=== PATIENT | female | born 1990 | race Caucasian/White ===

== ENCOUNTER 2022-06-26 15:05 | Inpatient (IN) | payer OTHER, SELFPAY ==
--- NOTE | ~2022-06-26 | CT_ITS ---
EXAMINATION: CT ABDOMEN AND PELVIS WITHOUT CONTRAST CLINICAL INFORMATION: Abdominal pain. Hematochezia. COMPARISON: None available. TECHNIQUE: Multidetector volumetric imaging was performed from the superior aspect of the liver through the pubic symphysis. Sagittal and coronal reformatted images were obtained on the technologist's workstation. This CT examination was performed using dose optimization techniques as appropriate, variously including the following: *Automated exposure control *Adjustment of mA and/or kV according to patient size (this includes techniques or standardized protocols for targeted exams where dose is matched to indication/reason for exam; i.e. extremities or head) *Use of iterative reconstruction technique DLP: 868 mGy-cm FINDINGS: LUNG BASES: Normal. No pulmonary consolidation or pleural effusion. LIVER: Hepatomegaly and diffuse hepatic steatosis. The right hepatic lobe measures approximately 24 cm in craniocaudal dimension. No focal liver lesion is identified on this noncontrast examination. GALLBLADDER AND BILIARY TREE: Gallbladder is underdistended and not well seen. No evidence of cholelithiasis. No dilated bile ducts. PANCREAS: Normal. No edema, pancreatic ductal dilatation or mass. SPLEEN: Splenomegaly. Spleen measures up to 14.5 cm maximum dimension. ADRENAL GLANDS: Normal. KIDNEYS AND URETERS: The kidneys have normal size and cortical thickness. No perinephric edema or fluid collection. No urolithiasis or hydroureteronephrosis. BLADDER: Normal. No calculi or wall thickening. BOWEL AND PERITONEUM: The evaluation of the gastrointestinal tract is somewhat limited on this noncontrast examination. Stomach contains ingested food debris. No gastric wall thickening or perigastric inflammatory changes. No dilated bowel loops. No pericolonic fat stranding. The appendix is normal. No abdominal free fluid or pneumoperitoneum. ABDOMINAL WALL: Large body habitus. At the level of the umbilicus, the diastases of rectus abdominis muscles is approximately 6.8 cm. There is mild protrusion of fat into the umbilicus. VASCULATURE: Unremarkable. LYMPH NODES: No pathologic sized lymph nodes in the abdomen or pelvis. No inguinal lymphadenopathy. PELVIC VISCERA: No evidence of uterine or adnexal mass. No pelvic free fluid. MUSCULOSKELETAL: No acute or suspicious osseous abnormality. There is a hemangioma of the L3 vertebral body. CT/CT abdomen pelvis wo IV con IMPRESSION: * Hepatosplenomegaly and diffuse hepatic steatosis. * No acute imaging abnormalities in the abdomen or pelvis. * No noncontrast imaging evidence of inflammatory change or obstruction along the gastrointestinal tract.
[2022-06-26 15:23] VITALS: BP 122/77; PULSE 73; RESP 16; TEMP 36.8; O2SAT 97
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
[2022-06-26 20:44] VITALS: BP 133/80; PULSE 60; RESP 16; TEMP 36.6; O2SAT 99
[2022-06-27 07:47] VITALS: RESP 18
--- NOTE | 2022-06-27 10:16 | PC.NURSE ---
Methadone was verified with Tan Grider LPN at [facility], ?[address], [place] [address] [phone]. Patient last dosed on 06/25/2022 @ 07:53 for 160 mg. Dose verified by Tan Paul LPN.
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
--- NOTE | 2022-06-27 10:40 | HE.PHANOTE ---
Re: methadone verification last dose 160 mg given at [facility] on 06/25/22 verified with Tan Grider by Chari GODINEZ
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
--- NOTE | 2022-06-27 13:30 | PC.NURSE ---
Methadone administered late due to patient requesting to take after eating lunch d/t stomach upset with methadone.
[2022-06-27] MEDS: methADONE HCl 20 MG/2 ML ORAL.CONC 160 MG PO (13:46)
[2022-06-27] MEDS: OLANZapine 10 MG TABLET PO (14:35)
[2022-06-27] MEDS: hydrOXYzine HCL 25 MG TABLET PO (14:35)
[2022-06-27 20:14] VITALS: BP 140/68; PULSE 74; RESP 16; TEMP 36.7; O2SAT 99
[2022-06-27] MEDS: Gabapentin 300 MG CAPSULE PO (20:51)
[2022-06-27] MEDS: Mirtazapine 7.5 MG TABLET PO (20:51)
[2022-06-27] MEDS: OLANZapine 5 MG TABLET PO (20:52)
[2022-06-28 07:35] VITALS: BP 131/74; PULSE 71; RESP 18; TEMP 36.2; O2SAT 96
[2022-06-28] MEDS: Nicotine 21 MG PATCH.TD24 TRANSDERMA (08:49)
[2022-06-28] MEDS: Gabapentin 300 MG CAPSULE PO ×3 (08:50→21:51)
[2022-06-28] MEDS: methADONE HCl 20 MG/2 ML ORAL.CONC 160 MG PO (08:52)
[2022-06-28] MEDS: OLANZapine 10 MG TABLET PO ×3 (11:35→21:51)
--- NOTE | 2022-06-28 15:54 | P.PNPSI_ITS ---
Subjective Subjective Date of Service: 06/28/22 Reason For Visit: 43.10, F41.9, F32.A Interim History: amenable to discussion with MD today. identifies anxiety, AH, and insomnia as target Sx. discuss various medications to address them, decides upon increasing remeron to 30 mg at HS, increasing prazosin to 2 mg at HS, and increasing gabapentin and DCing trileptal (for SAMPSON, Sz D/O, and anxiety). endorses SI and vague in answering many questions. per staff, refused 1:1 mtg last night. guarded, not attending groups. isolative, sleeping or reading. refusing meds. Mental Status Exam Mental Status Exam Narrative: disheveled. no PMA/PMR noted. cooperative. speech terse, nml loudness. thoughts linear and logical. affect blunted. mood i don't know. +SI. no HI/AVH expressed. Diagnostics Vital Signs (24Hr): Vital Signs - 24 hr 06/27/22 20:14 06/28/22 07:35 Temperature 98.0 F 97.2 F Pulse Rate 74 71 Respiratory Rate 16 18 Blood Pressure 140/68 H 131/74 Pulse Oximetry 99 96 Oxygen Delivery Method Room Air Room Air Medications Medications Current Medications Acetaminophen (Acetaminophen 325 Mg Tablet) 650 mg PO Q6H PRN PRN Reason: Headache/Pain Mild Scale (1-3) Al Hydroxide/Mg Hydroxide (Magnesium Hydrox/Alum Hydrox 30 Ml Oral.Susp) 30 ml PO Q6H PRN PRN Reason: Heartburn/Nausea Clonidine HCl (Clonidine Hcl 0.1 Mg Tablet) 0.1 mg PO BID PRN; Protocol PRN Reason: anxiety Gabapentin (Gabapentin 300 Mg Capsule) 300 mg PO TID [facility] Last Admin: 06/28/22 14:12 Dose: 300 mg Hydroxyzine HCl (Hydroxyzine Hcl 25 Mg Tablet) 25 mg PO Q6H PRN PRN Reason: Anxiety Last Admin: 06/27/22 14:35 Dose: 25 mg Magnesium Hydroxide (Milk Of Magnesia 30 Ml Oral.Susp) 30 ml PO DAILY PRN PRN Reason: Constipation Methadone HCl (Methadone Hcl 20 Mg/2 Ml Oral.Conc) 160 mg PO DAILY [facility] Last Admin: 06/28/22 08:52 Dose: 160 mg Mirtazapine (Mirtazapine 30 Mg Tablet) 30 mg PO BEDTIME [facility] Nicotine (Nicotine 21 Mg Patch.Td24) 21 mg TRANSDERMA DAILY [facility] Last Admin: 06/28/22 08:49 Dose: 21 mg Nicotine Polacrilex (Nicotine Polacrilex 2 Mg Gum) 4 mg BUCCAL Q2H PRN PRN Reason: Nicotine Cravings Olanzapine (Olanzapine 10 Mg Tablet) 10 mg PO BID PRN PRN Reason: psychosis, agitation Last Admin: 06/28/22 11:35 Dose: 10 mg Olanzapine (Olanzapine 10 Mg Tablet) 10 mg PO BEDTIME [facility] Omeprazole (Omeprazole 40 Mg Capsule.Dr) 40 mg PO DAILY@0630 [facility] Last Admin: 06/28/22 09:11 Dose: Not Given Ondansetron HCl (Ondansetron Odt 4 Mg Tab.Rapdis) 4 mg TRANSLINGU Q8H PRN PRN Reason: Nausea Prazosin HCl (Prazosin Hcl 1 Mg Capsule) 1 mg PO BEDTIME [facility]; Protocol Stop: 06/29/22 20:59 Prazosin HCl (Prazosin Hcl 1 Mg Capsule) 2 mg PO BEDTIME [facility]; Protocol Sumatriptan Succinate (Sumatriptan Succinate 50 Mg Tablet) 50 mg PO DAILY PRN PRN Reason: Migraine Headache Trazodone HCl (Trazodone Hcl 50 Mg Tablet) 50 mg PO BEDTIME MRX1 PRN PRN Reason: Insomnia Allergies Allergies Allergy/AdvReac Type Severity Reaction Status Date / Time egg AdvReac Hives Verified 06/26/22 15:47 Pork/Porcine Containing AdvReac Anaphylaxis Verified 06/26/22 15:47 Products Assessment & Plan Assessment & Plan (1) Polysubstance use disorder: Status: Acute Code(s): F19.90 - Other psychoactive substance use, unspecified, uncomplicated (2) Persistent mood [affective] disorder, unspecified: Status: Acute Code(s): F34.9 - Persistent mood [affective] disorder, unspecified Plan 06/27: continue/restart home meds regimen. 06/28: refusing wellbutrin and trileptal, so discontinued. c/o PTSD Sx, agrees to increase remeron from 7.5 to 30 and prazosin from 1 to 2 mg tonight. also to increase gabapentin to 300 TID to address migraine SAMPSON, anxiety, and reported Sz D/O. Patient educated on: diagnosis and medication risk/benefits Reason for continued inpatient stay Substantial Risk for: harm to self, inability to function and rapid decompensation Time Spent With Patient Time: Total time managing care of this patient today _35___ minutes.
[2022-06-28 21:50] VITALS: BP 122/66; PULSE 76; RESP 16; TEMP 36.3; O2SAT 96
[2022-06-28] MEDS: Mirtazapine 30 MG TABLET PO (21:51)
[2022-06-28] MEDS: Prazosin HCL 1 MG CAPSULE PO (21:51)
[2022-06-29 07:45] VITALS: BP 123/76; PULSE 81; RESP 16; TEMP 36.7; O2SAT 98
[2022-06-29] MEDS: Nicotine 21 MG PATCH.TD24 TRANSDERMA (08:27)
[2022-06-29] MEDS: Gabapentin 300 MG CAPSULE PO ×3 (08:27→21:21)
[2022-06-29] MEDS: methADONE HCl 20 MG/2 ML ORAL.CONC 160 MG PO (08:29)
[2022-06-29] MEDS: OLANZapine 10 MG TABLET PO ×3 (09:01→21:20)
--- NOTE | 2022-06-29 14:50 | P.PNPSI_ITS ---
Subjective Subjective Date of Service: 06/29/22 Reason For Visit: 43.10, F41.9, F32.A Subjective Notes: Conditional Voluntary Interim History: Pt reports hearing voices at times, male voice that she reports sometimes tells her to harm herself. She reports feeling anxious. She denies any intent to harm herself. She does report that sometimes she does not feel safe here on the unit. Per nursing, pt slept through the night. Minimal interaction with peers. She agrees to increase olanzapine at bedtime. Review of Systems Review of Systems Unable to assess full ROS as pt not agreeable to discussion. She does deny any complaints however. Mental Status Exam Mental Status Exam Narrative: disheveled. no PMA/PMR noted. cooperative. speech terse, nml loudness. thoughts linear and logical. affect blunted. mood depressed, hopeless +SI. +AH of male voice which she reports sometimes tells her to hurt herself. Diagnostics Vital Signs (24Hr): Vital Signs - 24 hr 06/28/22 21:50 06/29/22 07:45 Temperature 97.4 F 98.1 F Pulse Rate 76 81 Respiratory Rate 16 16 Blood Pressure 122/66 123/76 Pulse Oximetry 96 98 Oxygen Delivery Method Room Air Room Air Medications Medications Current Medications Acetaminophen (Acetaminophen 325 Mg Tablet) 650 mg PO Q6H PRN PRN Reason: Headache/Pain Mild Scale (1-3) Al Hydroxide/Mg Hydroxide (Magnesium Hydrox/Alum Hydrox 30 Ml Oral.Susp) 30 ml PO Q6H PRN PRN Reason: Heartburn/Nausea Clonidine HCl (Clonidine Hcl 0.1 Mg Tablet) 0.1 mg PO BID PRN; Protocol PRN Reason: anxiety Gabapentin (Gabapentin 300 Mg Capsule) 300 mg PO TID [facility] Last Admin: 06/29/22 08:27 Dose: 300 mg Hydroxyzine HCl (Hydroxyzine Hcl 25 Mg Tablet) 25 mg PO Q6H PRN PRN Reason: Anxiety Last Admin: 06/27/22 14:35 Dose: 25 mg Magnesium Hydroxide (Milk Of Magnesia 30 Ml Oral.Susp) 30 ml PO DAILY PRN PRN Reason: Constipation Methadone HCl (Methadone Hcl 20 Mg/2 Ml Oral.Conc) 160 mg PO DAILY [facility] Last Admin: 06/29/22 08:29 Dose: 160 mg Mirtazapine (Mirtazapine 30 Mg Tablet) 30 mg PO BEDTIME [facility] Last Admin: 06/28/22 21:51 Dose: 30 mg Nicotine (Nicotine 21 Mg Patch.Td24) 21 mg TRANSDERMA DAILY [facility] Last Admin: 06/29/22 08:27 Dose: 21 mg Nicotine Polacrilex (Nicotine Polacrilex 2 Mg Gum) 4 mg BUCCAL Q2H PRN PRN Reason: Nicotine Cravings Olanzapine (Olanzapine 10 Mg Tablet) 10 mg PO BID PRN PRN Reason: psychosis, agitation Last Admin: 06/29/22 09:01 Dose: 10 mg Olanzapine (Olanzapine 10 Mg Tablet) 10 mg PO BEDTIME [facility] Last Admin: 06/28/22 21:51 Dose: 10 mg Omeprazole (Omeprazole 40 Mg Capsule.Dr) 40 mg PO DAILY@0630 [facility] Last Admin: 06/29/22 08:32 Dose: Not Given Ondansetron HCl (Ondansetron Odt 4 Mg Tab.Rapdis) 4 mg TRANSLINGU Q8H PRN PRN Reason: Nausea Prazosin HCl (Prazosin Hcl 1 Mg Capsule) 1 mg PO BEDTIME [facility]; Protocol Stop: 06/29/22 20:59 Last Admin: 06/28/22 21:51 Dose: 1 mg Prazosin HCl (Prazosin Hcl 1 Mg Capsule) 2 mg PO BEDTIME [facility]; Protocol Sumatriptan Succinate (Sumatriptan Succinate 50 Mg Tablet) 50 mg PO DAILY PRN PRN Reason: Migraine Headache Trazodone HCl (Trazodone Hcl 50 Mg Tablet) 50 mg PO BEDTIME MRX1 PRN PRN Reason: Insomnia Allergies Allergies Allergy/AdvReac Type Severity Reaction Status Date / Time egg AdvReac Hives Verified 06/26/22 15:47 Pork/Porcine Containing AdvReac Anaphylaxis Verified 06/26/22 15:47 Products Assessment & Plan Assessment & Plan (1) Polysubstance use disorder: Status: Acute Code(s): F19.90 - Other psychoactive substance use, unspecified, uncomplicated (2) Persistent mood [affective] disorder, unspecified: Status: Acute Code(s): F34.9 - Persistent mood [affective] disorder, unspecified Plan 06/27: continue/restart home meds regimen. 06/28: refusing wellbutrin and trileptal, so discontinued. c/o PTSD Sx, agrees to increase remeron from 7.5 to 30 and prazosin from 1 to 2 mg tonight. also to increase gabapentin to 300 TID to address migraine SAMPSON, anxiety, and reported Sz D/O. 06/29 increase olanzapine to 15 mg po qhs. Reason for continued inpatient stay Substantial Risk for: inability to function Time Spent With Patient Time: Total time managing care of this patient today ____ minutes.
[2022-06-29] MEDS: LORazepam 1 MG TABLET 2 MG PO (14:59)
[2022-06-29 21:16] VITALS: BP 121/74; PULSE 86; RESP 18; TEMP 37; O2SAT 94
[2022-06-29] MEDS: OLANZapine 7.5 MG TABLET 15 MG PO (21:21)
[2022-06-29] MEDS: Prazosin HCL 1 MG CAPSULE 2 MG PO (21:21)
[2022-06-29] MEDS: Mirtazapine 30 MG TABLET PO (21:21)
[2022-06-30 06:00] VITALS: BP 128/82; PULSE 80; RESP 18; TEMP 36.7; O2SAT 95
[2022-06-30] MEDS: Nicotine 21 MG PATCH.TD24 TRANSDERMA (09:55)
[2022-06-30] MEDS: Omeprazole 40 MG CAPSULE.DR PO (09:55)
[2022-06-30] MEDS: Gabapentin 300 MG CAPSULE PO (09:56)
[2022-06-30] MEDS: methADONE HCl 20 MG/2 ML ORAL.CONC 160 MG PO (09:56)
[2022-06-30] MEDS: OLANZapine 10 MG TABLET PO ×2 (10:05→15:37)
[2022-06-30] MEDS: Gabapentin 300 MG CAPSULE 600 MG PO ×2 (14:48→20:53)
--- NOTE | 2022-06-30 15:27 | HO.PSYCHPN ---
Subjective Subjective Date of Service: 06/30/22 Reason For Visit: 43.10, F41.9, F32.A Interim History: calm, cooperative. rousable from lying in bed. continues to report passive SI. noted that zyprexa was increased to 15 mg QHS last night. interested in increasing gabapentin for anxiety, nerve pain, Sz. also to increase prazosin to 3 mg for insomnia/nightmares. per staff, isolative, withdrawn. some pacing. dep/anx. some SIBI. took morning meds, PRN zyprexa later. reading, sleeping. not attending groups. Mental Status Exam Mental Status Exam Narrative: disheveled. no PMA/PMR noted. cooperative. speech terse, nml loudness. thoughts linear and logical. affect blunted. +SI. no HI/AVH expressed. Diagnostics Vital Signs (24Hr): Vital Signs - 24 hr 06/29/22 21:16 06/30/22 06:00 Temperature 98.6 F 98.1 F Pulse Rate 86 80 Respiratory Rate 18 18 Blood Pressure 121/74 128/82 Pulse Oximetry 94 95 Oxygen Delivery Method Room Air Room Air Medications Medications Current Medications Acetaminophen (Acetaminophen 325 Mg Tablet) 650 mg PO Q6H PRN PRN Reason: Headache/Pain Mild Scale (1-3) Al Hydroxide/Mg Hydroxide (Magnesium Hydrox/Alum Hydrox 30 Ml Oral.Susp) 30 ml PO Q6H PRN PRN Reason: Heartburn/Nausea Clonidine HCl (Clonidine Hcl 0.1 Mg Tablet) 0.1 mg PO BID PRN; Protocol PRN Reason: anxiety Gabapentin (Gabapentin 300 Mg Capsule) 600 mg PO TID [facility] Last Admin: 06/30/22 14:48 Dose: 600 mg Hydroxyzine HCl (Hydroxyzine Hcl 25 Mg Tablet) 25 mg PO Q6H PRN PRN Reason: Anxiety Last Admin: 06/27/22 14:35 Dose: 25 mg Magnesium Hydroxide (Milk Of Magnesia 30 Ml Oral.Susp) 30 ml PO DAILY PRN PRN Reason: Constipation Methadone HCl (Methadone Hcl 20 Mg/2 Ml Oral.Conc) 160 mg PO DAILY [facility] Last Admin: 06/30/22 09:56 Dose: 160 mg Mirtazapine (Mirtazapine 30 Mg Tablet) 30 mg PO BEDTIME [facility] Last Admin: 06/29/22 21:21 Dose: 30 mg Nicotine (Nicotine 21 Mg Patch.Td24) 21 mg TRANSDERMA DAILY [facility] Last Admin: 06/30/22 09:55 Dose: 21 mg Nicotine Polacrilex (Nicotine Polacrilex 2 Mg Gum) 4 mg BUCCAL Q2H PRN PRN Reason: Nicotine Cravings Olanzapine (Olanzapine 10 Mg Tablet) 10 mg PO BID PRN PRN Reason: psychosis, agitation Last Admin: 06/30/22 10:05 Dose: 10 mg Olanzapine (Olanzapine 7.5 Mg Tablet) 15 mg PO BEDTIME [facility] Last Admin: 06/29/22 21:21 Dose: 15 mg Omeprazole (Omeprazole 40 Mg Capsule.Dr) 40 mg PO DAILY@0630 [facility] Last Admin: 06/30/22 09:55 Dose: 40 mg Ondansetron HCl (Ondansetron Odt 4 Mg Tab.Rapdis) 4 mg TRANSLINGU Q8H PRN PRN Reason: Nausea Prazosin HCl (Prazosin Hcl 1 Mg Capsule) 3 mg PO BEDTIME [facility]; Protocol Sumatriptan Succinate (Sumatriptan Succinate 50 Mg Tablet) 50 mg PO DAILY PRN PRN Reason: Migraine Headache Trazodone HCl (Trazodone Hcl 50 Mg Tablet) 50 mg PO BEDTIME MRX1 PRN PRN Reason: Insomnia Allergies Allergies Allergy/AdvReac Type Severity Reaction Status Date / Time egg AdvReac Hives Verified 06/26/22 15:47 Pork/Porcine Containing AdvReac Anaphylaxis Verified 06/26/22 15:47 Products Assessment & Plan Assessment & Plan (1) Polysubstance use disorder: Status: Acute Code(s): F19.90 - Other psychoactive substance use, unspecified, uncomplicated (2) Persistent mood [affective] disorder, unspecified: Status: Acute Code(s): F34.9 - Persistent mood [affective] disorder, unspecified Plan 06/27: continue/restart home meds regimen. 06/28: refusing wellbutrin and trileptal, so discontinued. c/o PTSD Sx, agrees to increase remeron from 7.5 to 30 and prazosin from 1 to 2 mg tonight. also to increase gabapentin to 300 TID to address migraine SAMPSON, anxiety, and reported Sz D/O. 06/29: increase olanzapine to 15 mg po qhs. 06/30: increase gabapentin to 600 TID. increase prazosin to 3 mg QHS. SI and insomnia/nightmares continue. Reason for continued inpatient stay Substantial Risk for: harm to self, inability to function and rapid decompensation Time Spent With Patient Time: Total time managing care of this patient today __25__ minutes.
[2022-06-30] MEDS: Prazosin HCL 1 MG CAPSULE 3 MG PO (20:53)
[2022-06-30] MEDS: Mirtazapine 30 MG TABLET PO (20:54)
[2022-06-30] MEDS: OLANZapine 7.5 MG TABLET 15 MG PO (20:54)
[2022-06-30 20:57] VITALS: BP 109/81; PULSE 96; TEMP 36.9; O2SAT 96
[2022-07-01 08:00] VITALS: BP 124/62; PULSE 86; RESP 18; TEMP 36.7; O2SAT 98
[2022-07-01] MEDS: Omeprazole 40 MG CAPSULE.DR PO (08:56)
[2022-07-01] MEDS: Gabapentin 300 MG CAPSULE 600 MG PO ×3 (08:56→21:02)
[2022-07-01] MEDS: methADONE HCl 20 MG/2 ML ORAL.CONC 160 MG PO (08:57)
[2022-07-01] MEDS: Nicotine 21 MG PATCH.TD24 TRANSDERMA (08:59)
--- NOTE | 2022-07-01 10:01 | HO.PSYCHPN ---
Subjective Subjective Date of Service: 07/01/22 Reason For Visit: 43.10, F41.9, F32.A Subjective Notes: Conditional Voluntary Healthcare Proxy: No Guardianship: No Medical Problems Affecting Mental Status: No Interim History: Patient was seen and discussed in rounds today. Records and plans were reviewed. No labs to review. She continues to be little hard to engage. Continues to have depression and anxiety. Sleep is broken. No groups. She is safe on the unit. She is guarded and flat. Eating and sleeping adequately. No complaints or side effects. No changes were made today. No complaints or side effects with regards to recent medication changes. Medication Compliance: Yes Side effects from medications: No Attending Groups: No Review of Systems Acute medical concerns: No Review of Systems Review of Systems Yes all other systems are reviewed and are negative Mental Status Exam Mental Status Exam Narrative: In today's visit she is alert, oriented and marginally interactive. Speech is soft-spoken. Minimal eye contact. Affect is constricted. No active SI. No overt signs of psychosis. Guarded and flat in her affect. Cognitively heart to assess today. Judgment is generally intact Diagnostics Vital Signs (24Hr): Vital Signs - 24 hr 06/30/22 20:57 Temperature 98.4 F Pulse Rate 96 Blood Pressure 109/81 Pulse Oximetry 96 Oxygen Delivery Method Room Air Medications Medications Current Medications Acetaminophen (Acetaminophen 325 Mg Tablet) 650 mg PO Q6H PRN PRN Reason: Headache/Pain Mild Scale (1-3) Al Hydroxide/Mg Hydroxide (Magnesium Hydrox/Alum Hydrox 30 Ml Oral.Susp) 30 ml PO Q6H PRN PRN Reason: Heartburn/Nausea Clonidine HCl (Clonidine Hcl 0.1 Mg Tablet) 0.1 mg PO BID PRN; Protocol PRN Reason: anxiety Gabapentin (Gabapentin 300 Mg Capsule) 600 mg PO TID [facility] Last Admin: 07/01/22 08:56 Dose: 600 mg Hydroxyzine HCl (Hydroxyzine Hcl 25 Mg Tablet) 25 mg PO Q6H PRN PRN Reason: Anxiety Last Admin: 06/27/22 14:35 Dose: 25 mg Magnesium Hydroxide (Milk Of Magnesia 30 Ml Oral.Susp) 30 ml PO DAILY PRN PRN Reason: Constipation Methadone HCl (Methadone Hcl 20 Mg/2 Ml Oral.Conc) 160 mg PO DAILY [facility] Last Admin: 07/01/22 08:57 Dose: 160 mg Mirtazapine (Mirtazapine 30 Mg Tablet) 30 mg PO BEDTIME [facility] Last Admin: 06/30/22 20:54 Dose: 30 mg Nicotine (Nicotine 21 Mg Patch.Td24) 21 mg TRANSDERMA DAILY [facility] Last Admin: 07/01/22 08:59 Dose: 21 mg Nicotine Polacrilex (Nicotine Polacrilex 2 Mg Gum) 4 mg BUCCAL Q2H PRN PRN Reason: Nicotine Cravings Olanzapine (Olanzapine 10 Mg Tablet) 10 mg PO BID PRN PRN Reason: psychosis, agitation Last Admin: 06/30/22 15:37 Dose: 10 mg Olanzapine (Olanzapine 7.5 Mg Tablet) 15 mg PO BEDTIME [facility] Last Admin: 06/30/22 20:54 Dose: 15 mg Omeprazole (Omeprazole 40 Mg Capsule.Dr) 40 mg PO DAILY@0630 [facility] Last Admin: 07/01/22 08:56 Dose: 40 mg Ondansetron HCl (Ondansetron Odt 4 Mg Tab.Rapdis) 4 mg TRANSLINGU Q8H PRN PRN Reason: Nausea Prazosin HCl (Prazosin Hcl 1 Mg Capsule) 3 mg PO BEDTIME [facility]; Protocol Last Admin: 06/30/22 20:53 Dose: 3 mg Sumatriptan Succinate (Sumatriptan Succinate 50 Mg Tablet) 50 mg PO DAILY PRN PRN Reason: Migraine Headache Trazodone HCl (Trazodone Hcl 50 Mg Tablet) 50 mg PO BEDTIME MRX1 PRN PRN Reason: Insomnia Allergies Allergies Allergy/AdvReac Type Severity Reaction Status Date / Time egg AdvReac Hives Verified 06/26/22 15:47 Pork/Porcine Containing AdvReac Anaphylaxis Verified 06/26/22 15:47 Products Assessment & Plan Assessment & Plan (1) Polysubstance use disorder: Status: Acute Code(s): F19.90 - Other psychoactive substance use, unspecified, uncomplicated (2) Persistent mood [affective] disorder, unspecified: Status: Acute Code(s): F34.9 - Persistent mood [affective] disorder, unspecified Plan 06/27: continue/restart home meds regimen. 06/28: refusing wellbutrin and trileptal, so discontinued. c/o PTSD Sx, agrees to increase remeron from 7.5 to 30 and prazosin from 1 to 2 mg tonight. also to increase gabapentin to 300 TID to address migraine SAMPSON, anxiety, and reported Sz D/O. 06/29: increase olanzapine to 15 mg po qhs. 06/30: increase gabapentin to 600 TID. increase prazosin to 3 mg QHS. SI and insomnia/nightmares continue. 07/01: Continue current regimen and plans Reason for continued inpatient stay Substantial Risk for: med/psych decompensation Time Spent With Patient Time: Total time managing care of this patient today ____ minutes.
[2022-07-01] MEDS: OLANZapine 10 MG TABLET PO ×2 (10:43→17:37)
[2022-07-01] MEDS: cloNIDine HCL 0.1 MG TABLET PO (10:43)
[2022-07-01 10:44] VITALS: BP 139/75
--- NOTE | 2022-07-01 10:54 | PC.NURSE ---
approx 103o Pt reported to staff that she felt suicidal. [employer] Vehicle [employer] went in to talk to Pt she said she felt suicidal without a plan. I asked if she could alert staff if feelings continue and agree to not self harm. Pt replied ill try she also requested Zyprexa and Clonidine. Dr. Reed aware.
--- NOTE | 2022-07-01 13:20 | PC.NURSE ---
Pt visible in milieu watching TV eating ice cream, not engaging in any self harming behaviors.
[2022-07-01] MEDS: hydrOXYzine HCL 25 MG TABLET PO (13:34)
--- NOTE | 2022-07-01 15:52 | PC.NURSE ---
Pt is visible the Milieu, talking on wall phone. No observations of self harm.
[2022-07-01 20:00] VITALS: BP 119/70; PULSE 92; RESP 16; TEMP 36.9; O2SAT 97
[2022-07-01] MEDS: OLANZapine 7.5 MG TABLET 15 MG PO (21:02)
[2022-07-01] MEDS: Mirtazapine 30 MG TABLET PO (21:02)
[2022-07-01] MEDS: Prazosin HCL 1 MG CAPSULE 3 MG PO (21:03)
--- NOTE | 2022-07-01 21:26 | PC.NURSE ---
Brenna is admitted to [facility] for safety, observation, medication reconciliation and stability, diagnosis Bipolar disorder, history SIB. Tonight she appears disheveled in hospital pants and sweat shirt, observed to be in her room lying in bed for the majority of the shift, out to dayroom for snacks, isolating, difficult to engage in 1:1, poor eye contact, reports passive SI as she stated not really when asked if she feels safe on the unit, no SIB noted or reported, med adherent, no observed or reported side effects, positive AH, no seizure activity reported or observed. No acute behavior issues, POC as outlined, continues on 15 min unit safety observation.
--- NOTE | 2022-07-02 08:20 | HO.PSYCHPN ---
Subjective Subjective Date of Service: 07/02/22 Reason For Visit: 43.10, F41.9, F32.A Subjective Notes: Conditional Voluntary Healthcare Proxy: No Guardianship: No Medical Problems Affecting Mental Status: No Interim History: Patient was seen and discussed in rounds today. Records and plans were reviewed. She continues to have some anxiety and depression and some unsafe thoughts however she is safe on the unit. Eating and sleeping adequately. Some command auditory hallucinations reported. He using food as a way of coping. She is having some nightmares. Not attending any groups. No complaints or side effects. No changes were made today Medication Compliance: Yes Side effects from medications: No Attending Groups: No Review of Systems Acute medical concerns: No Review of Systems Review of Systems Yes all other systems are reviewed and are negative Mental Status Exam Mental Status Exam Narrative: In today's visit she is alert, oriented and marginally interactive. Speech is soft-spoken. Minimal eye contact. Affect is constricted. No active SI. No overt signs of psychosis but there are reports of some command auditory hallucinations with no plans and intent.. Guarded and flat in her affect. Cognitively heart to assess today. Judgment is generally intact Diagnostics Vital Signs (24Hr): Vital Signs - 24 hr 07/01/22 10:44 07/01/22 20:00 Temperature 98.4 F Pulse Rate 92 Respiratory Rate 16 Blood Pressure 139/75 119/70 Pulse Oximetry 97 Oxygen Delivery Method Room Air Medications Medications Current Medications Acetaminophen (Acetaminophen 325 Mg Tablet) 650 mg PO Q6H PRN PRN Reason: Headache/Pain Mild Scale (1-3) Al Hydroxide/Mg Hydroxide (Magnesium Hydrox/Alum Hydrox 30 Ml Oral.Susp) 30 ml PO Q6H PRN PRN Reason: Heartburn/Nausea Clonidine HCl (Clonidine Hcl 0.1 Mg Tablet) 0.1 mg PO BID PRN; Protocol PRN Reason: anxiety Last Admin: 07/01/22 10:43 Dose: 0.1 mg Gabapentin (Gabapentin 300 Mg Capsule) 600 mg PO TID [facility] Last Admin: 07/01/22 21:02 Dose: 600 mg Hydroxyzine HCl (Hydroxyzine Hcl 25 Mg Tablet) 25 mg PO Q6H PRN PRN Reason: Anxiety Last Admin: 07/01/22 13:34 Dose: 25 mg Magnesium Hydroxide (Milk Of Magnesia 30 Ml Oral.Susp) 30 ml PO DAILY PRN PRN Reason: Constipation Methadone HCl (Methadone Hcl 20 Mg/2 Ml Oral.Conc) 160 mg PO DAILY [facility] Last Admin: 07/01/22 08:57 Dose: 160 mg Mirtazapine (Mirtazapine 30 Mg Tablet) 30 mg PO BEDTIME [facility] Last Admin: 07/01/22 21:02 Dose: 30 mg Nicotine (Nicotine 21 Mg Patch.Td24) 21 mg TRANSDERMA DAILY [facility] Last Admin: 07/01/22 08:59 Dose: 21 mg Nicotine Polacrilex (Nicotine Polacrilex 2 Mg Gum) 4 mg BUCCAL Q2H PRN PRN Reason: Nicotine Cravings Olanzapine (Olanzapine 10 Mg Tablet) 10 mg PO BID PRN PRN Reason: psychosis, agitation Last Admin: 07/01/22 17:37 Dose: 10 mg Olanzapine (Olanzapine 7.5 Mg Tablet) 15 mg PO BEDTIME [facility] Last Admin: 07/01/22 21:02 Dose: 15 mg Omeprazole (Omeprazole 40 Mg Capsule.Dr) 40 mg PO DAILY@0630 [facility] Last Admin: 07/01/22 08:56 Dose: 40 mg Ondansetron HCl (Ondansetron Odt 4 Mg Tab.Rapdis) 4 mg TRANSLINGU Q8H PRN PRN Reason: Nausea Prazosin HCl (Prazosin Hcl 1 Mg Capsule) 3 mg PO BEDTIME [facility]; Protocol Last Admin: 07/01/22 21:03 Dose: 3 mg Sumatriptan Succinate (Sumatriptan Succinate 50 Mg Tablet) 50 mg PO DAILY PRN PRN Reason: Migraine Headache Trazodone HCl (Trazodone Hcl 50 Mg Tablet) 50 mg PO BEDTIME MRX1 PRN PRN Reason: Insomnia Allergies Allergies Allergy/AdvReac Type Severity Reaction Status Date / Time egg AdvReac Hives Verified 06/26/22 15:47 Pork/Porcine Containing AdvReac Anaphylaxis Verified 06/26/22 15:47 Products Assessment & Plan Assessment & Plan (1) Polysubstance use disorder: Status: Acute Code(s): F19.90 - Other psychoactive substance use, unspecified, uncomplicated (2) Persistent mood [affective] disorder, unspecified: Status: Acute Code(s): F34.9 - Persistent mood [affective] disorder, unspecified Plan 06/27: continue/restart home meds regimen. 06/28: refusing wellbutrin and trileptal, so discontinued. c/o PTSD Sx, agrees to increase remeron from 7.5 to 30 and prazosin from 1 to 2 mg tonight. also to increase gabapentin to 300 TID to address migraine SAMPSON, anxiety, and reported Sz D/O. 06/29: increase olanzapine to 15 mg po qhs. 06/30: increase gabapentin to 600 TID. increase prazosin to 3 mg QHS. SI and insomnia/nightmares continue. 07/01: Continue current regimen and plans 07/02: Continue current plans and regimen Reason for continued inpatient stay Substantial Risk for: harm to self and med/psych decompensation Time Spent With Patient Time: Total time managing care of this patient today ____ minutes.
[2022-07-02 08:25] VITALS: BP 115/62; PULSE 80; RESP 18; TEMP 36.6; O2SAT 97
[2022-07-02] MEDS: Omeprazole 40 MG CAPSULE.DR PO (08:59)
[2022-07-02] MEDS: Nicotine 21 MG PATCH.TD24 TRANSDERMA (08:59)
[2022-07-02] MEDS: Gabapentin 300 MG CAPSULE 600 MG PO ×3 (08:59→21:13)
[2022-07-02] MEDS: methADONE HCl 20 MG/2 ML ORAL.CONC 160 MG PO (09:01)
[2022-07-02] MEDS: OLANZapine 10 MG TABLET PO ×2 (11:15→17:42)
[2022-07-02 12:41] VITALS: BP 122/67; PULSE 81; RESP 18; O2SAT 96
[2022-07-02] MEDS: cloNIDine HCL 0.1 MG TABLET PO (12:51)
[2022-07-02 20:40] VITALS: BP 104/62; PULSE 85; RESP 18; TEMP 36.8; O2SAT 97
[2022-07-02] MEDS: Mirtazapine 30 MG TABLET PO (21:12)
[2022-07-02] MEDS: Prazosin HCL 1 MG CAPSULE 3 MG PO (21:13)
[2022-07-02] MEDS: OLANZapine 7.5 MG TABLET 15 MG PO (21:13)
--- NOTE | 2022-07-03 05:13 | PC.NURSE ---
Brenna was noted to be resting in bed throughout the evening. her affect is flat and depressed. she endorses depression and anxiety 8/. she endorses suicidal ideation but states she is safe on the unit because there's nothing here I could hurt myself with well, I guess if I tried hard enough I could find something but I wont. she endorses [facility] telling her to hurt herself and saying other negative things. she took her HS medications without difficulty. no behavioral concerns noted, monitor for safety, continue Plan of Care
[2022-07-03 06:15] VITALS: BP 123/78; PULSE 90; RESP 18; TEMP 36.7; O2SAT 98
[2022-07-03] MEDS: Omeprazole 40 MG CAPSULE.DR PO (09:16)
[2022-07-03] MEDS: Gabapentin 300 MG CAPSULE 600 MG PO (09:17)
[2022-07-03] MEDS: methADONE HCl 20 MG/2 ML ORAL.CONC 160 MG PO (09:19)
[2022-07-03] MEDS: Nicotine 21 MG PATCH.TD24 TRANSDERMA (09:19)
[2022-07-03] MEDS: OLANZapine 10 MG TABLET PO ×2 (09:55→16:41)
--- NOTE | 2022-07-03 11:50 | PC.NURSE ---
Pts hands slightly Edematous, encouraged to drink more water. Refrain from from high sodium foods such as chips and other salty snacks.
[2022-07-03] MEDS: Gabapentin 300 MG CAPSULE 900 MG PO ×2 (14:39→21:48)
--- NOTE | 2022-07-03 15:34 | HO.PSYCHPN ---
Subjective Subjective Date of Service: 07/03/22 Reason For Visit: 43.10, F41.9, F32.A Interim History: states she is feeling down, broken, exhausted in life. endorses ongoing SI. also, voices calling my name and making derogatory comments. interested in increasing prazosin to 4 mg at HS for nightmares and gabapentin to 900 TID for anxiety. per staff, anx 8 dep 10. CAH to hurt self. using headphones and art for coping strategies. med and meal compliant. not feeling safe. up x1 overnight for a snack. Mental Status Exam Mental Status Exam Narrative: disheveled. no PMA/PMR noted. cooperative. speech terse, nml loudness. thoughts linear and logical. affect blunted. +SI. +AH. no HI/VH expressed. Diagnostics Vital Signs (24Hr): Vital Signs - 24 hr 07/02/22 20:40 07/03/22 06:15 Temperature 98.2 F 98.1 F Pulse Rate 85 90 Respiratory Rate 18 18 Blood Pressure 104/62 123/78 Pulse Oximetry 97 98 Oxygen Delivery Method Room Air Room Air Medications Medications Current Medications Acetaminophen (Acetaminophen 325 Mg Tablet) 650 mg PO Q6H PRN PRN Reason: Headache/Pain Mild Scale (1-3) Al Hydroxide/Mg Hydroxide (Magnesium Hydrox/Alum Hydrox 30 Ml Oral.Susp) 30 ml PO Q6H PRN PRN Reason: Heartburn/Nausea Clonidine HCl (Clonidine Hcl 0.1 Mg Tablet) 0.1 mg PO BID PRN; Protocol PRN Reason: anxiety Last Admin: 07/02/22 12:51 Dose: 0.1 mg Gabapentin (Gabapentin 300 Mg Capsule) 900 mg PO TID [facility] Last Admin: 07/03/22 14:39 Dose: 900 mg Hydroxyzine HCl (Hydroxyzine Hcl 25 Mg Tablet) 25 mg PO Q6H PRN PRN Reason: Anxiety Last Admin: 07/01/22 13:34 Dose: 25 mg Magnesium Hydroxide (Milk Of Magnesia 30 Ml Oral.Susp) 30 ml PO DAILY PRN PRN Reason: Constipation Methadone HCl (Methadone Hcl 20 Mg/2 Ml Oral.Conc) 160 mg PO DAILY [facility] Last Admin: 07/03/22 09:19 Dose: 160 mg Mirtazapine (Mirtazapine 30 Mg Tablet) 30 mg PO BEDTIME [facility] Last Admin: 07/02/22 21:12 Dose: 30 mg Nicotine (Nicotine 21 Mg Patch.Td24) 21 mg TRANSDERMA DAILY [facility] Last Admin: 07/03/22 09:19 Dose: 21 mg Nicotine Polacrilex (Nicotine Polacrilex 2 Mg Gum) 4 mg BUCCAL Q2H PRN PRN Reason: Nicotine Cravings Olanzapine (Olanzapine 10 Mg Tablet) 10 mg PO BID PRN PRN Reason: psychosis, agitation Last Admin: 07/03/22 09:55 Dose: 10 mg Olanzapine (Olanzapine 7.5 Mg Tablet) 15 mg PO BEDTIME [facility] Last Admin: 07/02/22 21:13 Dose: 15 mg Omeprazole (Omeprazole 40 Mg Capsule.Dr) 40 mg PO DAILY@0630 [facility] Last Admin: 07/03/22 09:16 Dose: 40 mg Ondansetron HCl (Ondansetron Odt 4 Mg Tab.Rapdis) 4 mg TRANSLINGU Q8H PRN PRN Reason: Nausea Prazosin HCl (Prazosin Hcl 1 Mg Capsule) 4 mg PO BEDTIME [facility]; Protocol Sumatriptan Succinate (Sumatriptan Succinate 50 Mg Tablet) 50 mg PO DAILY PRN PRN Reason: Migraine Headache Trazodone HCl (Trazodone Hcl 50 Mg Tablet) 50 mg PO BEDTIME MRX1 PRN PRN Reason: Insomnia Allergies Allergies Allergy/AdvReac Type Severity Reaction Status Date / Time egg AdvReac Hives Verified 06/26/22 15:47 Pork/Porcine Containing AdvReac Anaphylaxis Verified 06/26/22 15:47 Products Assessment & Plan Assessment & Plan (1) Polysubstance use disorder: Status: Acute Code(s): F19.90 - Other psychoactive substance use, unspecified, uncomplicated (2) Persistent mood [affective] disorder, unspecified: Status: Acute Code(s): F34.9 - Persistent mood [affective] disorder, unspecified Plan 06/27: continue/restart home meds regimen. 06/28: refusing wellbutrin and trileptal, so discontinued. c/o PTSD Sx, agrees to increase remeron from 7.5 to 30 and prazosin from 1 to 2 mg tonight. also to increase gabapentin to 300 TID to address migraine SAMPSON, anxiety, and reported Sz D/O. 06/29: increase olanzapine to 15 mg po qhs. 06/30: increase gabapentin to 600 TID. increase prazosin to 3 mg QHS. SI and insomnia/nightmares continue. 07/01: Continue current regimen and plans 07/02: Continue current plans and regimen 07/03: increase gabapentin to 900 TID for anxiety/migraine/Sz D/O. increase prazosin to 4 mg for nightmares. SI/AH continue. Reason for continued inpatient stay Substantial Risk for: harm to self, inability to function and rapid decompensation Time Spent With Patient Time: Total time managing care of this patient today _25___ minutes.
[2022-07-03] MEDS: hydrOXYzine HCL 25 MG TABLET PO (18:12)
[2022-07-03] MEDS: cloNIDine HCL 0.1 MG TABLET PO (18:23)
[2022-07-03 18:24] VITALS: BP 140/77; PULSE 92; RESP 20; TEMP 36.1; O2SAT 98
[2022-07-03] MEDS: Mirtazapine 30 MG TABLET PO (21:48)
[2022-07-03] MEDS: OLANZapine 7.5 MG TABLET 15 MG PO (21:48)
[2022-07-03] MEDS: Prazosin HCL 1 MG CAPSULE 4 MG PO (21:52)
[2022-07-04 06:00] VITALS: BP 115/70; PULSE 96; RESP 16; TEMP 36.7; O2SAT 96
[2022-07-04] MEDS: Omeprazole 40 MG CAPSULE.DR PO (09:16)
[2022-07-04] MEDS: Gabapentin 300 MG CAPSULE 900 MG PO ×3 (09:16→21:29)
[2022-07-04] MEDS: Nicotine 21 MG PATCH.TD24 TRANSDERMA (09:17)
[2022-07-04] MEDS: methADONE HCl 20 MG/2 ML ORAL.CONC 160 MG PO (09:18)
[2022-07-04] MEDS: OLANZapine 10 MG TABLET PO ×2 (10:00→17:59)
[2022-07-04 13:03] VITALS: BP 117/67; PULSE 80
[2022-07-04] MEDS: cloNIDine HCL 0.1 MG TABLET PO (13:04)
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
[2022-07-04] MEDS: hydrOXYzine HCL 25 MG TABLET PO (16:34)
[2022-07-04] MEDS: OLANZapine 7.5 MG TABLET 15 MG PO (21:29)
[2022-07-04] MEDS: Mirtazapine 30 MG TABLET PO (21:29)
[2022-07-04] MEDS: Prazosin HCL 5 MG CAPSULE PO (21:29)
[2022-07-04 21:32] VITALS: BP 118/67; PULSE 88; TEMP 36.7; O2SAT 95
[2022-07-05 08:18] VITALS: BP 99/64; PULSE 79; RESP 18; TEMP 36.8; O2SAT 96
[2022-07-05] MEDS: Gabapentin 300 MG CAPSULE 900 MG PO ×3 (08:53→21:22)
[2022-07-05] MEDS: Nicotine 21 MG PATCH.TD24 TRANSDERMA (08:53)
[2022-07-05] MEDS: Omeprazole 40 MG CAPSULE.DR PO (08:54)
[2022-07-05] MEDS: methADONE HCl 20 MG/2 ML ORAL.CONC 160 MG PO (10:01)
[2022-07-05] MEDS: OLANZapine 10 MG TABLET PO ×2 (10:18→17:35)
--- NOTE | 2022-07-05 12:49 | P.PNPSI_ITS ---
Subjective Subjective Date of Service: 07/05/22 Reason For Visit: 43.10, F41.9, F32.A Interim History: calm, cooperative. mood improved, less SI. no nightmares last NOC, up and down but falling back to sleep better than previously. interested in CSS. per staff, +AH. anx/dep 10/22. i'm discharging soon and i'm homeless. not attending groups. spending her time in her room. isolative, reading. up x 1 O/N, otherwise slept. Mental Status Exam Mental Status Exam Narrative: disheveled. no PMA/PMR noted. cooperative. speech more wordy, nml loudness. thoughts linear and logical. mood depressed a little bit but better than a few days ago. affect more flexible. SI - 75% of me wants to , and 25% of me wants to live. +AH. no HI/VH expressed. Diagnostics Vital Signs (24Hr): Vital Signs - 24 hr 07/04/22 13:03 07/04/22 21:32 07/05/22 08:18 Temperature 98.1 F 98.3 F Pulse Rate 80 88 79 Respiratory Rate 18 Blood Pressure 117/67 118/67 99/64 Pulse Oximetry 95 96 Oxygen Delivery Method Room Air Medications Medications Current Medications Acetaminophen (Acetaminophen 325 Mg Tablet) 650 mg PO Q6H PRN PRN Reason: Headache/Pain Mild Scale (1-3) Al Hydroxide/Mg Hydroxide (Magnesium Hydrox/Alum Hydrox 30 Ml Oral.Susp) 30 ml PO Q6H PRN PRN Reason: Heartburn/Nausea Clonidine HCl (Clonidine Hcl 0.1 Mg Tablet) 0.1 mg PO BID PRN; Protocol PRN Reason: anxiety Last Admin: 07/04/22 13:04 Dose: 0.1 mg Gabapentin (Gabapentin 300 Mg Capsule) 900 mg PO TID [facility] Last Admin: 07/05/22 08:53 Dose: 900 mg Hydroxyzine HCl (Hydroxyzine Hcl 25 Mg Tablet) 25 mg PO Q6H PRN PRN Reason: Anxiety Last Admin: 07/04/22 16:34 Dose: 25 mg Magnesium Hydroxide (Milk Of Magnesia 30 Ml Oral.Susp) 30 ml PO DAILY PRN PRN Reason: Constipation Methadone HCl (Methadone Hcl 20 Mg/2 Ml Oral.Conc) 160 mg PO DAILY [facility] Last Admin: 07/05/22 10:01 Dose: 160 mg Mirtazapine (Mirtazapine 30 Mg Tablet) 30 mg PO BEDTIME [facility] Last Admin: 07/04/22 21:29 Dose: 30 mg Nicotine (Nicotine 21 Mg Patch.Td24) 21 mg TRANSDERMA DAILY [facility] Last Admin: 07/05/22 08:53 Dose: 21 mg Nicotine Polacrilex (Nicotine Polacrilex 2 Mg Gum) 4 mg BUCCAL Q2H PRN PRN Reason: Nicotine Cravings Olanzapine (Olanzapine 10 Mg Tablet) 10 mg PO BID PRN PRN Reason: psychosis, agitation Last Admin: 07/05/22 10:18 Dose: 10 mg Olanzapine (Olanzapine 7.5 Mg Tablet) 15 mg PO BEDTIME [facility] Last Admin: 07/04/22 21:29 Dose: 15 mg Omeprazole (Omeprazole 40 Mg Capsule.Dr) 40 mg PO DAILY@0630 [facility] Last Admin: 07/05/22 08:54 Dose: 40 mg Ondansetron HCl (Ondansetron Odt 4 Mg Tab.Rapdis) 4 mg TRANSLINGU Q8H PRN PRN Reason: Nausea Prazosin HCl (Prazosin Hcl 5 Mg Capsule) 5 mg PO BEDTIME [facility]; Protocol Last Admin: 07/04/22 21:29 Dose: 5 mg Sumatriptan Succinate (Sumatriptan Succinate 50 Mg Tablet) 50 mg PO DAILY PRN PRN Reason: Migraine Headache Trazodone HCl (Trazodone Hcl 50 Mg Tablet) 50 mg PO BEDTIME MRX1 PRN PRN Reason: Insomnia Allergies Allergies Allergy/AdvReac Type Severity Reaction Status Date / Time egg AdvReac Hives Verified 06/26/22 15:47 Pork/Porcine Containing AdvReac Anaphylaxis Verified 06/26/22 15:47 Products Assessment & Plan Assessment & Plan (1) Polysubstance use disorder: Status: Acute Code(s): F19.90 - Other psychoactive substance use, unspecified, uncomplicated (2) Persistent mood [affective] disorder, unspecified: Status: Acute Code(s): F34.9 - Persistent mood [affective] disorder, unspecified Plan 06/27: continue/restart home meds regimen. 06/28: refusing wellbutrin and trileptal, so discontinued. c/o PTSD Sx, agrees to increase remeron from 7.5 to 30 and prazosin from 1 to 2 mg tonight. also to increase gabapentin to 300 TID to address migraine SAMPSON, anxiety, and reported Sz D/O. 06/29: increase olanzapine to 15 mg po qhs. 06/30: increase gabapentin to 600 TID. increase prazosin to 3 mg QHS. SI and insomnia/nightmares continue. 07/01: Continue current regimen and plans 07/02: Continue current plans and regimen 07/03: increase gabapentin to 900 TID for anxiety/migraine/Sz D/O. increase prazosin to 4 mg for nightmares. SI/AH continue. 07/04: same presentation. increase prazosin to 5 mg QHS. +SI, AH. 07/05: reporting improvements in mood and SI. no nightmares last night, sleeping better. awaiting CSS bed. continue current mgmt. Reason for continued inpatient stay Substantial Risk for: harm to self, inability to function and rapid decompensation Time Spent With Patient Time: Total time managing care of this patient today ____ minutes.
[2022-07-05] MEDS: cloNIDine HCL 0.1 MG TABLET PO (13:05)
[2022-07-05 19:40] VITALS: BP 117/74; PULSE 82; RESP 16; TEMP 36.6; O2SAT 97
[2022-07-05] MEDS: Prazosin HCL 5 MG CAPSULE PO (21:22)
[2022-07-05] MEDS: OLANZapine 7.5 MG TABLET 15 MG PO (21:22)
[2022-07-05] MEDS: Mirtazapine 30 MG TABLET PO (21:22)
[2022-07-06] MEDS: Omeprazole 40 MG CAPSULE.DR PO (06:15)
[2022-07-06] MEDS: Nicotine 21 MG PATCH.TD24 TRANSDERMA (08:44)
[2022-07-06] MEDS: methADONE HCl 20 MG/2 ML ORAL.CONC 160 MG PO (08:45)
[2022-07-06] MEDS: Gabapentin 300 MG CAPSULE 900 MG PO ×3 (08:45→21:31)
[2022-07-06] MEDS: OLANZapine 10 MG TABLET PO ×2 (09:13→15:39)
[2022-07-06 10:13] VITALS: BP 103/59; PULSE 96; TEMP 36.8; O2SAT 96
[2022-07-06] MEDS: cloNIDine HCL 0.1 MG TABLET PO (12:23)
--- NOTE | 2022-07-06 14:18 | HO.PSYCHPN ---
Subjective Subjective Date of Service: 07/06/22 Reason For Visit: 43.10, F41.9, F32.A Interim History: pt reports worsened mood today, worst in the past week, per her report. more SI today than at any time in the past week. i just don't want to live anymore. nightmares last night, worse sleep last night. cannot identify any precipitating factors. no change in mgmt today. per staff, visible, pacing, guarded. anx/dep 9. anx re discharge. +SI. broken sleep but feels rested. +AH, comes and goes. attended art group. Mental Status Exam Mental Status Exam Narrative: disheveled. no PMA/PMR noted. cooperative. speech nml rate and amount, nml loudness. thoughts linear and logical. mood very depressed. affect constricted, normo-intense, non-labile. +SI (worst in the past week), +AH ( comes and goes ). no HI/VH. Diagnostics Vital Signs (24Hr): Vital Signs - 24 hr 07/05/22 19:40 07/06/22 10:13 Temperature 98 F 98.3 F Pulse Rate 82 96 Respiratory Rate 16 Blood Pressure 117/74 103/59 L Pulse Oximetry 97 96 Oxygen Delivery Method Room Air Room Air Medications Medications Current Medications Acetaminophen (Acetaminophen 325 Mg Tablet) 650 mg PO Q6H PRN PRN Reason: Headache/Pain Mild Scale (1-3) Al Hydroxide/Mg Hydroxide (Magnesium Hydrox/Alum Hydrox 30 Ml Oral.Susp) 30 ml PO Q6H PRN PRN Reason: Heartburn/Nausea Clonidine HCl (Clonidine Hcl 0.1 Mg Tablet) 0.1 mg PO BID PRN; Protocol PRN Reason: anxiety Last Admin: 07/06/22 12:23 Dose: 0.1 mg Gabapentin (Gabapentin 300 Mg Capsule) 900 mg PO TID [facility] Last Admin: 07/06/22 08:45 Dose: 900 mg Hydroxyzine HCl (Hydroxyzine Hcl 25 Mg Tablet) 25 mg PO Q6H PRN PRN Reason: Anxiety Last Admin: 07/04/22 16:34 Dose: 25 mg Magnesium Hydroxide (Milk Of Magnesia 30 Ml Oral.Susp) 30 ml PO DAILY PRN PRN Reason: Constipation Methadone HCl (Methadone Hcl 20 Mg/2 Ml Oral.Conc) 160 mg PO DAILY [facility] Last Admin: 07/06/22 08:45 Dose: 160 mg Mirtazapine (Mirtazapine 30 Mg Tablet) 30 mg PO BEDTIME [facility] Last Admin: 07/05/22 21:22 Dose: 30 mg Nicotine (Nicotine 21 Mg Patch.Td24) 21 mg TRANSDERMA DAILY [facility] Last Admin: 07/06/22 08:44 Dose: 21 mg Nicotine Polacrilex (Nicotine Polacrilex 2 Mg Gum) 4 mg BUCCAL Q2H PRN PRN Reason: Nicotine Cravings Olanzapine (Olanzapine 10 Mg Tablet) 10 mg PO BID PRN PRN Reason: psychosis, agitation Last Admin: 07/06/22 09:13 Dose: 10 mg Olanzapine (Olanzapine 7.5 Mg Tablet) 15 mg PO BEDTIME [facility] Last Admin: 07/05/22 21:22 Dose: 15 mg Omeprazole (Omeprazole 40 Mg Capsule.Dr) 40 mg PO DAILY@0630 [facility] Last Admin: 07/06/22 06:15 Dose: 40 mg Ondansetron HCl (Ondansetron Odt 4 Mg Tab.Rapdis) 4 mg TRANSLINGU Q8H PRN PRN Reason: Nausea Prazosin HCl (Prazosin Hcl 5 Mg Capsule) 5 mg PO BEDTIME [facility]; Protocol Last Admin: 07/05/22 21:22 Dose: 5 mg Sumatriptan Succinate (Sumatriptan Succinate 50 Mg Tablet) 50 mg PO DAILY PRN PRN Reason: Migraine Headache Trazodone HCl (Trazodone Hcl 50 Mg Tablet) 50 mg PO BEDTIME MRX1 PRN PRN Reason: Insomnia Allergies Allergies Allergy/AdvReac Type Severity Reaction Status Date / Time egg AdvReac Hives Verified 06/26/22 15:47 Pork/Porcine Containing AdvReac Anaphylaxis Verified 06/26/22 15:47 Products Assessment & Plan Assessment & Plan (1) Polysubstance use disorder: Status: Acute Code(s): F19.90 - Other psychoactive substance use, unspecified, uncomplicated (2) Persistent mood [affective] disorder, unspecified: Status: Acute Code(s): F34.9 - Persistent mood [affective] disorder, unspecified Plan 06/27: continue/restart home meds regimen. 06/28: refusing wellbutrin and trileptal, so discontinued. c/o PTSD Sx, agrees to increase remeron from 7.5 to 30 and prazosin from 1 to 2 mg tonight. also to increase gabapentin to 300 TID to address migraine SAMPSON, anxiety, and reported Sz D/O. 06/29: increase olanzapine to 15 mg po qhs. 06/30: increase gabapentin to 600 TID. increase prazosin to 3 mg QHS. SI and insomnia/nightmares continue. 07/01: Continue current regimen and plans 07/02: Continue current plans and regimen 07/03: increase gabapentin to 900 TID for anxiety/migraine/Sz D/O. increase prazosin to 4 mg for nightmares. SI/AH continue. 07/04: same presentation. increase prazosin to 5 mg QHS. +SI, AH. 07/05: reporting improvements in mood and SI. no nightmares last night, sleeping better. awaiting CSS bed. continue current mgmt. 07/06: mood suddenly much worse, SI worse. AH remain improved. worse sleep, some nightmares. BP borderline, will not increase prazosin tonight. continue current mgmt. pt encouraged to go to groups and work toward CSS. Reason for continued inpatient stay Substantial Risk for: harm to self, inability to function and rapid decompensation Time Spent With Patient Time: Total time managing care of this patient today __25__ minutes.
[2022-07-06] MEDS: hydrOXYzine HCL 25 MG TABLET PO (18:10)
[2022-07-06 20:10] VITALS: BP 110/70; PULSE 88; TEMP 36.6; O2SAT 98
[2022-07-06] MEDS: OLANZapine 7.5 MG TABLET 15 MG PO (21:31)
[2022-07-06] MEDS: Prazosin HCL 5 MG CAPSULE PO (21:31)
[2022-07-06] MEDS: Mirtazapine 30 MG TABLET PO (21:31)
[2022-07-07] MEDS: Acetaminophen 325 MG TABLET 650 MG PO ×3 (02:11→16:53)
[2022-07-07] MEDS: Omeprazole 40 MG CAPSULE.DR PO (06:04)
[2022-07-07] MEDS: Nicotine 21 MG PATCH.TD24 TRANSDERMA (08:56)
[2022-07-07] MEDS: Gabapentin 300 MG CAPSULE 900 MG PO ×3 (08:56→22:08)
[2022-07-07] MEDS: methADONE HCl 20 MG/2 ML ORAL.CONC 160 MG PO (08:56)
[2022-07-07 09:06] VITALS: BP 133/76; PULSE 101; RESP 18; TEMP 36.6; O2SAT 97
[2022-07-07] MEDS: OLANZapine 10 MG TABLET PO (10:26)
[2022-07-07 12:00] LABS: Appearance Urine Clear; Color Urine Yellow; Glucose Urine UA Negative (Negative); Leukocyte Esterase Urine Negative (Negative); Nitrite Urine Negative (Negative); PH 5.5 (5.0-9.0); Specific Gravity - Urine <= 1.005 (1.005-1.025); Urine Blood Negative (Negative); Urine Ketones Negative (Negative); Urine Protein Negative (Neg-Trace)
[2022-07-07 12:03] LABS: Bacteria Urine None Seen (None Seen); Hyaline Casts Urine 0-2 /LPF (0-2); RBC Urine 0-2 /HPF (0-2); Squamous Epithelial Cell Urine 0-2 /HPF (0-2); WBC Urine 0-5 /HPF (0-5)
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
[2022-07-07] MEDS: OLANZapine 7.5 MG TABLET 15 MG PO ×2 (14:23→22:08)
[2022-07-07 16:22] VITALS: BP 137/84; PULSE 82
[2022-07-07] MEDS: cloNIDine HCL 0.1 MG TABLET PO (16:23)
[2022-07-07 20:47] VITALS: BP 120/68; PULSE 84; RESP 18; TEMP 36.6; O2SAT 96
[2022-07-07] MEDS: Prazosin HCL 1 MG CAPSULE 6 MG PO (22:08)
[2022-07-07] MEDS: Mirtazapine 30 MG TABLET PO (22:08)
[2022-07-08] MEDS: Omeprazole 40 MG CAPSULE.DR PO (06:09)
[2022-07-08] MEDS: methADONE HCl 20 MG/2 ML ORAL.CONC 160 MG PO (08:45)
[2022-07-08] MEDS: Gabapentin 300 MG CAPSULE 900 MG PO ×3 (08:45→21:50)
[2022-07-08] MEDS: Nicotine 21 MG PATCH.TD24 TRANSDERMA (08:45)
[2022-07-08 08:52] VITALS: BP 101/57; PULSE 104; RESP 18; TEMP 37.1; O2SAT 97
[2022-07-08] MEDS: OLANZapine 7.5 MG TABLET 15 MG PO ×3 (09:15→21:51)
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
[2022-07-08 20:42] VITALS: BP 133/79; PULSE 108; RESP 16; TEMP 36.2; O2SAT 98
[2022-07-08] MEDS: Prazosin HCL 1 MG CAPSULE 6 MG PO (21:51)
[2022-07-08] MEDS: Mirtazapine 30 MG TABLET PO (21:51)
[2022-07-09] MEDS: Omeprazole 40 MG CAPSULE.DR PO (06:33)
[2022-07-09] MEDS: Nicotine 21 MG PATCH.TD24 TRANSDERMA (08:25)
[2022-07-09] MEDS: methADONE HCl 20 MG/2 ML ORAL.CONC 160 MG PO (08:25)
[2022-07-09] MEDS: Gabapentin 300 MG CAPSULE 900 MG PO ×3 (08:26→21:41)
[2022-07-09 08:55] VITALS: BP 112/78; PULSE 96; RESP 18; TEMP 36.6; O2SAT 97
[2022-07-09] MEDS: OLANZapine 7.5 MG TABLET 15 MG PO ×3 (09:20→21:41)
[2022-07-09] MEDS: Acetaminophen 325 MG TABLET 650 MG PO ×2 (10:37→16:49)
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
[2022-07-09] MEDS: cloNIDine HCL 0.1 MG TABLET PO (16:49)
[2022-07-09] MEDS: Prazosin HCL 1 MG CAPSULE 6 MG PO (21:40)
[2022-07-09] MEDS: Mirtazapine 15 MG TABLET 45 MG PO (21:41)
[2022-07-09 21:45] VITALS: BP 120/66; PULSE 86; TEMP 36.8; O2SAT 97
[2022-07-10 08:30] VITALS: BP 119/68; PULSE 90; RESP 18; TEMP 36.6; O2SAT 96
[2022-07-10] MEDS: methADONE HCl 20 MG/2 ML ORAL.CONC 160 MG PO (08:48)
[2022-07-10] MEDS: Gabapentin 300 MG CAPSULE 900 MG PO ×3 (08:50→22:16)
[2022-07-10] MEDS: Omeprazole 40 MG CAPSULE.DR PO (08:50)
[2022-07-10] MEDS: Nicotine 21 MG PATCH.TD24 TRANSDERMA (08:56)
[2022-07-10] MEDS: OLANZapine 7.5 MG TABLET 15 MG PO ×3 (09:09→22:16)
[2022-07-10] MEDS: cloNIDine HCL 0.1 MG TABLET PO (10:18)
[2022-07-10] MEDS: hydrOXYzine HCL 25 MG TABLET PO (13:29)
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
[2022-07-10] MEDS: Acetaminophen 325 MG TABLET 650 MG PO (17:27)
[2022-07-10 22:05] VITALS: BP 122/62; PULSE 79; RESP 16; TEMP 36.3; O2SAT 94
[2022-07-10] MEDS: Prazosin HCL 1 MG CAPSULE 7 MG PO (22:17)
[2022-07-10] MEDS: Mirtazapine 15 MG TABLET 45 MG PO (22:17)
[2022-07-11] MEDS: Omeprazole 40 MG CAPSULE.DR PO (06:51)
[2022-07-11] MEDS: Gabapentin 300 MG CAPSULE 900 MG PO ×3 (09:28→21:36)
[2022-07-11] MEDS: Nicotine 21 MG PATCH.TD24 TRANSDERMA (09:29)
[2022-07-11] MEDS: methADONE HCl 20 MG/2 ML ORAL.CONC 160 MG PO (09:30)
[2022-07-11] MEDS: OLANZapine 7.5 MG TABLET 15 MG PO ×3 (10:46→21:36)
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
[2022-07-11 12:55] VITALS: BP 121/76; PULSE 100
[2022-07-11] MEDS: cloNIDine HCL 0.1 MG TABLET PO (13:03)
[2022-07-11] MEDS: Acetaminophen 325 MG TABLET 650 MG PO (18:51)
[2022-07-11] MEDS: hydrOXYzine HCL 25 MG TABLET PO (19:37)
[2022-07-11 20:09] VITALS: BP 128/76; PULSE 100; TEMP 36.6; O2SAT 96
[2022-07-11] MEDS: Mirtazapine 15 MG TABLET 45 MG PO (21:35)
[2022-07-11] MEDS: Prazosin HCL 1 MG CAPSULE 7 MG PO (21:36)
[2022-07-12 06:00] VITALS: BP 117/76; PULSE 102; RESP 18; TEMP 36.3; O2SAT 96
[2022-07-12] MEDS: Acetaminophen 325 MG TABLET 650 MG PO ×2 (08:03→21:26)
[2022-07-12] MEDS: Nicotine 21 MG PATCH.TD24 TRANSDERMA (08:04)
[2022-07-12] MEDS: Gabapentin 300 MG CAPSULE 900 MG PO ×3 (08:05→21:27)
[2022-07-12] MEDS: Omeprazole 40 MG CAPSULE.DR PO (08:05)
[2022-07-12] MEDS: methADONE HCl 20 MG/2 ML ORAL.CONC 160 MG PO (08:07)
[2022-07-12] MEDS: OLANZapine 7.5 MG TABLET 15 MG PO ×3 (09:30→21:25)
[2022-07-12] MEDS: hydrOXYzine HCL 25 MG TABLET PO ×2 (10:47→17:27)
[2022-07-12] MEDS: cloNIDine HCL 0.1 MG TABLET PO (12:13)
--- NOTE | 2022-07-12 16:04 | HO.PSYCHPN ---
Subjective Subjective Date of Service: 07/12/22 Reason For Visit: 43.10, F41.9, F32.A Interim History: stable, calm, cooperative. anxious and depressed today, feeling hopeless she will get into a CSS. sleeping OK, though. per staff, mod dep/anx. denies SI/HI/AVH. attending some groups. +ADLs. slept all NOC. Mental Status Exam Mental Status Exam Narrative: disheveled. no PMA/PMR. cooperative. speech nml rate and amount, nml loudness. thoughts linear and logical. anxious, depression improved. affect flexible, normo-intense, non-labile. no SI/HI/AVH expressed. Diagnostics Vital Signs (24Hr): Vital Signs - 24 hr 07/11/22 20:09 07/12/22 06:00 Temperature 97.9 F 97.4 F Pulse Rate 100 102 H Respiratory Rate 18 Blood Pressure 128/76 117/76 Pulse Oximetry 96 96 Oxygen Delivery Method Room Air Room Air Medications Medications Current Medications Acetaminophen (Acetaminophen 325 Mg Tablet) 650 mg PO Q6H PRN PRN Reason: Headache/Pain Mild Scale (1-3) Last Admin: 07/12/22 08:03 Dose: 650 mg Al Hydroxide/Mg Hydroxide (Magnesium Hydrox/Alum Hydrox 30 Ml Oral.Susp) 30 ml PO Q6H PRN PRN Reason: Heartburn/Nausea Clonidine HCl (Clonidine Hcl 0.1 Mg Tablet) 0.1 mg PO BID PRN; Protocol PRN Reason: anxiety Last Admin: 07/12/22 12:13 Dose: 0.1 mg Gabapentin (Gabapentin 300 Mg Capsule) 900 mg PO TID [facility] Last Admin: 07/12/22 15:02 Dose: 900 mg Hydroxyzine HCl (Hydroxyzine Hcl 25 Mg Tablet) 25 mg PO Q6H PRN PRN Reason: Anxiety Last Admin: 07/12/22 10:47 Dose: 25 mg Magnesium Hydroxide (Milk Of Magnesia 30 Ml Oral.Susp) 30 ml PO DAILY PRN PRN Reason: Constipation Methadone HCl (Methadone Hcl 20 Mg/2 Ml Oral.Conc) 160 mg PO DAILY [facility] Last Admin: 07/12/22 08:07 Dose: 160 mg Mirtazapine (Mirtazapine 15 Mg Tablet) 45 mg PO BEDTIME [facility] Last Admin: 07/11/22 21:35 Dose: 45 mg Nicotine (Nicotine 21 Mg Patch.Td24) 21 mg TRANSDERMA DAILY [facility] Last Admin: 07/12/22 08:04 Dose: 21 mg Nicotine Polacrilex (Nicotine Polacrilex 2 Mg Gum) 4 mg BUCCAL Q2H PRN PRN Reason: Nicotine Cravings Olanzapine (Olanzapine 7.5 Mg Tablet) 15 mg PO BEDTIME [facility] Last Admin: 07/11/22 21:36 Dose: 15 mg Olanzapine (Olanzapine 7.5 Mg Tablet) 15 mg PO BID PRN PRN Reason: psychosis, agitation Last Admin: 07/12/22 15:58 Dose: 15 mg Omeprazole (Omeprazole 40 Mg Capsule.Dr) 40 mg PO DAILY@0630 [facility] Last Admin: 07/12/22 08:05 Dose: 40 mg Ondansetron HCl (Ondansetron Odt 4 Mg Tab.Rapdis) 4 mg TRANSLINGU Q8H PRN PRN Reason: Nausea Prazosin HCl (Prazosin Hcl 1 Mg Capsule) 7 mg PO BEDTIME [facility]; Protocol Last Admin: 07/11/22 21:36 Dose: 7 mg Sumatriptan Succinate (Sumatriptan Succinate 50 Mg Tablet) 50 mg PO DAILY PRN PRN Reason: Migraine Headache Trazodone HCl (Trazodone Hcl 50 Mg Tablet) 50 mg PO BEDTIME MRX1 PRN PRN Reason: Insomnia Allergies Allergies Allergy/AdvReac Type Severity Reaction Status Date / Time egg AdvReac Hives Verified 06/26/22 15:47 Pork/Porcine Containing AdvReac Anaphylaxis Verified 06/26/22 15:47 Products Assessment & Plan Assessment & Plan (1) Polysubstance use disorder: Status: Acute Code(s): F19.90 - Other psychoactive substance use, unspecified, uncomplicated (2) Persistent mood [affective] disorder, unspecified: Status: Acute Code(s): F34.9 - Persistent mood [affective] disorder, unspecified Plan 06/27: continue/restart home meds regimen. 06/28: refusing wellbutrin and trileptal, so discontinued. c/o PTSD Sx, agrees to increase remeron from 7.5 to 30 and prazosin from 1 to 2 mg tonight. also to increase gabapentin to 300 TID to address migraine SAMPSON, anxiety, and reported Sz D/O. 06/29: increase olanzapine to 15 mg po qhs. 06/30: increase gabapentin to 600 TID. increase prazosin to 3 mg QHS. SI and insomnia/nightmares continue. 07/01: Continue current regimen and plans 07/02: Continue current plans and regimen 07/03: increase gabapentin to 900 TID for anxiety/migraine/Sz D/O. increase prazosin to 4 mg for nightmares. SI/AH continue. 07/04: same presentation. increase prazosin to 5 mg QHS. +SI, AH. 07/05: reporting improvements in mood and SI. no nightmares last night, sleeping better. awaiting CSS bed. continue current mgmt. 07/06: mood suddenly much worse, SI worse. AH remain improved. worse sleep, some nightmares. BP borderline, will not increase prazosin tonight. continue current mgmt. pt encouraged to go to groups and work toward CSS. 07/07: UA NEG for UTI. increase prazosin to 6 mg QHS, increase zyprexa PRN dosing to 15 mg each (from 10 mg each). mood much better than yesterday. otherwise continue current mgmt. 07/08: stable presentation. slept well, no nightmares. continue current mgmt. 07/09: much improved. no AH, no SI. +grps. sleep probs remain, agrees to increase remeron to 45mg at HS. 07/10: consistent presentation. +grp, meds. sleeping remains challenging, increase prazosin to 7 mg at HS. 07/11: sleeping adequately. otherwise no change. anxiety re not getting into CSS. continue current mgmt. 07/12: sleeping adequately. otherwise no change. feeling hopeless re getting into CSS. continue current mgmt. Reason for continued inpatient stay Substantial Risk for: harm to self, inability to function and rapid decompensation Time Spent With Patient Time: Total time managing care of this patient today _25___ minutes.
[2022-07-12 21:24] VITALS: BP 123/72; PULSE 80; TEMP 36.7; O2SAT 97
[2022-07-12] MEDS: Prazosin HCL 1 MG CAPSULE 7 MG PO (21:26)
[2022-07-12] MEDS: Mirtazapine 15 MG TABLET 45 MG PO (21:27)
[2022-07-13] MEDS: Omeprazole 40 MG CAPSULE.DR PO (06:02)
[2022-07-13] MEDS: Acetaminophen 325 MG TABLET 650 MG PO (06:35)
[2022-07-13] MEDS: Gabapentin 300 MG CAPSULE 900 MG PO ×3 (08:30→21:38)
[2022-07-13] MEDS: OLANZapine 7.5 MG TABLET 15 MG PO ×3 (08:30→21:38)
[2022-07-13] MEDS: Nicotine 21 MG PATCH.TD24 TRANSDERMA (08:30)
[2022-07-13] MEDS: methADONE HCl 20 MG/2 ML ORAL.CONC 160 MG PO (08:31)
[2022-07-13 08:33] VITALS: BP 128/97; PULSE 113; RESP 22; TEMP 36.3; O2SAT 97
[2022-07-13] MEDS: Ondansetron ODT 4 MG TAB.RAPDIS TRANSLINGU (11:48)
--- NOTE | 2022-07-13 13:44 | HO.PSYCHPN ---
Subjective Subjective Date of Service: 07/13/22 Reason For Visit: 43.10, F41.9, F32.A Interim History: calm, cooperative. reports feeling anxious today and with GI upset - some pain and nausea. denies SI, AH. per staff, mod'high anxiety yesterday. attending groups, some participation. using PRNs. pacing, restless. a little suicidal yesterday. Mental Status Exam Mental Status Exam Narrative: disheveled. no PMA/PMR. cooperative. speech nml rate and amount, nml loudness. thoughts linear and logical. anxious; depression improved. affect constricted, normo-intense, non-labile. no SI/AH. no HI/VH expressed. Diagnostics Vital Signs (24Hr): Vital Signs - 24 hr 07/12/22 21:24 07/13/22 08:33 Temperature 98.1 F 97.3 F Pulse Rate 80 113 H Respiratory Rate 22 H Blood Pressure 123/72 128/97 H Pulse Oximetry 97 97 Oxygen Delivery Method Room Air Room Air Medications Medications Current Medications Acetaminophen (Acetaminophen 325 Mg Tablet) 650 mg PO Q6H PRN PRN Reason: Headache/Pain Mild Scale (1-3) Last Admin: 07/13/22 06:35 Dose: 650 mg Al Hydroxide/Mg Hydroxide (Magnesium Hydrox/Alum Hydrox 30 Ml Oral.Susp) 30 ml PO Q6H PRN PRN Reason: Heartburn/Nausea Benzocaine (Benzocaine 20 % Oral Gel 9 Gm Tube) 1 appl MUCOUS MEM QID PRN; Protocol PRN Reason: oral pain Clonidine HCl (Clonidine Hcl 0.1 Mg Tablet) 0.1 mg PO BID PRN; Protocol PRN Reason: anxiety Last Admin: 07/12/22 12:13 Dose: 0.1 mg Gabapentin (Gabapentin 300 Mg Capsule) 900 mg PO TID [facility] Last Admin: 07/13/22 08:30 Dose: 900 mg Hydroxyzine HCl (Hydroxyzine Hcl 25 Mg Tablet) 25 mg PO Q6H PRN PRN Reason: Anxiety Last Admin: 07/12/22 17:27 Dose: 25 mg Magnesium Hydroxide (Milk Of Magnesia 30 Ml Oral.Susp) 30 ml PO DAILY PRN PRN Reason: Constipation Methadone HCl (Methadone Hcl 20 Mg/2 Ml Oral.Conc) 160 mg PO DAILY [facility] Last Admin: 07/13/22 08:31 Dose: 160 mg Mirtazapine (Mirtazapine 15 Mg Tablet) 45 mg PO BEDTIME [facility] Last Admin: 07/12/22 21:27 Dose: 45 mg Nicotine (Nicotine 21 Mg Patch.Td24) 21 mg TRANSDERMA DAILY [facility] Last Admin: 07/13/22 08:30 Dose: 21 mg Nicotine Polacrilex (Nicotine Polacrilex 2 Mg Gum) 4 mg BUCCAL Q2H PRN PRN Reason: Nicotine Cravings Olanzapine (Olanzapine 7.5 Mg Tablet) 15 mg PO BEDTIME [facility] Last Admin: 07/12/22 21:25 Dose: 15 mg Olanzapine (Olanzapine 7.5 Mg Tablet) 15 mg PO BID PRN PRN Reason: psychosis, agitation Last Admin: 07/13/22 08:30 Dose: 15 mg Omeprazole (Omeprazole 40 Mg Capsule.Dr) 40 mg PO DAILY@629 [facility] Last Admin: 07/13/22 06:02 Dose: 40 mg Ondansetron HCl (Ondansetron Odt 4 Mg Tab.Rapdis) 4 mg TRANSLINGU Q8H PRN PRN Reason: Nausea Last Admin: 07/13/22 11:48 Dose: 4 mg Prazosin HCl (Prazosin Hcl 1 Mg Capsule) 7 mg PO BEDTIME [facility]; Protocol Last Admin: 07/12/22 21:26 Dose: 7 mg Sumatriptan Succinate (Sumatriptan Succinate 50 Mg Tablet) 50 mg PO DAILY PRN PRN Reason: Migraine Headache Trazodone HCl (Trazodone Hcl 50 Mg Tablet) 50 mg PO BEDTIME MRX1 PRN PRN Reason: Insomnia Allergies Allergies Allergy/AdvReac Type Severity Reaction Status Date / Time egg AdvReac Hives Verified 06/26/22 15:47 Pork/Porcine Containing AdvReac Anaphylaxis Verified 06/26/22 15:47 Products Assessment & Plan Assessment & Plan (1) Polysubstance use disorder: Status: Acute Code(s): F19.90 - Other psychoactive substance use, unspecified, uncomplicated (2) Persistent mood [affective] disorder, unspecified: Status: Acute Code(s): F34.9 - Persistent mood [affective] disorder, unspecified Plan 06/27: continue/restart home meds regimen. 06/28: refusing wellbutrin and trileptal, so discontinued. c/o PTSD Sx, agrees to increase remeron from 7.5 to 30 and prazosin from 1 to 2 mg tonight. also to increase gabapentin to 300 TID to address migraine SAMPSON, anxiety, and reported Sz D/O. 06/29: increase olanzapine to 15 mg po qhs. 06/30: increase gabapentin to 600 TID. increase prazosin to 3 mg QHS. SI and insomnia/nightmares continue. 07/01: Continue current regimen and plans 07/02: Continue current plans and regimen 07/03: increase gabapentin to 900 TID for anxiety/migraine/Sz D/O. increase prazosin to 4 mg for nightmares. SI/AH continue. 07/04: same presentation. increase prazosin to 5 mg QHS. +SI, AH. 07/05: reporting improvements in mood and SI. no nightmares last night, sleeping better. awaiting CSS bed. continue current mgmt. 07/06: mood suddenly much worse, SI worse. AH remain improved. worse sleep, some nightmares. BP borderline, will not increase prazosin tonight. continue current mgmt. pt encouraged to go to groups and work toward CSS. 07/07: UA NEG for UTI. increase prazosin to 6 mg QHS, increase zyprexa PRN dosing to 15 mg each (from 10 mg each). mood much better than yesterday. otherwise continue current mgmt. 07/08: stable presentation. slept well, no nightmares. continue current mgmt. 07/09: much improved. no AH, no SI. +grps. sleep probs remain, agrees to increase remeron to 45mg at HS. 07/10: consistent presentation. +grp, meds. sleeping remains challenging, increase prazosin to 7 mg at HS. 07/11: sleeping adequately. otherwise no change. anxiety re not getting into CSS. continue current mgmt. 07/12: sleeping adequately. otherwise no change. feeling hopeless re getting into CSS. continue current mgmt. 07/13: stable presentation. GI upset today. continue current mgmt. Reason for continued inpatient stay Substantial Risk for: harm to self, inability to function and rapid decompensation Time Spent With Patient Time: Total time managing care of this patient today __25__ minutes.
[2022-07-13] MEDS: cloNIDine HCL 0.1 MG TABLET PO (14:06)
[2022-07-13 14:08] VITALS: BP 120/74
[2022-07-13] MEDS: hydrOXYzine HCL 25 MG TABLET PO (15:33)
[2022-07-13 18:06] LABS: Appearance Urine Clear; Color Urine Yellow; Glucose Urine UA Negative (Negative); Leukocyte Esterase Urine Negative (Negative); Nitrite Urine Negative (Negative); Urine Blood Negative (Negative); Urine Ketones Negative (Negative); Urine Protein Negative (Neg-Trace)
[2022-07-13 18:11] LABS: Bacteria Urine None Seen (None Seen); Hyaline Casts Urine 0-2 /LPF (0-2); RBC Urine 0-2 /HPF (0-2); Squamous Epithelial Cell Urine 0-2 /HPF (0-2); WBC Urine 0-5 /HPF (0-5)
[2022-07-13 19:33] LABS: Alanine Aminotransferase 95 U/L (0-31); Albumin Level 3.9 g/dL (3.5-5.0); Alkaline Phosphatase 105 U/L (39-117); Anion Gap 15 (12-20); Aspartate Amino Transferase 40 U/L (5-31); Bilirubin Direct 0.1 mg/dL (0.0-0.5); Bilirubin Total 0.4 mg/dL (0.0-1.0); Blood Urea Nitrogen 12 mg/dL (9-16); Calcium 9.6 mg/dL (8.4-10.2); Carbon Dioxide 22 mmol/L (22-29); Chloride 105 mmol/L (96-108); Estimated Glomerular Filt Rate > 60; Glucose Random 133 mg/dL (60-115); Lipase 26 U/L (8-78); Potassium 4.1 mmol/L (3.3-5.1); Sodium 138 mmol/L (135-145); Total Protein 6.8 g/dL (6.5-8.0)
[2022-07-13 21:30] VITALS: BP 106/57; PULSE 76; RESP 18; TEMP 36.7; O2SAT 97
[2022-07-13] MEDS: Prazosin HCL 1 MG CAPSULE 7 MG PO (21:37)
[2022-07-13] MEDS: Mirtazapine 15 MG TABLET 45 MG PO (21:38)
[2022-07-13 22:51] LABS: Ammonia 35 umol/L (13-55)
[2022-07-14 08:00] VITALS: BP 120/80; PULSE 108; RESP 16; TEMP 36.8; O2SAT 94
[2022-07-14] MEDS: Nicotine 21 MG PATCH.TD24 TRANSDERMA (08:18)
[2022-07-14] MEDS: Omeprazole 40 MG CAPSULE.DR PO (08:19)
[2022-07-14] MEDS: Gabapentin 300 MG CAPSULE 900 MG PO ×3 (08:19→21:35)
[2022-07-14] MEDS: methADONE HCl 20 MG/2 ML ORAL.CONC 160 MG PO (08:20)
[2022-07-14] MEDS: Benzocaine 20 % Oral Gel 9 GM TUBE 1 APPL MUCOUS MEM ×3 (08:24→21:34)
[2022-07-14 08:30] LABS: Alanine Aminotransferase 96 U/L (0-31); Alkaline Phosphatase 99 U/L (39-117); Aspartate Amino Transferase 42 U/L (5-31); Bilirubin Direct 0.1 mg/dL (0.0-0.5); Bilirubin Total 0.5 mg/dL (0.0-1.0); Total Protein 6.8 g/dL (6.5-8.0)
[2022-07-14] MEDS: OLANZapine 7.5 MG TABLET 15 MG PO ×3 (09:12→21:34)
[2022-07-14] MEDS: cloNIDine HCL 0.1 MG TABLET PO (12:59)
[2022-07-14 14:08] LABS: CT PCR NOT DETECTED (Not Detect.); NG PCR NOT DETECTED (Not Detect.)
--- NOTE | 2022-07-14 15:26 | HO.PSYCHPN ---
Subjective Subjective Date of Service: 07/14/22 Reason For Visit: 43.10, F41.9, F32.A Interim History: calm, cooperative. states she is feeling agitated and extra anxious today because she had to cancel visit with kids next week and she is concerned she won't get into [facility] and will become homeless and then relapse onto drugs. per staff, dep/anx 10. 10/10 dental pain. c/o RUQ pain. Mental Status Exam Mental Status Exam Narrative: disheveled. no PMA/PMR. cooperative. speech nml rate and amount, nml loudness. thoughts linear and logical. anxious; depressed. affect constricted, normo-intense, non-labile. mood agitated and extra anxious. no SI/AH. no HI/VH expressed. Diagnostics Vital Signs (24Hr): Vital Signs - 24 hr 07/13/22 21:30 07/14/22 08:00 Temperature 98.0 F 98.2 F Pulse Rate 76 108 H Respiratory Rate 18 16 Blood Pressure 106/57 L 120/80 Pulse Oximetry 97 94 Oxygen Delivery Method Room Air Room Air Labs 07/13/22 19:07 Labs: Laboratory Results - last 48 hr 07/13/22 07/13/22 07/13/22 17:50 19:07 19:07 Sodium 138 Potassium 4.1 Chloride 105 Carbon Dioxide 22 Anion Gap 15 BUN 12 Creatinine 0.77 Estim Creat Clear Calc TNP Estimated GFR > 60 Random Glucose 133 H Calcium 9.6 Total Bilirubin 0.4 Direct Bilirubin 0.1 AST 40 H ALT 95 H Alkaline Phosphatase 105 Ammonia 35 Total Protein 6.8 Albumin 3.9 Lipase 26 Urine Color Yellow Urine Appearance Clear Urine pH 6.0 Ur Specific [place] 1.010 Urine Protein Negative Urine Glucose (UA) Negative Urine Ketones Negative Urine Blood Negative Urine Nitrite Negative Ur Leukocyte Esterase Negative Urine RBC 0-2 Urine WBC 0-5 Ur Squamous Epith Cells 0-2 Urine Bacteria None Seen Hyaline Casts 0-2 Chlam trachomat DNA PCR N.gonorrhoeae DNA (PCR) 07/14/22 07/14/22 07:10 12:10 Sodium Potassium Chloride Carbon Dioxide Anion Gap BUN Creatinine Estim Creat Clear Calc Estimated GFR Random Glucose Calcium Total Bilirubin 0.5 Direct Bilirubin 0.1 AST 42 H ALT 96 H Alkaline Phosphatase 99 Ammonia Total Protein 6.8 Albumin 4.0 Lipase Urine Color Urine Appearance Urine pH Ur Specific [place] Urine Protein Urine Glucose (UA) Urine Ketones Urine Blood Urine Nitrite Ur Leukocyte Esterase Urine RBC Urine WBC Ur Squamous Epith Cells Urine Bacteria Hyaline Casts Chlam trachomat DNA PCR NOT DETECTED N.gonorrhoeae DNA (PCR) NOT DETECTED Medications Medications Current Medications Acetaminophen (Acetaminophen 325 Mg Tablet) 650 mg PO Q6H PRN PRN Reason: Headache/Pain Mild Scale (1-3) Last Admin: 07/13/22 06:35 Dose: 650 mg Al Hydroxide/Mg Hydroxide (Magnesium Hydrox/Alum Hydrox 30 Ml Oral.Susp) 30 ml PO Q6H PRN PRN Reason: Heartburn/Nausea Benzocaine (Benzocaine 20 % Oral Gel 9 Gm Tube) 1 appl MUCOUS MEM QID PRN; Protocol PRN Reason: oral pain Last Admin: 07/14/22 11:14 Dose: 1 appl Clonidine HCl (Clonidine Hcl 0.1 Mg Tablet) 0.1 mg PO BID PRN; Protocol PRN Reason: anxiety Last Admin: 07/14/22 12:59 Dose: 0.1 mg Gabapentin (Gabapentin 300 Mg Capsule) 900 mg PO TID [facility] Last Admin: 07/14/22 15:01 Dose: 900 mg Hydroxyzine HCl (Hydroxyzine Hcl 25 Mg Tablet) 25 mg PO Q6H PRN PRN Reason: Anxiety Last Admin: 07/13/22 15:33 Dose: 25 mg Magnesium Hydroxide (Milk Of Magnesia 30 Ml Oral.Susp) 30 ml PO DAILY PRN PRN Reason: Constipation Methadone HCl (Methadone Hcl 20 Mg/2 Ml Oral.Conc) 160 mg PO DAILY [facility] Last Admin: 07/14/22 08:20 Dose: 160 mg Mirtazapine (Mirtazapine 15 Mg Tablet) 45 mg PO BEDTIME [facility] Last Admin: 07/13/22 21:38 Dose: 45 mg Nicotine (Nicotine 21 Mg Patch.Td24) 21 mg TRANSDERMA DAILY [facility] Last Admin: 07/14/22 08:18 Dose: 21 mg Nicotine Polacrilex (Nicotine Polacrilex 2 Mg Gum) 4 mg BUCCAL Q2H PRN PRN Reason: Nicotine Cravings Olanzapine (Olanzapine 7.5 Mg Tablet) 15 mg PO BEDTIME [facility] Last Admin: 07/13/22 21:38 Dose: 15 mg Olanzapine (Olanzapine 7.5 Mg Tablet) 15 mg PO BID PRN PRN Reason: psychosis, agitation Last Admin: 07/14/22 09:12 Dose: 15 mg Omeprazole (Omeprazole 40 Mg Capsule.Dr) 40 mg PO DAILY@0630 [facility] Last Admin: 07/14/22 08:19 Dose: 40 mg Ondansetron HCl (Ondansetron Odt 4 Mg Tab.Rapdis) 4 mg TRANSLINGU Q8H PRN PRN Reason: Nausea Last Admin: 07/13/22 11:48 Dose: 4 mg Prazosin HCl (Prazosin Hcl 1 Mg Capsule) 7 mg PO BEDTIME [facility]; Protocol Last Admin: 07/13/22 21:37 Dose: 7 mg Sumatriptan Succinate (Sumatriptan Succinate 50 Mg Tablet) 50 mg PO DAILY PRN PRN Reason: Migraine Headache Trazodone HCl (Trazodone Hcl 50 Mg Tablet) 50 mg PO BEDTIME MRX1 PRN PRN Reason: Insomnia Allergies Allergies Allergy/AdvReac Type Severity Reaction Status Date / Time egg AdvReac Hives Verified 06/26/22 15:47 Pork/Porcine Containing AdvReac Anaphylaxis Verified 06/26/22 15:47 Products Assessment & Plan Assessment & Plan (1) Polysubstance use disorder: Status: Acute Code(s): F19.90 - Other psychoactive substance use, unspecified, uncomplicated (2) Persistent mood [affective] disorder, unspecified: Status: Acute Code(s): F34.9 - Persistent mood [affective] disorder, unspecified Plan 06/27: continue/restart home meds regimen. 06/28: refusing wellbutrin and trileptal, so discontinued. c/o PTSD Sx, agrees to increase remeron from 7.5 to 30 and prazosin from 1 to 2 mg tonight. also to increase gabapentin to 300 TID to address migraine SAMPSON, anxiety, and reported Sz D/O. 06/29: increase olanzapine to 15 mg po qhs. 06/30: increase gabapentin to 600 TID. increase prazosin to 3 mg QHS. SI and insomnia/nightmares continue. 07/01: Continue current regimen and plans 07/02: Continue current plans and regimen 07/03: increase gabapentin to 900 TID for anxiety/migraine/Sz D/O. increase prazosin to 4 mg for nightmares. SI/AH continue. 07/04: same presentation. increase prazosin to 5 mg QHS. +SI, AH. 07/05: reporting improvements in mood and SI. no nightmares last night, sleeping better. awaiting CSS bed. continue current mgmt. 07/06: mood suddenly much worse, SI worse. AH remain improved. worse sleep, some nightmares. BP borderline, will not increase prazosin tonight. continue current mgmt. pt encouraged to go to groups and work toward CSS. 07/07: UA NEG for UTI. increase prazosin to 6 mg QHS, increase zyprexa PRN dosing to 15 mg each (from 10 mg each). mood much better than yesterday. otherwise continue current mgmt. 07/08: stable presentation. slept well, no nightmares. continue current mgmt. 07/09: much improved. no AH, no SI. +grps. sleep probs remain, agrees to increase remeron to 45mg at HS. 07/10: consistent presentation. +grp, meds. sleeping remains challenging, increase prazosin to 7 mg at HS. 07/11: sleeping adequately. otherwise no change. anxiety re not getting into CSS. continue current mgmt. 07/12: sleeping adequately. otherwise no change. feeling hopeless re getting into CSS. continue current mgmt. 07/13: stable presentation. GI upset today. continue current mgmt. 07/14: stable presentation. RUQ pain, persistent. hospitalist consult placed. otherwise continue current mgmt. Reason for continued inpatient stay Substantial Risk for: inability to function and rapid decompensation Time Spent With Patient Time: Total time managing care of this patient today __25__ minutes.
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
[2022-07-14] MEDS: Prazosin HCL 1 MG CAPSULE 7 MG PO (21:34)
[2022-07-14] MEDS: Mirtazapine 15 MG TABLET 45 MG PO (21:35)
[2022-07-14 21:39] VITALS: BP 102/59; PULSE 85; TEMP 36.8; O2SAT 95
[2022-07-15 08:36] VITALS: BP 106/72; PULSE 99; RESP 18; TEMP 36.4; O2SAT 93
[2022-07-15] MEDS: Nicotine 21 MG PATCH.TD24 TRANSDERMA (08:37)
[2022-07-15] MEDS: Gabapentin 300 MG CAPSULE 900 MG PO ×3 (08:38→21:22)
[2022-07-15] MEDS: Omeprazole 40 MG CAPSULE.DR PO (08:38)
[2022-07-15] MEDS: Acetaminophen 325 MG TABLET 650 MG PO (08:38)
[2022-07-15] MEDS: methADONE HCl 20 MG/2 ML ORAL.CONC 160 MG PO (08:39)
[2022-07-15] MEDS: OLANZapine 7.5 MG TABLET 15 MG PO ×3 (09:38→21:22)
[2022-07-15] MEDS: Benzocaine 20 % Oral Gel 9 GM TUBE 1 APPL MUCOUS MEM ×3 (10:58→21:21)
--- NOTE | 2022-07-15 14:22 | P.PNPSI_ITS ---
Subjective Subjective Date of Service: 07/15/22 Reason For Visit: 43.10, F41.9, F32.A Subjective Notes: Conditional Voluntary Interim History: The nursing staff reported the patient had been on her bed most of the time, she had been complaining of abdominal pain and she had a CT scan waiting for the results. On interview the patient only reports abdominal pain no new symptoms Mental Status Exam Mental Status Exam Patient Appearance: Appropriate Patient Orientation: Person and Situation Level of Consciousness: Awake and Appropriate Patient Behavior: Guarded and Passive Mood Description: Withdrawn Affect Description: Constricted Patient Cognition Impaired: Yes Ability to Follow Directions: Good Speech Pattern: Clear Hallucinations: None Delusions: Paranoid Ideation Thought Process: Illogical and Distracted Thought Content: positive for [place] and positive for Circumstantial Judgement: Fair Diagnostics Vital Signs (24Hr): Vital Signs - 24 hr 07/14/22 21:39 07/15/22 08:36 Temperature 98.3 F 97.5 F Pulse Rate 85 99 Respiratory Rate 18 Blood Pressure 102/59 L 106/72 Pulse Oximetry 95 93 Oxygen Delivery Method Room Air Room Air Labs 07/13/22 19:07 Labs: Laboratory Results - last 48 hr 07/13/22 07/13/22 07/13/22 17:50 19:07 19:07 Sodium 138 Potassium 4.1 Chloride 105 Carbon Dioxide 22 Anion Gap 15 BUN 12 Creatinine 0.77 Estim Creat Clear Calc TNP Estimated GFR > 60 Random Glucose 133 H Calcium 9.6 Total Bilirubin 0.4 Direct Bilirubin 0.1 AST 40 H ALT 95 H Alkaline Phosphatase 105 Ammonia 35 Total Protein 6.8 Albumin 3.9 Lipase 26 Urine Color Yellow Urine Appearance Clear Urine pH 6.0 Ur Specific [place] 1.010 Urine Protein Negative Urine Glucose (UA) Negative Urine Ketones Negative Urine Blood Negative Urine Nitrite Negative Ur Leukocyte Esterase Negative Urine RBC 0-2 Urine WBC 0-5 Ur Squamous Epith Cells 0-2 Urine Bacteria None Seen Hyaline Casts 0-2 Chlam trachomat DNA PCR N.gonorrhoeae DNA (PCR) 07/14/22 07/14/22 07:10 12:10 Sodium Potassium Chloride Carbon Dioxide Anion Gap BUN Creatinine Estim Creat Clear Calc Estimated GFR Random Glucose Calcium Total Bilirubin 0.5 Direct Bilirubin 0.1 AST 42 H ALT 96 H Alkaline Phosphatase 99 Ammonia Total Protein 6.8 Albumin 4.0 Lipase Urine Color Urine Appearance Urine pH Ur Specific [place] Urine Protein Urine Glucose (UA) Urine Ketones Urine Blood Urine Nitrite Ur Leukocyte Esterase Urine RBC Urine WBC Ur Squamous Epith Cells Urine Bacteria Hyaline Casts Chlam trachomat DNA PCR NOT DETECTED N.gonorrhoeae DNA (PCR) NOT DETECTED Imaging Radiology Impressions: ITS Impressions Abdomen/Pelvis CT 07/14/22 18:02 IMPRESSION: * Hepatosplenomegaly and diffuse hepatic steatosis. * No acute imaging abnormalities in the abdomen or pelvis. * No noncontrast imaging evidence of inflammatory change or obstruction along the gastrointestinal tract. Medications Medications Current Medications Acetaminophen (Acetaminophen 325 Mg Tablet) 650 mg PO Q6H PRN PRN Reason: Headache/Pain Mild Scale (1-3) Last Admin: 07/15/22 08:38 Dose: 650 mg Al Hydroxide/Mg Hydroxide (Magnesium Hydrox/Alum Hydrox 30 Ml Oral.Susp) 30 ml PO Q6H PRN PRN Reason: Heartburn/Nausea Benzocaine (Benzocaine 20 % Oral Gel 9 Gm Tube) 1 appl MUCOUS MEM QID PRN; Protocol PRN Reason: oral pain Last Admin: 07/15/22 10:58 Dose: 1 appl Clonidine HCl (Clonidine Hcl 0.1 Mg Tablet) 0.1 mg PO BID PRN; Protocol PRN Reason: anxiety Last Admin: 07/14/22 12:59 Dose: 0.1 mg Gabapentin (Gabapentin 300 Mg Capsule) 900 mg PO TID [facility], [facility] Last Admin: 07/15/22 08:38 Dose: 900 mg Hydroxyzine HCl (Hydroxyzine Hcl 25 Mg Tablet) 25 mg PO Q6H PRN PRN Reason: Anxiety Last Admin: 07/13/22 15:33 Dose: 25 mg Magnesium Hydroxide (Milk Of Magnesia 30 Ml Oral.Susp) 30 ml PO DAILY PRN PRN Reason: Constipation Methadone HCl (Methadone Hcl 20 Mg/2 Ml Oral.Conc) 160 mg PO DAILY [facility], [facility] Last Admin: 07/15/22 08:39 Dose: 160 mg Mirtazapine (Mirtazapine 15 Mg Tablet) 45 mg PO BEDTIME [facility] Last Admin: 07/14/22 21:35 Dose: 45 mg Nicotine (Nicotine 21 Mg Patch.Td24) 21 mg TRANSDERMA DAILY [facility], [facility] Last Admin: 07/15/22 08:37 Dose: 21 mg Nicotine Polacrilex (Nicotine Polacrilex 2 Mg Gum) 4 mg BUCCAL Q2H PRN PRN Reason: Nicotine Cravings Olanzapine (Olanzapine 7.5 Mg Tablet) 15 mg PO BEDTIME YAEL Last Admin: 07/14/22 21:34 Dose: 15 mg Olanzapine (Olanzapine 7.5 Mg Tablet) 15 mg PO BID PRN PRN Reason: psychosis, agitation Last Admin: 07/15/22 09:38 Dose: 15 mg Omeprazole (Omeprazole 40 Mg Capsule.Dr) 40 mg PO DAILY@0630 YAEL Last Admin: 07/15/22 08:38 Dose: 40 mg Ondansetron HCl (Ondansetron Odt 4 Mg Tab.Rapdis) 4 mg TRANSLINGU Q8H PRN PRN Reason: Nausea Last Admin: 07/13/22 11:48 Dose: 4 mg Prazosin HCl (Prazosin Hcl 1 Mg Capsule) 7 mg PO BEDTIME YAEL; Protocol Last Admin: 07/14/22 21:34 Dose: 7 mg Sumatriptan Succinate (Sumatriptan Succinate 50 Mg Tablet) 50 mg PO DAILY PRN PRN Reason: Migraine Headache Trazodone HCl (Trazodone Hcl 50 Mg Tablet) 50 mg PO BEDTIME MRX1 PRN PRN Reason: Insomnia Allergies Allergies Allergy/AdvReac Type Severity Reaction Status Date / Time egg AdvReac Hives Verified 06/26/22 15:47 Pork/Porcine Containing AdvReac Anaphylaxis Verified 06/26/22 15:47 Products Assessment & Plan Assessment & Plan (1) Abdominal pain: Status: Acute Code(s): R10.9 - Unspecified abdominal pain Plan Patient is a 31-year-old female with a PMH significant for anxiety, bipolar disorder, opiate dependence on methadone, hx of nephrolithiasis and seizure disorder admitted to Psychiatry with consult placed to hospitalist service for medical or complaint of persistent abdominal pain. Patient states?her pain began on the right side of her midback 5-6 days ago. At 1st patient had pain with walking then later with breathing in deeply, now pain is constant. Describes pain as sharp, shooting, throbbing. Pain now extends from center of her back all the way through with the middle of her abdomen. Patient states that earlier today to she noticed ?coffee ground? stool that was maroon in color. Abdominal pain Patient with abdominal pain that extends from the middle of her right back across the middle of her abdomen UA negative for UTI or blood in the urine Mild transaminitis Get CT of abdomen and pelvis rule out acute abdomen Thank you for allowing us to participate in the care of this patient. Will continue to follow pending CT results. Please let us know if there are any acute complaints or questions. Reason for continued inpatient stay Substantial Risk for: inability to function, rapid decompensation and med/psych decompensation Time Spent With Patient Time: Total time managing care of this patient today _20___ minutes.
[2022-07-15] MEDS: cloNIDine HCL 0.1 MG TABLET PO (16:19)
[2022-07-15] MEDS: hydrOXYzine HCL 25 MG TABLET PO (17:38)
[2022-07-15 21:19] VITALS: BP 105/62; PULSE 73; TEMP 36.7; O2SAT 95
[2022-07-15] MEDS: Mirtazapine 15 MG TABLET 45 MG PO (21:22)
[2022-07-15] MEDS: Prazosin HCL 1 MG CAPSULE 7 MG PO (21:22)
[2022-07-16] MEDS: Milk of Magnesia 30 ML ORAL.SUSP PO (09:11)
[2022-07-16] MEDS: Nicotine 21 MG PATCH.TD24 TRANSDERMA (09:11)
[2022-07-16] MEDS: Gabapentin 300 MG CAPSULE 900 MG PO ×3 (09:11→22:32)
[2022-07-16] MEDS: OLANZapine 7.5 MG TABLET 15 MG PO ×3 (09:11→22:45)
[2022-07-16] MEDS: Omeprazole 40 MG CAPSULE.DR PO (09:11)
[2022-07-16] MEDS: Acetaminophen 325 MG TABLET 650 MG PO ×2 (09:12→17:23)
[2022-07-16 09:38] VITALS: BP 117/65; PULSE 89; RESP 18; TEMP 36.8; O2SAT 96
[2022-07-16] MEDS: Benzocaine 20 % Oral Gel 9 GM TUBE 1 APPL MUCOUS MEM ×4 (09:53→22:43)
[2022-07-16] MEDS: methADONE HCl 20 MG/2 ML ORAL.CONC 160 MG PO ×2 (10:10→10:12)
--- NOTE | 2022-07-16 11:23 | P.PNPSI_ITS ---
Subjective Subjective Date of Service: 07/16/22 Reason For Visit: 43.10, F41.9, F32.A Subjective Notes: Conditional Voluntary Interim History: The nursing staff reported the patient had been complaining of to ache. She has been using all the PRNs she can, yesterday she took Zyprexa 45 mg in a day. On interview the patient reports that she is feeling more anxious and restless. On assessment it was clear that the patient had mild the ischia. We discussed options and she agreed to add a low dose of clonidine p.o. t.i.d. on top of her p.r.n.. Mental Status Exam Mental Status Exam Patient Appearance: Appropriate and Unkempt Patient Orientation: Person, Place and Situation Level of Consciousness: Awake and Appropriate Mood Description: Calm Affect Description: Constricted Patient Cognition Impaired: Yes Speech Pattern: Clear Memory Description: Intact Hallucinations: None Delusions: Not Present Thought Process: Linear Thought Content: positive for [place] Judgement: Fair Diagnostics Vital Signs (24Hr): Vital Signs - 24 hr 07/15/22 21:19 07/16/22 09:38 Temperature 98.1 F 98.2 F Pulse Rate 73 89 Respiratory Rate 18 Blood Pressure 105/62 117/65 Pulse Oximetry 95 96 Oxygen Delivery Method Room Air Room Air Labs 07/13/22 19:07 Labs: Laboratory Results - last 48 hr 07/14/22 12:10 Chlam trachomat DNA PCR NOT DETECTED N.gonorrhoeae DNA (PCR) NOT DETECTED Imaging Radiology Impressions: ITS Impressions Abdomen/Pelvis CT 07/14/22 18:02 IMPRESSION: * Hepatosplenomegaly and diffuse hepatic steatosis. * No acute imaging abnormalities in the abdomen or pelvis. * No noncontrast imaging evidence of inflammatory change or obstruction along the gastrointestinal tract. Medications Medications Current Medications Acetaminophen (Acetaminophen 325 Mg Tablet) 650 mg PO Q6H PRN PRN Reason: Headache/Pain Mild Scale (1-3) Last Admin: 07/16/22 09:12 Dose: 650 mg Al Hydroxide/Mg Hydroxide (Magnesium Hydrox/Alum Hydrox 30 Ml Oral.Susp) 30 ml PO Q6H PRN PRN Reason: Heartburn/Nausea Benzocaine (Benzocaine 20 % Oral Gel 9 Gm Tube) 1 appl MUCOUS MEM QID PRN; Protocol PRN Reason: oral pain Last Admin: 07/16/22 09:53 Dose: 1 appl Clonidine HCl (Clonidine Hcl 0.1 Mg Tablet) 0.1 mg PO BID PRN; Protocol PRN Reason: anxiety Last Admin: 07/15/22 16:19 Dose: 0.1 mg Clonidine HCl (Clonidine Hcl 0.1 Mg Tablet) 0.1 mg PO TID YAEL; Protocol Gabapentin (Gabapentin 300 Mg Capsule) 900 mg PO TID YAEL Last Admin: 07/16/22 09:11 Dose: 900 mg Hydroxyzine HCl (Hydroxyzine Hcl 25 Mg Tablet) 25 mg PO Q6H PRN PRN Reason: Anxiety Last Admin: 07/15/22 17:38 Dose: 25 mg Magnesium Hydroxide (Milk Of Magnesia 30 Ml Oral.Susp) 30 ml PO DAILY PRN PRN Reason: Constipation Last Admin: 07/16/22 09:11 Dose: 30 ml Methadone HCl (Methadone Hcl 20 Mg/2 Ml Oral.Conc) 160 mg PO DAILY YAEL Last Admin: 07/16/22 10:12 Dose: 160 mg Mirtazapine (Mirtazapine 15 Mg Tablet) 45 mg PO BEDTIME YAEL Last Admin: 07/15/22 21:22 Dose: 45 mg Nicotine (Nicotine 21 Mg Patch.Td24) 21 mg TRANSDERMA DAILY YAEL Last Admin: 07/16/22 09:11 Dose: 21 mg Nicotine Polacrilex (Nicotine Polacrilex 2 Mg Gum) 4 mg BUCCAL Q2H PRN PRN Reason: Nicotine Cravings Olanzapine (Olanzapine 7.5 Mg Tablet) 15 mg PO BEDTIME YAEL Last Admin: 07/15/22 21:22 Dose: 15 mg Olanzapine (Olanzapine 7.5 Mg Tablet) 15 mg PO BID PRN PRN Reason: psychosis, agitation Last Admin: 07/16/22 09:11 Dose: 15 mg Omeprazole (Omeprazole 40 Mg Capsule.Dr) 40 mg PO DAILY@0630 YAEL Last Admin: 07/16/22 09:11 Dose: 40 mg Ondansetron HCl (Ondansetron Odt 4 Mg Tab.Rapdis) 4 mg TRANSLINGU Q8H PRN PRN Reason: Nausea Last Admin: 07/13/22 11:48 Dose: 4 mg Prazosin HCl (Prazosin Hcl 1 Mg Capsule) 7 mg PO BEDTIME YAEL; Protocol Last Admin: 07/15/22 21:22 Dose: 7 mg Sumatriptan Succinate (Sumatriptan Succinate 50 Mg Tablet) 50 mg PO DAILY PRN PRN Reason: Migraine Headache Trazodone HCl (Trazodone Hcl 50 Mg Tablet) 50 mg PO BEDTIME MRX1 PRN PRN Reason: Insomnia Allergies Allergies Allergy/AdvReac Type Severity Reaction Status Date / Time egg AdvReac Hives Verified 06/26/22 15:47 Pork/Porcine Containing AdvReac Anaphylaxis Verified 06/26/22 15:47 Products Assessment & Plan Assessment & Plan (1) Abdominal pain: Status: Acute Code(s): R10.9 - Unspecified abdominal pain Plan Patient is a 31-year-old female with a PMH significant for anxiety, bipolar disorder, opiate dependence on methadone, hx of nephrolithiasis and seizure disorder admitted to Psychiatry with consult placed to hospitalist service for medical or complaint of persistent abdominal pain. Patient states?her pain began on the right side of her midback 5-6 days ago. At 1st patient had pain with walking then later with breathing in deeply, now pain is constant. Describes pain as sharp, shooting, throbbing. Pain now extends from center of her back all the way through with the middle of her abdomen. Patient states that earlier today to she noticed ?coffee ground? stool that was maroon in color. Abdominal pain Patient with abdominal pain that extends from the middle of her right back across the middle of her abdomen UA negative for UTI or blood in the urine Mild transaminitis Get CT of abdomen and pelvis rule out acute abdomen Thank you for allowing us to participate in the care of this patient. Will continue to follow pending CT results. Please let us know if there are any acute complaints or questions. Plan 1. Continue with Zyprexa 50 mg p.o. q.h.s. and PRNs. 2. Deep clonidine p.r.n. another PRNs. 3. Start clonidine 0.1 p.o. t.i.d. to target anxiety and restlessness. Reason for continued inpatient stay Substantial Risk for: inability to function, rapid decompensation and med/psych decompensation Time Spent With Patient Time: Total time managing care of this patient today ___20_ minutes.
[2022-07-16] MEDS: cloNIDine HCL 0.1 MG TABLET PO ×2 (14:10→22:33)
[2022-07-16 22:25] VITALS: BP 112/64; PULSE 88; RESP 16; O2SAT 96
[2022-07-16] MEDS: Mirtazapine 15 MG TABLET 45 MG PO (22:33)
[2022-07-16] MEDS: Prazosin HCL 1 MG CAPSULE 7 MG PO (22:33)
[2022-07-17] MEDS: Omeprazole 40 MG CAPSULE.DR PO (08:44)
[2022-07-17] MEDS: Gabapentin 300 MG CAPSULE 900 MG PO ×3 (08:44→21:19)
[2022-07-17] MEDS: cloNIDine HCL 0.1 MG TABLET PO (08:44)
[2022-07-17] MEDS: Nicotine 21 MG PATCH.TD24 TRANSDERMA (08:45)
[2022-07-17 09:00] VITALS: BP 115/66; PULSE 77; RESP 16; TEMP 36.8; O2SAT 95
[2022-07-17] MEDS: OLANZapine 7.5 MG TABLET 15 MG PO ×3 (10:21→21:19)
[2022-07-17] MEDS: methADONE HCl 20 MG/2 ML ORAL.CONC 160 MG PO (10:26)
[2022-07-17] MEDS: Propranolol HCL 20 MG TABLET PO (12:06)
--- NOTE | 2022-07-17 14:14 | HO.PSYCHPN ---
Subjective Subjective Date of Service: 07/17/22 Reason For Visit: 43.10, F41.9, F32.A Subjective Notes: Conditional Voluntary Interim History: Pt reports mood is better in that she is less depressed and no longer has SI. She continues to report feeling restless, unable to stay still, pacing. She also reports racing thoughts. She reports such restlessness is not new. Has not worsened with current medications especially with olanzapine and remeron. She does seem to have chronic akathisia. We discussed trying propanolol. Benzo less likely given her substance use hx. Medication Compliance: Yes Side effects from medications: No Attending Groups: Yes Review of Systems Review of Systems Right-sided back pain Constant diffuse abdominal pain ?Coffee-ground?, maroon-colored stool Nausea, no vomiting Denies fever, chills, diarrhea No chest pain/pressure, palpitations Denies shortness of breath Yes all other systems are reviewed and are negative Mental Status Exam Mental Status Exam Narrative: disheveled. no PMA/PMR. cooperative. speech nml rate and amount, nml loudness. thoughts linear and logical. anxious; depressed. affect constricted, normo-intense, non-labile. mood agitated and extra anxious. no SI/AH. no HI/VH expressed. Diagnostics Vital Signs (24Hr): Vital Signs - 24 hr 07/16/22 22:25 07/17/22 09:00 Temperature 98.3 F Pulse Rate 88 77 Respiratory Rate 16 16 Blood Pressure 112/64 115/66 Pulse Oximetry 96 95 Oxygen Delivery Method Room Air Room Air Labs 07/13/22 19:07 Imaging Radiology Impressions: ITS Impressions Abdomen/Pelvis CT 07/14/22 18:02 IMPRESSION: * Hepatosplenomegaly and diffuse hepatic steatosis. * No acute imaging abnormalities in the abdomen or pelvis. * No noncontrast imaging evidence of inflammatory change or obstruction along the gastrointestinal tract. Medications Medications Current Medications Acetaminophen (Acetaminophen 325 Mg Tablet) 650 mg PO Q6H PRN PRN Reason: Headache/Pain Mild Scale (1-3) Last Admin: 07/16/22 17:23 Dose: 650 mg Al Hydroxide/Mg Hydroxide (Magnesium Hydrox/Alum Hydrox 30 Ml Oral.Susp) 30 ml PO Q6H PRN PRN Reason: Heartburn/Nausea Benzocaine (Benzocaine 20 % Oral Gel 9 Gm Tube) 1 appl MUCOUS MEM QID PRN; Protocol PRN Reason: oral pain Last Admin: 07/16/22 22:43 Dose: 1 appl Clonidine HCl (Clonidine Hcl 0.1 Mg Tablet) 0.1 mg PO BID PRN; Protocol PRN Reason: anxiety Last Admin: 07/15/22 16:19 Dose: 0.1 mg Gabapentin (Gabapentin 300 Mg Capsule) 900 mg PO TID YAEL Last Admin: 07/17/22 08:44 Dose: 900 mg Hydroxyzine HCl (Hydroxyzine Hcl 25 Mg Tablet) 25 mg PO Q6H PRN PRN Reason: Anxiety Last Admin: 07/15/22 17:38 Dose: 25 mg Magnesium Hydroxide (Milk Of Magnesia 30 Ml Oral.Susp) 30 ml PO DAILY PRN PRN Reason: Constipation Last Admin: 07/16/22 09:11 Dose: 30 ml Methadone HCl (Methadone Hcl 20 Mg/2 Ml Oral.Conc) 160 mg PO DAILY YAEL Last Admin: 07/17/22 10:26 Dose: 160 mg Mirtazapine (Mirtazapine 15 Mg Tablet) 45 mg PO BEDTIME YAEL Last Admin: 07/16/22 22:33 Dose: 45 mg Nicotine (Nicotine 21 Mg Patch.Td24) 21 mg TRANSDERMA DAILY YAEL Last Admin: 07/17/22 08:45 Dose: 21 mg Nicotine Polacrilex (Nicotine Polacrilex 2 Mg Gum) 4 mg BUCCAL Q2H PRN PRN Reason: Nicotine Cravings Olanzapine (Olanzapine 7.5 Mg Tablet) 15 mg PO BEDTIME YAEL Last Admin: 07/16/22 22:45 Dose: 15 mg Olanzapine (Olanzapine 7.5 Mg Tablet) 15 mg PO BID PRN PRN Reason: psychosis, agitation Last Admin: 07/17/22 10:21 Dose: 15 mg Omeprazole (Omeprazole 40 Mg Capsule.Dr) 40 mg PO DAILY@0630 YAEL Last Admin: 07/17/22 08:44 Dose: 40 mg Ondansetron HCl (Ondansetron Odt 4 Mg Tab.Rapdis) 4 mg TRANSLINGU Q8H PRN PRN Reason: Nausea Last Admin: 07/13/22 11:48 Dose: 4 mg Prazosin HCl (Prazosin Hcl 1 Mg Capsule) 7 mg PO BEDTIME YAEL; Protocol Last Admin: 07/16/22 22:33 Dose: 7 mg Propranolol HCl (Propranolol Hcl 10 Mg Tablet) 10 mg PO TID YAEL; Protocol Sumatriptan Succinate (Sumatriptan Succinate 50 Mg Tablet) 50 mg PO DAILY PRN PRN Reason: Migraine Headache Trazodone HCl (Trazodone Hcl 50 Mg Tablet) 50 mg PO BEDTIME PRN PRN Reason: Insomnia Allergies Allergies Allergy/AdvReac Type Severity Reaction Status Date / Time egg AdvReac Hives Verified 06/26/22 15:47 Pork/Porcine Containing AdvReac Anaphylaxis Verified 06/26/22 15:47 Products Assessment & Plan Assessment & Plan (1) Abdominal pain: Status: Acute Code(s): R10.9 - Unspecified abdominal pain Plan Patient is a 31-year-old female with a PMH significant for anxiety, bipolar disorder, opiate dependence on methadone, hx of nephrolithiasis and seizure disorder admitted to Psychiatry with consult placed to hospitalist service for medical or complaint of persistent abdominal pain. Patient states?her pain began on the right side of her midback 5-6 days ago. At 1st patient had pain with walking then later with breathing in deeply, now pain is constant. Describes pain as sharp, shooting, throbbing. Pain now extends from center of her back all the way through with the middle of her abdomen. Patient states that earlier today to she noticed ?coffee ground? stool that was maroon in color. Abdominal pain Patient with abdominal pain that extends from the middle of her right back across the middle of her abdomen UA negative for UTI or blood in the urine Mild transaminitis Get CT of abdomen and pelvis rule out acute abdomen Thank you for allowing us to participate in the care of this patient. Will continue to follow pending CT results. Please let us know if there are any acute complaints or questions. Plan 6/5- try propanolol for restlessness, needing to pace, seems like akathisia (chronic, not worsened by olanzapine or remeron). reports mood better. no SI/HI/ No psychosis. propanolol 10mg po TID, continue all other meds. Patient educated on: diagnosis Informed Consent: understands Reason for continued inpatient stay Substantial Risk for: inability to function Time Spent With Patient Time: Total time managing care of this patient today ____ minutes.
[2022-07-17] MEDS: Benzocaine 20 % Oral Gel 9 GM TUBE 1 APPL MUCOUS MEM (20:02)
[2022-07-17] MEDS: Mirtazapine 15 MG TABLET 45 MG PO (21:19)
[2022-07-17] MEDS: Propranolol HCL 10 MG TABLET PO (21:19)
[2022-07-17 21:21] VITALS: BP 117/73; PULSE 90; RESP 18; TEMP 36.6; O2SAT 99
[2022-07-17] MEDS: Prazosin HCL 1 MG CAPSULE 2 MG PO (22:42)
[2022-07-17] MEDS: Prazosin HCL 5 MG CAPSULE PO (22:42)
[2022-07-18 08:51] VITALS: BP 107/63; PULSE 85; RESP 20; TEMP 36.6; O2SAT 96
[2022-07-18] MEDS: Nicotine 21 MG PATCH.TD24 TRANSDERMA (08:52)
[2022-07-18] MEDS: Propranolol HCL 10 MG TABLET PO ×3 (08:52→21:51)
[2022-07-18] MEDS: Gabapentin 300 MG CAPSULE 900 MG PO ×3 (08:52→21:50)
[2022-07-18] MEDS: Omeprazole 40 MG CAPSULE.DR PO (08:52)
[2022-07-18] MEDS: methADONE HCl 20 MG/2 ML ORAL.CONC 160 MG PO (08:54)
[2022-07-18] MEDS: OLANZapine 7.5 MG TABLET 15 MG PO ×3 (11:49→21:51)
[2022-07-18] MEDS: Benzocaine 20 % Oral Gel 9 GM TUBE 1 APPL MUCOUS MEM ×3 (11:50→22:02)
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
[2022-07-18] MEDS: hydrOXYzine HCL 25 MG TABLET PO (18:54)
[2022-07-18 21:30] VITALS: BP 117/67; PULSE 81; TEMP 36.6; O2SAT 96
[2022-07-18] MEDS: Prazosin HCL 5 MG CAPSULE PO (21:49)
[2022-07-18] MEDS: Prazosin HCL 1 MG CAPSULE 2 MG PO (21:50)
[2022-07-18] MEDS: Mirtazapine 15 MG TABLET 45 MG PO (21:51)
[2022-07-18] MEDS: Milk of Magnesia 30 ML ORAL.SUSP PO (21:51)
[2022-07-19] MEDS: Omeprazole 40 MG CAPSULE.DR PO (06:40)
[2022-07-19] MEDS: OLANZapine 7.5 MG TABLET 15 MG PO (07:00)
[2022-07-19 08:03] VITALS: BP 120/68; PULSE 104; RESP 20; TEMP 36.6; O2SAT 96
[2022-07-19] MEDS: Gabapentin 300 MG CAPSULE 900 MG PO (08:04)
[2022-07-19] MEDS: Propranolol HCL 10 MG TABLET PO (08:04)
[2022-07-19] MEDS: Nicotine 21 MG PATCH.TD24 TRANSDERMA (08:04)
[2022-07-19] MEDS: methADONE HCl 20 MG/2 ML ORAL.CONC 160 MG PO (08:06)
--- NOTE | 2022-07-19 10:32 | PC.NURSE ---
Patient easily engaged. Reports mood is anxious, relates this to going to program. Feels ready, is excited and anxious . Denies depression or sadness, denies SI/HI plan or intent. Denies perceptual disturbances, no overt psychosis or expressed delusions. Denies A/V hallucinations. Discharge paperwork reviewed with patient. Reports understanding. Medications reviewed with patient, reports understanding. Motivated for sobriety. All belongings taken with patient. Crisis numbers provided.
== END 2022-07-19 09:05 | DRG 885 ==
PROVIDERS: Psychiatry & Neurology Psychiatry; Admitting Provider Psychiatry & Neurology Psychiatry; PCP Nurse Practitioner Family; Visit Provider Psychiatry & Neurology Psychiatry
DX: F34.9 Persistent mood [affective] disorder, unspecified (principal); R45.851 Suicidal ideations; F11.20 Opioid dependence, uncomplicated; R10.9 Unspecified abdominal pain; G40.909 Epilepsy, unspecified, not intractable, without status epilepticus; F17.210 Nicotine dependence, cigarettes, uncomplicated; F31.9 Bipolar disorder, unspecified; F19.10 Other psychoactive substance abuse, uncomplicated; Z71.6 Tobacco abuse counseling; Z59.02 Unsheltered homelessness; Z79.899 Other long term (current) drug therapy
CPT/HCPCS: 0353U; 36415; 74176; 80048; 80076; 81001; 82140; 83690

== ENCOUNTER → 2022-06-26 15:05 | Outpatient (BNV) | payer OTHER, SELFPAY | PROVIDERS: Admitting Provider Psychiatry & Neurology Psychiatry; PCP Nurse Practitioner Family; Visit Provider Psychiatry & Neurology Psychiatry | DX: F34.9 Persistent mood [affective] disorder, unspecified (principal); F19.90 Other psychoactive substance use, unspecified, uncomplicated; R10.9 Unspecified abdominal pain | CPT/HCPCS: 90792; 99231; 99232; 99238 ==

== ENCOUNTER → 2024-01-01 12:16 | Outpatient (REF) | payer OTHER, SELFPAY ==
--- NOTE | 2024-01-01 12:24 | ECG_ITS ---
Test Reason : LONG-TERM DRUG THERAPY Blood Pressure : / mmHG Vent. Rate : 059 BPM Atrial Rate : 059 BPM P-R Int : 140 ms QRS Dur : 084 ms QT Int : 424 ms P-R-T Axes : 037 054 026 degrees QTc Int : 419 ms Sinus bradycardia with sinus arrhythmia Otherwise normal ECG No previous ECGs available Referred By: Lizzette Arredondo Electronically Signed By:FERNIE PEREZ MD
== END ==
LOC: HO.CARD 12:16
PROVIDERS: Visit Provider Nurse Practitioner Family
DX: Z79.899 Other long term (current) drug therapy (principal)
CPT/HCPCS: 93005

== ENCOUNTER → 2024-01-01 12:24 | Outpatient (BNV) | payer OTHER, SELFPAY | PROVIDERS: Visit Provider Internal Medicine Cardiovascular Disease | DX: R00.1 Bradycardia, unspecified (principal) | CPT/HCPCS: 93010 ==

== ENCOUNTER 2024-01-06 12:00 | Emergency (ER) | payer OTHER, SELFPAY ==
--- NOTE | ~2024-01-06 | US_ITS ---
EXAMINATION: US PELVIC AND TRANSVAGINAL US PELVIC OVARIAN DOPPLER CLINICAL INFORMATION: Vaginal bleeding/clotting. LMP 6 months ago and one day ago. COMPARISON: CT abdomen/pelvis dated 07/14/2022. TECHNIQUE: Ultrasound of the pelvis is performed using both transabdominal and transvaginal transducers along with Doppler. Transvaginal imaging is performed due to inadequate visualization transabdominally. FINDINGS: UTERUS: The uterus is anteverted and measures 9.5 x 4.4 x 5.4 cm. Unremarkable cervix. The double wall endometrial thickness is 0.3 mm. The uterus is smooth in contour and has normal myometrial echogenicity. No visible fibroid. Adnexa: Both ovaries are visualized. The right ovary demonstrates normal Doppler detectable vascular flow. The left ovary demonstrates normal venous flow. Arterial flow not well seen, possibly technical. There is no ovarian torsion. There is no pelvic ascites or fluid collection. Right ovary measures 3.2 x 2.1 x 2.5 cm. Right ovarian volume of 8.8 mL. Left ovary measures 1.8 x 1.4 x 2.8 cm. Left ovarian volume of 3.7 mL. Left ovarian exophytic versus paraovarian cyst measuring up to 7.0 x 7.4 x 8.0 cm in greatest dimension. No associated Doppler detectable vascular flow or soft tissue component. US/US pelvic and transvaginal IMPRESSION: 1. Left ovarian exophytic versus paraovarian cyst measuring up to 8.0 cm in greatest dimension. No Doppler detectable vascular flow or soft tissue component. 2. Sonographically unremarkable uterus, endometrium, and right ovary. Electronically signed by: Aman Carrasco MD 01/06/2024 03:32 PM [facility] [place]
--- NOTE | ~2024-01-06 | US_ITS ---
EXAMINATION: US PELVIC AND TRANSVAGINAL US PELVIC OVARIAN DOPPLER CLINICAL INFORMATION: Confirm flow to left ovary. COMPARISON: [employer]ICIAN ultrasound done earlier the same day. TECHNIQUE: Ultrasound of the pelvis is performed using both transabdominal and transvaginal transducers along with Doppler. Transvaginal imaging is performed due to inadequate visualization transabdominally. FINDINGS: The left ovary measures approximately 3.3 x 2.3 x 1.5 cm for a volume of 6 mL. There is Doppler detectable vascular flow within the left ovary. Redemonstration of a partially visualized paraovarian cyst measuring up to 8.1 cm in greatest dimension. US/US pelvic ovarian doppler IMPRESSION: 1. Redemonstration of a partially visualized left paraovarian cyst measuring up to 8.1 cm. 2. Doppler detectable vascular flow within the left ovary. Electronically signed by: Aman Carrasco MD 01/06/2024 05:12 PM [facility]
--- NOTE | ~2024-01-06 | US_ITS ---
EXAMINATION: US PELVIC AND TRANSVAGINAL US PELVIC OVARIAN DOPPLER CLINICAL INFORMATION: Vaginal bleeding/clotting. LMP 6 months ago and one day ago. COMPARISON: CT abdomen/pelvis dated 07/14/2022. TECHNIQUE: Ultrasound of the pelvis is performed using both transabdominal and transvaginal transducers along with Doppler. Transvaginal imaging is performed due to inadequate visualization transabdominally. FINDINGS: UTERUS: The uterus is anteverted and measures 9.5 x 4.4 x 5.4 cm. Unremarkable cervix. The double wall endometrial thickness is 0.3 mm. The uterus is smooth in contour and has normal myometrial echogenicity. No visible fibroid. Adnexa: Both ovaries are visualized. The right ovary demonstrates normal Doppler detectable vascular flow. The left ovary demonstrates normal venous flow. Arterial flow not well seen, possibly technical. There is no ovarian torsion. There is no pelvic ascites or fluid collection. Right ovary measures 3.2 x 2.1 x 2.5 cm. Right ovarian volume of 8.8 mL. Left ovary measures 1.8 x 1.4 x 2.8 cm. Left ovarian volume of 3.7 mL. Left ovarian exophytic versus paraovarian cyst measuring up to 7.0 x 7.4 x 8.0 cm in greatest dimension. No associated Doppler detectable vascular flow or soft tissue component. US/US pelvic ovarian doppler IMPRESSION: 1. Left ovarian exophytic versus paraovarian cyst measuring up to 8.0 cm in greatest dimension. No Doppler detectable vascular flow or soft tissue component. 2. Sonographically unremarkable uterus, endometrium, and right ovary. Electronically signed by: Aman Carrasco MD 01/06/2024 03:32 PM [facility]
--- NOTE | ~2024-01-06 | US_ITS ---
EXAMINATION: US PELVIC AND TRANSVAGINAL US PELVIC OVARIAN DOPPLER CLINICAL INFORMATION: Confirm flow to left ovary. COMPARISON: [employer] ultrasound done earlier the same day. TECHNIQUE: Ultrasound of the pelvis is performed using both transabdominal and transvaginal transducers along with Doppler. Transvaginal imaging is performed due to inadequate visualization transabdominally. FINDINGS: The left ovary measures approximately 3.3 x 2.3 x 1.5 cm for a volume of 6 mL. There is Doppler detectable vascular flow within the left ovary. Redemonstration of a partially visualized paraovarian cyst measuring up to 8.1 cm in greatest dimension. US/US pelvic and transvaginal IMPRESSION: 1. Redemonstration of a partially visualized left paraovarian cyst measuring up to 8.1 cm. 2. Doppler detectable vascular flow within the left ovary. Electronically signed by: Aman Carrasco MD 01/06/2024 05:12 PM [facility] [place]
--- NOTE | 2024-01-06 12:03 | ED_ITS ---
HPI - Female Genitourinary General Chief complaint: Vaginal Bleeding Stated complaint: vaginal bleeding Time Seen by Provider: 01/06/24 12:33 Source: patient Mode of arrival: ambulatory Limitations: no limitations History of Present Illness ED Provider: KHRIS FLORES PA-C HPI Narrative: 33 year old female with pmhx significant for ovarian cysts, anxiety, bipolar disorder, opiate dependence on methadone, nephrolithiasis, and seizure disorder presents to the ED today for evaluation of heavy vaginal bleeding that began last night and increased around 0430 this morning. Reports changing her pads every 30 minutes to 1 hour. Admits to associated lower abdominal cramping (no pain) and nausea without vomiting. No radiation to shoulder. Admits to history of irregular menses since having her youngest child 5 years ago. States she typically has a period about 2 times a year. LMP 6-7 months ago. She is not sexually active. Denies concern for or STD. Denies fatigue, fever, chills, flank pain, vaginal discharge, dysuria, hematuria. Related Data Home Medications ?Medication ?Instructions ?Recorded ?Confirmed methadone 10 mg/5 mL oral solution 160 mg PO DAILY 06/27/22 06/27/22 Previous Rx's ?Medication ?Instructions ?Recorded acetaminophen 325 mg tablet 650 mg (2 x 325 mg) PO DAILY PRN 07/18/22 Headache/Pain Mild Scale (1-3) 30 days #60 tabs benzocaine 20 % mucosal gel 1 appl mucous membrane QID PRN 07/18/22 (Anbesol (benzocaine) Maximum oral pain 15 days #9 grams Strength) gabapentin 300 mg capsule 900 mg (3 x 300 mg) PO TID 30 days 07/18/22 #270 caps hydroxyzine HCl 25 mg tablet 25 mg PO BID PRN Anxiety 30 days 07/18/22 #60 tabs mirtazapine 15 mg tablet 45 mg (3 x 15 mg) PO BEDTIME 30 07/18/22 days #90 tabs nicotine 21 mg/24 hr daily 21 mg transdermal DAILY 28 days 07/18/22 transdermal patch #28 ea olanzapine 7.5 mg tablet 15 mg (2 x 7.5 mg) PO BEDTIME 30 07/18/22 days #60 tabs olanzapine 7.5 mg tablet 15 mg (2 x 7.5 mg) PO BID PRN 07/18/22 psychosis, agitation 30 days #120 tabs omeprazole 40 mg capsule,delayed 40 mg PO DAILY@0630 30 days #30 07/18/22 release caps prazosin 1 mg capsule 2 mg PO BEDTIME 30 days #60 caps 07/18/22 prazosin 5 mg capsule 5 mg PO BEDTIME 30 days #30 caps 07/18/22 propranolol 10 mg tablet 10 mg PO TID 30 days #90 tabs 07/18/22 medroxyprogesterone 10 mg tablet 10 mg PO DAILY 30 days #30 tabs 01/06/24 (Provera) Allergies Allergy/AdvReac Type Severity Reaction Status Date / Time bee pollen [bee stings] Allergy Anaphylaxis Verified 01/07/24 13:49 buprenorphine [From Suboxone] Allergy Angioedema Verified 01/07/24 13:49 bupropion [From Wellbutrin] Allergy Seizure Verified 01/07/24 13:49 latex Allergy rash, Verified 01/07/24 13:49 swelling naloxone [From Suboxone] Allergy Angioedema Verified 01/07/24 13:49 prazosin Allergy Unknown Verified 01/07/24 13:49 sertraline [From Zoloft] Allergy Unknown Verified 01/07/24 13:49 Sulfa (Sulfonamide Allergy Rash Verified 01/07/24 13:49 Antibiotics) egg AdvReac Hives Verified 01/07/24 13:49 haloperidol [From Haldol] AdvReac Unknown Verified 01/07/24 13:49 Pork/Porcine Containing AdvReac Anaphylaxis Verified 01/07/24 13:49 Products ziprasidone [From Geodon] AdvReac Unknown Verified 01/07/24 13:49 Review of Systems 2 Review of Systems: Constitutional: No fever, chills, fatigue, night sweats, weight changes ENT/Mouth: No ear pain, hearing loss, nasal congestion, sinus pain, rhinorrhea, sore throat Eyes: No eye pain, swelling, redness, vision changes, discharge Cardio: No chest pain, palpitations, HAHN, orthopnea, peripheral edema Pulm: No SOB, cough, sputum, wheezing, dyspnea, hemoptysis GI: No nausea, vomiting, hematemesis, diarrhea, constipation, hematochezia, melena, +abdominal cramping, +nausea : No dysuria, frequency, urgency, hesitancy, hematuria, flank pain, urinary flow changes, urinary incontinence or retention, +vaginal bleeding MSK: No back pain, neck pain, joint pain, myalgias Skin: No lesions, rashes Neuro: No weakness, numbness, paresthesias, LOC, dizziness, headache Psych: No anxiety/panic, depression, SI/HI, AH/VH All other systems reviewed and are negative. [facility] Past Medical History Attestation statement: The following information was validated with the patient. Source: old records reviewed and nursing notes reviewed Medical History Routine medical exam Seizure disorder Bipolar disorder Long-term current use of methadone for opiate dependence Polysubstance abuse Anxiety Social History Social History Household Members: None Housing: Homeless Do you presently have visiting nurse or other home services: No Comment: ambulating independently with steady gait Patient Tobacco Use Status: Current everyday Tobacco user Tobacco use type: Cigarette Cigarette Packs Per Day: 1 Cigarettes Per Day: 20.0 Years Smoked: several e-Cigarette/Vaping Use: Currently Using Second Hand Smoke Exposure: No Substance Use Type: Crack/Cocaine, Marijuana and Opiates service: No Sexual orientation: Lesbian/Werner/Homosexual Physical Exam 2 Vital Signs: Vital Signs: Last Vital Signs Temp 98.1 F 01/06/24 18:29 Pulse 73 01/06/24 18:29 Resp 14 01/06/24 18:29 BP 123/67 01/06/24 18:29 Pulse Ox 97 01/06/24 18:29 O2 Del Method Room Air 01/06/24 18:29 BMI result Body Mass Index 39.2 vital signs stable General: Well appearing, in no acute distress. Skin: Warm, dry, intact. No rashes or lesions. no pallor. Head: Normocephalic, atraumatic. EENT: Hearing is intact b/l. Conjunctiva clear. PERRLA. EOM intact. Moist mucous membranes.? Cardiac: Chest wall symmetric. RRR Lungs: Normal respiratory effort without accessory muscle use. CTA bilaterally Abdomen: soft, nondistended, tender to palpation of lower abdomen without rebound or guarding. Pain is not out of proportion to exam. No palpable masses. Normoactive bowel sounds x4. No CVAT bilaterally. Patient declining pelvic exam at this time. Back: No midline spinous or paraspinal tenderness. No step off deformity. Ext: Upper and lower extremities atraumatic, without tenderness, deformity, swelling or erythema. Full ROM throughout. Neuro: AOx3. Normal speech. Ambulating with steady gait. Psych: Appropriate mood and affect. Responds appropriately to questions. Course Course Course Narrative: This is a rapid medical exam. Deferred additional HPI, ROS, PE to primary provider. 33 yo female with history of asthma, seizure disorder with complaints of lower abdominal pain, vaginal bleeding with clots since yesterday (heavy since 4am). Going through 1 pad/tampon every 30 minutes. LMP 6 months, has irregular menses, not on OCP. VSS Will order labs, UA, urine preg -A. Pasjuanyi NAPPER GRINDER Reevaluation(s) Reevaluation #1: 1607 -- CBC with slight leukocytosis to 12 without left shift. No anemia. H&H stable. Chemistry without acute electrolyte abnormality requiring intervention. No NOREEN. Random glucose 118. Liver function around baseline. Beta HCG undetectable. Urine red, large amount of blood, moderate leukocyte esterase, over 20 RBCs, 11-20 WBCs, 6-10 squamous epithelial cells, 1+ urine bacteria air unable to determine nitrites due to coloration of the urine. Concern for contamination as patient is asymptomatic. Will await culture. Pelvic/transvaginal ultrasound showing left ovarian exophytic versus paraovarian cysts measuring up to 8 cm in greatest dimension. Left ovary demonstrates normal venous flow however arterial flow is not well seen, possibly technical. No evidence of ovarian torsion. There is no pelvic ascites or fluid collection. > Given size of ovarian cyst, risk of torsion. I did reach out to Dr. Logan. He is requesting to repeat doppler study to confirm arterial flow. Will re- evaluate. Order placed. Will continue to monitor. she is stable at this time. sign out given to my colleague Juan Carlos JOHNSON at shift change pending US results and disposition. Reevaluation #2: Repeat ultrasound shows ovaries with vascular flow. Negative for torsion. case was discussed again with Dr. Logan recommends Provera 10 mg daily for 30 days and states patient will need to follow-up with his office as soon as possible she may need biopsy. Patient explained torsion rupture symptoms and informed return to the ED immediately for those symptoms or any other concerning symptoms. Patient is stable Time: 18:18 Medications Administered Discontinued Medications Generic Name Dose Route Start Last Admin Trade Name Earnestine PRN Reason Stop Dose Admin Ketorolac Tromethamine 30 mg 01/06/24 13:51 01/06/24 14:22 Ketorolac Tromethamine 30 Mg/Ml Vial IM 01/06/24 13:52 30 mg ONCE ONE Administration Ondansetron HCl 4 mg 01/06/24 13:51 01/06/24 14:22 Ondansetron Odt 4 Mg Tab.Rapdis TRANSLINGU 01/06/24 13:52 4 mg ONCE ONE Administration Medical Decision Making Medical Decision Making MDM Narrative: 33 year old female with pmhx significant for ovarian cysts, anxiety, bipolar disorder, opiate dependence on methadone, nephrolithiasis, and seizure disorder presents to the ED today for evaluation of heavy vaginal bleeding that began last night and worsened around 0430 this morning. patient hypertensive to 148/68, vitals otherwise WNL. She is nontoxic-appearing and in no acute distress. Sitting comfortably on the exam bed. Abdomen is soft, nondistended, tender to palpation of lower abdomen without rebound or guarding. Pain is not out of proportion to exam. No palpable masses. Normoactive bowel sounds x4. No CVAT bilaterally. Patient declining pelvic exam at this time. Based on history, physical exam, and ED workup patient?s presentation is not consistent with ectopic , molar , life-threatening coagulopathy, trauma, serious bacterial infection, central process or other emergency. Most likely, patient?s bleeding is secondary to fibroids or other non-emergent cause of abnormal uterine bleeding. ED workup: CBC, CMP, UA, bHCG, pelvic ultrasound, re-evaluation Differential Diagnosis Differential Diagnoses: The differential diagnosis associated with the presentation includes as above Admission/Observation Consideration of admission/observation: Escalation of care including admission/observation considered Admission considered on presentation Consult Healthcare Provider Management of the patient was discussed with: Co[employer] Apprentice (OBGYN Dr. Logan) Lab Data [facility] Lab Attestation statement: I reviewed the patient's lab results. as above 01/06/24 12:22 01/06/24 12:22 Labs: Lab Results 01/06/24 01/06/24 Range/Units 12:22 12:23 WBC 12.0 H (4.8-10.8) X10*3/uL RBC 4.42 (4.20-5.50) X10*6/uL Hgb 13.5 (12.0-16.0) g/dl Hct 39.2 (37.0-47.0) % MCV 88.7 (80.0-98.0) fL MCH 30.5 (27.0-33.0) pg MCHC 34.4 (31.0-35.0) g/dl RDW 13.3 (11.0-16.0) % Plt Count 256 (160-400) X10*3/uL MPV 10.7 (9.4-12.3) fL Immature Gran % (Auto) 0.5 H (0.0-0.4) % Neut % (Auto) 66.2 (45-73) % Lymph % (Auto) 27.3 (20-40) % [place] % (Auto) 4.3 (2-11) % Eos % (Auto) 1.0 (0-4) % Baso % (Auto) 0.7 (0-2) % Lymph # (Auto) 3.3 (1.2-4.9) X10*3/uL [place] # (Auto) 0.5 (0.1-1.2) X10*3/uL Eos # (Auto) 0.1 (0.0-0.4) X10*3/uL Baso # (Auto) 0.1 (0.0-0.2) X10*3/uL Abs Immat Gran (auto) 0.06 H (0.00-0.03) X10*3/uL Absolute Neuts (auto) 8.0 (2.0-8.3) x10*3/uL Absolute Nucleated RBC 0.000 (0.0-0.012) X10*3/uL Nucleated RBC % (auto) 0.0 (0.0-0.2) /100WBC PT 11.2 (10.9-12.4) SEC INR 1.0 (0.9-1.1) Sodium 140 (135-145) mmol/L Potassium 3.7 (3.3-5.1) mmol/L Chloride 106 (96-108) mmol/L Carbon Dioxide 24 (22-29) mmol/L Anion Gap 14 (12-20) BUN 9 (9-16) mg/dL Creatinine 0.79 (0.5-1.4) mg/dL Estim Creat Clear Calc 130.4 Estimated GFR > 60 Random Glucose 118 H (60-115) mg/dL Calcium 9.6 (8.4-10.2) mg/dL Total Bilirubin 0.5 (0.0-1.0) mg/dL Direct Bilirubin 0.3 (0.0-0.5) mg/dL AST 37 H (5-31) U/L ALT 81 H (0-31) U/L Alkaline Phosphatase 107 (39-117) U/L Total Protein 6.9 (6.5-8.0) g/dL Albumin 4.0 (3.5-5.0) g/dL Beta HCG, Quant < 2 mIU/mL Urine Color Red A Urine Appearance Turbid Urine pH 8.5 (5.0-9.0) Ur Specific [place] 1.025 (1.005-1.025) Urine Protein 30 (1+) H (Neg-Trace) mg/dL Urine Glucose (UA) Negative (Negative) mg/dL Urine Ketones Negative (Negative) mg/dL Urine Blood Large (3+) H (Negative) Urine Nitrite See Note (Negative) Ur Leukocyte Esterase Moderate (2+) H (Negative) Urine RBC >20 H (0-2) /HPF Urine WBC 11-20 H (0-5) /HPF Ur Squamous Epith Cells 6-10 (0-2) /HPF Urine Bacteria 1+ (None Seen) Hyaline Casts 0-2 (0-2) /LPF Urine Test NEGATIVE (NEGATIVE) Independent Interpretation I performed an independent interpretation of an: Ultrasound Interpretation: pelvic ultrasound with large ovarian cyst to left ovary Radiology Impression Discussion of test interpretation with radiology: I have reviewed the radiologist's reading. Radiologist Impression: EXAMINATION: US PELVIC AND TRANSVAGINAL US PELVIC OVARIAN DOPPLER CLINICAL INFORMATION: Vaginal bleeding/clotting. LMP 6 months ago and one day ago. COMPARISON: CT abdomen/pelvis dated 07/14/2022. TECHNIQUE: Ultrasound of the pelvis is performed using both transabdominal and transvaginal transducers along with Doppler. Transvaginal imaging is performed due to inadequate visualization transabdominally. FINDINGS: UTERUS: The uterus is anteverted and measures 9.5 x 4.4 x 5.4 cm. Unremarkable cervix. The double wall endometrial thickness is 0.3 mm. The uterus is smooth in contour and has normal myometrial echogenicity. No visible fibroid. Adnexa: Both ovaries are visualized. The right ovary demonstrates normal Doppler detectable vascular flow. The left ovary demonstrates normal venous flow. Arterial flow not well seen, possibly technical. There is no ovarian torsion. There is no pelvic ascites or fluid collection. Right ovary measures 3.2 x 2.1 x 2.5 cm. Right ovarian volume of 8.8 mL. Left ovary measures 1.8 x 1.4 x 2.8 cm. Left ovarian volume of 3.7 mL. Left ovarian exophytic versus paraovarian cyst measuring up to 7.0 x 7.4 x 8.0 cm in greatest dimension. No associated Doppler detectable vascular flow or soft tissue component. US/US pelvic and transvaginal IMPRESSION: 1. Left ovarian exophytic versus paraovarian cyst measuring up to 8.0 cm in greatest dimension. No Doppler detectable vascular flow or soft tissue component. 2. Sonographically unremarkable uterus, endometrium, and right ovary. Electronically signed by: Aman Carrasco MD 01/06/2024 03:[address] [facility] External Record Review External record reviewed: Inpatient record Prescription Management I considered prescription management with: Pain Medication and Other (provera) Social Determinants Patient?s care significantly limited by Social Determinants of Health including: Other Social Determinant of Health Critical Care Time Critical Care Time Critical Care Time: Yes Total Critical Care Time: 32 Attestation: Critical care time in the amount of 32 minutes has been provided to the patient in terms of direct patient care, frequent reevaluation, consultation with OBGYN, review and interpretation of medical data and results, and management of potentially life-threatening conditions. This is all outside of any medical procedures. Discharge Plan Discharge Clinical Impression: Abnormal uterine bleeding, Ovarian cyst Patient Disposition: Home, Self-Care Instructions: Dysfunctional Uterine Bleeding (ED) Additional Instructions: You will need follow-up with our OBGYN Dr. Logan. Altered oral morning for an appointment. Return to the ED immediately for any severe abdominal vomiting, profuse vaginal bleeding, weakness, passing out, fever, chills, or any other concerning symptoms. Prescriptions: New medroxyprogesterone [Provera] 10 mg tablet 10 mg PO DAILY 30 Days Qty: 30 0RF No Action methadone 10 mg/5 mL Solution 160 mg PO DAILY nicotine 21 mg/24 hr Patch 24 Hour 21 mg transdermal DAILY 28 Days Qty: 28 0RF prazosin 1 mg Capsule 2 mg PO BEDTIME 30 Days Qty: 60 0RF Protocol: Hold for SBP< HOLD for SBP < : 90 olanzapine 7.5 mg Tablet 15 mg PO BEDTIME 30 Days Qty: 60 0RF olanzapine 7.5 mg Tablet 15 mg PO BID PRN (Reason: psychosis, agitation) 30 Days Qty: 120 0RF prazosin 5 mg Capsule 5 mg PO BEDTIME 30 Days Qty: 30 0RF Protocol: Hold for SBP< HOLD for SBP < : 90 propranolol 10 mg Tablet 10 mg PO TID 30 Days Qty: 90 0RF Protocol: Hold for SBP/HR < HOLD for SBP < : 90 HOLD for HR < : 60 gabapentin 300 mg Capsule 900 mg PO TID 30 Days Qty: 270 0RF hydroxyzine HCl 25 mg Tablet 25 mg PO BID PRN (Reason: Anxiety) 30 Days Qty: 60 0RF mirtazapine 15 mg Tablet 45 mg PO BEDTIME 30 Days Qty: 90 0RF Anbesol (benzocaine) Max Str 20 % Gel 1 appl mucous membrane QID PRN (Reason: oral pain) 15 Days Qty: 9 0RF Protocol: Apply to: Apply to: affected oral mucosa acetaminophen 325 mg Tablet 650 mg PO DAILY PRN (Reason: Headache/Pain Mild Scale (1-3)) 30 Days Qty: 60 0RF omeprazole 40 mg Capsule,Delayed Release(Dr/Ec) 40 mg PO DAILY@0630 30 Days Qty: 30 0RF Referrals: Jm Logan MD [Physician] - (Abnormal bleeding, large ovarian cyst) Stand Alone Forms: Work/School Release Interventions: ED Discharge Assessment Last Done: 01/06/24 18:29 Discharge Date/Time: 01/06/24 18:29 Print Language: Kazakh
[2024-01-06 12:10] VITALS: BP 148/68; PULSE 78; RESP 16; TEMP 36.6; O2SAT 100; BMI 39.2
[2024-01-06 12:27] LABS: MANUAL DIFF FLAG NO
[2024-01-06 12:29] LABS: Basophils Absolute Auto 0.1 X10*3/uL (0.0-0.2); Basophils Percent Auto 0.7 % (0-2); Eosinophils Absolute Auto 0.1 X10*3/uL (0.0-0.4); Hematocrit 39.2 % (37.0-47.0); Hemoglobin 13.5 g/dl (12.0-16.0); Imm Gran Abs Auto 0.06 X10*3/uL (0.00-0.03); Imm Gran Pct Auto 0.5 % (0.0-0.4); Lymphocytes Absolute Auto 3.3 X10*3/uL (1.2-4.9); Lymphocytes Percent Auto 27.3 % (20-40); Mean Corpuscular HGB Conc 34.4 g/dl (31.0-35.0); Mean Corpuscular Hemoglobin 30.5 pg (27.0-33.0); Mean Corpuscular Volume 88.7 fL (80.0-98.0); Mean Platelet Volume 10.7 fL (9.4-12.3); Monocytes Absolute Auto 0.5 X10*3/uL (0.1-1.2); Monocytes Percent Auto 4.3 % (2-11); Neutrophils Percent Auto 66.2 % (45-73); Platelet Count 256 X10*3/uL (160-400); Red Blood Count 4.42 X10*6/uL (4.20-5.50); Red Cell Distribution Width 13.3 % (11.0-16.0)
[2024-01-06 12:31] LABS: UPreg QC Valid YES; Urine Pregnancy NEGATIVE (NEGATIVE)
[2024-01-06 12:32] LABS: Appearance Urine Turbid; Color Urine Red; Glucose Urine UA Negative (Negative); Leukocyte Esterase Urine Moderate (2+) (Negative); PH 8.5 (5.0-9.0); Specific Gravity - Urine 1.025 (1.005-1.025); UMIC TRIGGER UACC YES; Urine Blood Large (3+) (Negative); Urine Ketones Negative (Negative); Urine Protein 30 (1+) mg/dL (Neg-Trace)
[2024-01-06 12:34] LABS: Prothrombin Time 11.2 SEC (10.9-12.4)
[2024-01-06 12:42] LABS: Bacteria Urine 1+ (None Seen); Hyaline Casts Urine 0-2 /LPF (0-2); RBC Urine >20 /HPF (0-2); UACC Culture Trigger YES
[2024-01-06 12:52] LABS: Alanine Aminotransferase 81 U/L (0-31); Alkaline Phosphatase 107 U/L (39-117); Anion Gap 14 (12-20); Aspartate Amino Transferase 37 U/L (5-31); Bilirubin Direct 0.3 mg/dL (0.0-0.5); Bilirubin Total 0.5 mg/dL (0.0-1.0); Blood Urea Nitrogen 9 mg/dL (9-16); Calcium 9.6 mg/dL (8.4-10.2); Carbon Dioxide 24 mmol/L (22-29); Chloride 106 mmol/L (96-108); Creatinine Clr Calc Pharmacy 130.4; Estimated Glomerular Filt Rate > 60; Glucose Random 118 mg/dL (60-115); Potassium 3.7 mmol/L (3.3-5.1); Sodium 140 mmol/L (135-145); Total Protein 6.9 g/dL (6.5-8.0)
[2024-01-06 12:58] LABS: HCG Quantitative < 2 mIU/mL
[2024-01-06] MEDS: Ondansetron ODT 4 MG TAB.RAPDIS TRANSLINGU (14:22)
[2024-01-06] MEDS: Ketorolac Tromethamine 30 MG/ML VIAL IM (14:22)
[2024-01-06 15:56] VITALS: BP 108/72; PULSE 79; RESP 16; TEMP 36.8; O2SAT 95
--- NOTE | 2024-01-06 17:09 | P.CONOB_ITS ---
[employer] - CN: HPI Data of Consult Consult date: 01/06/24 Primary Care Provider: Melita Cote NP Consult Narrative Narrative: I was consulted on Brenna Jacob who is a 33 year old female with pmhx significant for ovarian cysts, anxiety, bipolar disorder, opiate dependence on methadone, nephrolithiasis, and seizure disorder presents to the ED today for evaluation of heavy vaginal bleeding that began last night associated with mild pelvic cramping but no pain, and nausea without vomiting. The patient gives a long- term history of irregular menses last 20 years, oligomenorrhea with infrequent very heavy periods, her last menstrual period was 6-7 months ago. The patient is not sexually active. No other associated symptoms no vaginal discharge or urinary or GI symptoms, no fever or chills. Workup in the emergency room included H&H within normal, hCG less than 2, pelvic ultrasound 8 cm left ovarian cyst with the right ovary demonstrating normal Doppler detectable vascular flow. The left ovary demonstrating normal venous flow. Arterial flow was not well seen, possibly technical with no ovarian torsion. Repeat Doppler flow showed detectable left arterial and venous flow cc:: CC: OB [facility] Past Medical History Medical History Routine medical exam Seizure disorder Bipolar disorder Long-term current use of methadone for opiate dependence Polysubstance abuse Anxiety Social History Social History Household Members: None Housing: Homeless Do you presently have visiting nurse or other home services: No Comment: ambulating independently with steady gait Patient Tobacco Use Status: Current everyday Tobacco user Tobacco use type: Cigarette Cigarette Packs Per Day: 1 Cigarettes Per Day: 20.0 Years Smoked: several e-Cigarette/Vaping Use: Currently Using Second Hand Smoke Exposure: No Substance Use Type: Crack/Cocaine, Marijuana and Opiates Advance Directives: No Advance Directives Information Provided: No service: No Sexual orientation: Lesbian/Werner/Homosexual Meds Allergies Allergy/AdvReac Type Severity Reaction Status Date / Time bee pollen [bee stings] Allergy Anaphylaxis Verified 01/06/24 12:14 buprenorphine [From Suboxone] Allergy Angioedema Verified 01/06/24 12:14 bupropion [From Wellbutrin] Allergy Seizure Verified 01/06/24 12:14 latex Allergy rash, Verified 01/06/24 12:14 swelling naloxone [From Suboxone] Allergy Angioedema Verified 01/06/24 12:14 prazosin Allergy Unknown Verified 01/06/24 12:14 sertraline [From Zoloft] Allergy Unknown Verified 01/06/24 12:14 Sulfa (Sulfonamide Allergy Rash Verified 01/06/24 12:14 Antibiotics) egg AdvReac Hives Verified 01/06/24 12:14 haloperidol [From Haldol] AdvReac Unknown Verified 01/06/24 12:14 Pork/Porcine Containing AdvReac Anaphylaxis Verified 01/06/24 12:14 Products ziprasidone [From Geodon] AdvReac Unknown Verified 01/06/24 12:14 Home Medications ?Medication ?Instructions ?Recorded ?Confirmed ?Last Taken ?Type methadone 10 mg/5 mL oral solution 160 mg PO DAILY 06/27/22 06/27/22 06/25/22 07:53 History [employer] Physical Exam Vitals Vital signs: Temp Pulse Resp BP Pulse Ox O2 Del Method 98.2 F 79 16 108/72 95 Room Air 01/06/24 15:56 01/06/24 15:56 01/06/24 15:56 01/06/24 15:56 01/06/24 15:56 01/06/24 15:56 BMI result Body Mass Index 39.2 Additional Comments: Abdominal exam reported by ALEX Nunes to be benign with no evidence of guarding or rebound Pelvic exam declined by the patient [employer] - Results Labs 01/06/24 12:22 01/06/24 12:22 Labs: Short CBC 01/06/24 Range/Units 12:22 WBC 12.0 H (4.8-10.8) X10*3/uL Hgb 13.5 (12.0-16.0) g/dl Hct 39.2 (37.0-47.0) % Plt Count 256 (160-400) X10*3/uL BMP 01/06/24 12:22 Sodium 140 Potassium 3.7 Chloride 106 Carbon Dioxide 24 BUN 9 Creatinine 0.79 Calcium 9.6 Liver Function 01/06/24 Range/Units 12:22 Total Bilirubin 0.5 (0.0-1.0) mg/dL Direct Bilirubin 0.3 (0.0-0.5) mg/dL AST 37 H (5-31) U/L ALT 81 H (0-31) U/L Alkaline Phosphatase 107 (39-117) U/L Albumin 4.0 (3.5-5.0) g/dL Urine 01/06/24 01/06/24 Range/Units 12:22 12:23 Urine Color Red A Urine Appearance Turbid Urine pH 8.5 (5.0-9.0) Ur Specific [place] 1.025 (1.005-1.025) Urine Protein 30 (1+) H (Neg-Trace) mg/dL Urine Glucose (UA) Negative (Negative) mg/dL Urine Test NEGATIVE (NEGATIVE) Imaging US - abdomen: Radiologist's impression: ITS Impressions Doppler Study Ultrasound 01/06/24 13:51 IMPRESSION: 1. Left ovarian exophytic versus paraovarian cyst measuring up to 8.0 cm in greatest dimension. No Doppler detectable vascular flow or soft tissue component. 2. Sonographically unremarkable uterus, endometrium, and right ovary. Electronically signed by: Aman Carrasco MD 01/06/2024 03:32 PM EST RP Pelvic/Transvag US 01/06/24 13:51 IMPRESSION: 1. Left ovarian exophytic versus paraovarian cyst measuring up to 8.0 cm in greatest dimension. No Doppler detectable vascular flow or soft tissue component. 2. Sonographically unremarkable uterus, endometrium, and right ovary. Electronically signed by: Aman Carrasco MD 01/06/2024 03:32 PM EST RP Doppler Study Ultrasound 01/06/24 16:31 IMPRESSION: 1. Redemonstration of a partially visualized left paraovarian cyst measuring up to 8.1 cm. 2. Doppler detectable vascular flow within the left ovary. Electronically signed by: Aman Carrasco MD 01/06/2024 05:12 PM EST RP Pelvic/Transvag US 01/06/24 16:31 IMPRESSION: 1. Redemonstration of a partially visualized left paraovarian cyst measuring up to 8.1 cm. 2. Doppler detectable vascular flow within the left ovary. Electronically signed by: Aman Carrasco MD 01/06/2024 05:12 PM EST RP Assessment and Plan (1) Abnormal uterine bleeding: Status: Acute Recommended to ALEX Elizabeth the following: Since H&H is stable and the patient declined pelvic exam, Provera 10 mg p.o. q.d. (#30), short-term outpatient follow-up at the patient is OBGYN office for repeat evaluation including but not limited to pelvic exam, GC/CT, repeat CBC, TSH, and endometrial biopsy to rule out endometrial pathology including endometrial hyperplasia and/or malignancy. In addition to discussed with the patient the different options of treatment including hormonal treatment with progesterone versus combined hormone therapy or possible levo norgestrel IUD insertion. (2) Ovarian cyst: Status: Acute Recommended to ALEX Elizabeth the following: To discussed with the patient signs and symptoms of ovarian rupture and or torsion. Instructions to be given to the patient to refrain from sexual activity and strenuous exercises and come back to emergency room case of pelvic pain, nausea or vomiting, fever or chills or heavy vaginal bleeding. The patient needs an outpatient follow-up at the patient's OBGYN office for management of her ovarian cyst. I spent a total of 20 minutes reviewing the chart, communicating the emergency room provider and documenting in the medical record
[2024-01-06 18:13] VITALS: BP 123/67; PULSE 73; RESP 14; TEMP 36.7; O2SAT 97
[2024-01-06 18:29] VITALS: BP 123/67; PULSE 73; RESP 14; TEMP 36.7; O2SAT 97
== END 2024-01-06 18:29 | disposition home or self-care (01) ==
PROVIDERS: Nurse Practitioner Family; Emergency Provider Emergency Medicine; PCP Nurse Practitioner Family
DX: N83.202 Unspecified ovarian cyst, left side (principal); N93.9 Abnormal uterine and vaginal bleeding, unspecified; R10.2 Pelvic and perineal pain; F11.20 Opioid dependence, uncomplicated; N92.0 Excessive and frequent menstruation with regular cycle; Z79.899 Other long term (current) drug therapy
CPT/HCPCS: 36415; 76830; 76856; 80048; 80076; 81001; 81025; 84702; 85025; 85610; 87086; 93975; 96372; 99284; J1885

== ENCOUNTER → 2024-01-06 12:19 | Outpatient (BNV) | payer OTHER, SELFPAY | PROVIDERS: Emergency Provider Emergency Medicine; PCP Nurse Practitioner Family; Visit Provider Obstetrics & Gynecology | DX: N93.9 Abnormal uterine and vaginal bleeding, unspecified (principal); N83.209 Unspecified ovarian cyst, unspecified side | CPT/HCPCS: 99283 ==

== ENCOUNTER 2024-01-07 13:42 | Outpatient (REF) | payer OTHER, SELFPAY ==
[2024-01-08 10:37] LABS: HPV 16,18/45 See PAP report
== END 2024-01-07 13:43 | disposition home or self-care (01) ==
LOC: HO.LNP 13:42
PROVIDERS: PCP Nurse Practitioner Family; Visit Provider Obstetrics & Gynecology
DX: Z13.89 Encounter for screening for other disorder (principal)
CPT/HCPCS: 87624; 88175; 88305

== ENCOUNTER 2024-01-07 13:42 | Outpatient (AMB) | payer OTHER, SELFPAY ==
[2024-01-07 13:48] VITALS: BP 123/67
--- NOTE | 2024-01-07 13:48 | MHC.OFFVIS ---
Vital Signs 01/07/24 13:48 BP 123/67 Intake Visit Reasons: possible EMB and mirena insertion Allergies bee pollen [bee stings] Allergy (Verified 01/07/24 13:49) Anaphylaxis buprenorphine [From Suboxone] Allergy (Verified 01/07/24 13:49) Angioedema bupropion [From Wellbutrin] Allergy (Verified 01/07/24 13:49) Seizure latex Allergy (Verified 01/07/24 13:49) rash, swelling naloxone [From Suboxone] Allergy (Verified 01/07/24 13:49) Angioedema prazosin Allergy (Verified 01/07/24 13:49) Unknown sertraline [From Zoloft] Allergy (Verified 01/07/24 13:49) Unknown Sulfa (Sulfonamide Antibiotics) Allergy (Verified 01/07/24 13:49) Rash egg Adverse Reaction (Verified 01/07/24 13:49) Hives haloperidol [From Haldol] Adverse Reaction (Verified 01/07/24 13:49) Unknown Pork/Porcine Containing Products Adverse Reaction (Verified 01/07/24 13:49) Anaphylaxis ziprasidone [From Geodon] Adverse Reaction (Verified 01/07/24 13:49) Unknown HPI Comments Details: Presenting for follow-up from emergency room visit yesterday. The patient has a long-term history of irregular heavy menstrual cycles/oligomenorrhea associated with passage of blood clots. The workup the emergency room yesterday showed the following: H&H 13.5/39.2 HCG less than 2 GC/CT negative Pelvic ultrasound showed the following: UTERUS: The uterus is anteverted and measures 9.5 x 4.4 x 5.4 cm. Unremarkable cervix. The double wall endometrial thickness is 0.3 mm. The uterus is smooth in contour and has normal myometrial echogenicity. No visible fibroid. Adnexa: Both ovaries are visualized. The right ovary demonstrates normal Doppler detectable vascular flow. The left ovary demonstrates normal venous flow. Arterial flow not well seen, possibly technical. There is no ovarian torsion. There is no pelvic ascites or fluid collection. Right ovary measures 3.2 x 2.1 x 2.5 cm. Right ovarian volume of 8.8 mL. Left ovary measures 1.8 x 1.4 x 2.8 cm. Left ovarian volume of 3.7 mL. Left ovarian exophytic versus paraovarian cyst measuring up to 7.0 x 7.4 x 8.0 cm in greatest dimension. No associated Doppler detectable vascular flow or soft tissue component. Repeat Doppler studies showed the following: IMPRESSION: 1. Redemonstration of a partially visualized left paraovarian cyst measuring up to 8.1 cm. 2. Doppler detectable vascular flow within the left ovary. The patient was prescribed Provera 10 mg p.o. q.d., but did not fill a prescription yet [facility] Medical History Routine medical exam Seizure disorder Bipolar disorder Long-term current use of methadone for opiate dependence Polysubstance abuse Anxiety Social History Household Members: None Housing: Homeless Do you presently have visiting nurse or other home services: No Comment: ambulating independently with steady gait Patient Tobacco Use Status: Current everyday Tobacco user Tobacco use type: Cigarette Cigarette Packs Per Day: 1 Cigarettes Per Day: 20.0 Years Smoked: several e-Cigarette/Vaping Use: Currently Using Second Hand Smoke Exposure: No Substance Use Type: Crack/Cocaine, Marijuana and Opiates service: No Sexual orientation: Lesbian/Werner/Homosexual Female Reproductive History Menstrual Date of last menstrual period: 01/05/24 Review of Systems Const All systems reviewed & are unremarkable except as noted in HPI and below Card Reports as per HPI Resp Reports as per HPI GI Reports as per HPI and Reports no additional complaints Reports as per HPI Physical Exam Vital Signs: Last Vital Signs BP 123/67 01/07/24 13:48 Const General: cooperative, healthy appearing and comfortable Chest Chest palpation & inspection: normal inspection of the chest and normal palpation of entire chest wall Breast/axilla inspection: normal inspection of the breasts and normal inspection of the axillae Breast/axilla palpation: normal palpation of the breasts, normal palpation of the axillae and no axillary lymphadenopathy Resp Effort & Inspection: normal respiratory effort Auscultation: clear to auscultation bilaterally Percussion: percussion normal Cardio Palpation: normal PMI Rate: regular rate Rhythm: regular rhythm Heart sounds: no murmurs and no rubs Peripheral pulses: Peripheral pulses 2+ throughout GI Inspection: Yes normal to inspection Palpation (GI): Soft to palpation, nontender, no guarding, not rigid and No hepatosplenomegaly present Percussion: Yes normal to percussion Auscultation: normal bowel sounds Rectal Exam - Female: deferred General: Yes bladder normal to palpation External Female Exam: No lesion Speculum Exam - Vagina: normal appearance of the vagina, normal palpation, normal vaginal discharge and not erythematous Speculum Exam - Cervix: normal appearance of the cervix and normal palpation Bimanual exam- vagina & uterus: normal bimanual exam, normal palpation, uterine size normal, bladder normal to palpation, consistency normal and normal palpation Bimanual Exam- Adnexa, other: normal adnexae, no masses and no tenderness Office Procedures Endometrial Biopsy Details: The patient was counseled regarding the indication and benefits of endometrial sampling to rule out endometrial pathology including not limited to endometrial hyperplasia or endometrial cancer and others; The alternatives (Either do nothing vs. hysteroscopy D&C) & the risks were discussed with the patient including but not limited: pain, uterine perforation, bleeding, infection, possible injury to bladder, bowel, ureter, possible need for blood transfusion with all its possible risks. The patient verbalized understanding all questions answered and signed consent. Urine test done in the office was negative The patient was placed into the dorsal lithotomy position; a speculum was inserted in the vagina. Using aseptic technique for the procedure, the cervix was cleansed with Betadine. The anterior lip of the cervix was grasped with a single tooth tenaculum. The uterus was sounded to 7 cm with a 4 mm Pipelle was used. Tissues samples were obtained and placed in formalin, in a patient labeled container and sent to the pathology department. At the end of the procedure, there was minimal bleeding noted The patient tolerated the procedure well and was discharged in good condition with the following instructions: Nothing in the vagina until the bleeding stops. No sex until the bleeding stops, to call if any of the following occurs: fever (>100.4), flu-like symptoms, abdominal pain, heavy bleeding, four smelling vaginal discharge. The patient was instructed to schedule a Follow up appointment in 2 weeks to discuss pathology results of the biopsy and treatment options. This note was generated with a voice recognition program. Some errors may have been overlooked during the review of this note. Sometimes these errors may affect the content or meaning of a given sentence. 52037-Kbaapzkemcp Biopsy IUD Insert/Removal Details Details: The patient is presenting for Mirena IUD insertion Urine test was done in the office and was negative; All the contraindications were excluded. The following possible complications were discussed with the patient: Intrauterine , Ectopic , Sepsis, Pelvic Infection, Irregular Bleeding and Amenorrhea, Perforation, Expulsion, Ovarian Cysts, Breast Cancer, The following adverse effects were discussed with the patient: alteration of menstrual bleeding pattern, including: unscheduled uterine bleeding decreased uterine bleeding increased scheduled uterine bleeding female genital tract bleeding ,amenorrhea , genital discharge , vulvovaginitis , breast pain , benign ovarian cyst and associated complications , dysmenorrhea , Gastrointestinal disorders abdominal/pelvic pain, headache/migraine , back pain , acne , depression Alternative options were discussed with the patient including but not limited: control pills, patch, NuvaRing, Depo-medroxyprogesterone acetate, Nexplanon, copper IUD, sterilization, vasectomy, others The procedure was explained in detail to patient , at the end patient signed the informed consent obtained. A no touch technique was used throughout the procedure. A speculum was placed into vagina and cervix was cleaned with betadine). A tenaculum was placed. A plastic sound was advanced through the external and internal os until it reached the fundus of the uterus, the depth was 8 cm. The sound was then withdrawn. The IUD was loaded in a sterile manner and advanced into position. The string was visualized and cut to 3 cm. Tenaculum site hemostatic. All instruments removed from vagina. Patient tolerated the procedure well. NO complications were noted. Patient was instructed to call for fever over 100.4, significant pain unrelieved by Motrin, IUD expulsion, heavy bleeding, or abnormal discharge. In addition, the following clinical considerations were discussed with the patient to call for removal: A stroke or heart attack ,Very severe or migraine headaches ,Unexplained fever ,Yellowing of the skin or whites of the eyes, as these may be signs of serious liver problems , or suspected , Pelvic pain or pain during sex ,HIV positive seroconversion in herself or her partner , Possible exposure to sexually transmitted infections Unusual vaginal discharge or genital sores , severe vaginal bleeding or bleeding that lasts a long time, or if she misses a menstrual period, Inability to feel Mirena's threads Counseled the patient that the IUD does not protect against STI's, recommended use of condoms for the first 7 days post insertion and explained to the patient that condoms are recommended for patients at risk for sexually transmitted infections. Informed the patient that Mirena IUD is FDA approved for 8 years for contraception for 5 years for the treatment of heavy menses Instructed the patient to schedule a Follow up appointment in 4 to 6 weeks following insertion. This note was generated with a voice recognition program. Some errors may have been overlooked during the review of this note. Sometimes these errors may affect the content or meaning of a given sentence. 36383-DWR Insertion Procedure code (CPT) selection complete Office Meds Mirena 21 mcg/24 hr (up to 8 years) 52 mg intrauterine device Performing Provider: Jm Logan MD Performing Location: [facility] [place] [facility] Documented (not given) by: Jm Logan MD on 01/07/24 14:17 Dose Route Admin Location Dispensed Lot Number Expiration Date [facility] [employer] 1 device intrauterine ea Assessment & Plan Assessment & Plan (1) Abnormal uterine bleeding: Code(s): N93.9 - Abnormal uterine and vaginal bleeding, unspecified Category: Medical Plan: Co testing done, GC and chlamydia taken yesterday CBC, TSH, prolactin, HCG, and 6 weeks follow-up pelvic ultrasound ordered. Discussed with the patient the different causes of abnormal bleeding including thyroid disorders, uterine and ovarian pathology, endometrial hyperplasia, carcinoma and other potential causes. Discussed with the patient the work up including CBC (to r/o anemia), TSH, prolactin, pelvic Ultrasound, endometrial biopsy to r/o endometrial pathology. All questions answered and the patient verbalized understanding. EMB done, see procedure note. Instructions given the patient to schedule a follow-up EMB appointment in 6 weeks Discussed with the patient the options of treatment including Lysteda, control pills, Mirena IUD, endometrial ablation and hysterectomy. All pros, cons, risks and benefits if each option was discussed with the patient and the patient decided to go ahead with Mirena IUD so a more detailed discussion about it was conducted including mechanism of action, risks (uterine perforation, infection, injury to bladder, bowel, displacement, and others) benefits (hypo menorrhea, amenorrhea, ...). GC/CT were taken yesterday and will negative and Mirena IUD insertion was done today, see procedure note . Instructions given the patient not to initiate Provera as prescribed, prescription stopped. All questions answered, the patient verbalized understanding (2) Ovarian cyst: Code(s): N83.209 - Unspecified ovarian cyst, unspecified side Category: Medical Plan: Discussed with the patient the finding of a large ovarian cyst on pelvic ultrasound. Signs and symptoms of torsion and or rupture were discussed with the patient. Instructions given the patient to refrain from sexual activity and strenuous exercises and to call or go to emergency room in case of pelvic pain and or nausea or vomiting, fever above 100.4 or heavy vaginal bleeding. All questions answered, the patient verbalized understanding Orders: Orders HCG Quantitative Today N93.9 - Abnormal uterine and vaginal bleeding, unspecified Complete Blood Count no Diff Today N93.9 - Abnormal uterine and vaginal bleeding, unspecified Prolactin Today N93.9 - Abnormal uterine and vaginal bleeding, unspecified AMB Endometrial Biopsy Today N93.9 - Abnormal uterine and vaginal bleeding, unspecified AMB HCG Urine Test Today Z32.02 - Encounter for test, result negative TSH reflex Free T4 Today N93.9 - Abnormal uterine and vaginal bleeding, unspecified US pelvic and transvaginal 6 Weeks N83.209 - Unspecified ovarian cyst, unspecified side, N93.9 - Abnormal uterine and vaginal bleeding, unspecified AMB IUD Insertion/Removal - Practice Supplied Today N93.9 - Abnormal uterine and vaginal bleeding, unspecified Medications: New Mirena (levonorgestrel) 1 device intrauterine ONCE 1 ea 0RF AUB NS N93.9 - Abnormal uterine and vaginal bleeding, unspecified Discontinued rizatriptan Discontinued Reason: Patient Completed Course 40 mg (4 x 10 mg) PO DAILY 30 days PRN 60 tabs 0RF Migraine Headache medroxyprogesterone (Provera) Discontinued Reason: Doctor's Order 10 mg PO DAILY 30 days 30 tabs 0RF Coding Level of Care Code Est Pt Level 3 (69392) Procedure Only Diagnoses Abnormal uterine bleeding N93.9 Ovarian cyst N83.209 CPT Codes Endometrial Biopsy - CPT: 20646-Rznacgrhipc Biopsy ([id number]) Details - CPT: 42933-UOV Insertion ([id number])
== END 2024-01-07 14:31 | disposition home or self-care (01) ==
PROVIDERS: PCP Nurse Practitioner Family; Visit Provider Obstetrics & Gynecology
DX: N93.9 Abnormal uterine and vaginal bleeding, unspecified (principal); N83.209 Unspecified ovarian cyst, unspecified side; Z32.02 Encounter for pregnancy test, result negative; Z30.430 Encounter for insertion of intrauterine contraceptive device
CPT/HCPCS: 58100; 58300; 99213

== ENCOUNTER 2024-01-07 14:21 | Outpatient (REF) | payer OTHER, SELFPAY ==
[2024-01-07 16:11] LABS: Hemoglobin 13.4 g/dl (12.0-16.0); Mean Corpuscular HGB Conc 33.5 g/dl (31.0-35.0); Mean Corpuscular Hemoglobin 30.2 pg (27.0-33.0); Mean Corpuscular Volume 90.1 fL (80.0-98.0); Mean Platelet Volume 11.3 fL (9.4-12.3); Platelet Count 265 X10*3/uL (160-400); Red Blood Count 4.44 X10*6/uL (4.20-5.50); Red Cell Distribution Width 13.2 % (11.0-16.0); White Blood Count 12.8 X10*3/uL (4.8-10.8)
[2024-01-07 17:03] LABS: HCG Quantitative < 2 mIU/mL; TSH reflex Free T4 2.61 uIU/mL (0.32-4.0)
== END 2024-01-07 14:22 | disposition home or self-care (01) ==
LOC: HO.LAB 14:21
PROVIDERS: PCP Nurse Practitioner Family; Visit Provider Obstetrics & Gynecology
DX: Z30.430 Encounter for insertion of intrauterine contraceptive device (principal); N93.9 Abnormal uterine and vaginal bleeding, unspecified; N83.209 Unspecified ovarian cyst, unspecified side
CPT/HCPCS: 36415; 58100; 58300; 81025; 84146; 84443; 84702; 85027; 87624; 88175; 88305; 99212; J7298

== ENCOUNTER 2024-02-07 06:23 | Emergency (ER) | payer OTHER, SELFPAY ==
--- NOTE | ~2024-02-07 | XR_ITS ---
EXAMINATION: XR ANKLE, LEFT XR FOOT, LEFT CLINICAL INFORMATION: Injury, swelling, pain COMPARISON: None available. TECHNIQUE: AP, lateral, and oblique views of the left ankle and left foot were acquired. FINDINGS: No fracture. Alignment is anatomic. No erosions. Joint spaces are maintained. Soft tissues are normal. There is a small plantar calcaneal spur. The talar dome and ankle mortise are intact. XR/XR ankle LT min 3V IMPRESSION: No acute fracture or subluxation of the left foot or left ankle Electronically signed by: Rocael Shipman MD 02/07/2024 08:27 AM [facility]
--- NOTE | ~2024-02-07 | XR_ITS ---
EXAMINATION: XR ANKLE, LEFT XR FOOT, LEFT CLINICAL INFORMATION: Injury, swelling, pain COMPARISON: None available. TECHNIQUE: AP, lateral, and oblique views of the left ankle and left foot were acquired. FINDINGS: No fracture. Alignment is anatomic. No erosions. Joint spaces are maintained. Soft tissues are normal. There is a small plantar calcaneal spur. The talar dome and ankle mortise are intact. XR/XR foot LT min 3V IMPRESSION: No acute fracture or subluxation of the left foot or left ankle Electronically signed by: Rocael Shipman MD 02/07/2024 08:27 AM [facility] [place]
[2024-02-07 06:29] VITALS: BP 133/67; PULSE 89; RESP 16; TEMP 37; O2SAT 96; BMI 42.9
--- NOTE | 2024-02-07 06:37 | PC.NURSE ---
pt taken to radiology
--- NOTE | 2024-02-07 07:08 | ED_ITS ---
HPI - Extremity Injury (Lower) General Chief Complaint: Extremity Injury, Lower Stated Complaint: rolled over on left foot on 01/27 Time Seen by Provider: 02/07/24 06:53 Source: patient and old records reviewed Mode of arrival: ambulatory Limitations: no limitations History of Present Illness ED Provider: DONALD HPI Narrative: 33 yo female with PMH significant for anxiety, bipolar disorder, opiate dependence on methadone, renal colic and seizure disorder here with c/o L ankle and foot pain after inversion injury 1 week ago. She has been walking on it since then no crutches no natanael wrap. Patient has no numbness or weakness. States it has not gotten better and she notes it hurts to walk on stairs. No prior injury to that foot. MD complaint: ankle injury and foot injury Onset (ago): week(s) (1) Injury: Left: ankle and foot Type of Injury: inversion Place: other Severity: moderate Relieving factors: immobilization Exacerbating factors: weight bearing, movement and palpation Context: walking Associated symptoms: swelling Other symptoms: none Related Data Home Medications ?Medication ?Instructions ?Recorded ?Confirmed methadone 10 mg/5 mL oral solution 160 mg PO DAILY 06/27/22 06/27/22 Previous Rx's ?Medication ?Instructions ?Recorded acetaminophen 325 mg tablet 650 mg (2 x 325 mg) PO DAILY PRN 07/18/22 Headache/Pain Mild Scale (1-3) 30 days #60 tabs benzocaine 20 % mucosal gel 1 appl mucous membrane QID PRN 07/18/22 (Anbesol (benzocaine) Maximum oral pain 15 days #9 grams Strength) gabapentin 300 mg capsule 900 mg (3 x 300 mg) PO TID 30 days 07/18/22 #270 caps hydroxyzine HCl 25 mg tablet 25 mg PO BID PRN Anxiety 30 days 07/18/22 #60 tabs mirtazapine 15 mg tablet 45 mg (3 x 15 mg) PO BEDTIME 30 07/18/22 days #90 tabs nicotine 21 mg/24 hr daily 21 mg transdermal DAILY 28 days 07/18/22 transdermal patch #28 ea olanzapine 7.5 mg tablet 15 mg (2 x 7.5 mg) PO BEDTIME 30 07/18/22 days #60 tabs olanzapine 7.5 mg tablet 15 mg (2 x 7.5 mg) PO BID PRN 07/18/22 psychosis, agitation 30 days #120 tabs omeprazole 40 mg capsule,delayed 40 mg PO DAILY@0630 30 days #30 07/18/22 release caps prazosin 1 mg capsule 2 mg PO BEDTIME 30 days #60 caps 07/18/22 prazosin 5 mg capsule 5 mg PO BEDTIME 30 days #30 caps 07/18/22 propranolol 10 mg tablet 10 mg PO TID 30 days #90 tabs 07/18/22 Allergies Allergy/AdvReac Type Severity Reaction Status Date / Time bee pollen [bee stings] Allergy Anaphylaxis Verified 02/07/24 06:31 buprenorphine [From Suboxone] Allergy Angioedema Verified 02/07/24 06:31 bupropion [From Wellbutrin] Allergy Seizure Verified 02/07/24 06:31 latex Allergy rash, Verified 02/07/24 06:31 swelling naloxone [From Suboxone] Allergy Angioedema Verified 02/07/24 06:31 prazosin Allergy Unknown Verified 02/07/24 06:31 sertraline [From Zoloft] Allergy Unknown Verified 02/07/24 06:31 Sulfa (Sulfonamide Allergy Rash Verified 02/07/24 06:31 Antibiotics) egg AdvReac Hives Verified 02/07/24 06:31 Pork/Porcine Containing AdvReac Anaphylaxis Verified 02/07/24 06:31 Products ziprasidone [From Geodon] AdvReac Unknown Verified 02/07/24 06:31 Review of Systems Review of Systems: Constitutional : No Fever, No Chills ENT/Mouth : No Ear Pain, No Hoarseness, No sore throat Eyes: No Eye Pain, No Swelling, No Redness, No Foreign Body Cardiovascular : No Chest Pain, No SOB Respiratory : No Cough, No Dyspnea Gastrointestinal : No Nausea, No Vomiting, No Diarrhea, No abdominal Pain Genitourinary : No Dysuria, No Hematuria Musculoskeletal : positive joint pain, No Myalgias, pos Joint Swelling Skin : No Skin lacerations, No rash Neuro : No Weakness, No Numbness All other systems reviewed and are negative PMFSH Past Medical History Attestation statement: The following information was validated with the patient. Source: old records reviewed Medical History Routine medical exam Seizure disorder Bipolar disorder Long-term current use of methadone for opiate dependence Polysubstance abuse Anxiety Social History Social History Household Members: None Housing: Homeless Do you presently have visiting nurse or other home services: No Comment: ambulating independently with steady gait Patient Tobacco Use Status: Current everyday Tobacco user Tobacco use type: Cigarette Cigarette Packs Per Day: 1 Cigarettes Per Day: 20.0 Years Smoked: several e-Cigarette/Vaping Use: Currently Using Second Hand Smoke Exposure: No Substance Use Type: Crack/Cocaine, Marijuana and Opiates Advance Directives: No Advance Directives Information Provided: Yes service: No Sexual orientation: Lesbian/Werner/Homosexual Physical Exam Vital Signs: Vital Signs: Last Vital Signs Temp 98.6 F 02/07/24 06:29 Pulse 89 02/07/24 06:29 Resp 16 02/07/24 06:29 BP 133/67 02/07/24 06:29 Pulse Ox 96 02/07/24 06:29 O2 Del Method Room Air 02/07/24 06:29 BMI result Body Mass Index 42.9 Appearance: Alert. Oriented X3. No acute distress. Eyes: Pupils equal, round and reactive to light. ENT: Pharynx normal. Neck: Normal inspection. Neck supple. CVS: Normal heart rate and rhythm. Pulses normal. Respiratory: No respiratory distress. Breath sounds normal. Abdomen: Soft and non-tender. Skin: Skin warm and dry. Normal skin color. Normal skin turgor. Extremities: No lower extremity edema. L foot ttp along dorsum and lateral malleolus - NV intact, BCR in digits, no erythema or warmth mild swelling Neuro: Oriented X 3. No motor deficit. No sensory deficit. Medical Decision Making Medical Decision Making MDM Narrative: 33 yo female PMH significant for anxiety, bipolar disorder, opiate dependence on methadone, hx of nephrolithiasis and seizure disorder here with one week old inversion injury of foot and ankle no signs of infection NV intact, no calf swelling has not rested or used any crutches/natanael wrap. At this time xrays ordered suspect strain - aircast and crutches. Differential Diagnosis Differential Diagnoses: The differential diagnosis associated with the presentation includes strain, sprain, fx Independent Interpretation I performed an independent interpretation of an: Plain X-Ray (no fx) Radiology Impression Discussion of test interpretation with radiology: I have reviewed the rad iologist's reading. External Record Review External record reviewed: Inpatient record Procedures Orthopedic Splinting/Casting Injury #1: Side: left Lower Extremity Injury Location: ankle Lower Extremity Immobilizer: AirCast Other Orthopedic Equipment: crutches Discharge Plan Discharge Clinical Impression: Ankle sprain and strain Patient Disposition: Home, Self-Care Instructions: Ankle Sprain (ED), Crutch Instructions (ED) Additional Instructions: use air cast for 7 days crutches for 3 days follow up with your doctor if not better in 1 week return for cold blue toe, weakness, numbness or any other concerns FINDINGS: No fracture. Alignment is anatomic. No erosions. Joint spaces are maintained. Soft tissues are normal. There is a small plantar calcaneal spur. The talar dome and ankle mortise are intact. XR/XR foot LT min 3V IMPRESSION: No acute fracture or subluxation of the left foot or left ankle Prescriptions: No Action methadone 10 mg/5 mL Solution 160 mg PO DAILY nicotine 21 mg/24 hr Patch 24 Hour 21 mg transdermal DAILY 28 Days Qty: 28 0RF prazosin 1 mg Capsule 2 mg PO BEDTIME 30 Days Qty: 60 0RF Protocol: Hold for SBP< HOLD for SBP < : 90 olanzapine 7.5 mg Tablet 15 mg PO BEDTIME 30 Days Qty: 60 0RF olanzapine 7.5 mg Tablet 15 mg PO BID PRN (Reason: psychosis, agitation) 30 Days Qty: 120 0RF prazosin 5 mg Capsule 5 mg PO BEDTIME 30 Days Qty: 30 0RF Protocol: Hold for SBP< HOLD for SBP < : 90 propranolol 10 mg Tablet 10 mg PO TID 30 Days Qty: 90 0RF Protocol: Hold for SBP/HR < HOLD for SBP < : 90 HOLD for HR < : 60 gabapentin 300 mg Capsule 900 mg PO TID 30 Days Qty: 270 0RF hydroxyzine HCl 25 mg Tablet 25 mg PO BID PRN (Reason: Anxiety) 30 Days Qty: 60 0RF mirtazapine 15 mg Tablet 45 mg PO BEDTIME 30 Days Qty: 90 0RF Anbesol (benzocaine) Max Str 20 % Gel 1 appl mucous membrane QID PRN (Reason: oral pain) 15 Days Qty: 9 0RF Protocol: Apply to: Apply to: affected oral mucosa acetaminophen 325 mg Tablet 650 mg PO DAILY PRN (Reason: Headache/Pain Mild Scale (1-3)) 30 Days Qty: 60 0RF omeprazole 40 mg Capsule,Delayed Release(Dr/Ec) 40 mg PO DAILY@0630 30 Days Qty: 30 0RF Print Language: Moroccan
[2024-02-07 08:59] VITALS: BP 133/67; PULSE 89; RESP 18; TEMP 37; O2SAT 99
== END 2024-02-07 09:00 | disposition home or self-care (01) ==
PROVIDERS: Emergency Provider Emergency Medicine
DX: S93.402A Sprain of unspecified ligament of left ankle, initial encounter (principal); S96.912A Strain of unspecified muscle and tendon at ankle and foot level, left foot, initial encounter; X50.1XXA Overexertion from prolonged static or awkward postures, initial encounter; Y93.9 Activity, unspecified; Y92.9 Unspecified place or not applicable; Y99.9 Unspecified external cause status
CPT/HCPCS: 73610; 73630; 99283

== ENCOUNTER 2024-02-19 10:53 | Outpatient (REF) | payer OTHER, SELFPAY ==
--- NOTE | ~2024-02-19 | US_ITS ---
CLINICAL HISTORY: N93.9 - Abnormal uterine and vaginal bleeding, unspecified US pelvis transvaginal Comparison: None Findings: Transvaginal scanning performed. Anteverted uterus is 7.2 cm length. Normal myometrium. No endometrial lesion, 4 mm thickness. Right ovary 6.6 x 7.8 x 7.6 cm. There is a 75 mm cyst with internal debris. Left ovary is not seen. Normal color Doppler of the right ovary and left adnexa. No free fluid. IMPRESSION: 1. Right ovarian cyst. Follow-up pelvic ultrasound in 6 weeks is recommended to ensure resolution and exclude underlying neoplasm. This document has been electronically signed by: Sj Lynne MD on 02/20/2024 15:48:36
== END 2024-02-19 10:54 | disposition home or self-care (01) ==
LOC: HO.US 10:53
PROVIDERS: PCP Nurse Practitioner Family; Visit Provider Obstetrics & Gynecology
DX: N93.9 Abnormal uterine and vaginal bleeding, unspecified (principal); N83.209 Unspecified ovarian cyst, unspecified side
CPT/HCPCS: 76830; 76856

== ENCOUNTER → 2024-02-19 10:55 | Outpatient (BNV) | payer OTHER, SELFPAY | PROVIDERS: PCP Nurse Practitioner Family; Visit Provider Radiology Diagnostic Radiology | DX: N83.291 Other ovarian cyst, right side (principal); Z90.721 Acquired absence of ovaries, unilateral | CPT/HCPCS: 76830; 76856 ==

== ENCOUNTER 2024-02-22 07:21 | Outpatient (AMB) | payer OTHER, SELFPAY ==
[2024-02-22 07:22] VITALS: BP 118/80; BMI 42.9
--- NOTE | 2024-02-22 07:22 | A.OFFVIS_ITS ---
Vital Signs 02/22/24 07:22 Height 5 ft 7 in Weight 274 lb BMI 42.9 BP 118/80 Intake Visit Reasons: ultrasound results Campaign Coordinator Required: No Information Interpreted: non-clinical & clinical Accompanied by: Self / Same As Patient Allergies bee pollen [bee stings] Allergy (Verified 02/22/24 07:22) Anaphylaxis buprenorphine [From Suboxone] Allergy (Verified 02/22/24 07:22) Angioedema bupropion [From Wellbutrin] Allergy (Verified 02/22/24 07:22) Seizure latex Allergy (Verified 02/22/24 07:22) rash, swelling naloxone [From Suboxone] Allergy (Verified 02/22/24 07:22) Angioedema prazosin Allergy (Verified 02/22/24 07:22) Unknown sertraline [From Zoloft] Allergy (Verified 02/22/24 07:22) Unknown Sulfa (Sulfonamide Antibiotics) Allergy (Verified 02/22/24 07:22) Rash egg Adverse Reaction (Verified 02/22/24 07:22) Hives Pork/Porcine Containing Products Adverse Reaction (Verified 02/22/24 07:22) Anaphylaxis ziprasidone [From Geodon] Adverse Reaction (Verified 02/22/24 07:22) Unknown Is last menstrual period known: No (mirena) HPI Comments Details: Presenting for ultrasound follow-up done on 02/20/2024 which showed the following: Findings: Transvaginal scanning performed. Anteverted uterus is 7.2 cm length. Normal myometrium. No endometrial lesion, 4 mm thickness. Right ovary 6.6 x 7.8 x 7.6 cm. There is a 75 mm cyst with internal debris. Left ovary is not seen. Normal color Doppler of the right ovary and left adnexa. No free fluid. On 01/05 the patient had a pelvic ultrasound emergency room which showed the left 8.1 cm paraovarian cyst [facility] Medical History Routine medical exam Seizure disorder Bipolar disorder Long-term current use of methadone for opiate dependence Polysubstance abuse Anxiety Social History Household Members: None Housing: Homeless Do you presently have visiting nurse or other home services: No Comment: ambulating independently with steady gait Patient Tobacco Use Status: Current everyday Tobacco user Tobacco use type: Cigarette Cigarette Packs Per Day: 1 Cigarettes Per Day: 20.0 Years Smoked: several e-Cigarette/Vaping Use: Currently Using Second Hand Smoke Exposure: No Substance Use Type: Crack/Cocaine, Marijuana and Opiates service: No Sexual orientation: Lesbian/Werner/Homosexual Female Reproductive History Menstrual control method: progestin IUCD Review of Systems Const All systems reviewed & are unremarkable except as noted in HPI and below Reports as per HPI and Reports no additional complaints GI Reports no additional complaints Reports no additional complaints Physical Exam Vital Signs: Last Vital Signs BP 118/80 02/22/24 07:22 BMI result Body Mass Index 42.9 Assessment & Plan Assessment & Plan (1) Complex ovarian cyst: Code(s): N83.299 - Other ovarian cyst, unspecified side Category: Medical Plan: Discussed with the patient the complex ovarian cyst by ultrasound. Discussed with the patient the Ultrasound findings, the main limitation of transvaginal ultrasonography alone as a diagnostic tool to distinguish benign from malignant masses relates to its lack of specificity and low positive predictive value for cancer. The differential diagnosis discussed with the patient includes the following but not limited to: benign and malignant gynecological and non-gynecological causes. Serum tumor marker ordered CA 125, CEA, CA 19-9, inhibin, LDH and AFP with CT scan of abdomen and pelvis with oral contrast. The patient was referred to [facility] for further management. Appointment scheduled on 03/10 at 10:[address] Ortez, the patient is aware. Instructed the patient to call our office back in case a referral appointment is not scheduled, missed or canceled so that we will assist on rescheduling another appointment, the patient verbalized understanding agreed with the plan. Orders: Orders CA-125 Today N83.299 - Other ovarian cyst, unspecified side Carbohydrate Antigen 19-9 Today N83.299 - Other ovarian cyst, unspecified side Alpha Fetoprotein Today N83.299 - Other ovarian cyst, unspecified side Inhibin A Today N83.299 - Other ovarian cyst, unspecified side Creatinine Today N83.299 - Other ovarian cyst, unspecified side Carcinoembryonic Antigen Today N83.299 - Other ovarian cyst, unspecified side Lactate Dehydrogenase Today N83.299 - Other ovarian cyst, unspecified side Inhibin B Today N83.299 - Other ovarian cyst, unspecified side CT abdomen pelvis w IV con Today N83.299 - Other ovarian cyst, unspecified side Blood Urea Nitrogen Today N83.299 - Other ovarian cyst, unspecified side Referrals Gynecologic Oncology Referral N83.299 - Other ovarian cyst, unspecified side Coding Level of Care Code Est Pt Level 3 (23404) Diagnoses Complex ovarian cyst N83.299
== END 2024-02-22 09:16 | disposition home or self-care (01) ==
LOC: HO.HWS 07:21
PROVIDERS: PCP Nurse Practitioner Family; Visit Provider Obstetrics & Gynecology
DX: N83.299 Other ovarian cyst, unspecified side (principal)
CPT/HCPCS: 99213

== ENCOUNTER 2024-02-22 07:21 | Outpatient (REF) | payer OTHER, SELFPAY ==
[2024-02-22 09:06] LABS: Blood Urea Nitrogen 12 mg/dL (9-16); Estimated Glomerular Filt Rate > 60; Lactate Dehydrogenase 233 U/L (122-220)
[2024-02-25 14:03] LABS: Alpha Fetoprotein 2.8 ng/mL
[2024-02-25 15:57] LABS: Carbohydrate Antigen 19-9 13 U/mL (<34)
[2024-02-26 10:34] LABS: CA-125 30 U/mL (<35)
[2024-02-28 19:38] LABS: Inhibin B 15 pg/mL
== END 2024-02-22 07:22 | disposition home or self-care (01) ==
LOC: HO.LAB 07:21
PROVIDERS: PCP Nurse Practitioner Family; Visit Provider Obstetrics & Gynecology
DX: N83.201 Unspecified ovarian cyst, right side (principal)
CPT/HCPCS: 36415; 82105; 82378; 82565; 83520; 83615; 84520; 86301; 86304; 86336; 99212

== ENCOUNTER 2024-03-06 12:34 | Outpatient (REF) | payer OTHER, SELFPAY ==
--- NOTE | ~2024-03-06 | CT_ITS ---
CLINICAL HISTORY: N83.299 - Other ovarian cyst, unspecified side CT abdomen and pelvis with contrast Comparison: US - US PELVIC AND TRANSVAGINAL - 02/19/24 11:06 EST Findings: No consolidation or effusion. Gallbladder is contracted. No biliary ductal dilatation. Low-attenuation of the liver suggestive of steatosis with focal sparing adjacent to the gallbladder. The spleen, pancreas, adrenal glands and kidneys are unremarkable. No ureteral stones and no hydronephrosis or hydroureter. No bowel obstruction, pneumoperitoneum, or pneumatosis. Moderate stool in the ascending and transverse colon. Normal appendix. There is a 7.1 cm x 7.2 cm x 8 cm simple anechoic cyst in the pelvis anteriorly at the midline. Uterus is unremarkable and there is an IUD in the uterus. No free fluid. Mild dehiscence of the linea alba in mid abdomen with no debi hernia. No acute fracture. IMPRESSION: 1. 7.1 cm x 7.2 cm x 8 cm simple cyst in the pelvis anteriorly at the midline. 2. No acute findings. This document has been electronically signed by: Kimberly Limon MD on 03/07/2024 18:43:35
[2024-03-06] MEDS: iohexoL 350 MG/ML 100 ML INFUS..BTL 85 ML IV (16:12)
[2024-03-06] MEDS: Barium Sulfate Oral (Mocha) 450 ML ORAL.SUSP 900 ML PO (16:13)
== END 2024-03-06 12:35 | disposition home or self-care (01) ==
LOC: HO.CT 12:34
PROVIDERS: PCP Nurse Practitioner Family; Visit Provider Obstetrics & Gynecology
DX: N94.89 Other specified conditions associated with female genital organs and menstrual cycle (principal)
CPT/HCPCS: 74177; Q9967

== ENCOUNTER → 2024-03-06 12:36 | Outpatient (BNV) | payer OTHER, SELFPAY | PROVIDERS: PCP Nurse Practitioner Family; Visit Provider Specialist | DX: M85.459 Solitary bone cyst, unspecified pelvis (principal) | CPT/HCPCS: 74177 ==

== ENCOUNTER 2024-04-03 11:27 | Emergency (ER) | payer OTHER, SELFPAY ==
--- OUTSIDE RECORDS SUMMARY | 2024-04-03 13:42 | XMS_ITS | Data Portability ---
Author Organization [email or web address], Or in - [email or web address] Address [address] [place] [id number] Care Team Providers Care [employer] Buffer Name Role Phone HIM CCA Referring Provider [phone] Assessment Encounter Date Assessment Date Assessment LastModified by Organization Details LastModified Time 05/21/2023 05/21/2023 As noted, we wer e called to see this patient regarding concerns of dyspnea. Evaluation in the field was performed by my reimbursement auditor colleague, as noted above, I provided real-time direction and supervision for this visit. The evaluation revealed the patient has several recent [facility] visits as well as an ED visit where she rec'd prednisone. Was out of her breo ellipta but ED refilled it, so she has it again. c/o intermittent dyspnea. Vitals are reassuring at rest. Of note, her sat dropped to 80s intermittently - most evident when she fell asleep even while standing during the evaluation. Sat was in the mid 90s and stable during and after 4 flights of stair climb. 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 In this case, the patient and I felt this to be an acceptable and reasonable amount of risk given the benefit of avoiding an ED visit. We discussed the need to seek care urgently/emergent ly in the setting of any new or worsening serious symptoms, particularly worsening dyspnea [email or web address] Not available 05/21/2023 13:23:20 05/27/2023 05/27/2023 I provided real -time medical direction via phone for this encounter, and was available for additional phone based assistance as needed. I have reviewed and agree with the Assessment and Plan as documented by the Slide Developer. We discussed the diagnostic uncertainty of home visits and the risk associated with this. In this case the patient and I felt this to be an acceptable and reasonable amount of risk given the benefit of avoiding an ED visit. Advised need for close follow-up with PCP/ the patient given the opportunity to ask questions. Advised if develops CP/severe SOB/turning blue/uncontrolled n/v/d or black/bloody emesis or stool/ AMS/ syncope/ hi fever unresponsive to APAP to call 911- verbalized understanding of instruction [email or web address] Not available 05/27/2023 11:28:53 Plan of Treatment Reminders Order Date Submit Date Provider Last Modified By Organization Details Last Modified Time Details Appointments None recorded. Lab rapid SARS CoV 2 Ag, QL IA, respiratory specimen 2023 [facility], [address] [place] [address], [id number], 14:00:16 rapid flu (A+B) 2023 024 [facility], [address] [place] [address], [phone], 14:00:15 Referral None recorded. Procedures None recorded. Surgeries None recorded. Imaging None recorded. Medication Orders prednisone 20 mg tablet 2023 [facility]/Pharmacy #[id number], [address] [place], [address], 4 15:32:38 prednisone 20 mg tablet 2023 024 [facility]/Pharmacy #[id number], [address] [place], [address], 4 14:00:15 ProAir HFA 90 mcg/actuati on aerosol inhaler 2023 024 [facility]/Pharmacy #[id number], [address] [place], [address], 4 15:32:39 diphenhydra mine 25 mg tablet [email or web address] [facility], [address] [facility] [address], [place], [address], 4 11:29:20 diphenhydra mine 25 mg tablet 2023 024 [facility], 1 [facility] [address] [place], [address], 4 11:29:55 prednisone 20 mg tablet 2023 024 [email or web address] [address] [facility], 1 [facility] [address], [place], [address], 4 11:29:20 prednisone 20 mg tablet 2023 024 [facility], 1 [facility] [address] [place], [address], 11:29:56 Elimite 5 % topical cream 2023 024 [facility], 1 [facility] [address] [place], [address], 11:29:57 Patient TargetsNo targets recorded. Patient InstructionsNo instructions recorded. Reason for Referral None Reported. Results Created Date Observation Date Name Description Value Unit Range Abnormal Flag Note LastModifiedBy Organization Detail LastModifiedTime 12/23/19 24 12/23/2023 rapid flu (A+B) Flu negati ve Not Available Main - [facility] ed [address] [place] [address], [phone], 12/23/2023 13:54:10 12/23/19 24 12/23/2023 rapid SARS CoV 2 Ag, QL IA, respi rator y speci men rapid SARS CoV 2 Ag, QL IA, respiratory specimen negati ve Not Available Main - [facility] ed [address] [place] [address], [phone], 12/23/2023 13:54:07 Result Notes None recorded. Medical Equipment None Reported. Allergies Allergen ID Allergen Name Allergen Category Reaction Reaction Severity Criticality Documentation Date Start Date Code Code System Note Provider Name and Address Organization Details Recorded Time 15626 sertralin e medicatio n Not available Not available Not available 12/23/2023 48101 RxNorm Not Available [facility] - production 4 11:36:07 48270 perphenaz ine medicatio n Not available Not available Not available 12/23/2023 8076 RxNorm Not Available [facility] - production 4 11:36:07 58001 Effexor medicatio n Not available Not available Not available 12/23/2023 97902 2 RxNorm Not Available [facility] - production 4 11:36:07 69080 Bactrim medicatio n Not available Not available Not available 12/23/2023 52290 9 RxNorm Not Available [facility] - production 4 11:36:07 4881 Geodon medicatio n Not available Not available Not available 05/27/2023 92989 4 RxNorm Not Available [facility] - production 4 11:36:07 4882 Haldol medicatio n Not available Not available Not available 05/27/2023 42049 9 RxNorm Not Available [facility] - production 4 11:36:07 4883 latex environme nt,medica tion Not available Not available Not available 05/27/2023 76389 91 RxNorm Not Available [facility] - production 11:36:07 4884 Substance with sulfonami de structure and antibacte rial mechanism of action (substanc e) medicatio n Not available Not available Not available 05/27/2023 97434 8003 SNOMED Margaret Loo MD [address] [place] [address],[address], [place], [address], [email or web address] - [employer], [employer] 4 11:24:04 4885 Wellbutri n medicatio n Not available Not available Not available 05/27/2023 92908 RxNorm Margaret Loo MD [address] [place] [address],[address], [place], [address], [email or web address] - [facility], [employer] 4 11:24:13 4886 egg extract food,medi cation Not available Not available Not available 05/27/2023 21642 15 RxNorm Margaret Loo MD [address] [facility],[address], [place], [address], [facility] 4 11:24:18 Medications Name Sig Start Date Stop Date Status Note LastModified by Organization Details LastModified Time quetiapine 25 mg tablet TAKE 1 TABLET BY MOUTH THREE TIMES A DAY, NEEDED FOR ANXIETY OR INSOMNIA active Not Available Not Available No t Available amoxicillin 500 mg capsule TAKE 1 CAPSULE BY MOUTH THREE TIMES DAILY FOR 7 DAYS active Not Available Not Available N ot Available Nicotrol NS 10 mg/mL nasal spray active Not Available Not Available Not Available clonidine HCl 0.1 mg tablet active Not Available Not Available Not Available acetaminophe n 325 mg tablet active Not Available Not Available Not Available prednisone 10 mg tablet active Not Available Not Available Not Available gabapentin 600 mg tablet active Not Available Not Available Not Available trazodone 50 mg tablet active Not Available Not Available No t Available polyethylene glycol 3350 17 gram oral powder packet active Not Available Not Available Not Available ibuprofen 800 mg tablet TAKE 1 TABLET BY MOUTH EVERY 6 - 8 HOURS NEEDED PAIN active Not Available Not Available No t Available chlorpromazi ne 100 mg tablet active Not Available Not Available Not Available prazosin 1 mg capsule active Not Available Not Available N ot Available ondansetron HCl 4 mg tablet active Not Available Not Available Not Available prednisone 20 mg tablet TAKE 1 TABLET EVERY DAY BY ORAL ROUTE AFTER MEAL(S) FOR 4 DAYS. active Not Available Not Available No t Available rizatriptan 10 mg tablet active Not Available Not Available Not Available olanzapine 5 mg tablet active Not Available Not Available No t Available moxifloxacin 400 mg tablet TAKE 1 TABLET BY MOUTH EVERY DAY FOR 7 DAYS active Not Available Not Available No t Available hydroxyzine pamoate 50 mg capsule active Not Available Not Available N ot Available olanzapine 10 mg tablet active Not Available Not Available Not Available metronidazol e 500 mg tablet TAKE 1 TABLET BY MOUTH TWICE A DAY FOR 7 DAYS active Not Available Not Available No t Available oxcarbazepin e 300 mg tablet active Not Available Not Available Not Available melatonin 3 mg tablet active Not Available Not Available No t Available omeprazole 40 mg capsule,halima yed release active Not Available Not Available Not Available olanzapine 7.5 mg tablet TAKE 2 TABLETS BY MOUTH EVERY DAY AT BEDTIME FOR 30 DAYS active Not Available Not Available No t Available prazosin 5 mg capsule TAKE 1 CAPSULE BY MOUTH AT BEDTIME active Not Available Not Available No t Available propranolol 10 mg tablet TAKE 1 TABLET BY MOUTH THREE TIMES A DAY NEEDED active Not Available Not Available No t Available clonidine HCl 0.2 mg tablet active Not Available Not Available Not Available lorazepam 0.5 mg tablet TAKE 1 TABLET BY MOUTH TWICE A DAY FOR 7 DAYS NEEDED ANXIETY active Not Available Not Available No t Available trazodone 100 mg tablet active Not Available Not Available Not Available baclofen 10 mg tablet active Not Available Not Available No t Available hydrocortiso ne 1 % topical cream active Not Available Not Available Not Available pantoprazole 40 mg tablet,delay ed release TAKE 1 TABLET BY MOUTH DAILY active Not Available Not Available Not Available mirtazapine 30 mg tablet TAKE 1 TABLET BY MOUTH EVERYDAY AT BEDTIME active Not Available Not Available No t Available diphenhydram ine 25 mg tablet Take 2 tablets every 4-6 hours by oral route as needed. 2023 active Not Available Not Available Not Avai lable ibuprofen 400 mg tablet active Not Available Not Available Not Available benztropine 1 mg tablet active Not Available Not Available Not Available nicotine 21 mg/24 hr daily transdermal patch active Not Available Not Available Not Available Elimite 5 % topical cream APPLY (THOROUGHLY MASSAGE INTO all SKIN FROM (Neck TO SOLES OF FEET) BY TOPICAL ROUTE ONCE LEAVE ON FOR 12 HR, THEN REMOVE BY THOROUGH WASHING- jennie repeat once in 1 week 2023 active Not Available Not Available Not Avai lable gabapentin 300 mg capsule TAKE 1 CAPSULE BY MOUTH THREE TIMES DAILY active Not Available Not Available Not Available mirtazapine 45 mg tablet TAKE 1 TABLET BY MOUTH EVERYDAY AT BEDTIME active Not Available Not Available No t Available oxcarbazepin e 600 mg tablet active Not Available Not Available Not Available hydroxyzine HCl 25 mg tablet TAKE 1 TABLET BY MOUTH TWICE A DAY NEEDED active Not Available Not Available No t Available olanzapine 15 mg tablet TAKE 1 TABLET BY MOUTH THREE TIMES A DAY NEEDED. ONE MUST BE AT BEDTIME active Not Available Not Available N ot Available zolpidem 5 mg tablet active Not Available Not Available No t Available mirtazapine 15 mg tablet active Not Available Not Available Not Available gabapentin 100 mg capsule active Not Available Not Available Not Available epinephrine 0.3 mg/0.3 mL injection, auto-injecto r active Not Available Not Available Not Available ibuprofen 600 mg tablet active Not Available Not Available Not Available albuterol sulfate HFA 90 mcg/actuatio n aerosol inhaler INHALE 2 PUFFS EVERY 4 HOURS BY INHALATION ROUTE. active Not Available Not Available No t Available topiramate 100 mg tablet active Not Available Not Available Not Available fluoxetine 20 mg capsule active Not Available Not Available Not Available fluticasone propionate 50 mcg/actuatio n nasal spray,suspen dickson active Not Available Not Available Not Available clotrimazole 1 % topical cream active Not Available Not Available Not Available sodium fluoride 1.1 % dental gel active Not Available Not Available Not Available doxycycline hyclate 100 mg tablet active Not Available Not Available No t Available prazosin 2 mg capsule TAKE 2 CAPSULES BY MOUTH EVERY DAY AT BEDTIME active Not Available Not Available No t Available chlorpromazi ne 50 mg tablet TAKE 1 TABLET BY MOUTH TWICE DAILY NEEDED FOR RACING THOUGHTS active Not Available Not Available No t Available amoxicillin 875 mg-potassium clavulanate 125 mg tablet active Not Available Not Available Not Available hydroxyzine pamoate 25 mg capsule active Not Available Not Available N ot Available dextroamphet amine-amphet amine ER 25 mg 24hr capsule,exte nd release active Not Available Not Available N ot Available aripiprazole 10 mg tablet active Not Available Not Available Not Available nicotine (polacrilex) 4 mg buccal lozenge active Not Available Not Available Not Available bupropion HCl XL 150 mg 24 hr tablet, extended release active Not Available Not Available Not Available topiramate 50 mg tablet active Not Available Not Available Not Available mirtazapine 7.5 mg tablet TAKE 1 TABLET BY MOUTH AT BEDTIME active Not Available Not Available No t Available nitrofuranto in monohydrate/ macrocrystal s 100 mg capsule active Not Available Not Available Not Available duloxetine 20 mg capsule,halima yed release active Not Available Not Available Not Available Nyamyc 100,000 unit/gram topical powder active Not Available Not Available Not Available aripiprazole 10 mg disintegrati ng tablet active Not Available Not Available No t Available Vyvanse 30 mg capsule active Not Available Not Available N ot Available melatonin 5 mg tablet TAKE 1 TABLET BY MOUTH EVERY NIGHT AT BEDTIME active Not Available Not Available No t Available Aerochamber Plus Flow-Vu active Not Available Not Available Not Available Breo Ellipta 100 mcg-25 mcg/dose powder for inhalation active Not Available Not Available N ot Available naloxone 4 mg/actuation nasal spray CALL 911. SPR CONTENTS OF ONE SPRAYER (0.1ML) INTO ONE NOSTRIL. REPEAT IN 2-3 MIN IF SYMPTOMS OF OPIOID EMERGENCY PERSIST, ALTERNATE NOSTRILS active Not Available Not Available No t Available Flowflex COVID-19 Antigen Home Test kit active Not Available Not Available Not Available Vitals Date Recorded Oxygen saturation Oxygen saturation in Arterial blood by Pulse oximetry Body temperature Body height Heart rate Body weight Respiratory rate Systolic blood pressure Diastolic blood pressure Provider Name and Address Organization Details Last Updated DateTime 4 96 % 96 % 97.9 [degF] 170.18 cm 71 /min 322860. 08 g 16 /min 134 mm[Hg] 96 mm[Hg] Not Available [employer] 4 16:16:06 Date Recorded Body height Heart rate Respiratory rate Body temperature Oxygen saturation Oxygen saturation in Arterial blood by Pulse oximetry Body weight Systolic blood pressure Diastolic blood pressure Provider Name and Address Organization Details Last Updated DateTime 4 170.18 cm 71 /min 18 /min 98.4 [degF] 99 % 99 % 543949 g 112 mm[Hg] 75 mm[Hg] Not Available [employer] 4 12:47:43 Date Recorded Body height Heart rate Respiratory rate Body temperature Oxygen saturation Oxygen saturation in Arterial blood by Pulse oximetry Body weight Systolic blood pressure Diastolic blood pressure Provider Name and Address Organization Details Last Updated DateTime 4 170.18 cm 80 /min 16 /min 97.8 [degF] 95 % 95 % 743838. 08 g 152 mm[Hg] 93 mm[Hg] Not Available [employer] 4 11:22:59 Date Recorded Body weight Body temperature Heart rate Oxygen saturation Oxygen saturation in Arterial blood by Pulse oximetry Body height Respiratory rate Systolic blood pressure Diastolic blood pressure Provider Name and Address Organization Details Last Updated DateTime 4 014266 g 98 [degF] 89 /min 96 % 96 % 170.18 cm 18 /min 125 mm[Hg] 85 mm[Hg] Not Available [employer] 4 13:45:01 Social History None recorded. Functional Status None recorded. Mental Status None recorded. Family History Nothing Reported. Medical History No medical history recorded. Gynecological HistoryNo gynecological history recorded. Obstetrics History GPAL:G 0 P 0 0 0 0 Past Encounters Encounter ID Performer Location Encounter Start Date Encounter Closed Date Diagnosis/Indication Diagnosis SNOMED-CT Code Diagnosis ICD10 Code Diagnosis Note [id number] Mildred Petersen MD [facility] - [address] [address] 06/07/2022 20:04:42 06/08/2022 12:26:07 Nausea 303177726 R11.0 Pruritic rash 50347096 L 28.2 [id number] Inna Laird MD [facility] - [address] [address] 05/16/2023 16:16:04 05/16/2023 20:05:50 Asthma 213548808 J45.909 32 year old female with asthma, recently seen in the ER for worsening breathing in the setting of not having her inhaler, being evaluated as a follow up of her ER visit. Patient reports being prescribed a short supply of her inhaler in the ER [facility] July. Patient reports feeling better since restarting her inhaler, although worries she will run out again before her new PCP appointmen t. Exam notable for normal vital signs and clear lungs. Presentati on consistent with asthma well controlled on her inhaler regimen, no sign of exacerbati on or respirator y distress. FU if symptoms recurr, or if runs out of inhaler prior to PCP appointmen t, to avoid ER visit for inhaler refills. I have reviewed and agree with the assessment and plan as documented by the reimbursement auditor. I provided real-time medical direction for this encounter and was immediatel y available to provide additional phone-base d assistance as needed. We discussed the diagnostic uncertaint y of home visits and associated risks. We discussed the need to seek care urgently/e mergently in the setting of any new or worsening symptoms. [id number] BIMAL BOCANEGRA MD Main - [address] [address] 05/21/2023 12:47:40 05/22/2023 10:22:46 Hypoxia 470161063 G47.34 Dyspnea 432635866 R06.00 [id number] Margaret Loo MD [facility] - [address] [address] 05/27/2023 11:22:35 05/28/2023 18:56:47 Pruritic rash 23097350 L28.2 Although not noted on intertrigi nous or flexor surfaces, likely scabies given housing situation- patient moving to a different location tomorrow. States she has the ability to shower and wash all clothes and bedding-ad vised how to apply the anti-scabi etic lotion, leave on for 12 hours and then wash all her bedding and close warm this week in hot water.-Sedrick l cover with prednisone and antihistam ine for the itching Sent RX to [place] at patient request. Then she called [facility] and requested Rx be sent to [facility]/ [facility] in [place]. CRC faxed Rx to [facility] and reached out to [place] not to fill [id number] Deb Cade MD Main - [facility] [address] [place] [phone] 12/23/2023 13:44:56 12/24/2023 13:47:54 Dyspnea 655213346 R06.00 As noted, we were called to see this patient regarding concerns of difficulty breathing. Evaluation in the field was performed by my reimbursement auditor colleague, as noted above, I provided real-time direction and supervisio n for this visit. The evaluation revealed 33 yo with asthma who ran out of her breo 3 days ago. 2 days ago she started to have dyspnea and a feeling that her ribs are pushing on her lungs. She has a telehealth appointmen t this sunday for a Breo refill. She has not been prescribed albuterol. She last got Prednisone from us last May.She is CTAB on exam with good oxygenatio n. COVID/Flu (-) 20mg prednisone ; will send prednisone and albuterol Impression :Asthma exacerbati on, mild, in setting of lack of pharmacoth erapy Plan:20mg prednisone , now, additional 20mg x 4 daysAlbute mirza MDI to use prn Requests scripts faxed to her [facility] at [phone] Dispositio n: We discussed the diagnostic uncertaint y of home visits and the risk associated with this. In this case, the patient and I felt this to be an acceptable and reasonable amount of risk given the benefit of avoiding an ED visit. We discussed the need to seek care urgently/e mergently in the setting of any new or worsening serious symptoms, particular ly changes to consciousn ess, chest pain, dypsnea. Health Concerns Section Related Observation LastModified by Organization Detai ls LastModified Time None Recorded Concern Status LastModified by Organization Details LastModified Time None Recorded Advance Directives Directive None Recorded Payers Encounter Date Sequence Insurance Name Policy Number Policy Guido Covered Member ID Guido Member ID Guarantor Name 05/16/2023 1 [facility] [employer] - DOS ON OR AFTER 2022 - DUAL ELIGIBLE - SENIOR LIVING OPTIONS AND ONE CARE (MEDICARE REPLACEMENT/ADV ANTAGE - HMO) Brenna Jacob [id number] Brenna Rm Cecil 05/21/2023 1 [facility] [employer] - DOS ON OR AFTER 2022 - DUAL ELIGIBLE - SENIOR LIVING OPTIONS AND ONE CARE (MEDICARE REPLACEMENT/ADV ANTAGE - HMO) Brenna Jacob [id number] Brenna Rm Cecil 05/27/2023 1 [facility] - DOS ON OR AFTER 2022 - DUAL ELIGIBLE - SENIOR LIVING OPTIONS AND ONE CARE (MEDICARE REPLACEMENT/ADV ANTAGE - HMO) Brenna Jacob [id number] Brenna Rm Cecil 12/23/2023 1 [facility] - DOS ON OR AFTER 2022 - DUAL ELIGIBLE - SENIOR LIVING OPTIONS AND ONE CARE (MEDICARE REPLACEMENT/ADV ANTAGE - HMO) Brenna Jacob [id number] Brenna Rm Cecil Notes Date Note Type Note Provider Name and Address Organization Details Recorded Time 05/16/2023 text/html [facility] Nurse Triage Notes (Vince Elliott): Patient Reports: Discoloration of skin -cyanosis; History of asthma, increased use of inhaler; Shortness of breath with exertion; Pain with inspirationDenies: Increased work of breathing/labored ? with or without fever Unable to speak in full sentences without distress Needs to sleep sitting up, can? t catch breath Shortness of breath in setting of confusion Cough, fever greater than 2 days Lower extremity swelling COPD COVID Exposure Sputum increase Cough Chief Complaints: Syncope/Dizziness/Lig htheadednessPMH: COPD/AsthmaAllergies: UnknownComments: Flour Broker verified the member's name//address and phone number. Education provided on the response time and the member was advised to monitor reported s/s and seek emergency treatment if needed. Member reports a hx of Asthma -Increased SOB - Breathing is non labored and the member is speaking full sentences - Denies cough/congestion -Denies fever - Seen in the ER on Sunday and Sunday - Declined ER treatment at this time - Wellness check requested. Using inhaler as prescribed - HX of anxiety ..................... ..................... ..................... ..................... ..................... ..................... ............... Slide Developer Note From Lucien Jacob: [facility] visit for female patient with shortness of breath. Arrived to [facility] where pt was found sitting on the bed in her room. Pt presents conscious and alert. Pt guided through consent form on her phone and was submitted. Pt appeared anxious on exam and reported issues managing her anxiety. Per her reporting, pt has history of asthma with numerous medications taken to manage symptoms. Pt recently was without her Breo inhaler for a week or two which seems to have worsened symptoms. Pt recently went to emergency department where she was given nebulizer treatment and a short course of Breo was prescribed. Pt has a gap in getting into primary care with appointment given still more than 2 months away. V/S taken and WNL. Pt afebrile. Lung sounds auscultated and found to clear. Pt reports taking albuterol inhaler about [address] [facility] arrival. Pt reports recent course of prednisone as well which she states was completed. Consulted with [facility] Dr. Laird who advised no acute treatments needed. Pt instructed that she can call back if she needs a refill of breo and should call 1-2 days before she runs out. Patient education provided. ..................... ..................... ..................... ..................... ..................... ..................... ............... Disposition: Cynthia Laird MD [address] [facility],[address], [place], [address], [email or web address] 05/16/2023 16:38:09 05/21/2023 text/html HPI: 32 y.o. female with PMH of generalized anxiety disorder, PTSC, bipolar disorder, ADHD c.o. chest tightness, difficulty breathing for the past two weeks with no improvement. Last seen in the [facility] ER 05/13/23 for same symptoms with no improvement. ..................... ..................... ..................... ..................... ..................... ..................... ............... CRC Nurse Triage Notes (Sonia Lazo): Comments: HPI reviewed. No further information needed to process visit- N Violet GODINEZ ..................... ..................... ..................... ..................... ..................... ..................... ............... Slide Developer Note From Jennifer Felix: Sent to a call for a pt complaining of chest tightness and sob x 2 weeks. MARYCRUZ arrives on scene at [facility]. Pt is alert and oriented, and airway is patent. Pt states she has been at this facility for approx 1 month. Pt complains of intermittent chest tightness and constant sob x 3 weeks. Pt initially ran out of Breo Ellipta for approx 1 week, was evaluated at [facility] ED, prescribed Breo Ellipta, and prednisone 40mg x 5 days. Pt states she felt better while on the prednisone. Pt has been re-evaluated at ED and had a recent Insted visit to evaluate pt's condition. Pt has been taking Breo and Albuterol inhaler as prescribed. Pt also complains of headache x 2-3 days. Pt denies dizziness, sinus pain, cough, sore throat, n/v/d, abd pain, fever, or loc. Observing pt during visit: pt appears to be tired and nods off while talking. Pt's breathing rate is irregular at rest with frequent pauses, dips in O2 sats to low 80's, followed by rapid deep breathing. BP:112/75, P:71, RR:18, SpO2:99% RA, T:98.4; Head: unremarkable; Lung sounds: clear bilaterally; Chest: no tenderness noted; Abdomen: soft, non-tender, no distention; Back: unremarkable; Extremities: unremarkable; Skin: pink, warm, dry; C consulted and pt is evaluated while walking through hallway and up/down multiple flights of stairs. Pt maintains SpO2: 94-96% room air. Pt's HR increases to 125, and breathing is labored. Pt endorses increased sob. After exertion pt maintains SpO2:94-96% RA for a short period of time, then starts to nod off, with previous breathing pattern/brief drop in SpO2 starting again. SpO2 normalizes when pt is roused. Pt is reassured of stable condition. Pt is educated on signs/symptoms of Asthma exacerbation. [facility] sends note to request follow up regarding further testing exploring possible sleep apnea or other diagnoses/treatment. Information explained to facility staff. Red flags discussed. No further pt questions. ..................... ..................... ..................... ..................... ..................... ..................... ............... Disposition: Cynthia BIMAL BOCANEGRA MD [address] [place] [address],[address], [place], [address], [email or web address] 05/21/2023 16:01:30 05/27/2023 text/html CRC Nurse Triage Notes (Sonia Lazo): Chief Complaints: Pain PMH: COPD/Asthma, Severe Persistent Mental Illness (SPMI) Comments: Identity//Address verified. Reports rash that is spreading over the past 3 weeks, from anterior chest to neck/face. Areas are itching and burning. Denies facial swelling. No new medications. Not taking OTC medications. ..................... ..................... ..................... ..................... ..................... ..................... ............... Slide Developer Note From Luis E Montejo: Pt reports rash that started on chest, spread to back, upper arms and neck for three weeks. Pt describes rash as itching and burning. Pt denies CP, SOB, HAHN, f/n/v/d. Pt is alert, NAD. VSS. Afebrile. Non focal neuro exam. Normal gait. Lungs CTA. Benign ABD exam. No LE edema. Rash is small, red papules. [facility] contacted and pt treated with diphenhydramine 50 mg PO and prednisone 40 mg for suspected scabies. Pt educated on treatment and red flags that would indicate the ED. ..................... ..................... ..................... ..................... ..................... ..................... ............... Disposition: Fulfilled SEGMD: Patient is currently living in a stepdown recovery house since discharge from detox end of March. She is apparently moving to a new facility tomorrow. The rash started approximately 3 weeks ago and has been spreading. She denies any new medications other than Thorazine which she was started on in March and was stopped 3 days ago, she denies new personal hygiene products or detergents no new foods. She has no systemic symptoms. She is not a diabetic and reports she can take prednisone and Benadryl. She denies being on hydroxyzine/Atarax currently Margaret Loo MD [address] [place] [address],[address], [place], [address], [email or web address] 05/27/2023 13:15:44 12/23/2023 text/html CRC Nurse Triage Notes (Vince Elliott): Reason For Request: Patient has breathing problems and is short of breath, (but also speaking clearly). Chief Complaints: Breathing problems PMH: COPD/Asthma, Severe Persistent Mental Illness (SPMI), Bipolar Disorder, Anxiety Disorder Comments: Flour Broker verified the Pt.'s name//address and phone number. Education provided on the response time and the Pt. was advised to monitor reported s/s and seek emergency treatment if needed. Pt reports having a hx of Asthma - Cough - Headache -SOB - Pt is speaking full sentences - Breathing is non labored - Denies congestion and fever - Denies sore throat - S/S started yesterday. Wellness visit requested Slide Developer Organization Information for [employer] Legal Name: [email or web address]? Address: [address] [place] [address], Real Estate Office Supervisor: Osman Miner MD [facility] No.: [id number] Slide Developer POC Test Results from [employer] [facility] Rapid influenza antigen (13:47:52) Flu: - Attachments uploaded as part of this test result can be found under Documents section. Rapid COVID antigen (13:47:55) COVID: - Attachments uploaded as part of this test result can be found under Documents section. ..................... ..................... ..................... ..................... ..................... ..................... ............... Slide Developer Note From Murali Wheat: Was dispatched for a 33 Y/O female complaining of SOB. UOA PT was found in the living room. PT is A/Ox4. PT reported the last 2 days she felt short of breath after she ran out of her inhaler medication. PT vitals were obtained and an assessment was performed. PT HEENT, JVD, pupils, and skin were normal. PT lung sounds were clear with bilateral chest rise and fall. PT ABD area was soft and non tender. PT has normal CSMs in all her extremities. Nothing remarkable was found upon completion of assessment. [facility] was contacted, [facility] ordered 20 mg of prednisone and put an prescription of albuterol into the PT local pharmacy. PT was happy with treatment. Crew cleared. [facility] Lab Orders: rapid SARS CoV 2 Ag, QL IA, respiratory specimen: Performed ..................... ..................... ..................... ..................... ..................... ..................... ............... [facility] Consulted: Deb Cade ..................... ..................... ..................... ..................... ..................... ..................... ............... Disposition: Fulfilled Deb Cade MD [address] [facility] [facility], [place], [address], [email or web address] 12/23/2023 15:32:48 OBGyn Episode No OBEpisode recorded.
--- OUTSIDE RECORDS SUMMARY | 2024-04-03 13:42 | XMS_ITS | Patient Health Record ---
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 Name Role Phone Rose Montalvo Primary Care Provider Rose Oneill Unavailable [phone] Allergies Allergen (clinical drug ingredient) Drug/Non Drug Allergy documented on EMR Reaction Allergy Type Onset Date Status buprenorphine / naloxone Suboxone Unknown Drug Allergy Active ziprasidone Geodon Unknown Drug Allergy Activ e Wellbutrin Unknown Drug Allergy Active sertraline Zoloft Unknown Drug Allergy Active Sulfa Unknown Drug Allergy Active bee pollen bee pollen Unknown Drug Allergy Activ e Reason For Referral No Information Medications Medication SIG (Take, Route, Frequency, Duration) Notes Start Date End Date Status Gabapentin 100 mg 1 cap(s) orally 3 ti mes a day Active FLUoxetine 20 mg 1 cap(s) orally once a day Active benzoyl peroxide topical 5% 1 kristy applie d topically 2 times a day Active Ventolin HFA 90 mcg/inh 2 puff(s) inhale d every 6 hours Active adapalene topical 0.1% 1 kristy applied top ically once a day (at bedtime) Active OXcarbazepine 300 mg 1 tab(s) orally 2 t imes a day Active clonidine 0.1 mg 1 tab(s) orally 3 ti mes a day PRN Active Immunizations Vaccine Route Administration Date Status Comme nts Influenza IM Intramuscular 12/03/2008 Administered Social History Tobacco Use: Social History Observation Description Date Details (start date - stop date) Current Smoker NA - NA Tobacco Use Assessment MU Question Answer Notes What is your current smoking status? current smoker How many cigarettes a day do you smoke? 5 or less How soon after you wake up d o you smoke your first cigarette? 31-60 minutes Are you interested in quitting? ready to quit reports nicotine patch gives her nightmares Patient counseled on the margie gers of tobacco use and advised to quit: 07/14/2021 Problems Problem Type SNOMED Code ICD Code Onset Dates Problem Status W/U Status Risk Notes Problem Hypoglycaemia (709423531) Hypoglycaemia NOS (251.2) Active confirmed Problem Posttraumatic stress disorder (75189059) PTSD (Posttraumatic stress disorder) (NOS) (309.81) Active confirmed Problem Insomnia (756557726) Insomnia (780.52) Active confirmed Problem Nausea and vomiting (16208224) Nausea with vomiting (787.01) Active confirmed Problem Patient currently (25004809) Pregnacy state-incidental (V22.2) Active confirmed Problem Anemia during - baby not yet delivered (343996078) Anemia complicating , antepartum (648.23) Active confirmed Problem Bipolar disorder (93644464) BIPOLAR DISORDER NOS (296.80) Active confirmed Problem Asthma (929854848) ASTHMA NOS (493.90) Active confirmed Problem Attention deficit hyperactivity disorder (128733050) Attention deficit disorder with combined type hyperactivity (314.01) Active confirmed Problem Fatigue (96349631) Fatigue (780.79) Active confirmed Problem Rash (333533616) Rash (782.1) Active confirmed Plan Of Treatment Pending Test Test Name Order Date Blood Sugar/finger stick 08/03/2008 Blood Sugar/finger stick 07/28/2008 Blood Sugar/finger stick 07/30/2008 Urine Test 10/28/2007 Urine Test 01/03/2008 Insurance Providers Payer Name Payer Address Payer Phone Subscriber Number Group Number Insured Name Patient Relationship to Insured Coverage Start Date Coverage End Date [address] [phone] [id number] Cecil Brenna Self - patient is the insured 2 Medical (General) History Medical History History ICD Code asthma/Albuterol smoking,since 10yrold melanoma/03/20removed bipolar/PTSD/ADHD major depression Hx heroin use Migraines Pseudo seizures Insomnia Homelessness Hospitalization History Reason Date(Month/Year) [facility] psych (hx of psych hospitalizations ) 05/2021
== END 2024-04-03 15:34 | disposition left against medical advice (07) ==
PROVIDERS: Emergency Provider Emergency Medicine; PCP Nurse Practitioner Family
DX: R06.02 Shortness of breath (principal)

== ENCOUNTER 2024-04-04 09:44 | Outpatient (REF) | payer OTHER, SELFPAY ==
--- OUTSIDE RECORDS SUMMARY | 2024-04-04 10:27 | XMS_ITS | Patient Health Record ---
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 Name Role Phone Rose Montalvo Primary Care Provider Rose Oneill Unavailable Allergies Allergen (clinical drug ingredient) Drug/Non Drug [...] Status W/U Status Risk Notes Problem Hypoglycaemia (201212064) Hypoglycaemia NOS (251.2) Active confirmed Problem Posttraumatic stress disorder (21854242) PTSD (Posttraumatic stress disorder) (NOS) (309.81) Active confirmed Problem Insomnia (290200479) Insomnia (780.52) Active confirmed Problem Nausea and vomiting (69536755) Nausea with vomiting (787.01) Active confirmed Problem Patient currently (87377408) Pregnacy state-incidental (V22.2) Active confirmed Problem Anemia during - baby not yet delivered (720958464) Anemia complicating , antepartum (648.23) Active confirmed Problem Bipolar disorder (83569107) BIPOLAR DISORDER NOS (296.80) Active confirmed Problem Asthma (975563489) ASTHMA NOS (493.90) Active confirmed Problem Attention deficit hyperactivity disorder (637496941) Attention deficit disorder with combined type hyperactivity (314.01) Active confirmed Problem Fatigue (01576116) Fatigue (780.79) Active confirmed Problem Rash (303288509) Rash (782.1) Active confirmed Plan Of Treatment Pending Test Test Name Order Date Blood Sugar/finger stick 08/03/2008 Blood Sugar/finger stick 07/28/2008 Blood Sugar/finger stick 07/30/2008 Urine Test 10/28/2007 Urine Test 01/03/2008 Insurance Providers Payer Name Payer Address Payer Phone Subscriber Number Group Number Insured Name Patient Relationship to Insured Coverage Start Date Coverage End Date [address] [phone] [id number] Cecil Brenna Self - patient is the insured 2 Medical (General) History Medical History History ICD Code asthma/Albuterol smoking,since 10yrold melanoma/03/20removed bipolar/PTSD/ADHD major depression Hx heroin use Migraines Pseudo seizures Insomnia Homelessness Hospitalization History Reason Date(Month/Year) [facility] psych (hx of psych hospitalizations ) 05/2021
[2024-04-04 11:18] LABS: Appearance Urine Clear; Color Urine Yellow; Glucose Urine UA Negative (Negative); Leukocyte Esterase Urine Negative (Negative); Nitrite Urine Negative (Negative); Specific Gravity - Urine <= 1.005 (1.005-1.025); Urine Blood Negative (Negative); Urine Ketones Negative (Negative); Urine Protein Negative (Neg-Trace)
== END 2024-04-04 09:45 | disposition home or self-care (01) ==
LOC: HO.LAB 09:44
PROVIDERS: PCP Nurse Practitioner Family; Visit Provider Nurse Practitioner Family
DX: R30.0 Dysuria (principal)
CPT/HCPCS: 81003

== ENCOUNTER 2024-05-23 18:33 | Emergency (ER) | payer OTHER, SELFPAY ==
--- NOTE | 2024-05-23 | ECG_ITS ---
Test Reason : cp Blood Pressure : */* mmHG Vent. Rate : 85 BPM Atrial Rate : 85 BPM P-R Int : 150 ms QRS Dur : 84 ms QT Int : 392 ms P-R-T Axes : * 147 155 degrees QTcB Int : 466 ms Limb leads reversal Normal sinus rhythm with sinus arrhythmia Left posterior fascicular block Inferior infarct , age undetermined Abnormal ECG When compared with ECG of 01-Jan-2024 12:24, Limb leads reversal Referred By: Generic ED Physician Electronically Signed By: [place]
[2024-05-23 18:40] VITALS: BP 136/89; PULSE 108; RESP 22; TEMP 36.2; O2SAT 94; BMI 45.2
--- NOTE | 2024-05-23 18:45 | ED_ITS ---
HPI - General Adult General Chief complaint: General Medical Stated complaint: Chest pain/R hand numbness Time Seen by Provider: 05/23/24 21:09 Source: patient Mode of arrival: ambulatory Limitations: no limitations History of Present Illness ED Provider: HPI narrative: Patient complaining of sharp right-sided chest pain with right hand numbness and tingling for last 1 hour also complaining of headache last few hours no shortness a breath no nausea no vomiting no diaphoresis Related Data Home Medications ?Medication ?Instructions ?Recorded ?Confirmed methadone 10 mg/5 mL oral solution 160 mg PO DAILY 06/27/22 06/27/22 Previous Rx's ?Medication ?Instructions ?Recorded acetaminophen 325 mg tablet 650 mg (2 x 325 mg) PO DAILY PRN 07/18/22 Headache/Pain Mild Scale (1-3) 30 days #60 tabs benzocaine 20 % mucosal gel 1 appl mucous membrane QID PRN 07/18/22 (Anbesol (benzocaine) Maximum oral pain 15 days #9 grams Strength) gabapentin 300 mg capsule 900 mg (3 x 300 mg) PO TID 30 days 07/18/22 #270 caps hydroxyzine HCl 25 mg tablet 25 mg PO BID PRN Anxiety 30 days 07/18/22 #60 tabs mirtazapine 15 mg tablet 45 mg (3 x 15 mg) PO BEDTIME 30 07/18/22 days #90 tabs nicotine 21 mg/24 hr daily 21 mg transdermal DAILY 28 days 07/18/22 transdermal patch #28 ea olanzapine 7.5 mg tablet 15 mg (2 x 7.5 mg) PO BEDTIME 30 07/18/22 days #60 tabs olanzapine 7.5 mg tablet 15 mg (2 x 7.5 mg) PO BID PRN 07/18/22 psychosis, agitation 30 days #120 tabs omeprazole 40 mg capsule,delayed 40 mg PO DAILY@0630 30 days #30 07/18/22 release caps prazosin 1 mg capsule 2 mg PO BEDTIME 30 days #60 caps 07/18/22 prazosin 5 mg capsule 5 mg PO BEDTIME 30 days #30 caps 07/18/22 propranolol 10 mg tablet 10 mg PO TID 30 days #90 tabs 07/18/22 Allergies Allergy/AdvReac Type Severity Reaction Status Date / Time bee pollen [bee stings] Allergy Anaphylaxis Verified 05/23/24 18:40 buprenorphine [From Suboxone] Allergy Angioedema Verified 05/23/24 18:40 bupropion [From Wellbutrin] Allergy Seizure Verified 05/23/24 18:40 latex Allergy rash, Verified 05/23/24 18:40 swelling naloxone [From Suboxone] Allergy Angioedema Verified 05/23/24 18:40 prazosin Allergy Unknown Verified 05/23/24 18:40 sertraline [From Zoloft] Allergy Unknown Verified 05/23/24 18:40 Sulfa (Sulfonamide Allergy Rash Verified 05/23/24 18:40 Antibiotics) egg AdvReac Hives Verified 05/23/24 18:40 Pork/Porcine Containing AdvReac Anaphylaxis Verified 05/23/24 18:40 Products ziprasidone [From Geodon] AdvReac Unknown Verified 05/23/24 18:40 Review of Systems 2 Review of Systems: Yes all other systems are reviewed and are negative PMFSH Past Medical History Medical History Routine medical exam Seizure disorder Bipolar disorder Long-term current use of methadone for opiate dependence Polysubstance abuse Anxiety Social History Social History Household Members: None Housing: Homeless Do you presently have visiting nurse or other home services: No Comment: ambulating independently with steady gait Patient Tobacco Use Status: Current everyday Tobacco user Tobacco use type: Cigarette Cigarette Packs Per Day: 1 Cigarettes Per Day: 20.0 Years Smoked: several Smoked in Last 30 Days: No e-Cigarette/Vaping Use: Currently Using Second Hand Smoke Exposure: No Use of substances other than those prescribed or required for medical reasons: No Substance Use Type: Crack/Cocaine, Marijuana and Opiates Advance Directives: No Advance Directives Information Provided: Yes service: No Sexual orientation: Lesbian/Werner/Homosexual Physical Exam ED Vital Signs: Vital Signs - 24 hr 05/23/24 18:40 05/23/24 20:17 05/23/24 22:16 Temperature 97.2 F 98 F Pulse Rate 108 H 100 90 Respiratory Rate 22 H 20 12 Blood Pressure 136/89 132/95 H 107/72 Pulse Oximetry 94 97 95 Oxygen Delivery Method Room Air Room Air Room Air 05/23/24 22:32 Temperature 98 F Pulse Rate 90 Respiratory Rate 12 Blood Pressure 107/72 Pulse Oximetry 95 Oxygen Delivery Method Room Air BMI result Body Mass Index 45.2 Appearance: Alert. Oriented X3. No acute distress. Anxious Eyes: PERRLA, No Nystagmus ENT: Pharynx normal. Oral Mucosa moist Neck: Normal inspection. Neck supple. CVS: Normal heart rate and rhythm. Pulses normal. Respiratory: No respiratory distress. Equal air entry bilateral, no wheezing/rales/rhonchi Abdomen: Soft and nontender. Bowel sounds are present, no mass palpable, no CVA tenderness Skin: Skin warm and dry. Normal skin color. Normal skin turgor. Extremities: No lower extremity edema. No calf tenderness Neuro: Oriented X 3. No motor deficit. No sensory deficit.No cerebellar signs , cranial nerves II-XII intact Course Course Course Narrative: This is an RME performed by Anjali Snyder, DOUBLE SURFACE OPERATOR: Additional HPI, ROS, PE not included below will be deferred to primary provider. Patient is a 33 old female who presents emergency department for evaluation, has been experiencing numbness and tingling in the right hand for approximately 1 hour, has associated pain to the right anterior chest described as a dull pain, and a headache. Denies headache, neck pain or neck stiffness, injury, shortness of breath. Plan: Serum labs, EKG Medical Decision Making Medical Decision Making MDM Narrative: Patient has atypical and pain with anxiety cardiac workup negative likely anxiety Lab Data [facility] Lab Attestation statement: I reviewed the patient's lab results. 05/23/24 19:02 05/23/24 19:02 Labs: Lab Results 05/23/24 05/23/24 Range/Units 19:02 19:06 WBC 14.0 H (4.8-10.8) X10*3/uL RBC 4.84 (4.20-5.50) X10*6/uL Hgb 14.0 (12.0-16.0) g/dl Hct 40.9 (37.0-47.0) % MCV 84.5 (80.0-98.0) fL MCH 28.9 (27.0-33.0) pg MCHC 34.2 (31.0-35.0) g/dl RDW 13.5 (11.0-16.0) % Plt Count 319 (160-400) X10*3/uL MPV 10.7 (9.4-12.3) fL Immature Gran % (Auto) 0.6 H (0.0-0.4) % Neut % (Auto) 52.9 (45-73) % Lymph % (Auto) 37.3 (20-40) % Villalba % (Auto) 6.9 (2-11) % Eos % (Auto) 1.4 (0-4) % Baso % (Auto) 0.9 (0-2) % Lymph # (Auto) 5.2 H (1.2-4.9) X10*3/uL [place] # (Auto) 1.0 (0.1-1.2) X10*3/uL Eos # (Auto) 0.2 (0.0-0.4) X10*3/uL Baso # (Auto) 0.1 (0.0-0.2) X10*3/uL Abs Immat Gran (auto) 0.09 H (0.00-0.03) X10*3/uL Absolute Neuts (auto) 7.4 (2.0-8.3) x10*3/uL Absolute Nucleated RBC 0.000 (0.0-0.012) X10*3/uL Nucleated RBC % (auto) 0.0 (0.0-0.2) /100WBC Smear Tech's Comments VERIFIED Sodium 141 (135-145) mmol/L Potassium 3.9 (3.3-5.1) mmol/L Chloride 106 (96-108) mmol/L Carbon Dioxide 23 (22-29) mmol/L Anion Gap 16 (12-20) BUN 12 (9-16) mg/dL Creatinine 0.77 (0.5-1.4) mg/dL Estim Creat Clear Calc 140.3 Estimated GFR > 60 Random Glucose 116 H (60-115) mg/dL Calcium 9.6 (8.4-10.2) mg/dL Total Bilirubin 0.6 (0.0-1.0) mg/dL AST 39 H (5-31) U/L ALT 86 H (0-31) U/L Alkaline Phosphatase 141 H (39-117) U/L Troponin I High Sens < 2.7 (<3.5-17.0) ng/L Total Protein 7.8 (6.5-8.0) g/dL Albumin 4.5 (3.5-5.0) g/dL Urine Color Dark Yellow Urine Appearance Cloudy Urine pH 5.0 (5.0-9.0) Ur Specific [place] >= 1.030 H (1.005-1.025) Urine Protein Trace (Neg-Trace) mg/dL Urine Glucose (UA) Negative (Negative) mg/dL Urine Ketones Trace (Negative) mg/dL Urine Blood Negative (Negative) Urine Nitrite Negative (Negative) Ur Leukocyte Esterase Negative (Negative) Urine RBC 0-2 (0-2) /HPF Urine WBC 0-5 (0-5) /HPF Ur Squamous Epith Cells 3-5 (0-2) /HPF Calcium Oxalate Crystal Present Urine Bacteria None Seen (None Seen) Hyaline Casts 0-2 (0-2) /LPF Urine Test NEGATIVE (NEGATIVE) Influenza Type A (PCR) NEGATIVE (Negative) Influenza Type B (PCR) NEGATIVE (Negative) RSV RNA Qual (PCR) NEGATIVE (Negative) SARS-CoV-2 RNA (RT-PCR) NEGATIVE (Negative) Independent Interpretation I performed an independent interpretation of an: EKG Interpretation: Normal sinus rhythm with heart rate 85 beats per minute no acute ST-T changes no acute ischemia Discharge Plan Discharge Clinical Impression: Chest pain Patient Disposition: Home, Self-Care Instructions: Chest Pain (ED) Additional Instructions: Follow with your PCP for further evaluation At this time your workup for the chest pain is negative for acute coronary event Report to the ER if recurrence of the pain Prescriptions: No Action methadone 10 mg/5 mL Solution 160 mg PO DAILY nicotine 21 mg/24 hr Patch 24 Hour 21 mg transdermal DAILY 28 Days Qty: 28 0RF prazosin 1 mg Capsule 2 mg PO BEDTIME 30 Days Qty: 60 0RF Protocol: Hold for SBP< HOLD for SBP < : 90 olanzapine 7.5 mg Tablet 15 mg PO BEDTIME 30 Days Qty: 60 0RF olanzapine 7.5 mg Tablet 15 mg PO BID PRN (Reason: psychosis, agitation) 30 Days Qty: 120 0RF prazosin 5 mg Capsule 5 mg PO BEDTIME 30 Days Qty: 30 0RF Protocol: Hold for SBP< HOLD for SBP < : 90 propranolol 10 mg Tablet 10 mg PO TID 30 Days Qty: 90 0RF Protocol: Hold for SBP/HR < HOLD for SBP < : 90 HOLD for HR < : 60 gabapentin 300 mg Capsule 900 mg PO TID 30 Days Qty: 270 0RF hydroxyzine HCl 25 mg Tablet 25 mg PO BID PRN (Reason: Anxiety) 30 Days Qty: 60 0RF mirtazapine 15 mg Tablet 45 mg PO BEDTIME 30 Days Qty: 90 0RF Anbesol (benzocaine) Max Str 20 % Gel 1 appl mucous membrane QID PRN (Reason: oral pain) 15 Days Qty: 9 0RF Protocol: Apply to: Apply to: affected oral mucosa acetaminophen 325 mg Tablet 650 mg PO DAILY PRN (Reason: Headache/Pain Mild Scale (1-3)) 30 Days Qty: 60 0RF omeprazole 40 mg Capsule,Delayed Release(Dr/Ec) 40 mg PO DAILY@0630 30 Days Qty: 30 0RF Interventions: ED Discharge Assessment Last Done: 05/23/24 22:32 Discharge Date/Time: 05/23/24 22:32 Print Language: [place]araguan
[2024-05-23 19:11] LABS: Basophils Absolute Auto 0.1 X10*3/uL (0.0-0.2); Basophils Percent Auto 0.9 % (0-2); Eosinophils Absolute Auto 0.2 X10*3/uL (0.0-0.4); Eosinophils Percent Auto 1.4 % (0-4); Hematocrit 40.9 % (37.0-47.0); Imm Gran Abs Auto 0.09 X10*3/uL (0.00-0.03); Imm Gran Pct Auto 0.6 % (0.0-0.4); Lymphocytes Absolute Auto 5.2 X10*3/uL (1.2-4.9); Lymphocytes Percent Auto 37.3 % (20-40); MANUAL DIFF FLAG SCAN; Mean Corpuscular HGB Conc 34.2 g/dl (31.0-35.0); Mean Corpuscular Hemoglobin 28.9 pg (27.0-33.0); Mean Corpuscular Volume 84.5 fL (80.0-98.0); Mean Platelet Volume 10.7 fL (9.4-12.3); Monocytes Percent Auto 6.9 % (2-11); Neutrophils Absolute Auto 7.4 x10*3/uL (2.0-8.3); Neutrophils Percent Auto 52.9 % (45-73); Platelet Count 319 X10*3/uL (160-400); Red Blood Count 4.84 X10*6/uL (4.20-5.50); Red Cell Distribution Width 13.5 % (11.0-16.0); SCAN SMEAR FLAG 1
[2024-05-23 19:13] LABS: Appearance Urine Cloudy; Color Urine Dark Yellow; Glucose Urine UA Negative (Negative); Leukocyte Esterase Urine Negative (Negative); Nitrite Urine Negative (Negative); Specific Gravity - Urine >= 1.030 (1.005-1.025); UPreg QC Valid YES; Urine Blood Negative (Negative); Urine Ketones Trace mg/dL (Negative); Urine Pregnancy NEGATIVE (NEGATIVE); Urine Protein Trace mg/dL (Neg-Trace)
[2024-05-23 19:21] LABS: Albumin Level 4.5 g/dL (3.5-5.0); Alkaline Phosphatase 141 U/L (39-117); Anion Gap 16 (12-20); Aspartate Amino Transferase 39 U/L (5-31); Bilirubin Total 0.6 mg/dL (0.0-1.0); Blood Urea Nitrogen 12 mg/dL (9-16); Calcium 9.6 mg/dL (8.4-10.2); Carbon Dioxide 23 mmol/L (22-29); Chloride 106 mmol/L (96-108); Creatinine Clr Calc Pharmacy 140.3; Estimated Glomerular Filt Rate > 60; Glucose Random 116 mg/dL (60-115); Potassium 3.9 mmol/L (3.3-5.1); Sodium 141 mmol/L (135-145); Total Protein 7.8 g/dL (6.5-8.0)
[2024-05-23 19:26] LABS: Bacteria Urine None Seen (None Seen); Calcium Oxalate Crystals Urine Present; Hyaline Casts Urine 0-2 /LPF (0-2); RBC Urine 0-2 /HPF (0-2); WBC Urine 0-5 /HPF (0-5)
[2024-05-23 19:28] LABS: Troponin-I High Sensitivity < 2.7 ng/L (<3.5-17.0)
[2024-05-23 19:29] LABS: SLIDE REVIEW VERIFIED
[2024-05-23 19:33] LABS: Alanine Aminotransferase 86 U/L (0-31)
--- OUTSIDE RECORDS SUMMARY | 2024-05-23 19:40 | XMS_ITS | Data Portability ---
Author Organization [employer] Address [address] [place] [phone] Care Team Providers Care Piccoloist Name Role Phone HIM CCA Referring Provider Assessment Encounter Date Assessment Date Assessment LastModified by Organization Details LastModified Time 05/21/2023 05/21/2023 As noted, we wer e called to see this patient regarding concerns of dyspnea. Evaluation in the field was performed by my weir fisherman colleague, as noted above, I provided real-time [...] look like for her sent message to outdoor emergency care technician & PCP re: need for in-lab sleep [...] Assessment and Plan as documented by the Sales Rep. We discussed the diagnostic uncertainty of home [...] to call 911- verbalized understanding of instruction [email or web address] Not available 05/27/2023 11:28:53 Plan of Treatment Reminders Order Date Submit Date Provider Last Modified By Organization Details Last Modified Time Details Appointments None recorded. Lab rapid SARS CoV 2 Ag, QL IA, respiratory specimen [address], [phone] 4 14:00:16 rapid flu (A+B) [address], [address] 14:00:15 Referral None recorded. Procedures None recorded. Surgeries None recorded. Imaging None recorded. Medication Orders prednisone 20 mg tablet 2023 024 [facility]armacy #[id number], [address] [place], [address], 15:32:38 prednisone 20 mg tablet 2023 024 [facility]/Pharmacy #[id number], [address] [place], [address], 4 14:00:15 ProAir HFA 90 mcg/actuati on aerosol inhaler 2023 024 [facility]acy #[id number], [address] [place], [address], 4 15:32:39 diphenhydra mine 25 mg tablet 2023 024 [email or web address] [place], [address], 4 11:29:20 diphenhydra mine 25 mg tablet 2023 024 [facility], [address] [facility] [address] [place], [address], 4 11:29:55 prednisone 20 mg tablet 2023 024 [email or web address] 0 [facility], [address] [facility] [address] [place], [address], 4 11:29:20 prednisone 20 mg tablet 2023 024 [facility], [address] [place] [address] [address] [place], [address], 4 11:29:56 Elimite 5 % topical cream 2023 024 [facility], [address] [place] [address] [address] [place], [address], 11:29:57 Patient TargetsNo targets recorded. Patient InstructionsNo instructions recorded. Reason for Referral None Reported. Results Created Date Observation Date Name Description Value Unit Range Abnormal Flag Note LastModifiedBy Organization Detail LastModifiedTime 12/23/19 24 12/23/2023 rapid flu (A+B) Flu negati ve Not Available Main - [facility] ed [address] [place] [address], [phone] 12/23/2023 13:54:10 12/23/19 24 12/23/2023 rapid SARS CoV 2 Ag, QL IA, respi rator y speci men rapid SARS CoV 2 Ag, QL IA, respiratory specimen negati ve Not Available Main - [facility] ed [address] [place] [address], [phone] 12/23/2023 13:54:07 Result Notes None recorded. Medical Equipment None Reported. Allergies Allergen ID Allergen Name Allergen Category Reaction Reaction Severity Criticality Documentation Date Start Date Code Code System Note Provider Name and Address Organization Details Recorded Time 73799 sertralin e medicatio n Not available Not available Not available 12/23/2023 06726 RxNorm Not Available [facility] - production 4 11:36:07 53278 perphenaz ine medicatio n Not available Not available Not available 12/23/2023 8076 RxNorm Not Available [facility] - production 4 11:36:07 77765 Effexor medicatio n Not available Not available Not available 12/23/2023 54844 2 [facility] Not Available [facility] 11:36:07 86467 Bactrim medicatio n Not available Not available Not available 12/23/2023 58526 9 [facility] Not Available [facility] 11:36:07 4881 Geodon medicatio n Not available Not available Not available 05/27/2023 69065 4 Rx[facility] Not Available [facility] 11:36:07 4882 Haldol medicatio n Not available Not available Not available 05/27/2023 57073 9 Rx[facility] Not Available [facility] 4 11:36:07 4883 latex environme nt,medica tion Not available Not available Not available 05/27/2023 18444 91 RxNorm Not Available [facility] - production 11:36:07 4884 Substance with sulfonami de structure and antibacte rial mechanism of action (substanc e) medicatio n Not available Not available Not available 05/27/2023 29126 8003 SNOMED Margaret Loo MD [address] [place] [address],[address], [place], [address], [employer], Amanda Huff [employer] [facility] 4 11:24:04 4885 Wellbutri n medicatio n Not available Not available Not available 05/27/2023 40736 RxNorm Margaret Loo MD [address] [place] [address],[address], [place], [address], [employer], Amanda Huff [employer] [facility] 4 11:24:13 4886 egg extract food,medi cation Not available Not available Not available 05/27/2023 37396 15 RxNorm Margaret Loo MD [address] [place] [address],[address], [place], [address], SANDEEP TAYLOR, MEAGHAN 4 11:24:18 Medications Name Sig Start Date [...] active Not Available Not Available Not Available [facility] [place] unit/gram topical powder active Not Available [...] % 97.9 [degF] 170.18 cm 71 /min 663793. 08 g 16 /min 134 mm[Hg] 96 mm[Hg] Not Available [employer] [facility] [employer] 4 16:16:06 Date Recorded Body height Heart rate Respiratory rate Body temperature Oxygen saturation Oxygen saturation in Arterial blood by Pulse oximetry Body weight Systolic blood pressure Diastolic blood pressure Provider Name and Address Organization Details Last Updated DateTime 4 170.18 cm 71 /min 18 /min 98.4 [degF] 99 % 99 % 972303 g 112 mm[Hg] 75 mm[Hg] Not Available [employer] [facility] [employer] 4 12:47:43 Date Recorded Body height Heart rate Respiratory rate Body temperature Oxygen saturation Oxygen saturation in Arterial blood by Pulse oximetry Body weight Systolic blood pressure Diastolic blood pressure Provider Name and Address Organization Details Last Updated DateTime 4 170.18 cm 80 /min 16 /min 97.8 [degF] 95 % 95 % 492146. 08 g 152 mm[Hg] 93 mm[Hg] Not Available [employer] 4 11:22:59 Date Recorded Body weight Body temperature Heart rate Oxygen saturation Oxygen saturation in Arterial blood by Pulse oximetry Body height Respiratory rate Systolic blood pressure Diastolic blood pressure Provider Name and Address Organization Details Last Updated DateTime 4 692925 g 98 [degF] 89 /min 96 % 96 % 170.18 cm 18 /min 125 mm[Hg] 85 mm[Hg] Not Available [employer] 4 13:45:01 Social History None recorded. Functional Status None recorded. Mental Status None recorded. Family History Nothing Reported. Medical History No medical history recorded. Gynecological HistoryNo gynecological history recorded. Obstetrics History GPAL:G 0 P 0 0 0 0 Past Encounters Encounter ID Performer Location Encounter Start Date Encounter Closed Date Diagnosis/Indication Diagnosis SNOMED-CT Code Diagnosis ICD10 Code Diagnosis Note [id number] Mildred Petersen MD [facility] - [address] [address] 06/07/2022 20:04:42 06/08/2022 12:26:07 Nausea 668606118 R11.0 Pruritic rash 06023593 L 28.2 [id number] Inna Laird MD [facility] - [address] [address] 05/16/2023 16:16:04 05/16/2023 20:05:50 Asthma 142480875 J45.909 32 year old female with asthma, recently seen in the ER for worsening breathing in the setting of not having her inhaler, being evaluated as a follow up of her ER visit. Patient reports being prescribed a short supply of her inhaler in the ER pending establishi ng care with her new PCP in July. [...] assessment and plan as documented by the weir fisherman. I provided real-time medical direction for this encounter and was immediatel y available to provide additional phone-base d assistance as needed. We discussed the diagnostic uncertaint y of home visits and associated risks. We discussed the need to seek care urgently/e mergently in the setting of any new or worsening symptoms. [id number] BIMAL BOCANEGRA MD [facility] - [address] [address] 05/21/2023 12:47:40 05/22/2023 10:22:46 Hypoxia 753570996 G47.34 Dyspnea 305331124 R06.00 [id number] Margaret oLo MD [facility] - [address] [address] 05/27/2023 11:22:35 05/28/2023 18:56:47 Pruritic rash 57488531 L28.2 Although not noted on intertrigi nous [...] ine for the itching Sent RX to [facility] at patient request. Then she called [facility] and requested Rx be sent to [facility]/ [facility] in [place]. CRC faxed Rx to [facility] and reached out to [facility] not to fill [id number] Deb Cade MD Main - [facility] [address] [place] [phone] 12/23/2023 13:44:56 12/24/2023 13:47:54 Dyspnea 164076090 R06.00 As noted, we were called to see this patient regarding concerns of difficulty breathing. Evaluation in the field was performed by my weir fisherman colleague, as noted above, I provided real-time [...] , now, additional 20mg x 4 daysAlbute rol MDI to use prn Requests scripts faxed to her [facility] at [phone] Dispositio n: We discussed the diagnostic uncertaint [...] Concerns Section Related Observation LastModified by Organization Stevo thorne LastModified Time None Recorded Concern Status LastModified by Organization Details LastModified Time None Recorded Advance Directives Directive None Recorded Payers Encounter Date Sequence Insurance Name Policy Number Policy Guido Covered Member ID Guido Member ID Guarantor Name 05/16/2023 1 [facility] [employer] - DOS ON OR AFTER 2022 - DUAL ELIGIBLE - CORRECTION OPTIONS AND ONE CARE (MEDICARE REPLACEMENT/ADV ANTAGE - HMO) Brenna Jacob [id number] Brenna Rm Cecil 05/21/2023 1 [facility] [employer] - DOS ON OR AFTER 2022 - DUAL ELIGIBLE - CORRECTION OPTIONS AND ONE CARE (MEDICARE REPLACEMENT/ADV ANTAGE - HMO) Brenna Jacob [id number] Brenna Rm Cecil 05/27/2023 1 [facility] [employer] - DOS ON OR AFTER 2022 - DUAL ELIGIBLE - CORRECTION OPTIONS AND ONE CARE (MEDICARE REPLACEMENT/ADV ANTAGE - HMO) Brenna Jacob [id number] Brenna Jacob 12/23/2023 1 [facility] [employer] - DOS ON OR AFTER 2022 - DUAL ELIGIBLE - CORRECTION OPTIONS AND ONE CARE (MEDICARE REPLACEMENT/ADV ANTAGE - HMO) Brenna Jacob [id number] Brenna Rm Cecil Notes Date Note Type [...] Cough Chief Complaints: Syncope/Dizziness/Lig htheadednessPMH: COPD/AsthmaAllergies: UnknownComments: Child Development Specialist verified the member's name//address and phone number. [...] ..................... ..................... ..................... ..................... ..................... ..................... ............... Sales Rep Note From Lucien Jacob: [facility] visit for female patient with shortness of breath. Arrived to [facility] where pt was found sitting on [...] albuterol inhaler about 20 minutes prior to [facility] arrival. Pt reports recent course of prednisone as well which she states was completed. Consulted with [facility] Dr. Laird who advised no acute treatments needed. Pt instructed that she can call back if she needs a refill of breo and should call 1-2 days before she runs out. Patient education provided. ..................... ..................... ..................... ..................... ..................... ..................... ............... Disposition: Fulfilled Inna Laird MD [address] [facility],[address], [place], [address], SANDEEP MEAGHAN TAYLOR 05/16/2023 16:38:09 05/21/2023 text/html HPI: 32 y.o. female with PMH of generalized anxiety disorder, PTSC, bipolar disorder, ADHD c.o. chest tightness, difficulty breathing for the past two weeks with no improvement. Last seen in the [facility] ER 05/13/23 for same symptoms with no improvement. ..................... ..................... ..................... ..................... ..................... ..................... ............... [facility] Nurse Triage Notes (Sonia Lazo): Comments: HPI reviewed. No further information needed to process visit- N Violet GODINEZ ..................... ..................... ..................... ..................... ..................... ..................... ............... Sales Rep Note From Jennifer Felix: Sent to a call for a pt complaining of chest tightness and sob x 2 weeks. SC8 arrives on scene at [facility]. Pt is alert and oriented, and airway is patent. Pt states she has been at this facility for approx 1 month. Pt complains of intermittent chest tightness and constant sob x 3 weeks. Pt initially ran out of Breo Ellipta for approx 1 week, was evaluated at [facility] ED, prescribed Breo Ellipta, and prednisone 40mg [...] is educated on signs/symptoms of Asthma exacerbation. [facility] sends note to request follow up regarding further testing exploring possible sleep apnea or other diagnoses/treatment. Information explained to facility staff. Red flags discussed. No further pt questions. ..................... ..................... ..................... ..................... ..................... ..................... ............... Disposition: Cynthia BIMAL BOCANEGRA MD [address] [facility],[address], [place], [address], [employer] 05/21/2023 16:01:30 05/27/2023 text/html [facility] Nurse Triage Notes (Sonia Lazo): Chief Complaints: Pain PMH: COPD/Asthma, Severe Persistent Mental Illness (SPMI) Comments: Identity//Address verified. Reports rash that is spreading over the past 3 weeks, from anterior chest to neck/face. Areas are itching and burning. Denies facial swelling. No new medications. Not taking OTC medications. ..................... ..................... ..................... ..................... ..................... ..................... ............... Sales Rep Note From Luis E Montejo: Pt reports rash that started on chest, spread to back, upper arms and neck for three weeks. Pt describes rash as itching and burning. Pt denies CP, SOB, HAHN, f/n/v/d. Pt is alert, NAD. VSS. Afebrile. Non focal neuro exam. Normal gait. Lungs CTA. Benign ABD exam. No LE edema. Rash is small, red papules. C contacted and pt treated with diphenhydramine 50 [...] being on hydroxyzine/Atarax currently Margaret Loo MD [address] [place] [address],[address], [place], [address], [employer] 05/27/2023 13:15:44 12/23/2023 text/html [facility] Nurse Triage Notes (Vince Elliott): Reason For Request: Patient has breathing problems and is short of breath, (but also speaking clearly). Chief Complaints: Breathing problems PMH: COPD/Asthma, Severe Persistent Mental Illness (SPMI), Bipolar Disorder, Anxiety Disorder Comments: Child Development Specialist verified the Pt.'s name//address and phone number. [...] - S/S started yesterday. Wellness visit requested Sales Rep Organization Information for Mary Alice, Murali [facility] Business Legal Name: [employer].? Address: [address] [place] [address], [place] [address], Supervisor [employer]: Osman HADLEY No.: [id number] Sales Rep POC Test Results from Murali Wheat [facility] Rapid influenza antigen (13:47:52) Flu: - Attachments uploaded as part of this test result can be found under Documents section. Rapid COVID antigen (13:47:55) COVID: - Attachments uploaded as part of this test result can be found under Documents section. ..................... ..................... ..................... ..................... ..................... ..................... ............... Sales Rep Note From Murali Wheat: Was dispatched for [...] remarkable was found upon completion of assessment. [facility] was contacted, [facility] ordered 20 mg of prednisone and put an prescription of albuterol into the PT local pharmacy. PT was happy with treatment. Crew cleared. [facility] Lab Orders: rapid SARS CoV 2 Ag, QL IA, respiratory specimen: Performed ..................... ..................... ..................... ..................... ..................... ..................... ............... [facility] Consulted: Deb Cade ..................... ..................... ..................... ..................... ..................... ..................... ............... Disposition: Fulfilled Deb Cade MD [address] [facility],[address] [facility], [place], [address], [employer] 12/23/2023 15:32:48 OBGyn Episode No OBEpisode recorded.
[2024-05-23 19:44] LABS: Influenza A PCR NEGATIVE (Negative); Influenza B PCR NEGATIVE (Negative); Resp Syncy Virus RNA Qual PCR NEGATIVE (Negative); SARS COV2 PCR INHOUSE NEGATIVE (Negative)
[2024-05-23 20:17] VITALS: BP 132/95; PULSE 100; RESP 20; O2SAT 97
[2024-05-23 22:16] VITALS: BP 107/72; PULSE 90; RESP 12; TEMP 36.6; O2SAT 95
[2024-05-23 22:32] VITALS: BP 107/72; PULSE 90; RESP 12; TEMP 36.6; O2SAT 95
== END 2024-05-23 22:32 | disposition home or self-care (01) ==
PROVIDERS: Emergency Provider Internal Medicine; PCP Nurse Practitioner Family
DX: R07.89 Other chest pain (principal); R20.0 Anesthesia of skin; F17.210 Nicotine dependence, cigarettes, uncomplicated; Z79.899 Other long term (current) drug therapy; Z03.818 Encounter for observation for suspected exposure to other biological agents ruled out
CPT/HCPCS: 0241U; 80053; 81001; 81025; 84484; 85025; 93005; 99283; 99284

== ENCOUNTER → 2024-05-23 18:35 | Outpatient (BNV) | payer OTHER, SELFPAY | PROVIDERS: Emergency Provider Internal Medicine; PCP Nurse Practitioner Family; Visit Provider Internal Medicine Cardiovascular Disease | DX: I44.5 Left posterior fascicular block (principal); I49.9 Cardiac arrhythmia, unspecified | CPT/HCPCS: 93010 ==

== ENCOUNTER 2024-07-14 13:45 | Outpatient (RCR) | payer OTHER, SELFPAY ==
[2024-07-09 11:43] VITALS: BMI 43.4
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
--- NOTE | 2024-07-10 14:25 | HO.PHP ---
Clients case was opened and reviewed in teams today.
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
--- NOTE | 2024-07-14 15:02 | HO.PHP ---
PHP staff member went to meet with Brenna to review a relapse prevention plan but she was outside. When PHP staff member went outside to get Brenna she noticed Brenna was vaping. PHP staff member informed Brenna that there is no vaping on campus. Brenna became reactive and stated if she can't have her nicotine then she is not doing this program. PHP staff member informed Brenna that we could provide her with nicotine replacements such as a patch or gum. Brenna said she is leaving and not coming back to this program. PHP staff member explored if we could discuss this, she stated no and that she is grabbing her items and she is done.
--- NOTE | 2024-07-15 09:38 | HO.PHP ---
PHP staff member reached out to Brenna to gather discharge information and a voicemail was left.
== END 2024-07-14 23:59 | disposition home or self-care (01) ==
LOC: HO.PHPA 13:45
PROVIDERS: Visit Provider Psychiatry & Neurology Psychiatry
DX: F43.10 Post-traumatic stress disorder, unspecified (principal); F29 Unspecified psychosis not due to a substance or known physiological condition; Z79.899 Other long term (current) drug therapy
CPT/HCPCS: 90791; 90853

== ENCOUNTER → 2024-07-14 13:45 | Outpatient (BNV) | payer OTHER, SELFPAY | PROVIDERS: Visit Provider Psychiatry & Neurology Psychiatry | DX: F29 Unspecified psychosis not due to a substance or known physiological condition (principal); F43.10 Post-traumatic stress disorder, unspecified | CPT/HCPCS: 99499 ==

== ENCOUNTER 2024-08-15 19:32 | Emergency (ER) | payer OTHER, SELFPAY ==
[2024-08-15 19:33] VITALS: BP 124/80; PULSE 106; RESP 17; TEMP 36.6; O2SAT 99; BMI 40.8
--- NOTE | 2024-08-15 19:33 | ED.PSYCH ---
HPI - Psych General Chief Complaint: Psychiatric Symptoms Stated Complaint: SI/ crisis Time Seen by Provider: 08/15/24 19:38 Source: patient and RN notes reviewed Mode of arrival: ambulatory Limitations: no limitations History of Present Illness ED Provider: Verónica Mccall PA-C HPI Narrative: This is a [id number], with a hx of schizoaffective disorder, anxiety, bipolar disorder, ADHD, asthma, opioid use disorder on methadone [facility] in [place], who presents to the ER with complaints of suicidal ideation and auditory hallucinations for the last 5 days. Reports that she had intentions of cutting herself with a razor blade. Patient states that the auditory hallucinations are telling her to kill herself. Hx of similar episodes in the past. She is not in any current pain. No etoh use. Reporting last use 1 year ago. No HI. She reports that she has been compliant on all her medications however she believes that these medications are no longer helpful. No other complaints or concerns at this time. MD complaint: suicidal ideation, feels depressed and hallucinations Onset (ago): day(s) Duration: constant History of same: Yes Relieving factors: none Exacerbating factors: none Associated psychiatric symptoms: depression, suicidal ideation and auditory hallucinations Associated symptoms: denies other symptoms Treatments prior to arrival: none Related Data Home Medications ?Medication ?Instructions ?Recorded ?Confirmed methadone 10 mg/5 mL oral solution 165 mg PO DAILY 06/27/22 08/16/24 baclofen 15 mg tablet 15 mg PO TID 07/09/24 08/15/24 buspirone 15 mg tablet 15 mg PO TID 07/09/24 08/15/24 duloxetine 30 mg capsule,delayed 30 mg PO DAILY 07/09/24 08/15/24 release duloxetine 60 mg capsule,delayed 60 mg PO DAILY 07/09/24 08/15/24 release fluticasone furoate 100 1 inh inhalation DAILY 07/09/24 08/15/24 mcg-vilanterol 25 mcg/dose inhalation powder (Breo Ellipta) gabapentin 800 mg tablet 800 mg PO TID 07/09/24 08/15/24 lorazepam 1 mg tablet (Ativan) 1 mg PO BID PRN Anxiety 07/09/24 08/15/24 mirtazapine 45 mg tablet 45 mg PO BEDTIME 07/09/24 08/15/24 zolpidem 5 mg tablet (Ambien) 5 mg PO BEDTIME PRN Insomnia 07/09/24 08/15/24 brexpiprazole 1 mg tablet 1 mg PO BID as directed 08/15/24 08/15/24 haloperidol 10 mg tablet 10 mg PO DAILY PRN 08/16/24 08/16/24 anxiety/agitation Previous Rx's ?Medication ?Instructions ?Recorded propranolol 10 mg tablet 10 mg PO TID 30 days #90 tabs 07/18/22 haloperidol 10 mg tablet 10 mg PO TID #30 tabs 07/10/24 Allergies Allergy/AdvReac Type Severity Reaction Status Date / Time bee pollen (bee stings) Allergy Anaphylaxis Verified 08/15/24 19:35 buprenorphine (From Suboxone) Allergy Angioedema Verified 08/15/24 19:35 bupropion (From Wellbutrin) Allergy Seizure Verified 08/15/24 19:35 latex Allergy rash, Verified 08/15/24 19:35 swelling naloxone (From Suboxone) Allergy Angioedema Verified 08/15/24 19:35 prazosin Allergy Unknown Verified 08/15/24 19:35 sertraline (From Zoloft) Allergy Unknown Verified 08/15/24 19:35 Sulfa (Sulfonamide Allergy Rash Verified 08/15/24 19:35 Antibiotics) venlafaxine (From Effexor) Allergy Unknown Verified 08/15/24 19:35 egg AdvReac Hives Verified 08/15/24 19:35 Pork/Porcine Containing AdvReac Anaphylaxis Verified 08/15/24 19:35 Products ziprasidone (From Geodon) AdvReac Unknown Verified 08/15/24 19:35 Review of Systems Review of Systems: Yes all other systems are reviewed and are negative Constitutional: Constitutional: Reports as per HPI [facility] Past Medical History Medical History (Updated 08/15/24 @ 19:44 by ALEX Fernández) Exercise-induced asthma Asthma Routine medical exam Seizure disorder Bipolar disorder Long-term current use of methadone for opiate dependence Polysubstance abuse Anxiety Surgical History (Updated 07/09/24 @ 11:41 by Frances Ruiz RN) History of unilateral fallopian tube excision Social History Social History Household Members: Other Household Members Other:: 15 pts. live there, it is a dual diagnosis program Housing: Homeless Do you presently have visiting nurse or other home services: No Comment: ambulating independently with steady gait Patient Tobacco Use Status: Current everyday Tobacco user Tobacco use type: Cigarette Cigarette Packs Per Day: 1 Cigarettes Per Day: 20.0 Years Smoked: several e-Cigarette/Vaping Use: Currently Using Second Hand Smoke Exposure: No Substance Use Type: Crack/Cocaine, Marijuana and Opiates Advance Directives: No Advance Directives Information Provided: No Do you have a plan to hurt others: No Plan service: No Sexual orientation: Lesbian/Werner/Homosexual Physical Exam Vital Signs: Vital Signs: Last Vital Signs Temp 97.7 F 08/16/24 08:04 Pulse 83 08/16/24 08:34 Resp 16 08/16/24 08:04 BP 133/78 08/16/24 08:34 Pulse Ox 98 08/16/24 08:04 O2 Del Method Room Air 08/16/24 08:04 BMI result Body Mass Index 40.8 Const: General: cooperative, comfortable and no acute distress Orientation/consciousness: patient oriented x3 Limitations: no limitations HEENT: Head: Yes normal to inspection, Yes normocephalic and Yes atraumatic Ears: hearing grossly normal bilaterally General nose exam: Normal external nose present Face and sinus: Yes normal facial exam Mouth: Normal oral and palatal mucosa present, oropharynx normal and moist mucous membranes Throat: Yes posterior oropharynx normal Eyes: General: appearance normal, both eyes and all related structures Eyelids: Yes eyelids normal Conjunctivae: conjunctivae normal Sclerae: sclerae normal Pupils: Equal, round and reactive pupils present EOM: EOMs intact bilaterally Neck: Neck: Yes normal visual inspection, Yes full ROM and Yes no lymphadenopathy Lymphatic: no lymphadenopathy noted Chest: Chest palpation & inspection: normal inspection of the chest Resp: Effort & Inspection: normal respiratory effort and able to speak in complete sentences Auscultation: clear to auscultation bilaterally, no crackles, no rales, no rhonchi and no wheezes Cardio: Rate: regular rate Rhythm: regular rhythm Heart sounds: S1 normal heart sound present and S2 normal heart sound present GI: Inspection: Yes normal to inspection Skin: General skin exam: no rashes or lesions noted Trauma: no lacerations or abrasions Wounds: no wounds Neuro: General: patient oriented x3 and moves all extremities Cranial nerves: Yes Equal, round and reactive pupils present Extrem: General: Yes normal to inspection Right upper extremity: normal to inspection Left upper extremity: normal to inspection Right lower extremity: normal to inspection Left lower extremity: normal to inspection Psych: Appearance: disheveled Mental Status: mental status grossly normal Speech and movement: Psychomotor agitation in speech present and Restless speech present Affect: Anxious affect present Attitude: Guarded attititude/behavior present and Avoids eye contact (attititude/behavior) Thought process: Perseverating thought process present Thought content: Suicidality present Insight: Poor insight present (Psych) Judgement: Poor judgement present (Psych) Course Course Course Narrative: 9:35 PM 08/15/2024 (Gera JOHNSON): The patient was signed out to this provider at shift change, in summary the patient is a 34-year-old female presenting to the ED for evaluation of suicidal ideation with auditory command hallucinations. Patient was signed out to this provider pending urinalysis, urine , and urine toxicity. The patient's urinalysis is unremarkable, U tox is consistent with patient's medication history, urine is negative. The patient was seen by the crisis team who advises patient will likely be appropriate for discharge in the morning however the patient admits she has additional razor blades/sharp objects in her room at her program house, crisis team advises the program staff are not currently available to contact and request removal of sharp objects from the patient's room. As such patient will be held overnight under observation until contact can be made with the patient's program to ensure room has been cleared of sharp objects. Patient will likely be appropriate for discharge at that time. Patient will be admitted to ED physician observation status. Reevaluation(s) Reevaluation #1: 08/16/2024, 9;50 DR. Baeza's progress note: VSS, medication list was updated, no events reported by nurses overnight, care team input is appreciated a plan is keep the patient under physician observation need more collateral information and re-evaluation tomorrow. Time: 09:47 Reevaluation #2: patient is AAO x3, no SI, no HI, no hallucination, care team input is appreciated and I am in agreement with care team's assessment. patient feels okay to go back to the skilled nursing. Time: 12:21 Medications Administered Generic Name Dose Route Start Last Admin Trade Name Earnestine PRN Reason Stop Dose Admin Baclofen 15 mg 08/15/24 22:00 08/16/24 08:34 Baclofen 10 Mg Tablet PO 15 mg TID YAEL Administration Brexpiprazole 1 mg 08/16/24 09:00 08/16/24 09:37 Brexpiprazole 1 Mg Tablet PO 1 mg BID YAEL Administration Buspirone HCl 15 mg 08/16/24 09:00 08/16/24 08:33 Buspirone Hcl 5 Mg Tablet PO 15 mg TID YAEL Administration Duloxetine HCl 30 mg 08/16/24 09:00 08/16/24 08:34 Duloxetine Hcl 30 Mg Capsule.Dr PO 30 mg DAILY YAEL Administration Duloxetine HCl 60 mg 08/16/24 09:00 08/16/24 08:35 Duloxetine Hcl 60 Mg Capsule.Dr PO 60 mg DAILY YAEL Administration Fluticasone/Vilanterol 1 puff 08/16/24 08:00 08/16/24 09:37 Fluticasone/Vilanterol /25 Blst.W.Dev INHALE 1 puff RDAILY YAEL Administration Gabapentin 800 mg 08/16/24 09:00 08/16/24 08:33 Gabapentin 400 Mg Capsule PO 800 mg TID YAEL Administration Haloperidol 10 mg 08/16/24 11:13 08/16/24 11:58 Haloperidol 5 Mg Tablet PO 10 mg DAILY PRN Administration anxiety/agitation Lorazepam 1 mg 08/15/24 21:38 08/16/24 08:39 Lorazepam 1 Mg Tablet PO 1 mg BID PRN Administration Anxiety Methadone HCl 165 mg 08/16/24 09:00 08/16/24 09:44 Methadone Hcl 20 Mg/2 Ml Oral.Conc PO 165 mg DAILY YAEL Administration Propranolol HCl 10 mg 08/15/24 21:45 08/16/24 08:34 Propranolol Hcl 10 Mg Tablet PO 10 mg TID YAEL Administration Protocol Discontinued Medications Generic Name Dose Route Start Last Admin Trade Name Earnestine PRN Reason Stop Dose Admin Haloperidol 10 mg 08/16/24 09:37 08/16/24 09:53 Haloperidol 5 Mg Tablet PO 10 mg TID PRN Administration Anxiety Nicotine Polacrilex 4 mg 08/15/24 22:39 08/16/24 06:25 Nicotine Polacrilex Lozenge 4 Mg Lozenge BUCCAL 08/15/24 22:40 4 mg ONCE ONE Administration Medical Decision Making Medical Decision Making [facility] Narrative: This is a 34-year-old female who presents emergency department with concerns of suicidal ideation and auditory hallucinations. On arrival, patient tearful, anxious appearing, vital signs reveal slight tachycardia at 1:06 a.m., she has no chest pain or shortness for breath. Tachycardia likely secondary to anxiousness however will obtain EKG to rule out any arrhythmias. Patient has a history of similar symptoms in the past. States that her plan was to use a razor blade to cut herself. She denies any alcohol or drug use. Plan: Labs, EKG, urine, crisis consult Course: 08/15/20242044 - labs returned, she does have slight leukocytosis at 14.2k - this is likely reactive and is nonspecific. Patient has no headache, dizziness, chest pain, shortness for breath, cough, or urinary symptoms to suggest reasoning for leukocytosis. Infection is not suspected. H&H within normal limits, chemistry revealing hyperglycemia at 131, although this is nonfasting, and elevated liver transaminases with an AST and ALT at 37 and 62. Elevated alk phos at 146. COVID negative. EKG nonischemic. Discussed elevated liver enzymes with patient, patient has no abdominal pain, nausea, vomiting or diarrhea. She does not take Tylenol, no known history of hepatitis. She does not drink alcohol. Advised to follow-up with PCP, no further workup indicated. Awaiting UA and U tox, upreg as well as crisis eval. Differential Diagnosis Differential Diagnoses: The differential diagnosis associated with the presentation includes Depression, anxiety, suicidal ideation, homicidal ideation, schizoaffective disorder Admission/Observation Consideration of admission/observation: Escalation of care including admission/observation considered Lab Data [facility] Lab Attestation statement: I reviewed the patient's lab results. See MDM and course 08/15/24 20:05 08/15/24 20:05 Labs: Lab Results 08/15/24 08/15/24 Range/Units 20:05 21:08 WBC 14.2 H (4.8-10.8) X10*3/uL RBC 4.51 (4.20-5.50) X10*6/uL Hgb 13.5 (12.0-16.0) g/dl Hct 38.7 (37.0-47.0) % MCV 85.8 (80.0-98.0) fL MCH 29.9 (27.0-33.0) pg MCHC 34.9 (31.0-35.0) g/dl RDW 12.5 (11.0-16.0) % Plt Count 255 (160-400) X10*3/uL MPV 10.9 (9.4-12.3) fL Immature Gran % (Auto) 0.4 (0.0-0.4) % Neut % (Auto) 56.2 (45-73) % Lymph % (Auto) 36.5 (20-40) % Orange % (Auto) 5.2 (2-11) % Eos % (Auto) 1.1 (0-4) % Baso % (Auto) 0.6 (0-2) % Lymph # (Auto) 5.2 H (1.2-4.9) X10*3/uL Orange # (Auto) 0.7 (0.1-1.2) X10*3/uL Eos # (Auto) 0.2 (0.0-0.4) X10*3/uL Baso # (Auto) 0.1 (0.0-0.2) X10*3/uL Abs Immat Gran (auto) 0.05 H (0.00-0.03) X10*3/uL Absolute Neuts (auto) 8.0 (2.0-8.3) x10*3/uL Absolute Nucleated RBC 0.000 (0.0-0.012) X10*3/uL Nucleated RBC % (auto) 0.0 (0.0-0.2) /100WBC Smear Tech's Comments VERIFIED Sodium 140 (135-145) mmol/L Potassium 3.8 (3.3-5.1) mmol/L Chloride 106 (96-108) mmol/L Carbon Dioxide 23 (22-29) mmol/L Anion Gap 15 (12-20) BUN 13 (9-16) mg/dL Creatinine 0.75 (0.5-1.4) mg/dL Estim Creat Clear Calc 139.2 Estimated GFR > 60 Random Glucose 131 H (60-115) mg/dL Calcium 9.2 (8.4-10.2) mg/dL Total Bilirubin 0.5 (0.0-1.0) mg/dL AST 37 H (5-31) U/L ALT 62 H (0-31) U/L Alkaline Phosphatase 146 H (39-117) U/L Total Protein 7.3 (6.5-8.0) g/dL Albumin 4.5 (3.5-5.0) g/dL Urine Color Dark Yellow Urine Appearance Clear Urine pH 5.5 (5.0-9.0) Ur Specific [place] >= 1.030 H (1.005-1.025) Urine Protein Trace (Neg-Trace) mg/dL Urine Glucose (UA) Negative (Negative) mg/dL Urine Ketones Trace (Negative) mg/dL Urine Blood Negative (Negative) Urine Nitrite Negative (Negative) Ur Leukocyte Esterase Negative (Negative) Urine Test NEGATIVE (NEGATIVE) Salicylates < 5.0 L (15-30) mg/dL Urine Opiates Screen Not Detected (Not Detect) Ur Buprenorphine Scrn Not Detected (Not Detect) ng/mL Ur Oxycodone Screen Not Detected (Not Detect) ng/mL Urine Methadone Screen Positive H (Not Detect) ng/mL Urine Fentanyl Screen Not Detected (Not Detect) Acetaminophen < 3 (<30) mcg/mL Ur Barbiturates Screen Not Detected (Not Detect) Ur Phencyclidine Scrn Not Detected (Not Detect) Ur Amphetamines Screen Not Detected (Not Detect) U Benzodiazepines Scrn Not Detected (Not Detect) Urine Cocaine Screen Not Detected (Not Detect) U Marijuana (THC) Screen Not Detected (Not Detect) Ethyl Alcohol < 10 mg/dL COVID-19 (TERRY) Negative (Negative) COVID-19 Clin Com See Note Independent Interpretation I performed an independent interpretation of an: EKG Interpretation: EKG normal sinus rhythm at a ventricular rate of 92 beats per minute, PA interval 154, QT QTC 370/457, no STEMI. Discharge Plan Discharge Clinical Impression: Schizoaffective disorder Patient Disposition: [facility] Instructions: Schizoaffective Disorder (ED) Prescriptions: No Action methadone 10 mg/5 mL Solution 165 mg PO DAILY propranolol 10 mg Tablet 10 mg PO TID 30 Days Qty: 90 0RF Protocol: Hold for SBP/HR < HOLD for SBP < : 90 HOLD for HR < : 60 zolpidem [Ambien] 5 mg Tablet 5 mg PO BEDTIME PRN (Reason: Insomnia) lorazepam [Ativan] 1 mg Tablet 1 mg PO BID PRN (Reason: Anxiety) baclofen 15 mg Tablet 15 mg PO TID buspirone [BuSpar] 15 mg Tablet 15 mg PO TID duloxetine 60 mg Capsule,Delayed Release(Dr/Ec) 60 mg PO DAILY gabapentin 800 mg Tablet 800 mg PO TID duloxetine 30 mg Capsule,Delayed Release(Dr/Ec) 30 mg PO DAILY Rx Instructions: Take with 60 mg tab. Total dose 90 mg daily. mirtazapine [Remeron] 45 mg Tablet 45 mg PO BEDTIME fluticasone furoate-vilanterol [Breo Ellipta] 100-25 mcg/dose Blister With Device 1 inh INHALATION DAILY haloperidol 10 mg tablet 10 mg PO TID Qty: 30 0RF brexpiprazole 1 mg tablet 1 mg PO BID haloperidol 10 mg tablet 10 mg PO DAILY PRN (Reason: anxiety/agitation) Rx Instructions: spoke with Macrina from skilled nursing Referrals: Jaycee Wade MD [Primary Care Provider, Family Practice] Interventions: [place]-Suicide Risk Severity Scale Last Done: 08/15/24 20:07 Print Language: Stateless
--- NOTE | 2024-08-15 19:42 | ECG_ITS ---
Test Reason : MED CLEARANCE Blood Pressure : */* mmHG Vent. Rate : 92 BPM Atrial Rate : 92 BPM P-R Int : 154 ms QRS Dur : 88 ms QT Int : 370 ms P-R-T Axes : 47 36 24 degrees QTcB Int : 457 ms Normal sinus rhythm Cannot rule out Inferior infarct (cited on or before 23-May-2024) Abnormal ECG When compared with ECG of 23-May-2024 18:35, Left posterior fascicular block is no longer Present T wave inversion no longer evident in Lateral leads Referred By: Verónica Mccall Electronically Signed By: FERNIE PEREZ MD
--- NOTE | 2024-08-15 19:55 | MHC.EDTECH ---
EKG DELAYED DUE TO MACHINE BEING IN USE IN THE MAIN ED.
[2024-08-15 20:11] LABS: Hematocrit 38.7 % (37.0-47.0); Hemoglobin 13.5 g/dl (12.0-16.0); Imm Gran Abs Auto 0.05 X10*3/uL (0.00-0.03); Imm Gran Pct Auto 0.4 % (0.0-0.4); Lymphocytes Absolute Auto 5.2 X10*3/uL (1.2-4.9); MANUAL DIFF FLAG SCAN; Mean Corpuscular HGB Conc 34.9 g/dl (31.0-35.0); Mean Corpuscular Hemoglobin 29.9 pg (27.0-33.0); Mean Corpuscular Volume 85.8 fL (80.0-98.0); NRBC Abs Auto 0.000 X10*3/uL (0.0-0.012); NRBC Pct Auto 0.0 /100WBC (0.0-0.2); Platelet Count 255 X10*3/uL (160-400); Red Blood Count 4.51 X10*6/uL (4.20-5.50); SCAN SMEAR FLAG 1; White Blood Count 14.2 X10*3/uL (4.8-10.8)
--- OUTSIDE RECORDS SUMMARY | 2024-08-15 20:11 | XMS_ITS | Patient Health Record ---
Author Organization [facility] Address [address], [place] [id number] Care Team Providers Care Fabric And Accessories Estimator Name Role Phone Rose Montalvo Primary Care Provider Rose Oneill Unavailable Allergies Allergen (clinical drug ingredient) Drug/Non Drug Allergy documented on EMR Reaction Allergy Type Onset Date Status Wellbutrin Unknown Drug Allergy Active sertraline Zoloft Unknown Drug Allergy Active Sulfa Unknown Drug Allergy Active bee pollen bee pollen Unknown Drug Allergy Activ e buprenorphine / naloxone Suboxone Unknown Drug Allergy Active ziprasidone Geodon Unknown Drug Allergy Activ e Reason For [...] Status W/U Status Risk Notes Problem Hypoglycaemia (477777616) Hypoglycaemia NOS (251.2) Active confirmed Problem Posttraumatic stress disorder (42256359) PTSD (Posttraumatic stress disorder) (NOS) (309.81) Active confirmed Problem Insomnia (596227255) Insomnia (780.52) Active confirmed Problem Nausea and vomiting (87843235) Nausea with vomiting (787.01) Active confirmed Problem Patient currently (38570876) Pregnacy state-incidental (V22.2) Active confirmed Problem Anemia during - baby not yet delivered (463265071) Anemia complicating , antepartum (648.23) Active confirmed Problem Bipolar disorder (23653301) BIPOLAR DISORDER NOS (296.80) Active confirmed Problem Asthma (580846837) ASTHMA NOS (493.90) Active confirmed Problem Attention deficit hyperactivity disorder (658786974) Attention deficit disorder with combined type hyperactivity (314.01) Active confirmed Problem Fatigue (50403379) Fatigue (780.79) Active confirmed Problem Rash (284900447) Rash (782.1) Active confirmed Plan Of Treatment Pending Test Test Name Order Date Blood Sugar/finger stick 07/28/2008 Blood Sugar/finger stick 07/30/2008 Blood Sugar/finger stick 08/03/2008 Urine Test 10/28/2007 Urine Test 01/03/2008 Insurance Providers Payer Name Payer Address Payer Phone Subscriber Number Group Number Insured Name Patient Relationship to Insured Coverage Start Date Coverage End Date [facility] [address] [place] [phone] [id number] Brenna Jacob Self - patient is the insured 2 Medical (General) History Medical History History ICD Code asthma/Albuterol smoking,since 10yrold melanoma/03/20removed bipolar/PTSD/ADHD major depression Hx heroin use Migraines Pseudo seizures Insomnia Homelessness Hospitalization History Reason Date(Month/Year) [facility] psych (hx of psych hospitalizations ) 05/2021
--- OUTSIDE RECORDS SUMMARY | 2024-08-15 20:11 | XMS_ITS | Data Portability ---
Author Organization [employer] [facility] Address [address] [place] [address] Care Team Providers Care Director Of Reimbursement Name Role Phone HIM CCA Referring Provider Assessment Encounter Date Assessment Date Assessment LastModified by Organization Details LastModified Time 05/21/2023 05/21/2023 As noted, we alice e called to see this patient regarding concerns of dyspnea. Evaluation in the field was performed by my certified nursing assistant colleague, as noted above, I provided real-time [...] look like for her sent message to home care physical therapist & PCP re: need for in-lab sleep [...] Assessment and Plan as documented by the Blast Furnace Helper. We discussed the diagnostic uncertainty of home [...] to call 911- verbalized understanding of instruction [email or web address] Not available 05/27/2023 11:28:53 Plan of Treatment Reminders Order Date Submit Date Provider Last Modified By Organization Details Last Modified Time Details Appointments None recorded. Lab rapid SARS CoV 2 Ag, QL IA, respiratory specimen [address], [phone] 14:00:16 rapid flu (A+B) [address], [address] 14:00:15 Referral None recorded. Procedures None recorded. Surgeries None recorded. Imaging None recorded. Medication Orders prednisone 20 mg tablet 2023 [facility]acy #[id number], [address] [place], [address], 15:32:38 prednisone 20 mg tablet 2023 024 [facility]/Pharmacy #[id number], [address] [place], [address], 14:00:15 ProAir HFA 90 mcg/actuati on aerosol inhaler 2023 024 [facility]/Pharmacy #[id number], [address] [place], [address], 15:32:39 diphenhydra mine 25 mg tablet 2023 024 [email or web address] [address] [address] [place], [address], 4 11:29:20 diphenhydra mine 25 mg tablet 2023 024 [facility], 1 [facility] [address] [place], [address], 4 11:29:55 prednisone 20 mg tablet 2023 024 [email or web address] 0 [facility], 1 [facility] [address] [place], [address], 4 11:29:20 prednisone 20 mg tablet 2023 024 [facility], 1 [facility] [address] [place], [address], 4 11:29:56 Elimite 5 % topical cream 2023 024 [facility], 1 [facility] [address] [place], [address], 4 11:29:57 Patient TargetsNo targets recorded. Patient InstructionsNo instructions recorded. Reason for Referral None Reported. Results Created Date Observation Date Name Description Value Unit Range Abnormal Flag Note LastModifiedBy Organization Detail LastModifiedTime 12/23/19 24 12/23/2023 rapid flu (A+B) Flu negati ve Not Available Main - [facility] ed [address] [place] [address], [phone] 12/23/2023 13:54:10 12/23/19 24 12/23/2023 rapid SARS CoV 2 Ag, QL IA, respi rator y speci men rapid SARS CoV 2 Ag, QL IA, respiratory specimen negati ve Not Available Main - [facility] ed [address] [place] [address], [phone] 12/23/2023 13:54:07 Result Notes None recorded. Medical Equipment None Reported. Allergies Allergen ID Allergen Name Allergen Category Reaction Reaction Severity Criticality Documentation Date Start Date Code Code System Note Provider Name and Address Organization Details Recorded Time 62027 sertralin e medicatio n Not available Not available Not available 12/23/2023 02877 RxNorm Not Available [facility] - production 4 11:36:07 78189 perphenaz ine medicatio n Not available Not available Not available 12/23/2023 8076 RxNorm Not Available [facility] - [facility] 4 11:36:07 47287 Effexor medicatio n Not available Not available Not available 12/23/2023 29704 2 [facility] Available [facility] 4 11:36:07 85148 Bactrim medicatio n Not available Not available Not available 12/23/2023 73504 9 Rx[facility] Available [facility] 4 11:36:07 4881 Geodon medicatio n Not available Not available Not available 05/27/2023 46512 4 RxNorm Not Available [facility] - production 4 11:36:07 4882 Haldol medicatio n Not available Not available Not available 05/27/2023 73624 9 RxNorm Not Available [facility] 4 11:36:07 4883 latex environme nt,medica tion Not available Not available Not available 05/27/2023 76113 91 RxNorm Not Available [facility] - production 4 11:36:07 4884 Substance with sulfonami de structure and antibacte rial mechanism of action (substanc e) medicatio n Not available Not available Not available 05/27/2023 87301 8003 SNOMED Margaret Loo MD [address] [place] [address],[address], [place], [address], [facility] [employer] 4 11:24:04 4885 Wellbutri n medicatio n Not available Not available Not available 05/27/2023 17718 RxNorm Margaret Loo MD [address] [place] [address],[address], [place], [address], [facility] [employer] 4 11:24:13 4886 egg extract food,medi cation Not available Not available Not available 05/27/2023 52851 15 RxNorm Margaret Loo MD [address] [place] [address],[address], [place], [address], SANDEEP TAYLOR, MEAGHAN 4 11:24:18 Medications [...] Heart rate Body weight Respiratory rate Systolic And Diastolic Provider Name and Address Organization Details Last Updated DateTime 4 96 % 96 % 97.9 [degF] 170.18 cm 71 /min 213931. 08 g 16 /min 134/96 mm[Hg] Not Available [employer] [facility] 4 16:16:06 Date Recorded Body height Heart rate Respiratory rate Body temperature Oxygen saturation Oxygen saturation in Arterial blood by Pulse oximetry Body weight Systolic And Diastolic Provider Name and Address Organization Details Last Updated DateTime 4 170.18 cm 71 /min 18 /min 98.4 [degF] 99 % 99 % 828298 g 112/75 mm[Hg] Not Available [employer] 4 12:47:43 Date Recorded Body height Heart rate Respiratory rate Body temperature Oxygen saturation Oxygen saturation in Arterial blood by Pulse oximetry Body weight Systolic And Diastolic Provider Name and Address Organization Details Last Updated DateTime 4 170.18 cm 80 /min 16 /min 97.8 [degF] 95 % 95 % 924631. 08 g 152/93 mm[Hg] Not Available [employer] 4 11:22:59 Date Recorded Body weight Body temperature Heart rate Oxygen saturation Oxygen saturation in Arterial blood by Pulse oximetry Body height Respiratory rate Systolic And Diastolic Provider Name and Address Organization Details Last Updated DateTime 4 276988 g 98 [degF] 89 /min 96 % 96 % 170.18 cm 18 /min 125/85 mm[Hg] Not Available [employer] 4 13:45:01 Social History None recorded. Functional Status None recorded. Mental Status None recorded. Family History Nothing Reported. Medical History No medical history recorded. Gynecological HistoryNo gynecological history recorded. Obstetrics History GPAL:G 0 P 0 0 0 0 Past Encounters Encounter ID Performer Location Encounter Start Date Encounter Closed Date Diagnosis/Indication Diagnosis SNOMED-CT Code Diagnosis ICD10 Code Diagnosis Note [id number] Mildred Petersen MD Main - [address] [address] 06/07/2022 20:04:42 06/08/2022 12:26:07 Nausea 060646860 R11.0 Pruritic rash 83092284 L 28.2 [id number] Inna Laird MD [facility] - [address] [address] 05/16/2023 16:16:04 05/16/2023 20:05:50 Asthma 076870831 J45.909 32 year old female with asthma, recently seen in the ER for worsening breathing in the setting of not having her inhaler, being evaluated as a follow up of her ER visit. Patient reports being prescribed a short supply of her inhaler in the ER pending establishi care with her new PCP in July. [...] assessment and plan as documented by the certified nursing assistant. I provided real-time medical direction for this encounter and was immediatel y available to provide additional phone-base d assistance as needed. We discussed the diagnostic uncertaint y of home visits and associated risks. We discussed the need to seek care urgently/e mergently in the setting of any new or worsening symptoms. [id number] BIMAL BOCANEGRA MD Main - [facility] [address] [place] [address] 05/21/2023 12:47:40 05/22/2023 10:22:46 Hypoxia 878697420 G47.34 Dyspnea 678082458 R06.00 [id number] Margaret Loo MD [facility] - [address] [address] 05/27/2023 11:22:35 05/28/2023 18:56:47 Pruritic rash 97715752 L28.2 Although not noted on intertrigi nous [...] ine for the itching Sent RX to [facility] at patient request. Then she called [facility] and requested Rx be sent to [facility]/ [facility] in [place]. CRC faxed Rx to [facility] and reached out to [facility] not to fill [id number] Deb Cade MD Main - [facility] [address] [place] [address] 12/23/2023 13:44:56 12/24/2023 13:47:54 Dyspnea 464719964 R06.00 As noted, we were called to see this patient regarding concerns of difficulty breathing. Evaluation in the field was performed by my certified nursing assistant colleague, as noted above, I provided real-time [...] now, additional 20mg x 4 daysAlbute mirza COOK to use prn Requests scripts faxed to her [facility] at [phone] Dispositio n: We discussed the diagnostic uncertaint [...] changes to consciousn ess, chest pain, dypsnea. [id number] Natanael López MD Main - [facility] [address] [place] [address] 12/23/2023 14:04:11 07/26/2024 00:28:17 Health Concerns Section Related Observation LastModified by Organization Detai ls LastModified Time None Recorded Concern Status LastModified by Organization Details LastModified Time None Recorded Advance Directives Directive None Recorded Payers Insurance Date Sequence Insurance Name Policy Number Policy Guido Covered Member ID Guido Member ID Guarantor Name 12/26/2023 1 [facility] - DOS PRIOR TO 2022 - DUAL ELIGIBLE (MEDICARE REPLACEMENT/ADV ANTAGE - HMO) Brenna Cecil [id number] Brenna S Cecil 12/26/2023 1 [facility] - DOS ON OR AFTER 2022 - DUAL ELIGIBLE - CARE HOME OPTIONS AND ONE CARE (MEDICARE REPLACEMENT/ADV ANTAGE - HMO) Brenna Cecil [id number] Brenna Jacob Notes Date Note Type Note Provider Name and Address Organization Details Recorded Time 05/16/2023 text/html [facility] Nurse Triage Notes (Vince Elliott): Patient Reports: Discoloration of skin -cyanosis; History of asthma, increased use of inhaler; Shortness of breath with exertion; Pain with inspirationDenies: Increased work of breathing/labored with or without fever Unable to speak in full sentences without distress Needs to sleep sitting up, can t catch breath Shortness of breath in setting of confusion Cough, fever greater than 2 days Lower extremity swelling COPD COVID Exposure Sputum increase Cough Chief Complaints: Syncope/Dizziness/Lig htheadednessPMH: COPD/AsthmaAllergies: UnknownComments: [employer] Refrigerated Cdl Truck Driver verified the member's name//address and phone number. [...] ..................... ..................... ..................... ..................... ..................... ..................... ............... Blast Furnace Helper Note From Lucien Jacob: [facility] visit for female patient with shortness of breath. Arrived to [facility] where pt was found sitting on [...] albuterol inhaler about 20 minutes prior to [facility] arrival. Pt reports recent course of prednisone as well which she states was completed. Consulted with [facility] Dr. Laird who advised no acute treatments needed. Pt instructed that she can call back if she needs a refill of breo and should call 1-2 days before she runs out. Patient education provided. ..................... ..................... ..................... ..................... ..................... ..................... ............... Disposition: Cynthia Laird MD [address] [facility],[address], [place], [address], [employer] 05/16/2023 16:38:09 05/21/2023 text/html HPI: 32 y.o. female with PMH of generalized anxiety disorder, PTSC, bipolar disorder, ADHD c.o. chest tightness, difficulty breathing for the past two weeks with no improvement. Last seen in the [facility] ER 05/13/23 for same symptoms with no improvement. ..................... ..................... ..................... ..................... ..................... ..................... ............... [facility] Nurse Triage Notes (Sonia Lazo): Comments: HPI reviewed. No further information needed to process visit- N Violet GODINEZ ..................... ..................... ..................... ..................... ..................... ..................... ............... Blast Furnace Helper Note From Jennifer Felix: Sent to a call for a pt complaining of chest tightness and sob x 2 weeks. MARYCRUZ arrives on scene at [facility]. Pt is alert and oriented, and airway is patent. Pt states she has been at this facility for approx 1 month. Pt complains of intermittent chest tightness and constant sob x 3 weeks. Pt initially ran out of Breo Ellipta for approx 1 week, was evaluated at [facility] ED, prescribed Breo Ellipta, and prednisone 40mg [...] unremarkable; Extremities: unremarkable; Skin: pink, warm, dry; [facility] consulted and pt is evaluated while walking [...] is educated on signs/symptoms of Asthma exacerbation. [facility] sends note to request follow up regarding further testing exploring possible sleep apnea or other diagnoses/treatment. Information explained to facility staff. Red flags discussed. No further pt questions. ..................... ..................... ..................... ..................... ..................... ..................... ............... Disposition: Fulfilled BIMAL BOCANEGRA MD [address] [facility],[address], [place], [address], [employer] 05/21/2023 16:01:30 05/27/2023 text/html [facility] Nurse Triage Notes (Sonia Lazo): Chief Complaints: Pain PMH: COPD/Asthma, Severe Persistent Mental Illness (SPMI) Comments: Identity//Address verified. Reports rash that is spreading over the past 3 weeks, from anterior chest to neck/face. Areas are itching and burning. Denies facial swelling. No new medications. Not taking OTC medications. ..................... ..................... ..................... ..................... ..................... ..................... ............... Blast Furnace Helper Note From Luis E Montejo: Pt reports rash that started on chest, spread to back, upper arms and neck for three weeks. Pt describes rash as itching and burning. Pt denies CP, SOB, HAHN, f/n/v/d. Pt is alert, NAD. VSS. Afebrile. Non focal neuro exam. Normal gait. Lungs CTA. Benign ABD exam. No LE edema. Rash is small, red papules. [facility] contacted and pt treated with diphenhydramine 50 [...] being on hydroxyzine/Atarax currently Margaret Loo MD [address] [place] [address],[address], [place], [address], [employer] 05/27/2023 13:15:44 12/23/2023 text/html [facility] Nurse Triage Notes (Vince Elliott): Reason For Request: Patient has breathing problems and is short of breath, (but also speaking clearly). Chief Complaints: Breathing problems PMH: COPD/Asthma, Severe Persistent Mental Illness (SPMI), Bipolar Disorder, Anxiety Disorder Comments: Otr Refrigerated Cdl Truck Driver verified the Pt.'s name//address and phone number. [...] - S/S started yesterday. Wellness visit requested Blast Furnace Helper Organization Information for Mary [place], [employer] Legal Name: [employer]. Address: [address] [place] [address], Redevelopment Specialist: Osman Miner MD CLIA No.: [id number] Blast Furnace Helper POC Test Results from [facility] Rapid influenza antigen (13:47:52) Flu: - Attachments uploaded as part of this test result can be found under Documents section. Rapid COVID antigen (13:47:55) COVID: - Attachments uploaded as part of this test result can be found under Documents section. ..................... ..................... ..................... ..................... ..................... ..................... ............... Blast Furnace Helper Note From Murali Wheat: Was dispatched for [...] remarkable was found upon completion of assessment. [facility] was contacted, [facility] ordered 20 mg of prednisone and put an prescription of albuterol into the PT local pharmacy. PT was happy with treatment. Crew cleared. [facility] Lab Orders: rapid SARS CoV 2 Ag, QL IA, respiratory specimen: Performed ..................... ..................... ..................... ..................... ..................... ..................... ............... [facility] Consulted: Deb Cade ..................... ..................... ..................... ..................... ..................... ..................... ............... Disposition: Cynthia Cade MD [address] [facility],[address] [facility], [place], [address], [employer] [facility] [employer] [facility] 12/23/2023 15:32:48 OBGyn Episode No OBEpisode recorded.
--- NOTE | 2024-08-15 20:18 | PC.NURSE ---
soon after client transfer into pod, client easily answered questions regarding circumstgances of her arrival. patient reported her staying at this detox/css for months to a yr. she reported she had attempted to kill self in past, by od'ing on medications, reported hospitalization post this event. didnt recall how long ago it was pt stated bin guzman hearing increased AH for about 4-5 days and no clear precipitant. stated today she broke open a razor and at that point decided to call for herself saying she needed to come in. reports no recent sub use, no recent losses. will continue to monitor.
[2024-08-15 20:26] LABS: COVID-19 Test Negative (Negative); IDNOW Serial# 6674DD1D
[2024-08-15 20:29] LABS: Alanine Aminotransferase 62 U/L (0-31); Albumin Level 4.5 g/dL (3.5-5.0); Alkaline Phosphatase 146 U/L (39-117); Anion Gap 15 (12-20); Aspartate Amino Transferase 37 U/L (5-31); Blood Urea Nitrogen 13 mg/dL (9-16); Calcium 9.2 mg/dL (8.4-10.2); Carbon Dioxide 23 mmol/L (22-29); Chloride 106 mmol/L (96-108); Creatinine Clr Calc Pharmacy 139.2; Estimated Glomerular Filt Rate > 60; Potassium 3.8 mmol/L (3.3-5.1); Sodium 140 mmol/L (135-145); Total Protein 7.3 g/dL (6.5-8.0)
[2024-08-15 20:32] LABS: Acetaminophen LAB < 3 mcg/mL (<30); Salicylate < 5.0 mg/dL (15-30)
[2024-08-15 21:15] LABS: Appearance Urine Clear; Glucose Urine UA Negative (Negative); PH 5.5 (5.0-9.0); Specific Gravity - Urine >= 1.030 (1.005-1.025)
[2024-08-15 21:17] LABS: UPreg QC Valid YES
[2024-08-15 21:25] LABS: Cannabinoid Screen Urine Not Detected (Not Detect)
--- NOTE | 2024-08-16 01:36 | PC.NURSE ---
late entry. awakened briefly recently and asked for snacks, pudding and crackers
[2024-08-16 06:12] VITALS: RESP 16
[2024-08-16] MEDS: Nicotine Polacrilex Lozenge 4 MG LOZENGE BUCCAL (06:25)
--- NOTE | 2024-08-16 06:43 | HE.PHANOTE ---
[employer] MEthad[employer] Received verification form from nursing.
[2024-08-16 08:04] VITALS: BP 133/78; PULSE 83; RESP 16; TEMP 36.5; O2SAT 98
[2024-08-16 08:34] VITALS: BP 133/78; PULSE 83
--- NOTE | 2024-08-16 08:46 | MHC.CARE ---
CARE Team attempts to contact the [facility] Grit Program ([phone]), phone rang at length, a message identified this number as no longer being in service. CARE Team attempts to the Grit Program ([phone]), the office is closed.
[2024-08-16] MEDS: Fluticasone/Vilanterol 100/25 BLST.W.DEV 1 PUFF INHALE (09:37)
[2024-08-16] MEDS: methADONE HCl 20 MG/2 ML ORAL.CONC 165 MG PO (09:44)
--- NOTE | 2024-08-16 09:59 | PC.NURSE ---
pt gave me the [facility] # and the # was not in service, pt had 2 other [facility] contacts in chart and neither answered, message left for 1 but the mail box was full for the other, pt's pharmacy is not open on the weekend, unable to confirm haldol dose, pt states she has taken 10 mg tid for several months and has not had any changes, dr Baeza informed and haldol 10mg prn tid ordered for now. haldol prn given as requested by pt. pt reports anxiety and hearing voices
--- NOTE | 2024-08-16 11:58 | MHC.CARE ---
CARE Team speaks with Macrina, clinician from the shelter, she has been advised that pt will be returning to the shelter. Permission has been secured from pt to share her safety plan with Macrina and this has been e mailed to her at [email or web address] CARE Team has faxed and activated a 3 day referral and request for a 7 day alert from [facility].
[2024-08-16 12:28] VITALS: BP 133/78; PULSE 83; RESP 18; TEMP 36.6; O2SAT 98
--- NOTE | 2024-08-18 22:09 | MHC.CARE ---
RAD Team faxed php referral for this pt. Will follow up tomorrow
== END 2024-08-16 12:29 | disposition skilled nursing facility (03) ==
PROVIDERS: Physician Assistant Medical; Emergency Provider Internal Medicine; PCP Family Medicine
DX: F25.9 Schizoaffective disorder, unspecified (principal); R45.851 Suicidal ideations; F33.1 Major depressive disorder, recurrent, moderate; R94.31 Abnormal electrocardiogram [ECG] [EKG]; Z79.899 Other long term (current) drug therapy; Z11.52 Encounter for screening for COVID-19; Z51.81 Encounter for therapeutic drug level monitoring
CPT/HCPCS: 80053; 80143; 80179; 80307; 81003; 81025; 85025; 87635; 93005; 99285; S9485

== ENCOUNTER → 2024-08-15 19:42 | Outpatient (BNV) | payer OTHER, SELFPAY | PROVIDERS: Emergency Provider Internal Medicine; PCP Family Medicine; Visit Provider Internal Medicine Cardiovascular Disease | DX: R94.31 Abnormal electrocardiogram [ECG] [EKG] (principal); Z13.6 Encounter for screening for cardiovascular disorders | CPT/HCPCS: 93010 ==

== ENCOUNTER 2024-08-18 13:11 | Inpatient (IN) | payer OTHER, SELFPAY ==
[2024-08-18 13:17] VITALS: BP 128/94; PULSE 81; RESP 16; TEMP 36.2; O2SAT 96; BMI 42.5
--- NOTE | 2024-08-18 13:18 | ED.PSYCH ---
HPI - Psych General Chief Complaint: Psychiatric Symptoms Stated Complaint: Feeling SI Time Seen by Provider: 08/18/24 13:48 Source: patient and RN notes reviewed Mode of arrival: ambulatory Limitations: no limitations History of Present Illness ED Provider: Verónica Mccall PA-C HPI Narrative: This is a 34-year-old female who presents emergency department with concerns of suicidal ideation with plan to cut wrist with razor. Also endorsing auditory hallucinations, denies homicidal ideation. Patient states that the voices are telling her to harm herself, no one loves her or cares about her. Of note, patient was seen on August 15 for similar symptoms. She was seen by the care team and was cleared to return back to shelter. Patient reports that she did not improve was since being discharge. Denies any homicidal ideation. Denies any current pain. No fevers, chills, chest pain, shortness of breath, nausea, vomiting or diarrhea. Denies any alcohol or drug use. She has been compliant with her medications. No other complaints or concerns at this time MD complaint: suicidal ideation and feels depressed Onset (ago): day(s) Duration: constant History of same: Yes Relieving factors: none Exacerbating factors: none Associated psychiatric symptoms: depression, suicidal ideation and auditory hallucinations Associated symptoms: denies other symptoms If self harm: admits thoughts of self harm Details of plan: cut wrist with razor Related Data Home Medications ?Medication ?Instructions ?Recorded ?Confirmed baclofen 15 mg tablet 15 mg PO TID 07/09/24 08/18/24 buspirone 15 mg tablet 15 mg PO TID 07/09/24 08/18/24 duloxetine 30 mg capsule,delayed 30 mg PO DAILY 07/09/24 08/18/24 release duloxetine 60 mg capsule,delayed 60 mg PO DAILY 07/09/24 08/18/24 release gabapentin 800 mg tablet 800 mg PO TID 07/09/24 08/18/24 lorazepam 1 mg tablet (Ativan) 1 mg PO BID PRN Anxiety 07/09/24 08/18/24 mirtazapine 45 mg tablet 45 mg PO BEDTIME 07/09/24 08/18/24 zolpidem 5 mg tablet (Ambien) 5 mg PO BEDTIME PRN Insomnia 07/09/24 08/18/24 brexpiprazole 1 mg tablet 1 mg PO BID as directed 08/15/24 08/18/24 haloperidol 10 mg tablet 10 mg PO DAILY PRN 08/16/24 08/18/24 anxiety/agitation epinephrine 0.3 mg/0.3 mL 0.3 mg IM NEEDED PRN Anaphylaxis 08/18/24 08/18/24 injection, auto-injector methadone 10 mg/mL oral 165 mg PO DAILY 08/19/24 08/19/24 concentrate (Methadone Intensol) Previous Rx's ?Medication ?Instructions ?Recorded propranolol 10 mg tablet 10 mg PO TID 30 days #90 tabs 07/18/22 haloperidol 10 mg tablet 10 mg PO TID #30 tabs 07/10/24 Allergies Allergy/AdvReac Type Severity Reaction Status Date / Time bee pollen (bee stings) Allergy Anaphylaxis Verified 08/18/24 13:19 buprenorphine (From Suboxone) Allergy Angioedema Verified 08/18/24 13:19 bupropion (From Wellbutrin) Allergy Seizure Verified 08/18/24 13:19 latex Allergy rash, Verified 08/18/24 13:19 swelling naloxone (From Suboxone) Allergy Angioedema Verified 08/18/24 13:19 prazosin Allergy Unknown Verified 08/18/24 13:19 sertraline (From Zoloft) Allergy Unknown Verified 08/18/24 13:19 Sulfa (Sulfonamide Allergy Rash Verified 08/18/24 13:19 Antibiotics) venlafaxine (From Effexor) Allergy Unknown Verified 08/18/24 13:19 egg AdvReac Hives Verified 08/18/24 13:19 Pork/Porcine Containing AdvReac Anaphylaxis Verified 08/18/24 13:19 Products ziprasidone (From Geodon) AdvReac Unknown Verified 08/18/24 13:19 Review of Systems Review of Systems: Yes all other systems are reviewed and are negative Constitutional: Constitutional: Reports as per [facility] Past Medical History Attestation statement: The following information was validated with the patient. Medical History Exercise-induced asthma Asthma Routine medical exam Seizure disorder Bipolar disorder Long-term current use of methadone for opiate dependence Polysubstance abuse Anxiety Surgical History History of unilateral fallopian tube excision Social History Social History Household Members: Other Household Members Other:: 15 pts. live there, it is a dual diagnosis program Housing: Homeless Do you presently have visiting nurse or other home services: No Unable to assess alcohol history related to: Unknown Comment: ambulating independently with steady gait Patient Tobacco Use Status: Never used Tobacco Tobacco use type: Cigarette Cigarette Packs Per Day: 1 Cigarettes Per Day: 20.0 Years Smoked: several Smoked in Last 30 Days: No e-Cigarette/Vaping Use: Currently Using Second Hand Smoke Exposure: No Use of substances other than those prescribed or required for medical reasons: Unknown Substance Use Type: Crack/Cocaine, Marijuana and Opiates Advance Directives: No Advance Directives Information Provided: Yes Do you have a plan to hurt others: No Plan Nutrition Risks: No Nutritional Risk Patient : No service: No Sexual orientation: Lesbian/Werner/Homosexual Physical Exam Vital Signs: Vital Signs: Last Vital Signs Temp 96.8 F 08/19/24 13:36 Pulse 75 08/19/24 13:36 Resp 20 08/19/24 13:36 BP 140/97 H 08/19/24 13:36 Pulse Ox 96 08/19/24 13:36 O2 Del Method Room Air 08/19/24 13:36 BMI result Body Mass Index 42.5 Const: General: cooperative, comfortable and no acute distress Orientation/consciousness: patient oriented x3 Limitations: no limitations HEENT: Head: Yes normal to inspection, Yes normocephalic and Yes atraumatic Ears: hearing grossly normal bilaterally General nose exam: Normal external nose present Face and sinus: Yes normal facial exam Mouth: Normal oral and palatal mucosa present, oropharynx normal and moist mucous membranes Throat: Yes posterior oropharynx normal Eyes: General: appearance normal, both eyes and all related structures Eyelids: Yes eyelids normal Conjunctivae: conjunctivae normal Sclerae: sclerae normal Pupils: Equal, round and reactive pupils present EOM: EOMs intact bilaterally Neck: Neck: Yes normal visual inspection, Yes full ROM and Yes no lymphadenopathy Lymphatic: no lymphadenopathy noted Chest: Chest palpation & inspection: normal inspection of the chest Resp: Effort & Inspection: normal respiratory effort and able to speak in complete sentences Auscultation: clear to auscultation bilaterally, no crackles, no rales, no rhonchi and no wheezes Cardio: Rate: regular rate Rhythm: regular rhythm Heart sounds: S1 normal heart sound present and S2 normal heart sound present GI: Inspection: Yes normal to inspection Skin: General skin exam: no rashes or lesions noted Trauma: no lacerations or abrasions Wounds: no wounds Neuro: General: patient oriented x3 and moves all extremities Cranial nerves: Yes Equal, round and reactive pupils present Extrem: General: Yes normal to inspection Right upper extremity: normal to inspection Left upper extremity: normal to inspection Right lower extremity: normal to inspection Left lower extremity: normal to inspection Psych: Appearance: grossly normal Mental Status: mental status grossly normal Speech and movement: Clear speech present Affect: Sad affect present and Blunted affect present Attitude: Guarded attititude/behavior present Thought process: Circumstantial thought process present Thought content: Suicidality present Insight: Poor insight present (Psych) Judgement: Poor judgement present (Psych) Course Course Course Narrative: This is an RME performed by Anjali Snyder PUBLIC HEALTH AIDE: Additional HPI, ROS, PE not included below will be deferred to primary provider. Patient is a 34-year-old female who presents emergency department for evaluation of suicidal ideations with a plan to use a razor. Reports that she was recently seen in the emergency department was discharged to a shelter with safety plan in place however she states she is no longer feeling safe at the shelter. Admits to having auditory hallucinations that are telling her ?to hurt myself?. Plan: Serum labs, care team evaluation, toxicology Reevaluation(s) Reevaluation #1: Time: 06:12 Date: 08/19/24 Provider: Ashwin Goff MD Patient in physician observation for psychiatric evaluation.? Patient has been in the emergency department for 16 hours. No acute events reported overnight. No current complaints. VS stable.? Patient was evaluated by the CARE team who determined that the patient meets inpatient level of care. Patient is on a Section 12. Will continue to monitor. Time: 14:14 Date: 08/19/24 Provider: Ashwin Goff MD Physician observation ended at 13:22. Patient to be admitted as inpatient to psychiatry. Medications Administered Generic Name Dose Route Start Last Admin Trade Name Freq PRN Reason Stop Dose Admin Baclofen 15 mg 08/18/24 21:00 08/19/24 09:02 Baclofen 10 Mg Tablet PO 15 mg TID YAEL Administration Brexpiprazole 1 mg 08/18/24 21:00 08/19/24 09:03 Brexpiprazole 1 Mg Tablet PO 1 mg BID YAEL Administration Buspirone HCl 15 mg 08/18/24 21:00 08/19/24 09:02 Buspirone Hcl 5 Mg Tablet PO 15 mg TID YAEL Administration Duloxetine HCl 30 mg 08/19/24 09:00 08/19/24 09:02 Duloxetine Hcl 30 Mg Capsule. PO 30 mg DAILY YAEL Administration Duloxetine HCl 60 mg 08/19/24 09:00 08/19/24 09:02 Duloxetine Hcl 60 Mg Capsule. PO 60 mg DAILY YAEL Administration Gabapentin 800 mg 08/18/24 21:00 08/19/24 09:02 Gabapentin 400 Mg Capsule PO 800 mg TID YAEL Administration Haloperidol 10 mg 08/18/24 17:13 08/19/24 13:35 Haloperidol 5 Mg Tablet PO 10 mg DAILY PRN Administration anxiety/agitation Haloperidol 10 mg 08/18/24 21:00 08/19/24 09:02 Haloperidol 5 Mg Tablet PO 10 mg TID YAEL Administration Lorazepam 1 mg 08/18/24 17:13 08/19/24 11:15 Lorazepam 1 Mg Tablet PO 1 mg BID PRN Administration Anxiety Methadone HCl 165 mg 08/19/24 12:00 08/19/24 12:16 Methadone Hcl 20 Mg/2 Ml Oral.Conc PO 165 mg DAILY YAEL Administration Mirtazapine 45 mg 08/18/24 21:00 08/18/24 21:10 Mirtazapine 15 Mg Tablet PO 45 mg BEDTIME YAEL Administration Propranolol HCl 10 mg 08/18/24 21:00 08/19/24 09:02 Propranolol Hcl 10 Mg Tablet PO 10 mg TID YAEL Administration Protocol Zolpidem Tartrate 5 mg 08/18/24 17:13 08/18/24 21:17 Zolpidem Tartrate 5 Mg Tablet PO 5 mg BEDTIME PRN Administration Insomnia Medical Decision Making Medical Decision Making [facility] Narrative: This is a 34-year-old female who presents emergency department for evaluation of suicidal ideation with plan to cut wrist with razor. Also endorsing auditory hallucinations. Patient has a history of schizoaffective disorder, and has had similar presentations, of note she was just seen here 3 days ago. On arrival, vital signs within normal limits. She is speaking full sentences under no acute distress. Patient with slightly elevated liver transaminases AST and ALT 51/81, alk phos 151, patient has a history of this. No current abdominal pain. She is feeling well, denies any current physical complaints. At this time, patient is medically cleared Patient will be seen by the crisis team for further evaluation. Patient placed in physician observation pending crisis team evaluation. 1713 - patient was seen by crisis, she will be made a inpatient bed search. Physician observation continued pending inpatient bed search. Differential Diagnosis Differential Diagnoses: The differential diagnosis associated with the presentation includes Depression, anxiety, schizoaffective disorder, suicidal ideation Admission/Observation Consideration of admission/observation: Escalation of care including admission/observation considered Lab Data [facility] Lab Attestation statement: I reviewed the patient's lab results. See MDM and course 08/18/24 13:58 08/18/24 13:58 Labs: Lab Results 08/18/24 08/18/24 Range/Units 13:58 16:54 WBC 13.1 H (4.8-10.8) X10*3/uL RBC 4.87 (4.20-5.50) X10*6/uL Hgb 14.4 (12.0-16.0) g/dl Hct 42.0 (37.0-47.0) % MCV 86.2 (80.0-98.0) fL MCH 29.6 (27.0-33.0) pg MCHC 34.3 (31.0-35.0) g/dl RDW 12.5 (11.0-16.0) % Plt Count 299 (160-400) X10*3/uL MPV 11.4 (9.4-12.3) fL Immature Gran % (Auto) 0.3 (0.0-0.4) % Neut % (Auto) 54.9 (45-73) % Lymph % (Auto) 36.9 (20-40) % Garrard % (Auto) 6.1 (2-11) % Eos % (Auto) 1.0 (0-4) % Baso % (Auto) 0.8 (0-2) % Lymph # (Auto) 4.8 (1.2-4.9) X10*3/uL Garrard # (Auto) 0.8 (0.1-1.2) X10*3/uL Eos # (Auto) 0.1 (0.0-0.4) X10*3/uL Baso # (Auto) 0.1 (0.0-0.2) X10*3/uL Abs Immat Gran (auto) 0.04 H (0.00-0.03) X10*3/uL Absolute Neuts (auto) 7.2 (2.0-8.3) x10*3/uL Absolute Nucleated RBC 0.000 (0.0-0.012) X10*3/uL Nucleated RBC % (auto) 0.0 (0.0-0.2) /100WBC Sodium 140 (135-145) mmol/L Potassium 4.4 (3.3-5.1) mmol/L Chloride 106 (96-108) mmol/L Carbon Dioxide 23 (22-29) mmol/L Anion Gap 15 (12-20) BUN 12 (9-16) mg/dL Creatinine 0.85 (0.5-1.4) mg/dL Estim Creat Clear Calc 125.6 Estimated GFR > 60 Random Glucose 107 (60-115) mg/dL Calcium 10.0 D (8.4-10.2) mg/dL Total Bilirubin 0.5 (0.0-1.0) mg/dL AST 51 H (5-31) U/L ALT 81 H (0-31) U/L Alkaline Phosphatase 151 H (39-117) U/L Total Protein 7.9 (6.5-8.0) g/dL Albumin 4.8 (3.5-5.0) g/dL Urine Color Dark Yellow Urine Appearance Clear Urine pH 5.5 (5.0-9.0) Ur Specific Shirley >= 1.030 H (1.005-1.025) Urine Protein Trace (Neg-Trace) mg/dL Urine Glucose (UA) Negative (Negative) mg/dL Urine Ketones Trace (Negative) mg/dL Urine Blood Negative (Negative) Urine Nitrite Negative (Negative) Ur Leukocyte Esterase Trace H (Negative) Urine RBC 0-2 (0-2) /HPF Urine WBC 0-5 (0-5) /HPF Ur Squamous Epith Cells 6-10 (0-2) /HPF Calcium Oxalate Crystal Present Urine Bacteria 1+ (None Seen) Hyaline Casts 0-2 (0-2) /LPF Urine Test NEGATIVE (NEGATIVE) Urine Opiates Screen Not Detected (Not Detect) Ur Buprenorphine Scrn Not Detected (Not Detect) ng/mL Ur Oxycodone Screen Not Detected (Not Detect) ng/mL Urine Methadone Screen Positive H (Not Detect) ng/mL Urine Fentanyl Screen Not Detected (Not Detect) Ur Barbiturates Screen Not Detected (Not Detect) Ur Phencyclidine Scrn Not Detected (Not Detect) Ur Amphetamines Screen Not Detected (Not Detect) U Benzodiazepines Scrn Not Detected (Not Detect) Urine Cocaine Screen Not Detected (Not Detect) U Marijuana (THC) Screen Not Detected (Not Detect) Ethyl Alcohol < 10 mg/dL Discharge Plan Discharge Clinical Impression: Suicidal ideation Patient Disposition: Admitted As Inpatient Interventions: [place]-Suicide Risk Severity Scale Last Done: 08/18/24 14:51 Admission Worksheet (ED) Last Done: 08/19/24 13:22 Discharge Date/Time: 08/19/24 13:24
[2024-08-18 14:03] LABS: MANUAL DIFF FLAG NO
[2024-08-18 14:07] LABS: Hematocrit 42.0 % (37.0-47.0); Hemoglobin 14.4 g/dl (12.0-16.0); Imm Gran Abs Auto 0.04 X10*3/uL (0.00-0.03); Imm Gran Pct Auto 0.3 % (0.0-0.4); Lymphocytes Absolute Auto 4.8 X10*3/uL (1.2-4.9); Mean Corpuscular HGB Conc 34.3 g/dl (31.0-35.0); Mean Corpuscular Hemoglobin 29.6 pg (27.0-33.0); Mean Corpuscular Volume 86.2 fL (80.0-98.0); NRBC Abs Auto 0.000 X10*3/uL (0.0-0.012); NRBC Pct Auto 0.0 /100WBC (0.0-0.2); Platelet Count 299 X10*3/uL (160-400); Red Blood Count 4.87 X10*6/uL (4.20-5.50); White Blood Count 13.1 X10*3/uL (4.8-10.8)
[2024-08-18 14:22] LABS: Alanine Aminotransferase 81 U/L (0-31); Albumin Level 4.8 g/dL (3.5-5.0); Alkaline Phosphatase 151 U/L (39-117); Anion Gap 15 (12-20); Aspartate Amino Transferase 51 U/L (5-31); Blood Urea Nitrogen 12 mg/dL (9-16); Calcium 10.0 mg/dL (8.4-10.2); Carbon Dioxide 23 mmol/L (22-29); Chloride 106 mmol/L (96-108); Creatinine Clr Calc Pharmacy 125.6; Estimated Glomerular Filt Rate > 60; Potassium 4.4 mmol/L (3.3-5.1); Sodium 140 mmol/L (135-145); Total Protein 7.9 g/dL (6.5-8.0)
--- OUTSIDE RECORDS SUMMARY | 2024-08-18 15:20 | XMS_ITS | Patient Health Record ---
Author Organization [facility] Address [address], [place] [id number] Care Team Providers Care Orthopedic Surgeon Name Role Phone Rose Montalvo Primary Care Provider [phone] Rose Oneill Unavailable Allergies Allergen (clinical drug ingredient) Drug/Non Drug Allergy documented on EMR Reaction Allergy Type Onset Date Status Sulfa Unknown Drug Allergy Active bee pollen bee pollen Unknown Drug Allergy Activ e buprenorphine / naloxone Suboxone Unknown Drug Allergy Active ziprasidone Geodon Unknown Drug Allergy Activ e Wellbutrin Unknown Drug Allergy Active sertraline Zoloft Unknown Drug Allergy Active Reason For Referral No Information Medications Medication [...] Status W/U Status Risk Notes Problem Hypoglycaemia (659857233) Hypoglycaemia NOS (251.2) Active confirmed Problem Posttraumatic stress disorder (86025856) PTSD (Posttraumatic stress disorder) (NOS) (309.81) Active confirmed Problem Insomnia (599038109) Insomnia (780.52) Active confirmed Problem Nausea and vomiting (76888426) Nausea with vomiting (787.01) Active confirmed Problem Patient currently (11799042) Pregnacy state-incidental (V22.2) Active confirmed Problem Anemia during - baby not yet delivered (856646079) Anemia complicating , antepartum (648.23) Active confirmed Problem Bipolar disorder (89795171) BIPOLAR DISORDER NOS (296.80) Active confirmed Problem Asthma (480036039) ASTHMA NOS (493.90) Active confirmed Problem Attention deficit hyperactivity disorder (248686325) Attention deficit disorder with combined type hyperactivity (314.01) Active confirmed Problem Fatigue (76255889) Fatigue (780.79) Active confirmed Problem Rash (569494668) Rash (782.1) Active confirmed Plan Of Treatment Pending Test Test Name Order Date Blood Sugar/finger stick 07/28/2008 Blood Sugar/finger stick 07/30/2008 Blood Sugar/finger stick 08/03/2008 Urine Test 10/28/2007 Urine Test 01/03/2008 Insurance Providers Payer Name Payer Address Payer Phone Subscriber Number Group Number Insured Name Patient Relationship to Insured Coverage Start Date Coverage End Date [facility] [address] [place] [phone] [id number] Brenna Jacob Self - patient is the insured 2 Medical (General) History Medical History History ICD Code asthma/Albuterol smoking,since 10yrold melanoma/03/20removed bipolar/PTSD/ADHD major depression Hx heroin use Migraines Pseudo seizures Insomnia Homelessness Hospitalization History Reason Date(Month/Year) [facility] psych (hx of psych hospitalizations ) 05/2021
--- OUTSIDE RECORDS SUMMARY | 2024-08-18 15:20 | XMS_ITS | Data Portability ---
Author Organization [employer], [employer] [facility] [facility] Address [address] [place] [id number] Care Team Providers Care Featheredger And Reducer Machine Name Role Phone HIM CCA Referring Provider Assessment Encounter Date Assessment Date Assessment LastModified by Organization Details LastModified Time 05/21/2023 05/21/2023 As noted, we alice e called to see this patient regarding concerns of dyspnea. Evaluation in the field was performed by my sports physician colleague, as noted above, I provided real-time [...] look like for her sent message to health care aide & PCP re: need for in-lab sleep [...] Assessment and Plan as documented by the Subscription Clerk. We discussed the diagnostic uncertainty of home [...] to call 911- verbalized understanding of instruction Not available 05/27/2023 11:28:53 Plan of Treatment Reminders Order Date Submit Date Provider Last Modified By Organization Details Last Modified Time Details Appointments None recorded. Lab rapid SARS CoV 2 Ag, QL IA, respiratory specimen [address], [phone] 14:00:16 rapid flu (A+B) [address], [phone] 14:00:15 Referral None recorded. Procedures None recorded. Surgeries None recorded. Imaging None recorded. Medication Orders prednisone 20 mg tablet 2023 [facility]/Pharmacy #[id number], [address] [place], [address], 15:32:38 prednisone 20 mg tablet 2023 024 [facility]/Pharmacy #[id number], [address] [place], [address], 14:00:15 ProAir HFA 90 mcg/actuati on aerosol inhaler 2023 024 [facility]/Pharmacy #[id number], [address] [place], [address], 15:32:39 diphenhydra mine 25 mg tablet 2023 024 [email or web address] [place] [place] [address] [address] [place], [address], 4 11:29:20 diphenhydra mine 25 mg tablet 2023 024 [facility], 1 [facility] [address] [place], [address], 4 11:29:55 prednisone 20 mg tablet 2023 024 [email or web address] 0 [facility], 1 [facility] [address] [place], [address], 4 11:29:20 prednisone 20 mg tablet 2023 024 [facility], 1 [facility] [address] [place], [address], 4 11:29:56 Elimite 5 % topical cream 2023 024 [facility], 1 [facility] [address] [place], [address], 4 11:29:57 Patient TargetsNo targets recorded. Patient InstructionsNo instructions recorded. Reason for Referral None Reported. Results Created Date Observation Date Name Description Value Unit Range Abnormal Flag Note LastModifiedBy Organization Detail LastModifiedTime 12/23/19 24 12/23/2023 rapid flu (A+B) Flu negati ve Not Available Main - [facility] ed [address] [place] [address], [phone] 12/23/2023 13:54:10 12/23/19 24 12/23/2023 rapid SARS CoV 2 Ag, QL IA, respi rator y speci men rapid SARS CoV 2 Ag, QL IA, respiratory specimen negati ve Not Available Main - [facility] ed [address] [place] [address], [phone] 12/23/2023 13:54:07 Result Notes None recorded. Medical Equipment None Reported. Allergies Allergen ID Allergen Name Allergen Category Reaction Reaction Severity Criticality Documentation Date Start Date Code Code System Note Provider Name and Address Organization Details Recorded Time 75135 sertralin e medicatio n Not available Not available Not available 12/23/2023 67657 RxNorm Not Available [facility] - production 4 11:36:07 63184 perphenaz ine medicatio n Not available Not available Not available 12/23/2023 8076 RxNorm Not Available [facility] - production 4 11:36:07 82129 Effexor medicatio n Not available Not available Not available 12/23/2023 71569 2 [facility] 4 11:36:07 47482 Bactrim medicatio n Not available Not available Not available 12/23/2023 02771 9 [facility] 4 11:36:07 4881 Geodon medicatio n Not available Not available Not available 05/27/2023 82497 4 RxNorm Not Available [facility] - production 4 11:36:07 4882 Haldol medicatio n Not available Not available Not available 05/27/2023 56844 9 RxNorm [facility] Available [facility] 4 11:36:07 4883 latex environme nt,medica tion Not available Not available Not available 05/27/2023 60824 91 RxNorm Not Available [facility] - production 4 11:36:07 4884 Substance with sulfonami de structure and antibacte rial mechanism of action (substanc e) medicatio n Not available Not available Not available 05/27/2023 68658 8003 SNOMED Margaret Loo MD [address] [place] [address],[address], [place], [address], [employer] [facility] [employer] 4 11:24:04 4885 Wellbutri n medicatio n Not available Not available Not available 05/27/2023 07974 RxNorm Margaret Loo MD [address] [place] [address],[address], [place], [address], [employer] [facility] [employer] [employer] 4 11:24:13 4886 egg extract food,medi cation Not available Not available Not available 05/27/2023 94161 15 RxNorm Margaret Loo MD [address] [place] [address],[address], [place], [phone], SANDEEP TAYLOR, MEAGHAN 4 11:24:18 Medications [...] % 97.9 [degF] 170.18 cm 71 /min 518433. 08 g 16 /min 134/96 mm[Hg] Not Available [facility] 4 16:16:06 Date Recorded Body height Heart rate Respiratory rate Body temperature Oxygen saturation Oxygen saturation in Arterial blood by Pulse oximetry Body weight Systolic And Diastolic Provider Name and Address Organization Details Last Updated DateTime 4 170.18 cm 71 /min 18 /min 98.4 [degF] 99 % 99 % 828236 g 112/75 mm[Hg] Not Available [facility] 4 12:47:43 Date Recorded Body height Heart rate Respiratory rate Body temperature Oxygen saturation Oxygen saturation in Arterial blood by Pulse oximetry Body weight Systolic And Diastolic Provider Name and Address Organization Details Last Updated DateTime 4 170.18 cm 80 /min 16 /min 97.8 [degF] 95 % 95 % 734768. 08 g 152/93 mm[Hg] Not Available [facility] 4 11:22:59 Date Recorded Body weight Body temperature Heart rate Oxygen saturation Oxygen saturation in Arterial blood by Pulse oximetry Body height Respiratory rate Systolic And Diastolic Provider Name and Address Organization Details Last Updated DateTime 4 270768 g 98 [degF] 89 /min 96 % 96 % 170.18 cm 18 /min 125/85 mm[Hg] Not Available [facility] 4 13:45:01 Social History None recorded. Functional [...] Note [id number] Mildred Petersen MD Main - [address] [phone] 06/07/2022 20:04:42 06/08/2022 12:26:07 Nausea [id number] R11.0 Pruritic rash [id number] L 28.2 [id number] Inna Laird MD [facility] - [address] [phone] 05/16/2023 16:16:04 05/16/2023 20:05:50 Asthma [id number] J45.909 32 year old female with asthma, [...] assessment and plan as documented by the sports physician. I provided real-time medical direction for this encounter and was immediatel y available to provide additional phone-base d assistance as needed. We discussed the diagnostic uncertaint y of home visits and associated risks. We discussed the need to seek care urgently/e mergently in the setting of any new or worsening symptoms. [id number] BIMAL BOCANEGRA MD Main - [facility] [address] [place] [phone] 05/21/2023 12:47:40 05/22/2023 10:22:46 Hypoxia 065329987 G47.34 Dyspnea 150598189 R06.00 [id number] Margaret Loo MD [facility] - [address] [phone] 05/27/2023 11:22:35 05/28/2023 18:56:47 Pruritic rash 86037074 L28.2 Although not noted on intertrigi nous [...] ine for the itching Sent RX to [facility] at patient request. Then she called [facility] and requested Rx be sent to [facility]/ [facility] in [place]. [facility] faxed Rx to [facility] and reached out to [facility] not to fill [id number] Deb Cade MD Main - [facility] [address] [place] [phone] 12/23/2023 13:44:56 12/24/2023 13:47:54 Dyspnea 938948687 R06.00 As noted, we were called to see this patient regarding concerns of difficulty breathing. Evaluation in the field was performed by my sports physician colleague, as noted above, I provided real-time [...] Requests scripts faxed to her [facility] at [phone] Dispositio n: We discussed the diagnostic uncertaint [...] changes to consciousn ess, chest pain, dypsnea. [id number] Natanael López MD Main - [facility] [address] [place] [phone] 12/23/2023 14:04:11 07/26/2024 00:28:17 Health Concerns Section Related Observation LastModified by Organization Detai ls LastModified Time None Recorded Concern Status LastModified by Organization Details LastModified Time None Recorded Advance Directives Directive None Recorded Payers Insurance Date Sequence Insurance Name Policy Number Policy Guido Covered Member ID Guido Member ID Guarantor Name 12/26/2023 1 [facility] - DOS PRIOR TO 2022 - DUAL ELIGIBLE (MEDICARE REPLACEMENT/ADV ANTAGE - HMO) Brenna Cecil [id number] Brenna S Cecil 12/26/2023 1 [facility] - DOS ON OR AFTER 2022 - DUAL ELIGIBLE - CARE HOME OPTIONS AND ONE CARE (MEDICARE REPLACEMENT/ADV ANTAGE - HMO) Brenna Cecil [id number] Brenna Jacob Notes Date Note Type Note [...] Cough Chief Complaints: Syncope/Dizziness/Lig htheadednessPMH: COPD/AsthmaAllergies: UnknownComments: [employer] verified the member's name//address and phone number. [...] ..................... ..................... ..................... ..................... ..................... ..................... ............... Subscription Clerk Note From Lucien Jacob: [facility] visit for female patient with shortness of breath. Arrived to [facility] where pt was found sitting on [...] albuterol inhaler about 20 minutes prior to [facility] arrival. Pt reports recent course of prednisone as well which she states was completed. Consulted with [facility] Dr. Laird who advised no acute treatments needed. Pt instructed that she can call back if she needs a refill of breo and should call 1-2 days before she runs out. Patient education provided. ..................... ..................... ..................... ..................... ..................... ..................... ............... Disposition: Cynthia Laird MD [address] [facility],[address], [place], [address], [employer] 05/16/2023 16:38:09 05/21/2023 text/html HPI: 32 y.o. female with PMH of generalized anxiety disorder, PTSC, bipolar disorder, ADHD c.o. chest tightness, difficulty breathing for the past two weeks with no improvement. Last seen in the [facility] ER 05/13/23 for same symptoms with no improvement. ..................... ..................... ..................... ..................... ..................... ..................... ............... [facility] Nurse Triage Notes (Sonia Lazo): Comments: HPI reviewed. No further information needed to process visit- N Violet GODINEZ ..................... ..................... ..................... ..................... ..................... ..................... ............... Subscription Clerk Note From Jennifer Felix: Sent to a call for a pt complaining of chest tightness and sob x 2 weeks. MARYCRUZ arrives on scene at [facility]. Pt is alert and oriented, and airway is patent. Pt states she has been at this facility for approx 1 month. Pt complains of intermittent chest tightness and constant sob x 3 weeks. Pt initially ran out of Breo Ellipta for approx 1 week, was evaluated at [facility] ED, prescribed Breo Ellipta, and prednisone 40mg [...] unremarkable; Extremities: unremarkable; Skin: pink, warm, dry; [facility] consulted and pt is evaluated while walking [...] is educated on signs/symptoms of Asthma exacerbation. [facility] sends note to request follow up regarding further testing exploring possible sleep apnea or other diagnoses/treatment. Information explained to facility staff. Red flags discussed. No further pt questions. ..................... ..................... ..................... ..................... ..................... ..................... ............... Disposition: Fulfilled BIMAL BOCANEGRA MD [address] [facility],[address], [place], [address], [employer] 05/21/2023 16:01:30 05/27/2023 text/html [facility] Nurse Triage Notes (Sonia Lazo): Chief Complaints: Pain PMH: COPD/Asthma, Severe Persistent Mental Illness (SPMI) Comments: Identity//Address verified. Reports rash that is spreading over the past 3 weeks, from anterior chest to neck/face. Areas are itching and burning. Denies facial swelling. No new medications. Not taking OTC medications. ..................... ..................... ..................... ..................... ..................... ..................... ............... Subscription Clerk Note From Luis E Montejo: Pt reports rash that started on chest, spread to back, upper arms and neck for three weeks. Pt describes rash as itching and burning. Pt denies CP, SOB, HAHN, f/n/v/d. Pt is alert, NAD. VSS. Afebrile. Non focal neuro exam. Normal gait. Lungs CTA. Benign ABD exam. No LE edema. Rash is small, red papules. [facility] contacted and pt treated with diphenhydramine 50 [...] being on hydroxyzine/Atarax currently Margaret Loo MD [address] [place] [address],[address], [place], [address], [employer] 05/27/2023 13:15:44 12/23/2023 text/html [facility] Nurse Triage Notes (Vince Elliott): Reason For Request: Patient has breathing problems and is short of breath, (but also speaking clearly). Chief Complaints: Breathing problems PMH: COPD/Asthma, Severe Persistent Mental Illness (SPMI), Bipolar Disorder, Anxiety Disorder Comments: [employer] Wrapper verified the Pt.'s name//address and phone number. [...] - S/S started yesterday. Wellness visit requested Subscription Clerk Organization Information for Mary Alice, [employer] Name: [employer]. Address: [address] [place] [address], Cork Insulation Setter: Osman Miner MD CLIA No.: [id number] Subscription Clerk POC Test Results from [employer] Rapid influenza antigen (13:47:52) Flu: - Attachments uploaded as part of this test result can be found under Documents section. Rapid COVID antigen (13:47:55) COVID: - Attachments uploaded as part of this test result can be found under Documents section. ..................... ..................... ..................... ..................... ..................... ..................... ............... Subscription Clerk Note From Murali Wheat: Was dispatched for [...] remarkable was found upon completion of assessment. [facility] was contacted, [facility] ordered 20 mg of prednisone and put an prescription of albuterol into the PT local pharmacy. PT was happy with treatment. Crew cleared. [facility] Lab Orders: rapid SARS CoV 2 Ag, QL IA, respiratory specimen: Performed ..................... ..................... ..................... ..................... ..................... ..................... ............... [facility] Consulted: Deb Cade ..................... ..................... ..................... ..................... ..................... ..................... ............... Disposition: Cynthia Cade MD [address] [facility],[address] [facility], [place], [address], [employer] [facility] 12/23/2023 15:32:48 OBGyn Episode No OBEpisode recorded.
[2024-08-18 17:16] LABS: Cannabinoid Screen Urine Not Detected (Not Detect)
[2024-08-18 17:22] LABS: UPreg QC Valid YES
[2024-08-18 18:04] LABS: Appearance Urine Clear; Glucose Urine UA Negative (Negative); PH 5.5 (5.0-9.0); Specific Gravity - Urine >= 1.030 (1.005-1.025); UMIC TRIGGER UACC YES
[2024-08-18 21:09] VITALS: BP 128/94; PULSE 81
[2024-08-18 21:14] VITALS: BP 127/95; PULSE 77; RESP 20; TEMP 36.6; O2SAT 96
--- NOTE | 2024-08-19 | ECG_ITS ---
Test Reason : RULE OUT PROLONGED QTC Blood Pressure : */* mmHG Vent. Rate : 78 BPM Atrial Rate : 78 BPM P-R Int : 160 ms QRS Dur : 84 ms QT Int : 400 ms P-R-T Axes : 41 43 32 degrees QTcB Int : 456 ms Normal sinus rhythm Normal ECG When compared with ECG of 15-Aug-2024 20:06, No significant change was found Referred By: Pablo Villa Electronically Signed By: [place]
[2024-08-19 06:52] VITALS: BP 99/56; PULSE 74; RESP 20; TEMP 36.6; O2SAT 98
--- NOTE | 2024-08-19 10:22 | HE.PHANOTE ---
METHADONE Pt last received 165 mh on 08/14/24 from [facility] per [place] RN, . With 14 take home bianka, and last took take home dose on 08/18.
--- NOTE | 2024-08-19 10:45 | PC.NURSE ---
Pt appears to be resting in bed, no apparent distress is noted at this time, offering no complaints to thsi RN
--- NOTE | 2024-08-19 11:17 | PC.NURSE ---
pt noted to be pacing around BH pod, reporting moderate anxiety. Pt provided with PRN ativan per MAR
[2024-08-19] MEDS: methADONE HCl 20 MG/2 ML ORAL.CONC 165 MG PO (12:16)
[2024-08-19 13:36] VITALS: BP 140/97; PULSE 75; RESP 20; TEMP 36; O2SAT 96
--- NOTE | 2024-08-19 13:44 | P.HPPS_ITS ---
[facility] Date of Service: 08/19/24 Chief Complaint: Crisis Sources of Information: patient interviewed, chart reviewed and crisis/core team assessment reviewed HPI Subjective Notes: Morales Warning and Conditional Voluntary Narrative: Patient is a 34 year old female with hx of Schizoaffective d/o, PTSD, borderline personality disorder, opioid use d/o and cocaine use d/o who presented to [facility] ER d/t suicidal ideation secondary to increased auditory hallucinations. Per crisis report, patient was dropped off to ER by [facility] program staff due to suicidal ideation and command auditory hallucinations. Patient was recently attending [facility] from July 08, 2024 to July 15, 2024. Patient has a history of cocaine and heroin use. Patient reports she came to the ER because, I was hearing more voices and not feeling safe . Patient reports she grabbed a razor earlier today that she had previously broken with the intention of slitting her wrists but a staff member knocked on her door and she threw it in the trash. Patient's friend at the program recently graduated and this has made the pt increasingly overwhelmed. Patient is very anxious at baseline. Denies HI/VH. Patient has outpatient psychiatric providers through [facility]; She also receives [facility] services. During admission assessment, patient presents alert and oriented x3. Calm and cooperative. Patient reports feeling anxious and depressed; patient stated, the voices are making me suicidal. Haldol used to work. I don't feel like the Rexulti is doing anything I have been on it for weeks . Patient reports auditory hallucinations telling her to harm herself and that no one loves her . She reports suicidal ideation with no plan. Denies HI/VH. Patient believes precipitant to increase in AH is due to her best friend graduating from the program. Patient stated, my best friend graduated last week and my voices got worse. I don't have a lot of people that I trust and I trusted them. It increased my anxiety and voices . Discussed increasing Rexulti dose patient agreed to trial. Past Psychiatric History: History of multiple inpatient psychiatric hospitalizations Outpatient prescriber: Alicia Hernandez([facility]) Therapist: Anastasia Lopez ([facility]) History of SA via overdose on medications; patient reports last attempt was a few years ago. History of SIB via cutting; patient reports has not done in a few years. Medical Evaluation Reviewed: Yes [facility] Medical History Exercise-induced asthma Asthma Routine medical exam Seizure disorder Bipolar disorder Long-term current use of methadone for opiate dependence Polysubstance abuse Anxiety Surgical History History of unilateral fallopian tube excision Family History: depression Social History: Lives at [facility] program, single. 4 kids (6,8,9,16 y/o) DCF custody. disability. Substance History: hx of cocaine and heroin use. pt reports she has been sober for a year. Trauma History: yes Diagnostics Vital Signs (24Hr): Vital Signs - 24 hr 08/18/24 21:09 08/18/24 21:14 08/19/24 06:52 Temperature 97.8 F 97.8 F Pulse Rate 81 77 74 Respiratory Rate 20 20 Blood Pressure 128/94 H 127/95 H 99/56 L Pulse Oximetry 96 98 Oxygen Delivery Method Room Air Room Air 08/19/24 13:36 Temperature 96.8 F Pulse Rate 75 Respiratory Rate 20 Blood Pressure 140/97 H Pulse Oximetry 96 Oxygen Delivery Method Room Air BMI result Body Mass Index 42.5 Labs 08/18/24 13:58 08/18/24 13:58 Labs: Laboratory Results - last 48 hr 08/18/24 08/18/24 13:58 16:54 WBC 13.1 H RBC 4.87 Hgb 14.4 Hct 42.0 MCV 86.2 MCH 29.6 MCHC 34.3 RDW 12.5 Plt Count 299 MPV 11.4 Immature Gran % (Auto) 0.3 Neut % (Auto) 54.9 Lymph % (Auto) 36.9 [place] % (Auto) 6.1 Eos % (Auto) 1.0 Baso % (Auto) 0.8 Lymph # (Auto) 4.8 [place] # (Auto) 0.8 Eos # (Auto) 0.1 Baso # (Auto) 0.1 Abs Immat Gran (auto) 0.04 H Absolute Neuts (auto) 7.2 Absolute Nucleated RBC 0.000 Nucleated RBC % (auto) 0.0 Sodium 140 Potassium 4.4 Chloride 106 Carbon Dioxide 23 Anion Gap 15 BUN 12 Creatinine 0.85 Estim Creat Clear Calc 125.6 Estimated GFR > 60 Random Glucose 107 Calcium 10.0 D Total Bilirubin 0.5 AST 51 H ALT 81 H Alkaline Phosphatase 151 H Total Protein 7.9 Albumin 4.8 Urine Color Dark Yellow Urine Appearance Clear Urine pH 5.5 Ur Specific [place] >= 1.030 H Urine Protein Trace Urine Glucose (UA) Negative Urine Ketones Trace Urine Blood Negative Urine Nitrite Negative Ur Leukocyte Esterase Trace H Urine RBC 0-2 Urine WBC 0-5 Ur Squamous Epith Cells 6-10 Calcium Oxalate Crystal Present Urine Bacteria 1+ Hyaline Casts 0-2 Urine Test NEGATIVE Urine Opiates Screen Not Detected Ur Buprenorphine Scrn Not Detected Ur Oxycodone Screen Not Detected Urine Methadone Screen Positive H Urine Fentanyl Screen Not Detected Ur Barbiturates Screen Not Detected Ur Phencyclidine Scrn Not Detected Ur Amphetamines Screen Not Detected U Benzodiazepines Scrn Not Detected Urine Cocaine Screen Not Detected U Marijuana (THC) Screen Not Detected Ethyl Alcohol < 10 Meds/Allergies Meds Home Medications ?Medication ?Instructions ?Recorded ?Confirmed ?Type baclofen 15 mg tablet 15 mg PO TID 07/09/24 History buspirone 15 mg tablet 15 mg PO TID 07/09/24 History duloxetine 30 mg capsule,delayed 30 mg PO DAILY 08/18/24 History release duloxetine 60 mg capsule,delayed 60 mg PO DAILY 08/18/24 History release gabapentin 800 mg tablet 800 mg PO TID 07/09/2408/18 History lorazepam 1 mg tablet (Ativan) 1 mg PO BID PRN Anxiety 07/09/24 08/18/24 History mirtazapine 45 mg tablet 45 mg PO BEDTIME 07/09/24 History zolpidem 5 mg tablet (Ambien) 5 mg PO BEDTIME PRN Inso mnia 07/09/24 08/18/24 History brexpiprazole 1 mg tablet 1 mg PO BID as directed 06/0608/18/24 History haloperidol 10 mg tablet 10 mg PO DAILY PRN 08/16/24 08/18/24 History anxiety/agitation epinephrine 0.3 mg/0.3 mL 0.3 mg IM NEEDED PRN Anap hylaxis 08/18/24 08/18/24 History injection, auto-injector methadone 10 mg/mL oral 165 mg PO DAILY 08/19/2410/06 History concentrate (Methadone Intensol) Allergies Allergies Allergy/AdvReac Type Severity Reaction Status Date / Time bee pollen (bee stings) Allergy Anaphylaxis Verified 08/18/24 13:19 buprenorphine (From Suboxone) Allergy Angioedema Verified 08/18/24 13:19 bupropion (From Wellbutrin) Allergy Seizure Verified 08/18/24 13:19 latex Allergy rash, Verified 08/18/24 13:19 swelling naloxone (From Suboxone) Allergy Angioedema Verified 08/18/24 13:19 prazosin Allergy Unknown Verified 08/18/24 13:19 sertraline (From Zoloft) Allergy Unknown Verified 08/18/24 13:19 Sulfa (Sulfonamide Allergy Rash Verified 08/18/24 13:19 Antibiotics) venlafaxine (From Effexor) Allergy Unknown Verified 08/18/24 13:19 egg AdvReac Hives Verified 08/18/24 13:19 Pork/Porcine Containing AdvReac Anaphylaxis Verified 08/18/24 13:19 Products ziprasidone (From Geodon) AdvReac Unknown Verified 08/18/24 13:19 Mental Status Exam Mental Status Exam Narrative: Pt is alert and oriented; behavior is cooperative and calm; dressed in casual attire; mood is described as anxious and depressed ; eye contact appropriate; Speech is normal rate, volume and not pressured; thought process is organized; Thought content is on tx; denies HI/VH. Patient reports suicidal ideation with no plan. She reports auditory hallucinations telling her to harm herself. Assessment & Plan Assessment & Plan (1) Schizoaffective disorder: Status: Acute Code(s): F25.9 - Schizoaffective disorder, unspecified (2) PTSD (post-traumatic stress disorder): Status: Acute Code(s): F43.10 - Post-traumatic stress disorder, unspecified (3) Borderline personality disorder: Status: Acute Code(s): F60.3 - Borderline personality disorder (4) Opioid use disorder in remission: Status: Acute Code(s): F11.91 - Opioid use, unspecified, in remission (5) Cocaine use disorder in remission: Status: Acute Code(s): F14.91 - Cocaine use, unspecified, in remission Plan Patient is a 34 year old female with hx of Schizoaffective d/o, PTSD, borderline personality disorder, opioid use d/o and cocaine use d/o who presented to [facility] ER d/t suicidal ideation secondary to increased auditory hallucinations. Plan: CV 15 minute safety checks Continue home medications Increase Rexulti to 3mg PO daily obtain collateral encourage groups discharge planning Patient educated on: diagnosis and medication risk/benefits Reason for continued inpatient stay Substantial Risk for: harm to self and med/psych decompensation Statement Statement: I have reviewed the history and physical and performed a pertinent examination on my patient. No changes have occurred unless specified. If the History and Physical was not performed prior to admission, the Hospitalist's service will be consulted for completing the admission physical. Time Spent With Patient Time: Total time managing care of this patient today _60___ minutes.
[2024-08-19 14:49] VITALS: BMI 43.1
[2024-08-19 15:06] VITALS: BP 149/84; PULSE 86
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
[2024-08-19] MEDS: Nicotine Polacrilex Lozenge 2 MG LOZENGE BUCCAL ×2 (18:16→20:33)
[2024-08-19 20:00] VITALS: BP 183/92; PULSE 77; RESP 18; TEMP 36; O2SAT 93
[2024-08-19 20:35] VITALS: BP 183/92; PULSE 77
[2024-08-20] MEDS: methADONE HCl 20 MG/2 ML ORAL.CONC 165 MG PO (07:53)
[2024-08-20 08:00] VITALS: BP 146/82; PULSE 58; RESP 18; TEMP 36.9; O2SAT 98
[2024-08-20 08:19] VITALS: BP 146/82; PULSE 58
[2024-08-20 08:27] LABS: Hemoglobin A1C 144.7943 umol/L; Total Hemoglobin (HGBA1C) 3671.2319 umol/L
[2024-08-20] MEDS: Fluticasone/Vilanterol 100/25 BLST.W.DEV 1 PUFF INHALE (08:29)
[2024-08-20] MEDS: Nicotine Polacrilex Lozenge 2 MG LOZENGE BUCCAL ×3 (08:30→15:25)
[2024-08-20 08:39] LABS: Alanine Aminotransferase 62 U/L (0-31); Albumin Level 4.5 g/dL (3.5-5.0); Alkaline Phosphatase 134 U/L (39-117); Anion Gap 12 (12-20); Aspartate Amino Transferase 34 U/L (5-31); Blood Urea Nitrogen 13 mg/dL (9-16); Calcium 9.5 mg/dL (8.4-10.2); Carbon Dioxide 29 mmol/L (22-29); Chloride 103 mmol/L (96-108); Cholesterol 209 mg/dL (<200); Creatinine Clr Calc Pharmacy 139.8; Estimated Glomerular Filt Rate > 60; HDL Cholesterol 34 mg/dL (>40); Potassium 4.2 mmol/L (3.3-5.1); Sodium 140 mmol/L (135-145); Total Protein 7.3 g/dL (6.5-8.0); Triglycerides 216 mg/dL (<150)
--- NOTE | 2024-08-20 14:23 | P.PNPSI_ITS ---
Subjective Subjective Date of Service: 08/20/24 Reason For Visit: Crisis Subjective Notes: Conditional Voluntary Interim History: Active on unit. attending groups. Patient continues to report feeling depressed; pt stated, my voices are still telling me I'm going to of an aneurysm and that no one loves me . Pt reports she is doing my best to ignore the voices . denies SI/HI/VH. Continue current tx plan. Medication Compliance: Yes Side effects from medications: No Attending Groups: Yes Mental Status Exam Mental Status Exam Narrative: Pt is alert and oriented; behavior is cooperative and calm; dressed in casual attire; mood is described as anxious and depressed ; eye contact appropriate; Speech is normal rate, volume and not pressured; thought process is organized; Thought content is on tx; denies SI/HI/VH. She reports auditory hallucinations telling her to harm herself. Diagnostics Vital Signs (24Hr): Vital Signs - 24 hr 08/19/24 15:06 08/19/24 20:00 08/19/24 20:35 Temperature 96.8 F Pulse Rate 86 77 77 Respiratory Rate 18 Blood Pressure 149/84 H 183/92 H 183/92 H Pulse Oximetry 93 Oxygen Delivery Method Room Air 08/20/24 08:00 08/20/24 08:19 Temperature 98.5 F Pulse Rate 58 58 Respiratory Rate 18 Blood Pressure 146/82 H 146/82 H Pulse Oximetry 98 Oxygen Delivery Method Room Air BMI result Body Mass Index 43.1 Labs 08/18/24 13:58 08/20/24 07:30 Labs: Laboratory Results - last 48 hr 08/18/24 08/20/24 16:54 07:30 Sodium 140 Potassium 4.2 Chloride 103 Carbon Dioxide 29 Anion Gap 12 BUN 13 Creatinine 0.77 Estim Creat Clear Calc 139.8 Estimated GFR > 60 Random Glucose 87 Estimat Average Glucose 120 Hemoglobin A1c % 5.8 Calcium 9.5 Total Bilirubin 0.6 AST 34 H ALT 62 H Alkaline Phosphatase 134 H Total Protein 7.3 Albumin 4.5 Triglycerides 216 H Cholesterol 209 H LDL Cholesterol, Calc 132 H HDL Cholesterol 34 L Urine Color Dark Yellow Urine Appearance Clear Urine pH 5.5 Ur Specific [place] >= 1.030 H Urine Protein Trace Urine Glucose (UA) Negative Urine Ketones Trace Urine Blood Negative Urine Nitrite Negative Ur Leukocyte Esterase Trace H Urine RBC 0-2 Urine WBC 0-5 Ur Squamous Epith Cells 6-10 Calcium Oxalate Crystal Present Urine Bacteria 1+ Hyaline Casts 0-2 Urine Test NEGATIVE Urine Opiates Screen Not Detected Ur Buprenorphine Scrn Not Detected Ur Oxycodone Screen Not Detected Urine Methadone Screen Positive H Urine Fentanyl Screen Not Detected Ur Barbiturates Screen Not Detected Ur Phencyclidine Scrn Not Detected Ur Amphetamines Screen Not Detected U Benzodiazepines Scrn Not Detected Urine Cocaine Screen Not Detected U Marijuana (THC) Screen Not Detected Medications Medications Current Medications Acetaminophen (Acetaminophen 325 Mg Tablet) 650 mg PO Q6H PRN PRN Reason: Headache/Pain, Scale 1-10 Al Hydroxide/Mg Hydroxide (Magnesium Hydrox/Alum Hydrox 30 Ml Oral.Susp) 30 ml PO Q6H PRN PRN Reason: Heartburn/Nausea Baclofen (Baclofen 10 Mg Tablet) 15 mg PO TID REPLACED BY [facility] Last Admin: 08/20/24 08:18 Dose: 15 mg Brexpiprazole (Brexpiprazole 1 Mg Tablet) 3 mg PO DAILY REPLACED BY [facility] Last Admin: 08/20/24 08:17 Dose: 3 mg Buspirone HCl (Buspirone Hcl 5 Mg Tablet) 15 mg PO TID REPLACED BY [facility] Last Admin: 08/20/24 08:17 Dose: 15 mg Duloxetine HCl (Duloxetine Hcl 30 Mg Capsule.Dr) 30 mg PO DAILY REPLACED BY [facility] Last Admin: 08/20/24 08:19 Dose: 30 mg Duloxetine HCl (Duloxetine Hcl 60 Mg Capsule.Dr) 60 mg PO DAILY REPLACED BY [facility] Last Admin: 08/20/24 08:30 Dose: 60 mg Fluticasone/Vilanterol (Fluticasone/Vilanterol 100/25 Blst.W.Dev) 1 puff INHALE RDAILY REPLACED BY [facility] Last Admin: 08/20/24 08:29 Dose: 1 puff Gabapentin (Gabapentin 400 Mg Capsule) 800 mg PO TID REPLACED BY [facility] Last Admin: 08/20/24 08:18 Dose: 800 mg Haloperidol (Haloperidol 5 Mg Tablet) 10 mg PO DAILY PRN PRN Reason: anxiety/agitation Last Admin: 08/19/24 13:35 Dose: 10 mg Haloperidol (Haloperidol 5 Mg Tablet) 10 mg PO TID REPLACED BY [facility] Last Admin: 08/20/24 14:00 Dose: 10 mg Hydroxyzine HCl (Hydroxyzine Hcl 25 Mg Tablet) 25 mg PO Q6H PRN PRN Reason: mild anxiety Lorazepam (Lorazepam 1 Mg Tablet) 1 mg PO BID PRN PRN Reason: Anxiety Last Admin: 08/20/24 08:30 Dose: 1 mg Magnesium Hydroxide (Milk Of Magnesia 30 Ml Oral.Susp) 30 ml PO DAILY PRN PRN Reason: Constipation Methadone HCl (Methadone Hcl 20 Mg/2 Ml Oral.Conc) 165 mg PO DAILY REPLACED BY [facility] Last Admin: 08/20/24 07:53 Dose: 165 mg Mirtazapine (Mirtazapine 15 Mg Tablet) 45 mg PO BEDTIME YAEL Last Admin: 08/19/24 20:32 Dose: 45 mg Nicotine (Nicotine 21 Mg Patch.Td24) 21 mg TRANSDERMA DAILY REPLACED BY [facility] Last Admin: 08/20/24 08:31 Dose: Not Given Nicotine Polacrilex (Nicotine Polacrilex 2 Mg Gum) 4 mg BUCCAL Q2H PRN PRN Reason: Nicotine Cravings Last Admin: 08/19/24 15:55 Dose: 4 mg Nicotine Polacrilex (Nicotine Polacrilex Lozenge 2 Mg Lozenge) 2 mg BUCCAL Q1H PRN PRN Reason: Nicotine Cravings Last Admin: 08/20/24 12:33 Dose: 2 mg Propranolol HCl (Propranolol Hcl 10 Mg Tablet) 10 mg PO TID REPLACED BY [facility]; Protocol Last Admin: 08/20/24 08:19 Dose: 10 mg Trazodone HCl (Trazodone Hcl 50 Mg Tablet) 50 mg PO BEDTIME MRX1 PRN PRN Reason: Insomnia Zolpidem Tartrate (Zolpidem Tartrate 5 Mg Tablet) 5 mg PO BEDTIME PRN PRN Reason: Insomnia Last Admin: 08/19/24 20:35 Dose: 5 mg Allergies Allergies Allergy/AdvReac Type Severity Reaction Status Date / Time bee pollen (bee stings) Allergy Anaphylaxis Verified 08/18/24 13:19 buprenorphine (From Suboxone) Allergy Angioedema Verified 08/18/24 13:19 bupropion (From Wellbutrin) Allergy Seizure Verified 08/18/24 13:19 latex Allergy rash, Verified 08/18/24 13:19 swelling naloxone (From Suboxone) Allergy Angioedema Verified 08/18/24 13:19 prazosin Allergy Unknown Verified 08/18/24 13:19 sertraline (From Zoloft) Allergy Unknown Verified 08/18/24 13:19 Sulfa (Sulfonamide Allergy Rash Verified 08/18/24 13:19 Antibiotics) venlafaxine (From Effexor) Allergy Unknown Verified 08/18/24 13:19 egg AdvReac Hives Verified 08/18/24 13:19 Pork/Porcine Containing AdvReac Anaphylaxis Verified 08/18/24 13:19 Products ziprasidone (From Geodon) AdvReac Unknown Verified 08/18/24 13:19 Assessment & Plan Assessment & Plan (1) Schizoaffective disorder: Status: Acute Code(s): F25.9 - Schizoaffective disorder, unspecified (2) PTSD (post-traumatic stress disorder): Status: Acute Code(s): F43.10 - Post-traumatic stress disorder, unspecified (3) Borderline personality disorder: Status: Acute Code(s): F60.3 - Borderline personality disorder (4) Opioid use disorder in remission: Status: Acute Code(s): F11.91 - Opioid use, unspecified, in remission (5) Cocaine use disorder in remission: Status: Acute Code(s): F14.91 - Cocaine use, unspecified, in remission Plan Patient is a 34 year old female with hx of Schizoaffective d/o, PTSD, borderline personality disorder, opioid use d/o and cocaine use d/o who presented to [facility] ER d/t suicidal ideation secondary to increased auditory hallucinations. Plan: CV 15 minute safety checks Continue home medications Increase Rexulti to 3mg PO daily obtain collateral encourage groups discharge planning 08/20: Active on unit. attending groups. Patient continues to report feeling depressed; pt stated, my voices are still telling me I'm going to of an aneurysm and that no one loves me . Pt reports she is doing my best to ignore the voices . denies SI/HI/VH. Continue current tx plan. Patient educated on: diagnosis, medication risk/benefits and therapeutic strategies Reason for continued inpatient stay Substantial Risk for: med/psych decompensation Time Spent With Patient Time: Total time managing care of this patient today _20___ minutes.
[2024-08-20 15:00] VITALS: BP 128/76; PULSE 81
--- NOTE | 2024-08-20 17:42 | PC.NURSE ---
Pt in room 322-1 has signed a 3 day that is up on Sunday, the .
[2024-08-20 19:30] VITALS: BP 119/60; PULSE 70; RESP 16; TEMP 2.7; TEMP 36.8; O2SAT 92
[2024-08-21 07:00] VITALS: BMI 43.1
[2024-08-21 07:45] VITALS: BP 131/83; PULSE 70; RESP 16; TEMP 36.4
[2024-08-21] MEDS: methADONE HCl 20 MG/2 ML ORAL.CONC 165 MG PO (07:57)
[2024-08-21] MEDS: Fluticasone/Vilanterol 100/25 BLST.W.DEV 1 PUFF INHALE (08:00)
[2024-08-21 09:20] VITALS: BP 148/79; PULSE 93; RESP 20; O2SAT 96
[2024-08-21] MEDS: Nicotine Polacrilex Lozenge 2 MG LOZENGE BUCCAL ×3 (12:46→20:17)
--- NOTE | 2024-08-21 12:49 | P.PNPSI_ITS ---
Subjective Subjective Date of Service: 08/21/24 Reason For Visit: Crisis Subjective Notes: 3 Day Interim History: Active on unit. attending groups. signed 3 day notice up on 08/25/24. Patient reports she continues to feel anxious however she is no longer having auditory hallucinations. Pt stated , I'm not hearing voices and I'm not suicidal. I think the increase in medication is helping . denies SI/HI/VH/AH. Continue current tx plan. Medication Compliance: Yes Side effects from medications: No Attending Groups: Yes Mental Status Exam Mental Status Exam Narrative: Pt is alert and oriented; behavior is cooperative and calm; dressed in casual attire; mood is described as anxious and depressed ; eye contact appropriate; Speech is normal rate, volume and not pressured; thought process is organized; Thought content is on tx; denies SI/HI/VH/AH. Diagnostics Vital Signs (24Hr): Vital Signs - 24 hr 08/20/24 15:00 08/20/24 19:30 08/21/24 07:45 Temperature 36.8 F L 97.5 F Pulse Rate 81 70 70 Respiratory Rate 16 16 Blood Pressure 128/76 119/60 131/83 Pulse Oximetry 92 Oxygen Delivery Method Room Air Room Air 08/21/24 09:20 Temperature Pulse Rate 93 Respiratory Rate 20 Blood Pressure 148/79 H Pulse Oximetry 96 Oxygen Delivery Method Room Air BMI result Body Mass Index 43.1 Labs 08/18/24 13:58 08/20/24 07:30 Labs: Laboratory Results - last 48 hr 08/20/24 07:30 Sodium 140 Potassium 4.2 Chloride 103 Carbon Dioxide 29 Anion Gap 12 BUN 13 Creatinine 0.77 Estim Creat Clear Calc 139.8 Estimated GFR > 60 Random Glucose 87 Estimat Average Glucose 120 Hemoglobin A1c % 5.8 Calcium 9.5 Total Bilirubin 0.6 AST 34 H ALT 62 H Alkaline Phosphatase 134 H Total Protein 7.3 Albumin 4.5 Triglycerides 216 H Cholesterol 209 H LDL Cholesterol, Calc 132 H HDL Cholesterol 34 L Medications Medications Current Medications Acetaminophen (Acetaminophen 325 Mg Tablet) 650 mg PO Q6H PRN PRN Reason: Headache/Pain, Scale 1-10 Al Hydroxide/Mg Hydroxide (Magnesium Hydrox/Alum Hydrox 30 Ml Oral.Susp) 30 ml PO Q6H PRN PRN Reason: Heartburn/Nausea Albuterol Sulfate (Albuterol Sulfate 90 Mcg 8 Gm Inhaler) 2 puff INHALE RQ4H PRN PRN Reason: Shortness of Breath Baclofen (Baclofen 10 Mg Tablet) 15 mg PO TID [facility] Last Admin: 08/21/24 09:22 Dose: 15 mg Brexpiprazole (Brexpiprazole 1 Mg Tablet) 3 mg PO DAILY [facility] Last Admin: 08/21/24 09:00 Dose: 3 mg Buspirone HCl (Buspirone Hcl 5 Mg Tablet) 15 mg PO TID [facility] Last Admin: 08/21/24 09:02 Dose: 15 mg Duloxetine HCl (Duloxetine Hcl 30 Mg Capsule.Dr) 30 mg PO DAILY [facility] Last Admin: 08/21/24 09:02 Dose: 30 mg Duloxetine HCl (Duloxetine Hcl 60 Mg Capsule.Dr) 60 mg PO DAILY [facility] Last Admin: 08/21/24 09:01 Dose: 60 mg Fluticasone/Vilanterol (Fluticasone/Vilanterol 100/25 Blst.W.Dev) 1 puff INHALE RDAILY [facility] Last Admin: 08/21/24 08:00 Dose: 1 puff Gabapentin (Gabapentin 400 Mg Capsule) 800 mg PO TID [facility] Last Admin: 08/21/24 09:00 Dose: 800 mg Haloperidol (Haloperidol 5 Mg Tablet) 10 mg PO DAILY PRN PRN Reason: anxiety/agitation Last Admin: 08/21/24 12:40 Dose: 10 mg Haloperidol (Haloperidol 5 Mg Tablet) 10 mg PO TID [facility] Last Admin: 08/21/24 09:03 Dose: 10 mg Hydroxyzine HCl (Hydroxyzine Hcl 25 Mg Tablet) 25 mg PO Q6H PRN PRN Reason: mild anxiety Lorazepam (Lorazepam 1 Mg Tablet) 1 mg PO BID PRN PRN Reason: Anxiety Last Admin: 08/21/24 09:46 Dose: 1 mg Magnesium Hydroxide (Milk Of Magnesia 30 Ml Oral.Susp) 30 ml PO DAILY PRN PRN Reason: Constipation Methadone HCl (Methadone Hcl 20 Mg/2 Ml Oral.Conc) 165 mg PO DAILY [facility] Last Admin: 08/21/24 07:57 Dose: 165 mg Mirtazapine (Mirtazapine 15 Mg Tablet) 45 mg PO BEDTIME [facility] Last Admin: 08/20/24 21:01 Dose: 45 mg Nicotine Polacrilex (Nicotine Polacrilex 2 Mg Gum) 4 mg BUCCAL Q2H PRN PRN Reason: Nicotine Cravings Last Admin: 08/19/24 15:55 Dose: 4 mg Nicotine Polacrilex (Nicotine Polacrilex Lozenge 2 Mg Lozenge) 2 mg BUCCAL Q1H PRN PRN Reason: Nicotine Cravings Last Admin: 08/21/24 12:46 Dose: 2 mg Propranolol HCl (Propranolol Hcl 10 Mg Tablet) 10 mg PO TID [facility]; Protocol Last Admin: 08/21/24 09:23 Dose: 10 mg Trazodone HCl (Trazodone Hcl 50 Mg Tablet) 50 mg PO BEDTIME MRX1 PRN PRN Reason: Insomnia Zolpidem Tartrate (Zolpidem Tartrate 5 Mg Tablet) 5 mg PO BEDTIME PRN PRN Reason: Insomnia Last Admin: 08/20/24 21:02 Dose: 5 mg Allergies Allergies Allergy/AdvReac Type Severity Reaction Status Date / Time bee pollen (bee stings) Allergy Anaphylaxis Verified 08/18/24 13:19 buprenorphine (From Suboxone) Allergy Angioedema Verified 08/18/24 13:19 bupropion (From Wellbutrin) Allergy Seizure Verified 08/18/24 13:19 latex Allergy rash, Verified 08/18/24 13:19 swelling naloxone (From Suboxone) Allergy Angioedema Verified 08/18/24 13:19 prazosin Allergy Unknown Verified 08/18/24 13:19 sertraline (From Zoloft) Allergy Unknown Verified 08/18/24 13:19 Sulfa (Sulfonamide Allergy Rash Verified 08/18/24 13:19 Antibiotics) venlafaxine (From Effexor) Allergy Unknown Verified 08/18/24 13:19 egg AdvReac Hives Verified 08/18/24 13:19 Pork/Porcine Containing AdvReac Anaphylaxis Verified 08/18/24 13:19 Products ziprasidone (From Geodon) AdvReac Unknown Verified 08/18/24 13:19 Assessment & Plan Assessment & Plan (1) Schizoaffective disorder: Status: Acute Code(s): F25.9 - Schizoaffective disorder, unspecified (2) PTSD (post-traumatic stress disorder): Status: Acute Code(s): F43.10 - Post-traumatic stress disorder, unspecified (3) Borderline personality disorder: Status: Acute Code(s): F60.3 - Borderline personality disorder (4) Opioid use disorder in remission: Status: Acute Code(s): F11.91 - Opioid use, unspecified, in remission (5) Cocaine use disorder in remission: Status: Acute Code(s): F14.91 - Cocaine use, unspecified, in remission Plan Patient is a 34 year old female with hx of Schizoaffective d/o, PTSD, borderline personality disorder, opioid use d/o and cocaine use d/o who presented to [facility] d/t suicidal ideation secondary to increased auditory hallucinations. Plan: CV 15 minute safety checks Continue home medications Increase Rexulti to 3mg PO daily obtain collateral encourage groups discharge planning 08/20: Active on unit. attending groups. Patient continues to report feeling depressed; pt stated, my voices are still telling me I'm going to of an aneurysm and that no one loves me . Pt reports she is doing my best to ignore the voices . denies SI/HI/VH. Continue current tx plan. 08/21: Active on unit. attending groups. signed 3 day notice up on 08/25/24. Patient reports she continues to feel anxious however she is no longer having auditory hallucinations. Pt stated , I'm not hearing voices and I'm not suicidal. I think the increase in medication is helping . denies SI/HI/VH/AH. Continue current tx plan. Patient educated on: diagnosis, medication risk/benefits and therapeutic strategies Reason for continued inpatient stay Substantial Risk for: med/psych decompensation Time Spent With Patient Time: Total time managing care of this patient today __20__ minutes.
[2024-08-21 15:10] VITALS: BP 117/79; PULSE 97; RESP 20; O2SAT 97
[2024-08-21 20:00] VITALS: BP 132/63; PULSE 97; RESP 18; TEMP 37.1; O2SAT 98
[2024-08-21 20:17] VITALS: BP 132/63; PULSE 97
[2024-08-22 07:20] VITALS: BP 142/65; PULSE 78; RESP 16; TEMP 37.1; O2SAT 97
[2024-08-22] MEDS: methADONE HCl 20 MG/2 ML ORAL.CONC 165 MG PO (08:34)
[2024-08-22 08:37] VITALS: BP 140/60; PULSE 80
[2024-08-22] MEDS: Fluticasone/Vilanterol 100/25 BLST.W.DEV 1 PUFF INHALE (08:40)
--- NOTE | 2024-08-22 08:49 | P.PNPSI_ITS ---
Subjective Subjective Date of Service: 08/22/24 Reason For Visit: Crisis Subjective Notes: 3 Day Interim History: Active on unit. attending groups. signed 3 day up on 08/25/24. Patient continues to feel anxious; pt stated, I don't know what is making me feel this way. But I'm feeling better than when I came in . denies SI/HI/VH/AH. focused on returning to her program on Sunday. Continue current tx plan. Medication Compliance: Yes Side effects from medications: No Attending Groups: Yes Mental Status Exam Mental Status Exam Narrative: Pt is alert and oriented; behavior is cooperative and calm; dressed in casual attire; mood is described as anxious ; eye contact appropriate; Speech is normal rate, volume and not pressured; thought process is organized; Thought content is on tx/discharge; denies SI/HI/VH/AH. Diagnostics Vital Signs (24Hr): Vital Signs - 24 hr 08/21/24 09:20 08/21/24 15:10 08/21/24 20:00 Temperature 98.8 F Pulse Rate 93 97 97 Respiratory Rate 20 20 18 Blood Pressure 148/79 H 117/79 132/63 Pulse Oximetry 96 97 98 Oxygen Delivery Method Room Air Room Air Room Air 08/21/24 20:17 08/22/24 07:20 08/22/24 08:37 Temperature 98.8 F Pulse Rate 97 78 80 Respiratory Rate 16 Blood Pressure 132/63 142/65 H 140/60 H Pulse Oximetry 97 Oxygen Delivery Method Room Air BMI result Body Mass Index 43.1 Labs 08/18/24 13:58 08/20/24 07:30 Medications Medications Current Medications Acetaminophen (Acetaminophen 325 Mg Tablet) 650 mg PO Q6H PRN PRN Reason: Headache/Pain, Scale 1-10 Al Hydroxide/Mg Hydroxide (Magnesium Hydrox/Alum Hydrox 30 Ml Oral.Susp) 30 ml PO Q6H PRN PRN Reason: Heartburn/Nausea Albuterol Sulfate (Albuterol Sulfate 90 Mcg 8 Gm Inhaler) 2 puff INHALE RQ4H PRN PRN Reason: Shortness of Breath Baclofen (Baclofen 10 Mg Tablet) 15 mg PO TID [facility] Last Admin: 08/22/24 08:37 Dose: 15 mg Brexpiprazole (Brexpiprazole 1 Mg Tablet) 3 mg PO DAILY [facility] Last Admin: 08/22/24 08:38 Dose: 3 mg Buspirone HCl (Buspirone Hcl 5 Mg Tablet) 15 mg PO TID [facility] Last Admin: 08/22/24 08:39 Dose: 15 mg Duloxetine HCl (Duloxetine Hcl 30 Mg Capsule.Dr) 30 mg PO DAILY [facility] Last Admin: 08/22/24 08:39 Dose: 30 mg Duloxetine HCl (Duloxetine Hcl 60 Mg Capsule.Dr) 60 mg PO DAILY [facility] Last Admin: 08/22/24 08:37 Dose: 60 mg Fluticasone/Vilanterol (Fluticasone/Vilanterol 100/ Blst.W.Dev) 1 puff INHALE RDAILY [facility] Last Admin: 08/22/24 08:40 Dose: 1 puff Gabapentin (Gabapentin 400 Mg Capsule) 800 mg PO TID [facility] Last Admin: 08/22/24 08:39 Dose: 800 mg Haloperidol (Haloperidol 5 Mg Tablet) 10 mg PO DAILY PRN PRN Reason: anxiety/agitation Last Admin: 08/21/24 12:40 Dose: 10 mg Haloperidol (Haloperidol 5 Mg Tablet) 10 mg PO TID [facility] Last Admin: 08/22/24 08:38 Dose: 10 mg Hydroxyzine HCl (Hydroxyzine Hcl 25 Mg Tablet) 25 mg PO Q6H PRN PRN Reason: mild anxiety Lorazepam (Lorazepam 1 Mg Tablet) 1 mg PO BID PRN PRN Reason: Anxiety Last Admin: 08/21/24 18:19 Dose: 1 mg Magnesium Hydroxide (Milk Of Magnesia 30 Ml Oral.Susp) 30 ml PO DAILY PRN PRN Reason: Constipation Methadone HCl (Methadone Hcl 20 Mg/2 Ml Oral.Conc) 165 mg PO DAILY [facility] Last Admin: 08/22/24 08:34 Dose: 165 mg Mirtazapine (Mirtazapine 15 Mg Tablet) 45 mg PO BEDTIME [facility] Last Admin: 08/21/24 20:17 Dose: 45 mg Nicotine Polacrilex (Nicotine Polacrilex 2 Mg Gum) 4 mg BUCCAL Q2H PRN PRN Reason: Nicotine Cravings Last Admin: 08/19/24 15:55 Dose: 4 mg Nicotine Polacrilex (Nicotine Polacrilex Lozenge 2 Mg Lozenge) 2 mg BUCCAL Q1H PRN PRN Reason: Nicotine Cravings Last Admin: 08/21/24 20:17 Dose: 2 mg Propranolol HCl (Propranolol Hcl 10 Mg Tablet) 10 mg PO TID [facility]; Protocol Last Admin: 08/22/24 08:37 Dose: 10 mg Trazodone HCl (Trazodone Hcl 50 Mg Tablet) 50 mg PO BEDTIME MRX1 PRN PRN Reason: Insomnia Zolpidem Tartrate (Zolpidem Tartrate 5 Mg Tablet) 5 mg PO BEDTIME PRN PRN Reason: Insomnia Last Admin: 08/21/24 20:17 Dose: 5 mg Allergies Allergies Allergy/AdvReac Type Severity Reaction Status Date / Time bee pollen (bee stings) Allergy Anaphylaxis Verified 08/18/24 13:19 buprenorphine (From Suboxone) Allergy Angioedema Verified 08/18/24 13:19 bupropion (From Wellbutrin) Allergy Seizure Verified 08/18/24 13:19 latex Allergy rash, Verified 08/18/24 13:19 swelling naloxone (From Suboxone) Allergy Angioedema Verified 08/18/24 13:19 prazosin Allergy Unknown Verified 08/18/24 13:19 sertraline (From Zoloft) Allergy Unknown Verified 08/18/24 13:19 Sulfa (Sulfonamide Allergy Rash Verified 08/18/24 13:19 Antibiotics) venlafaxine (From Effexor) Allergy Unknown Verified 08/18/24 13:19 egg AdvReac Hives Verified 08/18/24 13:19 Pork/Porcine Containing AdvReac Anaphylaxis Verified 08/18/24 13:19 Products ziprasidone (From Geodon) AdvReac Unknown Verified 08/18/24 13:19 Assessment & Plan Assessment & Plan (1) Schizoaffective disorder: Status: Acute Code(s): F25.9 - Schizoaffective disorder, unspecified (2) PTSD (post-traumatic stress disorder): Status: Acute Code(s): F43.10 - Post-traumatic stress disorder, unspecified (3) Borderline personality disorder: Status: Acute Code(s): F60.3 - Borderline personality disorder (4) Opioid use disorder in remission: Status: Acute Code(s): F11.91 - Opioid use, unspecified, in remission (5) Cocaine use disorder in remission: Status: Acute Code(s): F14.91 - Cocaine use, unspecified, in remission Plan Patient is a 34 year old female with hx of Schizoaffective d/o, PTSD, borderline personality disorder, opioid use d/o and cocaine use d/o who presented to [facility] ER d/t suicidal ideation secondary to increased auditory hallucinations. Plan: CV 15 minute safety checks Continue home medications Increase Rexulti to 3mg PO daily obtain collateral encourage groups discharge planning 08/20: Active on unit. attending groups. Patient continues to report feeling depressed; pt stated, my voices are still telling me I'm going to of an aneurysm and that no one loves me . Pt reports she is doing my best to ignore the voices . denies SI/HI/VH. Continue current tx plan. 08/21: Active on unit. attending groups. signed 3 day notice up on 08/25/24. Patient reports she continues to feel anxious however she is no longer having auditory hallucinations. Pt stated , I'm not hearing voices and I'm not suicidal. I think the increase in medication is helping . denies SI/HI/VH/AH. Continue current tx plan. 08/22: Active on unit. attending groups. signed 3 day up on 08/25/24. Patient continues to feel anxious; pt stated, I don't know what is making me feel this way. But I'm feeling better than when I came in . denies SI/HI/VH/AH. focused on returning to her program on Sunday. Continue current tx plan. Patient educated on: diagnosis, medication risk/benefits and therapeutic strategies Reason for continued inpatient stay Substantial Risk for: med/psych decompensation Time Spent With Patient Time: Total time managing care of this patient today _20___ minutes.
[2024-08-22] MEDS: Nicotine Polacrilex Lozenge 2 MG LOZENGE BUCCAL ×2 (10:31→13:43)
[2024-08-22 13:53] LABS: Appearance Urine Clear; Glucose Urine UA Negative (Negative); PH 6.5 (5.0-9.0); Specific Gravity - Urine 1.020 (1.005-1.025)
[2024-08-22 15:00] VITALS: BP 132/72; PULSE 83
[2024-08-22 19:42] VITALS: BP 139/62; PULSE 70; RESP 18; TEMP 36.8; O2SAT 95
--- NOTE | 2024-08-23 | ECG_ITS ---
Test Reason : Chest pain. On Methadone Blood Pressure : */* mmHG Vent. Rate : 88 BPM Atrial Rate : 88 BPM P-R Int : 150 ms QRS Dur : 82 ms QT Int : 416 ms P-R-T Axes : 34 43 43 degrees QTcB Int : 503 ms Normal sinus rhythm Prolonged QT Abnormal ECG When compared with ECG of 19-Aug-2024 10:30, No significant change was found Referred By: Merly Ash Electronically Signed By: [place]
[2024-08-23 08:00] VITALS: BP 151/78; PULSE 80; RESP 16; TEMP 36.9; O2SAT 96
[2024-08-23] MEDS: methADONE HCl 20 MG/2 ML ORAL.CONC 165 MG PO (08:24)
[2024-08-23] MEDS: Fluticasone/Vilanterol 100/25 BLST.W.DEV 1 PUFF INHALE (08:26)
[2024-08-23] MEDS: Nicotine Polacrilex Lozenge 2 MG LOZENGE BUCCAL ×3 (10:44→18:14)
[2024-08-23 11:32] VITALS: BP 141/98; PULSE 82; RESP 20; O2SAT 96
--- NOTE | 2024-08-23 13:12 | ECG_ITS ---
Test Reason : cp Blood Pressure : */* mmHG Vent. Rate : 82 BPM Atrial Rate : 82 BPM P-R Int : 146 ms QRS Dur : 82 ms QT Int : 404 ms P-R-T Axes : 38 44 39 degrees QTcB Int : 472 ms Normal sinus rhythm with sinus arrhythmia Normal ECG When compared with ECG of 23-Aug-2024 13:11, No significant change was found Referred By: Marty Johansen Electronically Signed By: [place]
--- NOTE | 2024-08-23 14:17 | PC.NURSE ---
08/23/24 Pt c/o R chest/shoulder pain, no radiadtion of pain , she reported dullness . Bp elveated all other VS WNL. Provider Merly Ash was notified at 1130, ekg performed at 1320 Merly Ash aware of results.
[2024-08-23 14:52] VITALS: BP 116/61; PULSE 81
[2024-08-23 20:00] VITALS: BP 122/64; PULSE 100; RESP 18; TEMP 36.4; O2SAT 96
[2024-08-23 20:03] VITALS: BP 122/64; PULSE 100
--- NOTE | 2024-08-23 21:54 | HO.PSYCHPN ---
Subjective Subjective Date of Service: 08/23/24 Reason For Visit: Crisis Subjective Notes: 3 Day Healthcare Proxy: No Guardianship: No Medical Problems Affecting Mental Status: No Interim History: Medical record and nursing notes reviewed; case discussed during rounds with team/nursing staff, and met with patient for supportive therapy/psychoeducation, as well as medication management. Patient slept for 8 hours, no appetite issues, was medication compliant. Denies side effect. Early this morning she complained to the nurse having chest pain. Vital signs stable. When meeting with me later on today, she pointed to right shoulder saying that her pain was started this morning that way. Not to the chest area. However due to mood team medications and on methadone, I order stat EKG. Review it with Dr. An, no change compared to the EKGs done prior to be admitted. Just need to be cautious on interaction, and possibility of prolonged QT/QTC . To prevent more risk, I discontinue p.r.n. Haldol, discontinue p.r.n. trazodone and hydroxyzine whuch she also has not been used. Encouraged to shower as she reports last shower was 2 days ago She plans to shower today Medication Compliance: Yes Side effects from medications: Yes (Appear to be sedated) Attending Groups: Yes Review of Systems Acute medical concerns: No Medical Review of Systems: unchanged Review of Systems Review of Systems Reports chest pain earlier, vital signs stable, pointed to right shoulder pain instead of chest pain. Yes all other systems are reviewed and are negative Constitutional: Reports as per HPI Mental Status Exam Mental Status Exam Narrative: Pt is alert and oriented; behavior is cooperative and calm; dressed in hospital attire; mood is described as anxious ; eye contact appropriate; Speech soft rate, volume and not pressured; thought process is organized; Thought content is on tx/discharge; denies SI/HI/VH/AH. Appeared to be sedated. Diagnostics Vital Signs (24Hr): Vital Signs - 24 hr 08/23/24 08:00 08/23/24 11:32 08/23/24 14:52 Temperature 98.4 F Pulse Rate 80 82 81 Respiratory Rate 16 20 Blood Pressure 151/78 H 141/98 H 116/61 Pulse Oximetry 96 96 Oxygen Delivery Method Room Air Room Air 08/23/24 20:00 08/23/24 20:03 Temperature 97.5 F Pulse Rate 100 100 Respiratory Rate 18 Blood Pressure 122/64 122/64 Pulse Oximetry 96 Oxygen Delivery Method Room Air BMI result Body Mass Index 43.1 Labs 08/18/24 13:58 08/20/24 07:30 Labs: Laboratory Results - last 48 hr 08/22/24 13:15 Urine Color Yellow Urine Appearance Clear Urine pH 6.5 Ur Specific [place] 1.020 Urine Protein Trace Urine Glucose (UA) Negative Urine Ketones Negative Urine Blood Negative Urine Nitrite Negative Ur Leukocyte Esterase Negative Medications Medications Current Medications Acetaminophen (Acetaminophen 325 Mg Tablet) 650 mg PO Q6H PRN PRN Reason: Headache/Pain, Scale 1-10 Al Hydroxide/Mg Hydroxide (Magnesium Hydrox/Alum Hydrox 30 Ml Oral.Susp) 30 ml PO Q6H PRN PRN Reason: Heartburn/Nausea Albuterol Sulfate (Albuterol Sulfate 90 Mcg 8 Gm Inhaler) 2 puff INHALE RQ4H PRN PRN Reason: Shortness of Breath Baclofen (Baclofen 10 Mg Tablet) 15 mg PO TID [facility] Last Admin: 08/23/24 20:02 Dose: 15 mg Brexpiprazole (Brexpiprazole 1 Mg Tablet) 3 mg PO DAILY [facility] Last Admin: 08/23/24 08:29 Dose: 3 mg Buspirone HCl (Buspirone Hcl 5 Mg Tablet) 15 mg PO TID [facility] Last Admin: 08/23/24 20:03 Dose: 15 mg Duloxetine HCl (Duloxetine Hcl 30 Mg Capsule.) 30 mg PO DAILY [facility] Last Admin: 08/23/24 08:32 Dose: 30 mg Duloxetine HCl (Duloxetine Hcl 60 Mg Capsule.) 60 mg PO DAILY [facility] Last Admin: 08/23/24 08:32 Dose: 60 mg Fluticasone/Vilanterol (Fluticasone/Vilanterol 100/25 Blst.W.Dev) 1 puff INHALE RDAILY [facility] Last Admin: 08/23/24 08:26 Dose: 1 puff Gabapentin (Gabapentin 400 Mg Capsule) 800 mg PO TID [facility] Last Admin: 08/23/24 20:02 Dose: 800 mg Haloperidol (Haloperidol 5 Mg Tablet) 10 mg PO DAILY PRN On Hold: 08/23/24 14:58 PRN Reason: anxiety/agitation Last Admin: 08/23/24 11:35 Dose: 10 mg Haloperidol (Haloperidol 5 Mg Tablet) 10 mg PO TID [facility] Last Admin: 08/23/24 20:03 Dose: 10 mg Lorazepam (Lorazepam 1 Mg Tablet) 1 mg PO BID PRN PRN Reason: Anxiety Last Admin: 08/23/24 17:24 Dose: 1 mg Magnesium Hydroxide (Milk Of Magnesia 30 Ml Oral.Susp) 30 ml PO DAILY PRN PRN Reason: Constipation Methadone HCl (Methadone Hcl 20 Mg/2 Ml Oral.Conc) 165 mg PO DAILY [facility] Last Admin: 08/23/24 08:24 Dose: 165 mg Mirtazapine (Mirtazapine 15 Mg Tablet) 45 mg PO BEDTIME [facility] Last Admin: 08/23/24 20:02 Dose: 45 mg Nicotine Polacrilex (Nicotine Polacrilex 2 Mg Gum) 4 mg BUCCAL Q2H PRN PRN Reason: Nicotine Cravings Last Admin: 08/19/24 15:55 Dose: 4 mg Nicotine Polacrilex (Nicotine Polacrilex Lozenge 2 Mg Lozenge) 2 mg BUCCAL Q1H PRN PRN Reason: Nicotine Cravings Last Admin: 08/23/24 18:14 Dose: 2 mg Propranolol HCl (Propranolol Hcl 10 Mg Tablet) 10 mg PO TID [facility]; Protocol Last Admin: 08/23/24 20:03 Dose: 10 mg Zolpidem Tartrate (Zolpidem Tartrate 5 Mg Tablet) 5 mg PO BEDTIME PRN PRN Reason: Insomnia Last Admin: 08/23/24 20:03 Dose: 5 mg Allergies Allergies Allergy/AdvReac Type Severity Reaction Status Date / Time bee pollen (bee stings) Allergy Anaphylaxis Verified 08/18/24 13:19 buprenorphine (From Suboxone) Allergy Angioedema Verified 08/18/24 13:19 bupropion (From Wellbutrin) Allergy Seizure Verified 08/18/24 13:19 latex Allergy rash, Verified 08/18/24 13:19 swelling naloxone (From Suboxone) Allergy Angioedema Verified 08/18/24 13:19 prazosin Allergy Unknown Verified 08/18/24 13:19 sertraline (From Zoloft) Allergy Unknown Verified 08/18/24 13:19 Sulfa (Sulfonamide Allergy Rash Verified 08/18/24 13:19 Antibiotics) venlafaxine (From Effexor) Allergy Unknown Verified 08/18/24 13:19 egg AdvReac Hives Verified 08/18/24 13:19 Pork/Porcine Containing AdvReac Anaphylaxis Verified 08/18/24 13:19 Products ziprasidone (From Geodon) AdvReac Unknown Verified 08/18/24 13:19 Assessment & Plan Assessment & Plan (1) Schizoaffective disorder: Status: Acute Code(s): F25.9 - Schizoaffective disorder, unspecified (2) PTSD (post-traumatic stress disorder): Status: Acute Code(s): F43.10 - Post-traumatic stress disorder, unspecified (3) Borderline personality disorder: Status: Acute Code(s): F60.3 - Borderline personality disorder (4) Opioid use disorder in remission: Status: Acute Code(s): F11.91 - Opioid use, unspecified, in remission (5) Cocaine use disorder in remission: Status: Acute Code(s): F14.91 - Cocaine use, unspecified, in remission Plan Patient is a 34 year old female with hx of Schizoaffective d/o, PTSD, borderline personality disorder, opioid use d/o and cocaine use d/o who presented to [facility] ER d/t suicidal ideation secondary to increased auditory hallucinations. Plan: CV 15 minute safety checks Continue home medications Increase Rexulti to 3mg PO daily obtain collateral encourage groups discharge planning 08/20: Active on unit. attending groups. Patient continues to report feeling depressed; pt stated, my voices are still telling me I'm going to of an aneurysm and that no one loves me . Pt reports she is doing my best to ignore the voices . denies SI/HI/VH. Continue current tx plan. 08/21: Active on unit. attending groups. signed 3 day notice up on 08/25/24. Patient reports she continues to feel anxious however she is no longer having auditory hallucinations. Pt stated , I'm not hearing voices and I'm not suicidal. I think the increase in medication is helping . denies SI/HI/VH/AH. Continue current tx plan. 08/22: Active on unit. attending groups. signed 3 day up on 08/25/24. Patient continues to feel anxious; pt stated, I don't know what is making me feel this way. But I'm feeling better than when I came in . denies SI/HI/VH/AH. focused on returning to her program on Sunday. Continue current tx plan. 08/23/24: Appeared to be sedated but visible on the unit in common area most of the morningy, poor ADLs, malodorous, unkempt hair. Encouraged to shower. She is receptive. Compliant with medication denies side effects, she is aware that she is discharged on Sunday that to her nursing home. She is aware of medication that I discontinued today: Hold on Haldol p.r.n.. Discontinue trazodone p.r.n.. Discontinue hydroxyzine. She is on high dose of methadone 165 mg daily. EKGs done today, slightly elevated on QTC , however not much change compared to the one hat done on prior to this admission. Patient educated on: medication risk/benefits, substance abuse and therapeutic strategies Informed Consent: understands Reason for continued inpatient stay Substantial Risk for: med/psych decompensation Time Spent With Patient Time: Total time managing care of this patient today ____ minutes.
[2024-08-24 08:00] VITALS: BP 135/82; PULSE 65; RESP 14; TEMP 36.5; O2SAT 95
[2024-08-24] MEDS: methADONE HCl 20 MG/2 ML ORAL.CONC 165 MG PO (08:16)
[2024-08-24 08:21] VITALS: BP 135/82; PULSE 65
[2024-08-24] MEDS: Fluticasone/Vilanterol 100/25 BLST.W.DEV 1 PUFF INHALE (08:22)
[2024-08-24] MEDS: Nicotine Polacrilex Lozenge 2 MG LOZENGE BUCCAL ×3 (09:27→19:01)
--- NOTE | 2024-08-24 12:20 | P.PNPSI_ITS ---
Subjective Subjective Date of Service: 08/24/24 Reason For Visit: Crisis Subjective Notes: 3 Day Healthcare Proxy: No Guardianship: No Medical Problems Affecting Mental Status: No Interim History: Medical record and nursing notes reviewed; case discussed during rounds with team/nursing staff, and met with patient for supportive therapy/psychoeducation, as well as medication management. Patient slept for 8 hours, reports she was having a dream about drug use and was about the time that she almost use the substance. Reports to nursing she is anxious, requests p.r.n. Ativan. She appears to be sedated, visible in common area but mostly falling asleep. Reports she shower yesterday and with unkempt hair. Pleasant upon approach. Denies safety concerns. No voices or hallucinations Medication Compliance: Yes Side effects from medications: Yes (sedated ) Attending Groups: Intermittent Review of Systems Acute medical concerns: No Medical Review of Systems: unchanged Review of Systems Review of Systems No chest pain. No pain No trouble breathing. Yes all other systems are reviewed and are negative Constitutional: Reports as per HPI Mental Status Exam Mental Status Exam Narrative: Pt is alert and oriented; behavior is cooperative and calm; dressed in hospital attire; unkempt hair, mood is described as fair , sedated; eye contact appropriate; Speech soft rate, volume and not pressured; thought process is organized; Thought content is on tx/discharge; denies SI/HI/VH/AH. Appeared to be sedated. Diagnostics Vital Signs (24Hr): Vital Signs - 24 hr 08/23/24 14:52 08/23/24 20:00 08/23/24 20:03 Temperature 97.5 F Pulse Rate 81 100 100 Respiratory Rate 18 Blood Pressure 116/61 122/64 122/64 Pulse Oximetry 96 Oxygen Delivery Method Room Air 08/24/24 08:00 08/24/24 08:21 Temperature 97.7 F Pulse Rate 65 65 Respiratory Rate 14 Blood Pressure 135/82 135/82 Pulse Oximetry 95 Oxygen Delivery Method Room Air BMI result Body Mass Index 43.1 Labs 08/18/24 13:58 08/20/24 07:30 Labs: Laboratory Results - last 48 hr 08/22/24 13:15 Urine Color Yellow Urine Appearance Clear Urine pH 6.5 Ur Specific [place] 1.020 Urine Protein Trace Urine Glucose (UA) Negative Urine Ketones Negative Urine Blood Negative Urine Nitrite Negative Ur Leukocyte Esterase Negative Medications Medications Current Medications Acetaminophen (Acetaminophen 325 Mg Tablet) 650 mg PO Q6H PRN PRN Reason: Headache/Pain, Scale 1-10 Al Hydroxide/Mg Hydroxide (Magnesium Hydrox/Alum Hydrox 30 Ml Oral.Susp) 30 ml PO Q6H PRN PRN Reason: Heartburn/Nausea Albuterol Sulfate (Albuterol Sulfate 90 Mcg 8 Gm Inhaler) 2 puff INHALE RQ4H PRN PRN Reason: Shortness of Breath Baclofen (Baclofen 10 Mg Tablet) 15 mg PO TID [facility] Last Admin: 08/24/24 08:20 Dose: 15 mg Brexpiprazole (Brexpiprazole 1 Mg Tablet) 3 mg PO DAILY [facility] Last Admin: 08/24/24 08:21 Dose: 3 mg Buspirone HCl (Buspirone Hcl 5 Mg Tablet) 15 mg PO TID [facility] Last Admin: 08/24/24 08:20 Dose: 15 mg Duloxetine HCl (Duloxetine Hcl 30 Mg Capsule.Dr) 30 mg PO DAILY [facility] Last Admin: 08/24/24 08:20 Dose: 30 mg Duloxetine HCl (Duloxetine Hcl 60 Mg Capsule.Dr) 60 mg PO DAILY [facility] Last Admin: 08/24/24 08:21 Dose: 60 mg Fluticasone/Vilanterol (Fluticasone/Vilanterol 100/25 Blst.W.Dev) 1 puff INHALE RDAILY [facility] Last Admin: 08/24/24 08:22 Dose: 1 puff Gabapentin (Gabapentin 400 Mg Capsule) 800 mg PO TID [facility] Last Admin: 08/24/24 08:19 Dose: 800 mg Haloperidol (Haloperidol 5 Mg Tablet) 10 mg PO DAILY PRN On Hold: 08/23/24 14:58 PRN Reason: anxiety/agitation Last Admin: 08/23/24 11:35 Dose: 10 mg Haloperidol (Haloperidol 5 Mg Tablet) 10 mg PO TID [facility] Last Admin: 08/24/24 08:21 Dose: 10 mg Lorazepam (Lorazepam 1 Mg Tablet) 1 mg PO BID PRN PRN Reason: Anxiety Last Admin: 08/24/24 09:27 Dose: 1 mg Magnesium Hydroxide (Milk Of Magnesia 30 Ml Oral.Susp) 30 ml PO DAILY PRN PRN Reason: Constipation Methadone HCl (Methadone Hcl 20 Mg/2 Ml Oral.Conc) 165 mg PO DAILY [facility] Last Admin: 08/24/24 08:16 Dose: 165 mg Mirtazapine (Mirtazapine 15 Mg Tablet) 45 mg PO BEDTIME [facility] Last Admin: 08/23/24 20:02 Dose: 45 mg Nicotine Polacrilex (Nicotine Polacrilex 2 Mg Gum) 4 mg BUCCAL Q2H PRN PRN Reason: Nicotine Cravings Last Admin: 08/19/24 15:55 Dose: 4 mg Nicotine Polacrilex (Nicotine Polacrilex Lozenge 2 Mg Lozenge) 2 mg BUCCAL Q1H PRN PRN Reason: Nicotine Cravings Last Admin: 08/24/24 09:27 Dose: 2 mg Propranolol HCl (Propranolol Hcl 10 Mg Tablet) 10 mg PO TID [facility]; Protocol Last Admin: 08/24/24 08:21 Dose: 10 mg Zolpidem Tartrate (Zolpidem Tartrate 5 Mg Tablet) 5 mg PO BEDTIME PRN PRN Reason: Insomnia Last Admin: 08/23/24 20:03 Dose: 5 mg Allergies Allergies Allergy/AdvReac Type Severity Reaction Status Date / Time bee pollen (bee stings) Allergy Anaphylaxis Verified 08/18/24 13:19 buprenorphine (From Suboxone) Allergy Angioedema Verified 08/18/24 13:19 bupropion (From Wellbutrin) Allergy Seizure Verified 08/18/24 13:19 latex Allergy rash, Verified 08/18/24 13:19 swelling naloxone (From Suboxone) Allergy Angioedema Verified 08/18/24 13:19 prazosin Allergy Unknown Verified 08/18/24 13:19 sertraline (From Zoloft) Allergy Unknown Verified 08/18/24 13:19 Sulfa (Sulfonamide Allergy Rash Verified 08/18/24 13:19 Antibiotics) venlafaxine (From Effexor) Allergy Unknown Verified 08/18/24 13:19 egg AdvReac Hives Verified 08/18/24 13:19 Pork/Porcine Containing AdvReac Anaphylaxis Verified 08/18/24 13:19 Products ziprasidone (From Geodon) AdvReac Unknown Verified 08/18/24 13:19 Assessment & Plan Assessment & Plan (1) Schizoaffective disorder: Status: Acute Code(s): F25.9 - Schizoaffective disorder, unspecified (2) PTSD (post-traumatic stress disorder): Status: Acute Code(s): F43.10 - Post-traumatic stress disorder, unspecified (3) Borderline personality disorder: Status: Acute Code(s): F60.3 - Borderline personality disorder (4) Opioid use disorder in remission: Status: Acute Code(s): F11.91 - Opioid use, unspecified, in remission (5) Cocaine use disorder in remission: Status: Acute Code(s): F14.91 - Cocaine use, unspecified, in remission Plan Patient is a 34 year old female with hx of Schizoaffective d/o, PTSD, borderline personality disorder, opioid use d/o and cocaine use d/o who presented to [facility] d/t suicidal ideation secondary to increased auditory hallucinations. Plan: CV 15 minute safety checks Continue home medications Increase Rexulti to 3mg PO daily obtain collateral encourage groups discharge planning 08/20: Active on unit. attending groups. Patient continues to report feeling depressed; pt stated, my voices are still telling me I'm going to of an aneurysm and that no one loves me . Pt reports she is doing my best to ignore the voices . denies SI/HI/VH. Continue current tx plan. 08/21: Active on unit. attending groups. signed 3 day notice up on 08/25/24. Patient reports she continues to feel anxious however she is no longer having auditory hallucinations. Pt stated , I'm not hearing voices and I'm not suicidal. I think the increase in medication is helping . denies SI/HI/VH/AH. Continue current tx plan. 08/22: Active on unit. attending groups. signed 3 day up on 08/25/24. Patient continues to feel anxious; pt stated, I don't know what is making me feel this way. But I'm feeling better than when I came in . denies SI/HI/VH/AH. focused on returning to her program on Sunday. Continue current tx plan. 08/23/24: Appeared to be sedated but visible on the unit in common area most of the morningy, poor ADLs, malodorous, unkempt hair. Encouraged to shower. She is receptive. Compliant with medication denies side effects, she is aware that she is discharged on Sunday that to her [facility]. She is aware of medication that I discontinued today: Hold on Haldol p.r.n.. Discontinue trazodone p.r.n.. Discontinue hydroxyzine. She is on high dose of methadone 165 mg daily. EKGs done today, slightly elevated on QTC , however not much change compared to the one hat done on prior to this admission. 08/24/24: Continue with current treatment plan, she is discharged tomorrow. No issue with sleep or appetite. Medication compliant. Poor ADLs. Appear to be sedated. Other than that no other safety concerns. Patient educated on: medication risk/benefits and therapeutic strategies Informed Consent: understands Reason for continued inpatient stay Substantial Risk for: med/psych decompensation Time Spent With Patient Time: Total time managing care of this patient today ____ minutes.
[2024-08-24 14:17] VITALS: BP 133/76; PULSE 85
[2024-08-24 20:00] VITALS: BP 136/85; PULSE 89; RESP 18; TEMP 36.8; O2SAT 95
[2024-08-25 08:00] VITALS: BP 156/99; PULSE 75; RESP 18; TEMP 36.8; O2SAT 96
[2024-08-25] MEDS: methADONE HCl 20 MG/2 ML ORAL.CONC 165 MG PO (08:03)
[2024-08-25 08:33] VITALS: BP 156/99; PULSE 75
[2024-08-25] MEDS: Fluticasone/Vilanterol 100/25 BLST.W.DEV 1 PUFF INHALE (08:37)
--- NOTE | 2024-08-25 09:09 | PM.PSYDC ---
DS: Providers Provider Date of Service: 08/25/24 Date of admission: 08/19/24 12:08 Date of discharge: 08/25/24 Primary care physician: Rubens Helms Admitting clinician: Kecia Rodriguez Attending physician on admission: Yon An Attending physician on discharge: Yon An Discharging clinician: Kecia Rodriguez DS: Diagnosis Discharge Diagnosis (1) Schizoaffective disorder: Status: Acute (2) PTSD (post-traumatic stress disorder): Status: Acute (3) Borderline personality disorder: Status: Acute (4) Opioid use disorder in remission: Status: Acute (5) Cocaine use disorder in remission: Status: Acute DS: Medications Discharge Medications Home Medications: Home Medications ?Medication ?Instructions ?Recorded ?Confirmed baclofen 15 mg tablet 15 mg PO TID 07/09/24 08/18/24 buspirone 15 mg tablet 15 mg PO TID 07/09/24 08/18/24 duloxetine 30 mg capsule,delayed 30 mg PO DAILY 07/09/24 08/18/24 release duloxetine 60 mg capsule,delayed 60 mg PO DAILY 07/09/24 08/18/24 release gabapentin 800 mg tablet 800 mg PO TID 07/09/24 08/18/24 lorazepam 1 mg tablet (Ativan) 1 mg PO BID PRN Anxiety 07/09/24 08/18/24 mirtazapine 45 mg tablet 45 mg PO BEDTIME 07/09/24 08/18/24 zolpidem 5 mg tablet (Ambien) 5 mg PO BEDTIME PRN Insomnia 07/09/24 08/18/24 haloperidol 10 mg tablet 10 mg PO DAILY PRN 08/16/24 08/18/24 anxiety/agitation epinephrine 0.3 mg/0.3 mL 0.3 mg IM NEEDED PRN Anaphylaxis 08/18/24 08/18/24 injection, auto-injector methadone 10 mg/mL oral 165 mg PO DAILY 08/19/24 08/19/24 concentrate (Methadone Intensol) Previous Rx's ?Medication ?Instructions ?Recorded propranolol 10 mg tablet 10 mg PO TID 30 days #90 tabs 07/18/22 haloperidol 10 mg tablet 10 mg PO TID #30 tabs 07/10/24 albuterol sulfate 90 mcg/actuation 2 puff inhalation RQ4H PRN 08/25/24 aerosol inhaler (Ventolin HFA) Shortness Of Breath 30 days #8.5 grams brexpiprazole 3 mg tablet 3 mg PO DAILY 30 days #30 tabs 08/25/24 fluticasone furoate 100 1 inh inhalation RDAILY 30 days 08/25/24 mcg-vilanterol 25 mcg/dose #60 ea inhalation powder (Breo Ellipta) Mental Status Exam Mental Status Exam Narrative: Pt is alert and oriented; behavior is cooperative and calm; dressed in casual attire; mood is described as good ; eye contact appropriate; Speech is normal rate, volume and not pressured; thought process is organized; Thought content is on tx/discharge; denies SI/HI/VH/AH. Data Data Completed and Pending Completed studies during hospitalization [Text1]: 08/18/24 08/18/24 08/20/24 13:58 16:54 07:30 WBC 13.1 H RBC 4.87 Hgb 14.4 Hct 42.0 MCV 86.2 MCH 29.6 MCHC 34.3 RDW 12.5 Plt Count 299 MPV 11.4 Immature Gran % (Auto) 0.3 Neut % (Auto) 54.9 Lymph % (Auto) 36.9 Cooke % (Auto) 6.1 Eos % (Auto) 1.0 Baso % (Auto) 0.8 Lymph # (Auto) 4.8 Cooke # (Auto) 0.8 Eos # (Auto) 0.1 Baso # (Auto) 0.1 Abs Immat Gran (auto) 0.04 H Absolute Neuts (auto) 7.2 Absolute Nucleated RBC 0.000 Nucleated RBC % (auto) 0.0 Sodium 140 140 Potassium 4.4 4.2 Chloride 106 103 Carbon Dioxide 23 29 Anion Gap 15 12 BUN 12 13 Creatinine 0.85 0.77 Estim Creat Clear Calc 125.6 139.8 Estimated GFR > 60 > 60 Random Glucose 107 87 Estimat Average Glucose 120 Hemoglobin A1c % 5.8 Calcium 10.0 D 9.5 Total Bilirubin 0.5 0.6 AST 51 H 34 H ALT 81 H 62 H Alkaline Phosphatase 151 H 134 H Total Protein 7.9 7.3 Albumin 4.8 4.5 Triglycerides 216 H Cholesterol 209 H LDL Cholesterol, Calc 132 H HDL Cholesterol 34 L Urine Color Dark Yellow Urine Appearance Clear Urine pH 5.5 Ur Specific Upperco >= 1.030 H Urine Protein Trace Urine Glucose (UA) Negative Urine Ketones Trace Urine Blood Negative Urine Nitrite Negative Ur Leukocyte Esterase Trace H Urine RBC 0-2 Urine WBC 0-5 Ur Squamous Epith Cells 6-10 Calcium Oxalate Crystal Present Urine Bacteria 1+ Hyaline Casts 0-2 Urine Test NEGATIVE Urine Opiates Screen Not Detected Ur Buprenorphine Scrn Not Detected Ur Oxycodone Screen Not Detected Urine Methadone Screen Positive H Urine Fentanyl Screen Not Detected Ur Barbiturates Screen Not Detected Ur Phencyclidine Scrn Not Detected Ur Amphetamines Screen Not Detected U Benzodiazepines Scrn Not Detected Urine Cocaine Screen Not Detected U Marijuana (THC) Screen Not Detected Ethyl Alcohol < 10 08/22/24 13:15 WBC RBC Hgb Hct MCV MCH MCHC RDW Plt Count MPV Immature Gran % (Auto) Neut % (Auto) Lymph % (Auto) Cooke % (Auto) Eos % (Auto) Baso % (Auto) Lymph # (Auto) Cooke # (Auto) Eos # (Auto) Baso # (Auto) Abs Immat Gran (auto) Absolute Neuts (auto) Absolute Nucleated RBC Nucleated RBC % (auto) Sodium Potassium Chloride Carbon Dioxide Anion Gap BUN Creatinine Estim Creat Clear Calc Estimated GFR Random Glucose Estimat Average Glucose Hemoglobin A1c % Calcium Total Bilirubin AST ALT Alkaline Phosphatase Total Protein Albumin Triglycerides Cholesterol LDL Cholesterol, Calc HDL Cholesterol Urine Color Yellow Urine Appearance Clear Urine pH 6.5 Ur Specific Upperco 1.020 Urine Protein Trace Urine Glucose (UA) Negative Urine Ketones Negative Urine Blood Negative Urine Nitrite Negative Ur Leukocyte Esterase Negative Urine RBC Urine WBC Ur Squamous Epith Cells Calcium Oxalate Crystal Urine Bacteria Hyaline Casts Urine Test Urine Opiates Screen Ur Buprenorphine Scrn Ur Oxycodone Screen Urine Methadone Screen Urine Fentanyl Screen Ur Barbiturates Screen Ur Phencyclidine Scrn Ur Amphetamines Screen U Benzodiazepines Scrn Urine Cocaine Screen U Marijuana (THC) Screen Ethyl Alcohol DS: Summary Hospital Course Hospital Course: Patient is a 34 year old female with hx of Schizoaffective d/o, PTSD, borderline personality disorder, opioid use d/o and cocaine use d/o who presented to [facility] ER d/t suicidal ideation secondary to increased auditory hallucinations. Per crisis report, patient was dropped off to ER by [facility] program staff due to suicidal ideation and command auditory hallucinations. Patient was recently attending [facility] from July 08, 2024 to July 15, 2024. Patient has a history of cocaine and heroin use. Patient reports she came to the ER because, I was hearing more voices and not feeling safe . Patient reports she grabbed a razor earlier today that she had previously broken with the intention of slitting her wrists but a staff member knocked on her door and she threw it in the trash. Patient's friend at the program recently graduated and this has made the pt increasingly overwhelmed. Patient is very anxious at baseline. Denies HI/VH. Patient has outpatient psychiatric providers through [facility]; She also receives [facility] services. During admission assessment, patient presents alert and oriented x3. Calm and cooperative. Patient reports feeling anxious and depressed; patient stated, the voices are making me suicidal. Haldol used to work. I don't feel like the Rexulti is doing anything I have been on it for weeks . Patient reports auditory hallucinations telling her to harm herself and that no one loves her . She reports suicidal ideation with no plan. Denies HI/VH. Patient believes precipitant to increase in AH is due to her best friend graduating from the program. Patient stated, my best friend graduated last week and my voices got worse. I don't have a lot of people that I trust and I trusted them. It increased my anxiety and voices . Discussed increasing Rexulti dose patient agreed to trial. Plan: CV 15 minute safety checks Continue home medications Increase Rexulti to 3mg PO daily obtain collateral encourage groups discharge planning Active on unit. attending groups. Patient continues to report feeling depressed; pt stated, my voices are still telling me I'm going to of an aneurysm and that no one loves me . Pt reports she is doing my best to ignore the voices . denies SI/HI/VH. Continue current tx plan. Active on unit. attending groups. signed 3 day notice up on 08/25/24. Patient reports she continues to feel anxious however she is no longer having auditory hallucinations. Pt stated , I'm not hearing voices and I'm not suicidal. I think the increase in medication is helping . denies SI/HI/VH/AH. Continue current tx plan. Active on unit. attending groups. signed 3 day up on 08/25/24. Patient continues to feel anxious; pt stated, I don't know what is making me feel this way. But I'm feeling better than when I came in . denies SI/HI/VH/AH. focused on returning to her program on Sunday. Continue current tx plan. Appeared to be sedated but visible on the unit in common area most of the morning, poor ADLs, malodorous, unkempt hair. Encouraged to shower. She is receptive. Compliant with medication denies side effects, she is aware that she is discharged on Sunday to her senior living. She is aware of medication that I discontinued today: Hold on Haldol p.r.n.. Discontinue trazodone p.r.n.. Discontinue hydroxyzine. She is on high dose of methadone 165 mg daily. EKGs done today, slightly elevated on QTC , however not much change compared to the one done on prior to this admission. Continue with current treatment plan, she is discharged tomorrow. No issue with sleep or appetite. Medication compliant. Poor ADLs. Appear to be sedated. Other than that no other safety concerns. Patient reports feeling ready to return to [facility] program. denies SI/HI/VH/AH. Patient reports she plans on following up with her outpatient providers. Status at Discharge Cognitive/behavioral status at discharge: Patient has insight and demonstrates good judgment in terms of wanting to pursue treatment. Patient has a safety plan that includes presenting to the closest ER or calling 911 if feeling unsafe. Functional status at discharge: independent ambulation Overall status at discharge: patient is back to baseline Time Spent with Patient Time attestation: Total time managing care of this patient today _20___ minutes. Time spent: Less than 30 minutes Discharge Plan Discharge Anticipated Discharge Date/Time: 08/25/24 10:00 Patient Disposition: Home, Self-Care Discharge Diagnosis: Schizoaffective d/o, PTSD, borderline personality d/o, opioid use d/o, cocaine use d/o Referrals: Anastasia Montoya (therapist) [Other] - 08/25/24 3:00 pm Referral Note: In person appointment Raeann Hernandez (Psychiatry) [Other] - 09/05/24 9:00 am Referral Note: in person appointment [facility] [Provider Group, Family Practice] - 08/29/24 11:30 am Referral Note: 08-21-24 Your follow up appt has been scheduled for 08-29-24 @ 11:30am with Lottie Hernandez. Fax Discharge Medications: New albuterol sulfate [Ventolin HFA] 90 mcg/actuation Hfa Aerosol Inhaler 2 puff inhalation RQ4H PRN (Reason: Shortness Of Breath) 30 Days Qty: 8.5 0RF fluticasone furoate-vilanterol [Breo Ellipta] 100-25 mcg/dose Blister With Device 1 inh inhalation RDAILY 30 Days Qty: 60 0RF brexpiprazole 3 mg tablet 3 mg PO DAILY 30 Days Qty: 30 0RF Continued propranolol 10 mg Tablet 10 mg PO TID 30 Days Qty: 90 0RF Protocol: Hold for SBP/HR < HOLD for SBP < : 90 HOLD for HR < : 60 zolpidem [Ambien] 5 mg Tablet 5 mg PO BEDTIME PRN (Reason: Insomnia) lorazepam [Ativan] 1 mg Tablet 1 mg PO BID PRN (Reason: Anxiety) baclofen 15 mg Tablet 15 mg PO TID buspirone 15 mg Tablet 15 mg PO TID duloxetine 60 mg Capsule,Delayed Release(Dr/Ec) 60 mg PO DAILY gabapentin 800 mg Tablet 800 mg PO TID duloxetine 30 mg Capsule,Delayed Release(Dr/Ec) 30 mg PO DAILY Rx Instructions: Take with 60 mg tab. Total dose 90 mg daily. mirtazapine 45 mg Tablet 45 mg PO BEDTIME haloperidol 10 mg tablet 10 mg PO TID Qty: 30 0RF haloperidol 10 mg tablet 10 mg PO DAILY PRN (Reason: anxiety/agitation) epinephrine 0.3 mg/0.3 mL auto-injector 0.3 mg IM NEEDED PRN (Reason: Anaphylaxis) methadone [Methadone Intensol] 10 mg/mL Concentrate 165 mg PO DAILY Discontinued brexpiprazole 1 mg tablet 1 mg PO BID Discharge Orders: Discharge Order (Routine); Ordered 08/25/24 Ordered By: Kecia Rodriguez Diet: Regular diet Activity on Discharge: As tolerated Stand Alone Forms: Patient Portal Discharge page, Community Support Print Language: Beninese Care Plan Goals: Maintain mood and safe behaviors Take medications as prescribed Continue to pursue sobriety Practice coping skills Continue with outpatient providers and reach out to them as needed Health Concerns: Mood stability and behaviors Sobriety Plan of Treatment: Follow up with your PCP, psychiatric provider and other outpatient providers regarding above concerns Take medications as prescribed Assessment: Patient has insight and demonstrates good judgment in terms of wanting to pursue treatment. Patient has a safety plan that includes presenting to the closest ER or calling 911 if feeling unsafe. Discharge Date/Time: 08/25/24 10:43
[2024-08-25] MEDS: Nicotine Polacrilex Lozenge 2 MG LOZENGE BUCCAL (09:52)
== END 2024-08-25 10:43 | disposition home or self-care (01) | DRG 885 ==
LOC: HO.ED 14:49 → HO.PADLT16 08-19 12:56
PROVIDERS: Nurse Practitioner Family; Admitting Provider Registered Nurse; Emergency Provider Emergency Medicine; Responsible Provider Registered Nurse; Visit Provider Psychiatry & Neurology Psychiatry
DX: F25.9 Schizoaffective disorder, unspecified (principal); F11.20 Opioid dependence, uncomplicated; F17.210 Nicotine dependence, cigarettes, uncomplicated; Z71.6 Tobacco abuse counseling; F60.3 Borderline personality disorder; F43.10 Post-traumatic stress disorder, unspecified; F14.91 Cocaine use, unspecified, in remission; Z79.899 Other long term (current) drug therapy
CPT/HCPCS: 36415; 80053; 80061; 80307; 81001; 81003; 81025; 83036; 85025; 93005; 99285; S9485

== ENCOUNTER → 2024-08-19 10:30 | Outpatient (BNV) | payer OTHER, SELFPAY | PROVIDERS: Admitting Provider Registered Nurse; Emergency Provider Emergency Medicine; Responsible Provider Registered Nurse; Visit Provider Internal Medicine Cardiovascular Disease | DX: I45.81 Long QT syndrome (principal) | CPT/HCPCS: 93010 ==

== ENCOUNTER 2024-08-19 12:08 | Outpatient (BNV) | payer OTHER, SELFPAY | END 2024-08-23 13:11 | PROVIDERS: Admitting Provider Registered Nurse; Emergency Provider Emergency Medicine; Responsible Provider Registered Nurse; Visit Provider Internal Medicine Cardiovascular Disease | DX: R07.9 Chest pain, unspecified (principal); I45.81 Long QT syndrome | CPT/HCPCS: 93010 ==

== ENCOUNTER → 2024-08-19 12:08 | Outpatient (BNV) | payer OTHER, SELFPAY | PROVIDERS: Admitting Provider Registered Nurse; Emergency Provider Emergency Medicine; Responsible Provider Registered Nurse; Visit Provider Registered Nurse | DX: F60.3 Borderline personality disorder (principal); F25.1 Schizoaffective disorder, depressive type; F43.11 Post-traumatic stress disorder, acute; F11.91 Opioid use, unspecified, in remission; F14.91 Cocaine use, unspecified, in remission | CPT/HCPCS: 99231; 99232 ==

== ENCOUNTER 2025-01-29 11:12 | Outpatient (REF) | payer OTHER, SELFPAY ==
--- OUTSIDE RECORDS SUMMARY | 2024-10-25 16:00 | XMS_ITS ---
Author Organization [facility] Address [address] [place] [address] Care Team Providers Care Wicker Molded Candles Name Role Phone ZZArcadonisve - DO NOT USE, Rose toni Primar y Care Provider Unavailable Rose Oneill Unavailable Migration, Provider Unavailable Unavailable Allergies Allergen (clinical drug ingredient) Drug/Non Drug Allergy documented on EMR Reaction Allergy Type Onset Date Status Wellbutrin Unknown Drug Allergy Active sertraline Zoloft Unknown Drug Allergy Active buprenorphine / naloxone Suboxone Unknown Drug Allergy Active ziprasidone Geodon Unknown Drug Allergy Activ e bee pollen Bee Pollen Unknown Drug Allergy Activ e SULFA (uncoded) Unknown Allergy Acti ve REASON FOR VISIT [facility] To [facility] Conversion Encounter Medications Medication SIG (Take, Route, Frequency, Duration) Notes Start Date End Date Status OXcarbazepine 300 MG 1 tab(s) orally 2 t imes a day Active Adapalene 0.1 % 1 kristy applied topica lly once a day (at bedtime) Active cloNIDine HCl 0.1 MG 1 tab(s) orally 3 t imes a day PRN Active Ventolin HFA 108 (90 Base) MCG/ACT 2 puff(s) inhaled every 6 hours Active Benzoyl Peroxide 5 % 1 kristy applied topic ally 2 times a day Active FLUoxetine HCl 20 MG 1 cap(s) orally onc e a day Active Gabapentin 100 MG 1 cap(s) orally 3 ti mes a day Active Encounters Encounter Location Date Provider Diagnosis [facility] [address] [place] [address] 10/25/2024 Provider Migration Plan Of Treatment No Information Progress Notes * Maria G JACOB:1990 ( 34 yo F)Acc No.[id number]:10/25/2024 Patient: Brenna LEWIS Provider: :1990 A ge:34 Y S ex:Female Date:10/25/2024 Address:[address] [place], [place] [id number] Pcp:Rose major - DO NOT USE Subjective: * Chief Complaints: * 1 . Multum To Medispan Conversion Encounter. * Medical History: * Medications: T aking Benzoyl Peroxide 5 % Gel 1 kristy applied topically 2 times a day , Taking Ventolin HFA 108 (90 Base) MCG/ACT Aerosol Solution 2 puff(s) inhaled every 6 hours , Taking Adapalene 0.1 % Gel 1 kristy applied topically once a day (at bedtime) , Taking OXcarbazepine 300 MG Tablet 1 tab(s) orally 2 times a day , Taking cloNIDine HCl 0.1 MG Tablet 1 tab(s) orally 3 times a day PRN , Taking Gabapentin 100 MG Capsule 1 cap(s) orally 3 times a day , Taking FLUoxetine HCl 20 MG Capsule 1 cap(s) orally once a day * Allergies: Z oloft, Wellbutrin, Geodon, SULFA, Suboxone, Bee Pollen. Objective: * Vitals: Assessment: Plan: * Treatment: * Images: Billing Information: * Visit Code: * Procedure Codes: * Electronic signature of Prov ider Migration on 01/29/2025 at 02:45 PM EST Sign off status: Pending * Provider: Date: 0 10/25/2024 Generated for Senthil hutton/Paz/Fylitting on: 04/01/2024 02:45 PM EST
--- NOTE | ~2025-01-29 | XR_ITS ---
EXAMINATION: XR CHEST 2 VIEWS HISTORY: RO6.02 COMPARISON: There are no prior studies available for comparison. FINDINGS: PA and lateral views of the chest are submitted. The lungs are expanded and clear. There is no pleural effusion, pneumothorax, or pulmonary vascular congestion. The heart is normal in size. The bones are intact. XR/XR chest 2V IMPRESSION: Normal examination of the chest. Electronically signed by: Leonel Chris MD 01/29/2025 11:30 AM RJ
--- OUTSIDE RECORDS SUMMARY | 2025-01-29 14:45 | XMS_ITS | Patient Health Record ---
Author Organization [facility] Address [address] [place] [address] Care Team Providers Care Psychiatrist Name Role Phone ZZArcadonisve - DO NOT USE, Rose toni Primar y Care Provider Unavailable Rose Oneill Unavailable Migration, Provider Unavailable Unavailable Allergies Allergen (clinical drug ingredient) Drug/Non Drug Allergy documented on EMR Reaction Allergy Type Onset Date Status sertraline Zoloft Unknown Drug Allergy Active buprenorphine / naloxone Suboxone Unknown Drug Allergy Active ziprasidone Geodon Unknown Drug Allergy Activ e bee pollen Bee Pollen Unknown Drug Allergy Activ e SULFA (uncoded) Unknown Allergy Acti ve Wellbutrin Unknown Drug Allergy Active Reason For Referral [...] orally 3 ti mes a day Active Immunizations Vaccine Route Administration Date Status [...] her nightmares Patient counseled on the margie tom of tobacco use and advised to quit: 07/14/2021 Problems Problem Type SNOMED Code ICD Code Onset Dates Problem Status W/U Status Risk Notes Problem Hypoglycaemia (876838750) Hypoglycaemia NOS (251.2) Active confirmed Problem Posttraumatic stress disorder (20553775) PTSD (Posttraumatic stress disorder) (NOS) (309.81) Active confirmed Problem Insomnia (680430541) Insomnia (780.52) Active confirmed Problem Nausea and vomiting (84880066) Nausea with vomiting (787.01) Active confirmed Problem Patient currently (91371617) Pregnacy state-incidental (V22.2) Active confirmed Problem Anemia during - baby not yet delivered (395509917) Anemia complicating , antepartum (648.23) Active confirmed Problem Bipolar disorder (57497864) BIPOLAR DISORDER NOS (296.80) Active confirmed Problem Asthma (063641026) ASTHMA NOS (493.90) Active confirmed Problem Attention deficit hyperactivity disorder (318820175) Attention deficit disorder with combined type hyperactivity (314.01) Active confirmed Problem Fatigue (06473227) Fatigue (780.79) Active confirmed Problem Rash (411689347) Rash (782.1) Active confirmed Encounters Encounter Location Date Provider Diagnosis [id number] [place] [address] 10/25/2024 Provider Migration Plan Of Treatment Pending Test Test Name Order Date Blood Sugar/finger stick 08/03/2008 Blood Sugar/finger stick 07/28/2008 Blood Sugar/finger stick 07/30/2008 Urine Test 10/28/2007 Urine Test 01/03/2008 Insurance Providers Payer Name Payer Address Payer Phone Subscriber Number Group Number Insured Name Patient Relationship to Insured Coverage Start Date Coverage End Date [facility] [address] [place] [phone] [id number] Brenna Jacob Self - patient is the insured 2 Medical (General) History Medical History History ICD Code asthma/Albuterol smoking,since 10yrold /03/20removed bipolar/PTSD/ADHD major depression Hx heroin use Migraines Pseudo seizures Insomnia Homelessness Hospitalization History Reason Date(Month/Year) [facility] psych (hx of psych hospitalizations ) 05/2021
== END 2025-01-29 11:13 | disposition home or self-care (01) ==
LOC: HO.XRAY 11:12
PROVIDERS: PCP Internal Medicine; Visit Provider Nurse Practitioner Family
DX: R06.02 Shortness of breath (principal)
CPT/HCPCS: 71046

== ENCOUNTER → 2025-01-29 11:25 | Outpatient (BNV) | payer OTHER, SELFPAY | PROVIDERS: PCP Internal Medicine; Visit Provider Radiology Diagnostic Radiology | DX: R06.02 Shortness of breath (principal) | CPT/HCPCS: 71046 ==